=== PATIENT | female | born 1965 | race Caucasian/White ===

== ENCOUNTER → 2022-06-26 11:20 | Outpatient (BNVA) | payer OTHER, SELFPAY | PROVIDERS: PCP Internal Medicine; Visit Provider Surgery Vascular Surgery | DX: Z95.828 Presence of other vascular implants and grafts (principal) | CPT/HCPCS: 99212 ==

== ENCOUNTER 2022-07-09 10:57 | Outpatient (REF) | payer OTHER, SELFPAY ==
[2022-07-09 14:23] LABS: Blood Urea Nitrogen 21 mg/dL (9-16); Estimated Glomerular Filt Rate > 60
== END 2022-07-09 10:58 | disposition home or self-care (01) ==
LOC: HO.HMGCLDS 10:57
PROVIDERS: PCP Internal Medicine; Visit Provider Surgery Vascular Surgery
DX: Z95.828 Presence of other vascular implants and grafts (principal)
CPT/HCPCS: 36415; 82565; 84520

== ENCOUNTER 2022-07-10 08:20 | Outpatient (REF) | payer OTHER, SELFPAY ==
--- NOTE | ~2022-07-10 | CT_ITS ---
EXAMINATION: CT ANGIOGRAM ABDOMEN AND PELVIS CLINICAL INFORMATION: Presence of vascular implant and grafts. COMPARISON: None TECHNIQUE: Multiple axial images were obtained through the abdomen and pelvis following the administration of 85 mL of Omnipaque 350 intravenous contrast. Images were reviewed on a dedicated 3-D workstation. This CT examination was performed using dose optimization techniques as appropriate, variously including the following: *Automated exposure control *Adjustment of mA and/or kV according to patient size (this includes techniques or standardized protocols for targeted exams where dose is matched to indication/reason for exam; i.e. extremities or head) *Use of iterative reconstruction technique Postprocessing including maximum intensity projections performed with contemporaneous radiologist supervision. DLP: 475 mGy-cm FINDINGS: VASCULAR: Aorta: The abdominal aorta has a smooth contour and is normal caliber. Celiac [place]: Widely patent. No plaque or narrowing. Superior Mesenteric Artery: Widely patent. No plaque or narrowing. Inferior Mesenteric Artery: Patent. Right Renal Artery: Single patent right renal artery. No plaque or narrowing. Left Renal Artery: Single patent left renal artery. No plaque or narrowing. Right Lower Extremity: The right common iliac artery, right internal iliac artery, right external iliac artery and right common femoral artery are widely patent. No plaque or narrowing. The right profunda femoral artery is patent. Left Lower Extremity: The left common iliac artery is patent without plaque or narrowing. The left internal iliac artery is patent. The enhancement is somewhat diminished. The left external iliac artery is patent without definite narrowing. There is no aneurysm. The left common femoral artery is patent. The left profunda femoral artery is patent. IVC: There is a vascular filter present which appears to be retrievable type. The tines appear evenly distributed. No surrounding hematoma. NON-VASCULAR: ABDOMEN/PELVIS: Liver, Gallbladder, and Biliary Tree: The liver contour is smooth. No suspicious focal lesion. Early phase examination. There is a lamellated 2.2 cm gallstone near the neck. No biliary dilation. Pancreas: Somewhat heterogeneous. No large mass. Spleen: Heterogeneous due to early phase enhancement. Adrenal Glands: Normal. Kidneys and Ureters: Irregular renal contours. No dilation of the urinary collecting system. No suspicious renal mass. The nephrograms are symmetric. Gastrointestinal Tract: The distal colon is decompressed and not well evaluated. There has been a bariatric procedure, likely a gastric sleeve procedure. There is a hiatal hernia. There are scattered areas of high attenuation within the small bowel lumen. Nonspecific. This could be ingested material but I cannot characterize these areas. No CT evidence of acute appendicitis. Abdominal Wall: Extensive calcifications in the gluteal soft tissues and amorphous stranding in the dorsal paraspinal subcutaneous tissues with scattered calcifications. No inguinal hernia demonstrated. Lymphovascular Structures and Fluid: No enlarged lymph nodes. No free intraperitoneal fluid. Bladder: The bladder is essentially empty. Habitus causes artifact limiting assessment. Pelvic Viscera: No suspicious mass. I suspect previous hysterectomy. Musculoskeletal: Limited assessment of the lumbosacral junction region. No suspicious focal lesion. Visualized Lower Chest: Scattered nonspecific lung base opacities. This could represent the sequelae from previous inflammatory process. Hiatal hernia. CT/CT angio abdomen pelvis IMPRESSION: No abdominal aortic aneurysm. Retrievable-type IVC filter appears intact. Cholelithiasis. Fleischner guidelines were followed.
[2022-07-10] MEDS: iohexoL 350 MG/ML 100 ML INFUS..BTL IV (09:13)
== END 2022-07-10 08:21 | disposition home or self-care (01) ==
LOC: HO.CT 08:20
PROVIDERS: PCP Internal Medicine; Visit Provider Surgery Vascular Surgery
DX: Z95.828 Presence of other vascular implants and grafts (principal)
CPT/HCPCS: 74174; Q9967

== ENCOUNTER 2022-11-07 10:36 | Outpatient (REF) | payer OTHER, SELFPAY ==
[2022-11-07 14:14] LABS: MANUAL DIFF FLAG NO
[2022-11-07 14:53] LABS: Basophils Absolute Auto 0.1 X10*3/uL (0.0-0.2); Basophils Percent Auto 1.1 % (0-2); Eosinophils Absolute Auto 0.2 X10*3/uL (0.0-0.4); Eosinophils Percent Auto 3.3 % (0-4); Hematocrit 38.8 % (37.0-47.0); Hemoglobin 12.4 g/dl (12.0-16.0); Imm Gran Abs Auto 0.02 X10*3/uL (0.00-0.03); Imm Gran Pct Auto 0.4 % (0.0-0.4); Lymphocytes Percent Auto 36.5 % (20-40); Mean Corpuscular Volume 93.7 fL (80.0-98.0); Mean Platelet Volume 9.9 fL (9.4-12.3); Monocytes Absolute Auto 0.4 X10*3/uL (0.1-1.2); Monocytes Percent Auto 7.2 % (2-11); Neutrophils Absolute Auto 2.8 x10*3/uL (2.0-8.3); Neutrophils Percent Auto 51.5 % (45-73); Platelet Count 263 X10*3/uL (160-400); Red Blood Count 4.14 X10*6/uL (4.20-5.50); Red Cell Distribution Width 13.2 % (11.0-16.0); White Blood Count 5.4 X10*3/uL (4.8-10.8)
[2022-11-07 15:37] LABS: Estimated Average Glucose 111 mg/dL; Hemoglobin A1c % 5.5 %
[2022-11-07 16:12] LABS: Folate 18.1 ng/mL (> or = 4.0); Vitamin B12 646 pg/mL (200-900)
[2022-11-11 15:13] LABS: Calcium (PTHI) 9.4 mg/dL (8.6-10.4); PTHI 69 pg/mL (16-77)
[2022-11-13 06:03] LABS: Zinc 81 mcg/dL (60-130)
[2022-11-13 12:49] LABS: Vitamin A 76 mcg/dL (38-98)
[2022-11-16 06:13] LABS: Vitamin B1 32 nmol/L (8-30)
== END 2022-11-07 10:37 | disposition home or self-care (01) ==
LOC: HO.LAB 10:36
PROVIDERS: PCP Internal Medicine; Visit Provider Physician Assistant Surgical
DX: E66.01 Morbid (severe) obesity due to excess calories (principal); Z98.84 Bariatric surgery status
CPT/HCPCS: 36415; 82607; 82746; 83036; 83970; 84425; 84590; 84630; 85025; 99212

== ENCOUNTER → 2022-11-13 14:45 | Outpatient (BNVA) | payer OTHER, SELFPAY | PROVIDERS: PCP Internal Medicine; Visit Provider Surgery Vascular Surgery | DX: Z86.711 Personal history of pulmonary embolism (principal); Z86.718 Personal history of other venous thrombosis and embolism; Z95.828 Presence of other vascular implants and grafts; Z79.01 Long term (current) use of anticoagulants | CPT/HCPCS: 99212 ==

== ENCOUNTER → 2022-11-26 17:00 | Outpatient (BNVA) | payer OTHER, SELFPAY | PROVIDERS: PCP Internal Medicine; Visit Provider Counselor Mental Health | DX: Z13.89 Encounter for screening for other disorder (principal) ==

== ENCOUNTER → 2022-12-05 12:58 | Outpatient (BNVA) | payer OTHER, SELFPAY | PROVIDERS: PCP Internal Medicine; Visit Provider Physician Assistant Surgical | DX: E66.01 Morbid (severe) obesity due to excess calories (principal); Z98.84 Bariatric surgery status; Z68.42 Body mass index [BMI] 45.0-49.9, adult | CPT/HCPCS: 99212 ==

== ENCOUNTER → 2022-12-17 17:00 | Outpatient (BNVA) | payer OTHER, SELFPAY | PROVIDERS: PCP Internal Medicine; Visit Provider Counselor Mental Health | DX: F43.21 Adjustment disorder with depressed mood (principal); Z98.84 Bariatric surgery status | CPT/HCPCS: 90853 ==

== ENCOUNTER → 2022-12-31 17:15 | Outpatient (BNVA) | payer OTHER, SELFPAY | PROVIDERS: PCP Internal Medicine; Visit Provider Counselor Mental Health | DX: F43.21 Adjustment disorder with depressed mood (principal); Z98.84 Bariatric surgery status | CPT/HCPCS: 90853 ==

== ENCOUNTER → 2023-01-07 17:00 | Outpatient (BNVA) | payer OTHER, SELFPAY | PROVIDERS: PCP Internal Medicine; Visit Provider Counselor Mental Health | DX: F43.21 Adjustment disorder with depressed mood (principal); Z98.84 Bariatric surgery status | CPT/HCPCS: 90853 ==

== ENCOUNTER → 2023-01-21 17:00 | Outpatient (BNVA) | payer OTHER, SELFPAY | PROVIDERS: PCP Internal Medicine; Visit Provider Counselor Mental Health | DX: F43.21 Adjustment disorder with depressed mood (principal); Z98.84 Bariatric surgery status | CPT/HCPCS: 90853 ==

== ENCOUNTER → 2023-02-04 17:00 | Outpatient (BNVA) | payer OTHER, SELFPAY | PROVIDERS: PCP Internal Medicine; Visit Provider Counselor Mental Health | DX: F43.21 Adjustment disorder with depressed mood (principal); Z98.84 Bariatric surgery status | CPT/HCPCS: 90853 ==

== ENCOUNTER → 2023-02-11 11:00 | Outpatient (BNVA) | payer OTHER, SELFPAY | PROVIDERS: PCP Internal Medicine; Visit Provider Physician Assistant Surgical | DX: E66.01 Morbid (severe) obesity due to excess calories (principal); Z98.84 Bariatric surgery status; Z68.42 Body mass index [BMI] 45.0-49.9, adult | CPT/HCPCS: 90853; 99212 ==

== ENCOUNTER → 2023-02-18 19:28 | Outpatient (BNVA) | payer OTHER, SELFPAY | PROVIDERS: PCP Internal Medicine; Visit Provider Counselor Mental Health | DX: F33.0 Major depressive disorder, recurrent, mild (principal); Z90.3 Acquired absence of stomach [part of]; Z98.84 Bariatric surgery status | CPT/HCPCS: 90853 ==

== ENCOUNTER → 2023-02-25 16:41 | Outpatient (BNVA) | payer OTHER, SELFPAY | PROVIDERS: PCP Internal Medicine; Visit Provider Counselor Mental Health | DX: F33.0 Major depressive disorder, recurrent, mild (principal); Z90.3 Acquired absence of stomach [part of] | CPT/HCPCS: 90853 ==

== ENCOUNTER 2023-02-26 08:59 | Outpatient (RCR) | payer OTHER, SELFPAY | END 2023-02-26 16:00 | disposition home or self-care (01) | LOC: HO.WCC 08:59 | PROVIDERS: PCP Internal Medicine; Visit Provider Surgery | DX: E11.42 Type 2 diabetes mellitus with diabetic polyneuropathy (principal); I10 Essential (primary) hypertension; Z92.3 Personal history of irradiation; Z86.19 Personal history of other infectious and parasitic diseases; Z87.891 Personal history of nicotine dependence | CPT/HCPCS: 99213 ==

== ENCOUNTER → 2023-03-02 13:02 | Outpatient (BNVA) | payer OTHER, SELFPAY | PROVIDERS: PCP Internal Medicine; Visit Provider Internal Medicine | DX: M86.9 Osteomyelitis, unspecified (principal) | CPT/HCPCS: 99212 ==

== ENCOUNTER → 2023-04-01 17:24 | Outpatient (BNVA) | payer OTHER, SELFPAY | PROVIDERS: PCP Internal Medicine; Visit Provider Counselor Mental Health ==

== ENCOUNTER 2023-05-12 10:35 | Outpatient (REF) | payer OTHER, SELFPAY ==
[2023-05-12 13:49] LABS: Alanine Aminotransferase 17 U/L (0-31); Albumin Level 4.2 g/dL (3.5-5.0); Alkaline Phosphatase 71 U/L (39-117); Anion Gap 16 (12-20); Aspartate Amino Transferase 20 U/L (5-31); Bilirubin Total 0.5 mg/dL (0.0-1.0); Blood Urea Nitrogen 24 mg/dL (9-16); C Reactive Protein 0.25 mg/dL (< or = 0.50); Calcium 9.5 mg/dL (8.4-10.2); Carbon Dioxide 24 mmol/L (22-29); Chloride 107 mmol/L (96-108); Estimated Glomerular Filt Rate > 60; Glucose Random 91 mg/dL (60-115); Iron 117 mcg/dL (30-160); Percent Iron Saturation 38 % (15-50); Potassium 4.5 mmol/L (3.3-5.1); Sodium 142 mmol/L (135-145); Total Iron Binding Capacity 304 mcg/dL (228-428); Total Protein 6.9 g/dL (6.5-8.0); Unsaturated Iron Binding 187 ug/dL
[2023-05-12 14:11] LABS: Ferritin 27 ng/mL (10-250); Insulin 15 uU/mL (2-29); TSH reflex Free T4 0.68 uIU/mL (0.32-4.0); Vitamin D 25-OH Total 51.7 ng/mL (>30)
== END 2023-05-12 10:36 | disposition home or self-care (01) ==
LOC: HO.LAB 10:35
PROVIDERS: PCP Internal Medicine; Visit Provider Physician Assistant Surgical
DX: E66.01 Morbid (severe) obesity due to excess calories (principal); K91.2 Postsurgical malabsorption, not elsewhere classified; Z90.3 Acquired absence of stomach [part of]
CPT/HCPCS: 36415; 80053; 82306; 82728; 83525; 83540; 84443; 86140; 99212

== ENCOUNTER 2023-09-15 11:45 | Outpatient (AMB) | payer OTHER, SELFPAY ==
--- NOTE | 2023-09-15 11:23 | A.OFFVIS_ITS ---
Intake Intake Visit Reasons: VIDEO PO LSG 09/14/19 Allergies dicloxacillin [DICLOXACILLIN] Allergy (Unknown, Verified 05/12/23 10:42) HIVES niacin [NIACIN] Allergy (Unknown, Verified 05/12/23 10:42) BODY FLUSHED UP , body flushed up Vjjdshu-MCE-SyK Reductase Inhibitor [[id number]-NRV REDUCTASE INHIBITOR] Allergy (Unknown, Verified 05/12/23 10:42) MUSCLE PAIN Sulfa (Sulfonamide Antibiotics) [SULFA (SULFONAMIDE ANTIBIOTICS)] Allergy (Unknown, Verified 05/12/23 10:42) HIVES statins Allergy (Unknown, Uncoded 06/26/22 11:26) Muscle pain sulfa drugs Allergy (Unknown, Uncoded 06/26/22 11:26) Hives Medication List - Last Reconciled 09/15/23 by TOYA Osman 5-hydroxytryptophan(5HTP)-B6-C 50-4-60 mg tabs PO acetaminophen (Tylenol Extra Strength) 1,000 mg PO Q6H PRN albuterol sulfate 90 mcg/actuation 0 mcg inhalation budesonide-formoterol 80-4.5 mcg/actuation (Symbicort) 1 puff inhalation calcium carbonate-vitamin D3 600 mg-10 mcg (400 unit) 1 tab PO BID [CELEBRATE-MULTIVITAMIN PO] citalopram 40 mg PO DAILY famotidine 20 mg PO BID gabapentin 0 mg PO [id number]-[id number] 750 mg-644 mg- 30 mg-1 mg 2 tabs PO DAILY loratadine 10 mg PO DAILY metoprolol tartrate 12.5 mg PO BID montelukast 10 mg PO DAILY tramadol 50 mg PO BID PRN warfarin 6 mg PO DAILY HPI HPI Comments History of Present Illness Details This?is a?57?yo female who is s/p LSG 09/14/2019. Presents for 4 year post op visit. Weight at last visit on 05/12/2023 was 290.8 pounds with a BMI of 46.9. Pt is unsure of weight today, says her scale broke.? No complaints of nausea, emesis, abdominal pain or reflux, or constipation. Pt reports a lot of stress recently, I've got a lot on my mind. Injections for knee pain have not been as effective, says she needs to lose 40 more pounds to be considered for knee surgery. Car is out of commission. Sees a counselor weekly. She again shares that she buys snacks for her grandkids and has trouble avoiding those when they are in her house, but trying to have smaller portions. Present meal plan includes: Breakfast- Slimfast shake plus a piece of fruit Lunch- 2 HB eggs, can add up to 6 oz veg or salad plus 1tbsp salad toppings Dinner- 4oz protein, up to 4oz veg or salad Snack- nonfat [place] yogurt- if plain can add seasonings and veg, if fruit flavored can have berries; or will have a protein bar at night taking MVI but has some nausea continues to use mom's meals but has trouble avoiding the carbs Exercise routine includes: has kids punching bag, had recommended Sit and Be Fit; has foot pain mows her lawn twice a week [facility] Medical History Adjustment disorder with depressed mood Diabetes mellitus Osteomyelitis Pulmonary embolus Surgical History History of sleeve gastrectomy Hx of shoulder surgery Social History Alcohol intake: never Patient Tobacco Use Status: Never used Tobacco Assessment & Plan Assessment & Plan (1) History of sleeve gastrectomy: [place] [place](s): Z90.3 - Acquired absence of stomach [part of] (2) Morbid obesity: Code(s): E66.01 - Morbid (severe) obesity due to excess calories Plan Encouraged pt to avoid carbs in her mom's meals , eat only protein and veg portion. Suggested unflavored Isopure powder as she wants to move away from artificial sweeteners. She wants to lose 30 lbs this month; I cautioned her against setting such a goal and advised to aim for 10-12lbs between now and her 58th birthday next month. We again talked about how eating high carb snack foods may feel good in the moment but half-way are contributing to her worsening knee pain and not helping her mental or physical health. RTC 3-4 months. Patient is morbidly obese and is not considered stable at this time. I spent a total of 30 minutes reviewing/updating records, examining the patient and counseling the patient on weight management as detailed above. Telehealth Telehealth Location of provider rendering services: practice address Location of patient: address on file Patient Identification confirmed using: Name, : Yes Telehealth method: video Patient verbally consented to treatment: Yes Patient verbally consented to billing insurance company: Yes Patient informed of any privacy concerns related to visit: Yes Coding Level of Care Code Tele Est Pt Level 4 (84081) Diagnoses History of sleeve gastrectomy Z90.3 Morbid obesity E66.01
--- OUTSIDE RECORDS SUMMARY | 2023-09-15 11:47 | XMS_ITS | Continuity of Care Document ---
Author Name Unknown Organization Wound Care Address [address] [place] [id number]- Care Team Providers Care Improvement Analyst Name Role Phone Beatrice DEAN ([facility]), Antonia Richardson Primary Care ysician Encounter [facility] [place] Date(s): 01/04/20 - 01/14/20 Wound [address] [place] [id number] [facility] Attending Physician: Fransisco Tamez Admitting Physician: Fransisco Tamez Referring Physician: AdmtrFransisco Allergies, Adverse Reactions, Alerts Substance Reaction Severity Status dicloxacillin 1, 2 D - Diarrhea Active niacin skin turns red Active sulfa drugs hives Active statins muscle pain Active 1Patient prevously thought was rash but says today ot. Tolerated PCN, Amoxicillin 2RASH Immunizations Given and Recorded Vaccine Date Status Refusal Reason influenza virus vaccine, inactivated 01/05/20 Give n influenza virus vaccine, inactivated 09/03/18 Brett rded influenza virus vaccine, inactivated 01/12/18 Give n influenza virus vaccine, inactivated 08/03/16 Brett rded Adacel (Tdap) (oldterm) 10/06/14 Recorded Pneumococcal Poly (PPV23) (oldterm) 04/09/12 Recor ded tetanus/diphtheria/pertussis, acel(Tdap) 05/17/08 Recorded Not Given Vaccine Date Status Refusal Reason influenza virus vaccine, inactivated 08/11/17 Not Given Parent Or Guardian Refuses Medications Accu-Chek Ana Maria Plus Test Strips See Instructions, # 2 box, Refills 2, Tot. Refills 2, Maintenance, test strip test 3times a day, 03/25/19 12:57:00 EDT, Compound Start Date: 03/25/19 Status: Ordered Accu-Chek Ana Maria Plus Test Strips See Instructions, # 1 box, Refills 2, Tot. Refills 2, Maintenance, Use to check glucose once daily Dx:E11.9, 03/17/19 12:47:58 EDT, Compound Start Date: 03/17/19 Status: Ordered albuterol CFC free 90 mcg/inh inhalation aerosol See Instructions, # 36 Gm, Refills 1 Tot. Refills 1, INHALE 1 PUFF EVERY 6 HOURS NEEDED FOR WHEEZING, [facility] Start Date: 05/11/19 Status: Ordered Celebrate vitamins 1, By Mouth, Daily in AM, Maintenance, 01/06/20 13:52:00 EST, Celebrate vitamins Start Date: 01/06/20 Status: Ordered citalopram 40 mg oral tablet 40 mg, 1, tablet, By Mouth, Daily, # 90 tablet, Refills 1, Tot. Refills 1, Maintenance, 06/10/19 17:40:00 EDT, Route to Pharmacy Electronically, [id number], [facility] Start Date: 06/10/19 Stop Date: 12/07/19 Status: Ordered Gauze Pad (4 X 4) See Instructions, # 20 each, Maintenance, to wrap R 2nd toe, 01/06/20 14:06:00 EST, Compound, 168, cm, 01/06/20 7:40:00 EST, Height, 137, kg, 01/04/20 17:58:00 EST, Dry Weight Start Date: 01/06/20 Status: Ordered Gauze Roll (4 ) See Instructions, # 20 each, Maintenance, to wrap R 2nd toe, 01/06/20 14:07:00 EST, Compound, 168, cm, 01/06/20 7:40:00 EST, Height, 137, kg, 01/04/20 17:58:00 EST, Dry Weight Start Date: 01/06/20 Status: Ordered Metoprolol Tartrate 25 mg oral tablet See Instructions, TAKE 0.5 TABLET BY MOUTH TWICE A DAY, # 30 tablet, 1 Refills, Soft Stop, 12/03/2019:27:00 EST, [facility], 167, cm, 09/16/19 10:05:00 EDT, Height, 158.3, kg, 08/18/19 10:50:00 EDT, Dry Weight Start Date: 12/03/19 Status: Ordered montelukast 10 mg oral tablet See Instructions, # 90 tablet, Refills 1 Tot. Refills 1, TAKE 1 TABLET EVERY DAY, [facility] Start Date: 06/16/19 Status: Ordered omeprazole 20 mg oral delayed release tablet 1 tablet = 20 mg, By Mouth, Daily, # 90 tablet, 5 Refills, Maintenance, 06/10/19 17:40:00 EDT, EC Tablet Start Date: 06/10/19 Status: Ordered Symbicort 80mcg/4.5mcg Inhaler See Instructions, # 3 Unknown, INHALE 2 PUFFS TWICE DAILY, [facility] Start Date: 07/14/19 Status: Ordered Tape (1 -Paper) See Instructions, # 1 each, Maintenance, to wrap R 2nd toe, 01/06/20 14:07:00 EST, Compound, 168, cm, 01/06/20 7:40:00 EST, Height, 137, kg, 01/04/20 17:58:00 EST, Dry Weight Start Date: 01/06/20 Status: Ordered traMADol 50 mg oral tablet 1 tablet = 50 mg, By Mouth, 3 times a day, 0 Refills, Maintenance, 01/04/20 18:24:00 EST Start Date: 01/04/20 Status: Ordered warfarin 6 mg oral tablet See Instructions, TAKE 1 TABLET EVERY DAY, # 90 tablet, 6 Refills, Soft Stop, 06/10/19 17:40:00 EDT Start Date: 06/10/19 Status: Ordered Problem List Condition Effective Dates Status Health Status Inform ant Arthritis(Confirmed) Active Asthma(Confirmed) Active Depression(Confirmed) Active Thickened endometrium(Confirmed) Active Limitation due to disability(Confirmed) 1 Active GERD (gastroesophageal reflu x disease)(Confirmed) Active GERD (gastroesophageal reflu x disease)(Confirmed) Active Anticoagulated on warfarin(Confirmed) Active H/O sciatica(Confirmed) Active History of surgery(Confirmed) 2 Active Hyperlipidemia(Confirmed) Active Hypertension(Confirmed) Active Chronic knee pain(Confirmed) Active Lower back pain(Confirmed) Active Endometrial cancer, grade I(Confirmed) Active Morbid obesity with BMI of 6 0.0-69.9, adult(Confirmed) Active BMI 60.0-69.9, adult(Confirmed) Active Neck pain(Confirmed) Active LETHA on CPAP(Confirmed) Active Recurrent pulmonary embolism(Confirmed) Active Shoulder pain(Confirmed) Active 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 PROCEDURE: Total laparoscopic hysterectomy, bilateral salpingo-oophorectomy, left pelvic lymph nodedissection via da Masood. Cystoscopy FINDINGS: A 8-week uterus, grossly normal adnexa, grossly normal pelvic lymph nodes. Normal bladderarchitecture, bilateral ureteral jets. SURGEON: Ching Melgoza M.D. Social History Social History Type Response Smoking Status Former smoker; Tobac co user in household: No; Stopped at age: 41; entered on: 03/25/18 Sex
--- OUTSIDE RECORDS SUMMARY | 2023-09-15 11:47 | XMS_ITS | Continuity of Care Document ---
Author Name Unknown Organization [facility] As [address] [place] [address]- Care Team Providers Care Fitter'S Assistant Name Role Phone Beatrice DEAN ([facility] [place]), Antonia Richardson Primary Care Ph ysician [place] [facility] [place]): [place] - 11/02/[address] [place] [address]- Attending Physician: AdmFransisco miles Admitting Physician: AdmtrFransisco Referring Physician: Admtr, Ar8 Allergies, Adverse Reactions, Alerts Substance Reaction Severity Status dicloxacillin 1, 2 D - Diarrhea Active niacin skin turns red Active sulfa drugs hives Active statins muscle pain Active 1Patient prevously thought was rash but says today ot. Tolerated PCN, Amoxicillin 2RASH Immunizations Given and Recorded Vaccine Date Status Refusal Reason SARS-CoV-2 (COVID-19) mRNA-1273 vaccine 03/28/22 G iven SARS-CoV-2 (COVID-19) mRNA-1273 vaccine 05/11/21 R ecorded SARS-CoV-2 (COVID-19) mRNA-1273 vaccine 04/13/21 R ecorded influenza virus vaccine, inactivated 01/05/20 Give n influenza virus vaccine, inactivated 09/03/18 Brett rded influenza virus vaccine, inactivated 01/12/18 Give n influenza virus vaccine, inactivated 08/03/16 Brett rded influenza virus vaccine, inactivated 07/14/16 Brett rded influenza virus vaccine, inactivated 11/10/13 Brett rded influenza virus vaccine, inactivated 12/09/12 Brett rded Adacel (Tdap) (oldterm) 10/06/14 Recorded Pneumococcal Poly (PPV23) (oldterm) 04/09/12 Recor ded tetanus/diphtheria/pertussis, acel(Tdap) 05/17/08 Recorded Not Given Vaccine Date Status Refusal Reason influenza virus vaccine, inactivated 08/11/17 Not Given Parent Or Guardian Refuses Medications 5-Hydroxytryptophan = 200 mg, By Mouth, 2 times a day, 0 Refills, Maintenance, 08/26/22 11:41:00 EDT, Partial fill uponpatient request if the prescription is for a schedule II opioid drug. Start Date: 08/26/22 Status: Ordered albuterol CFC free 90 mcg/inh inhalation aerosol 1, puffs, Inhalation, Every 6 hours, PRN, OV 06-25-22, # 8 Gm, Refills 3, Tot. Refills 3, Soft Stop,05/06/22 9:49:00 EDT, Route to Pharmacy Electronically, [id number], [facility]/pharmacy #1230, 169, cm, 04/10/22 14:11:00 EDT, Giles... Start Date: 05/06/22 Stop Date: 09/03/22 Status: Ordered calcium-vitamin D 600 mg-400 intl units oral tablet 1 tablet, By Mouth, 2 times a day, # 180 tablet, 1 Refills, [facility] STORE 41250, 90, TAKE 1 TABLET BY MOUTH TWICE DAILY, 168, cm, 01/17/22 8:53:00 EST, Height, 135, kg, 09/16/21 15:58:00 EDT, Dry Weight Start Date: 01/23/22 Status: Ordered Celebrate vitamins 1, By Mouth, Daily, Maintenance, afternoon, 01/06/20 13:52:00 EST, Celebrate vitamins Start Date: 01/06/20 Status: Ordered Chondroitin-Glucosamine 1 capsule, By Mouth, Daily, 0 Refills, Maintenance, 08/26/22 11:14:00 EDT, Partial fill upon patient request if the prescription is for a schedule II opioid drug. Start Date: 08/26/22 Status: Ordered citalopram 40 mg oral tablet 40 mg, 1, tablet, By Mouth, Daily, # 90 tablet, Refills 2, Tot. Refills 2, Maintenance, 07/23/22 13:29:00 EDT, Route to Pharmacy Electronically, [facility]/pharmacy #0315, 169, cm, 04/10/22 14:11:00 EDT, Height, 129, kg, 02/21/22 9:37:00 EDT, Dry Weight Start Date: 07/23/22 Stop Date: 04/19/23 Status: Ordered Diabetic Shoes Diabetic Shoes, See Instructions, # 1 pair, Refills 0, Tot. Refills 0, Maintenance, Use for footwear Diabetic shoes and inserts DxE11.9, 07/19/19 13:28:40 EDT, Compound Start Date: 07/19/19 Status: Ordered famotidine 20 mg oral tablet 1, tablet, By Mouth, 2 times a day, # 180 tablet, Refills 0, Tot. Refills 0, 10/27/22 12:15:00 EST,Route to Pharmacy Electronically, [facility]/pharmacy #1230, 167.64, cm, 10/06/22 9:14:00 EST, Height, 134.2, kg, 10/06/22 9:14:00 EST, Dry Weight Start Date: 10/27/22 Status: Ordered Freestyle Lite Lancets See Instructions, # 50 each, Refills 0, Tot. Refills 0, Maintenance, DX: E11.49 to test blood sugaronce a day, 05/27/21 8:04:00 EDT, Supply, 167.64, cm, 04/23/21 9:50:00 EDT, Height, 134, kg, 02/25/21 7:02:00 EDT, Dry Weight Start Date: 05/27/21 Status: Ordered Freestyle Lite Monitor See Instructions, # 1 each, Refills 0, Tot. Refills 0, Maintenance, DX: E11.49 to test one a day, 05/27/21 8:04:00 EDT, Supply, 167.64, cm, 04/23/21 9:50:00 EDT, Height, 134, kg, 02/25/21 7:02:00 EDT, Dry Weight Start Date: 05/27/21 Status: Ordered FREESTYLE LITE TEST STRIP FREESTYLE LITE TEST STRIP, See Instructions, # 50 Unknown, 3 Refills, USE DAILY, 168, cm, 09/16/21 15:58:00 EDT, Height, 135, kg, 09/16/21 15:58:00 EDT, Dry Weight Start Date: 11/14/21 Status: Ordered Freestyle Test Strips See Instructions, # 50 each, Refills 3, Tot. Refills 3, Maintenance, DX: E11.49 to test blood sugaronce a day, 05/24/21 16:44:00 EDT, Supply, 167.64, cm, 04/23/21 9:50:00 EDT, Height, 134, kg, 02/25/21 7:02:00 EDT, Dry Weight Start Date: 05/24/21 Status: Ordered gabapentin 300 mg oral capsule See Instructions, TAKE 1 CAP IN THE AM, 1 CAP AT NOON AND 3 CAPS AT BEDTIME, # 450 capsule, Refills0, Tot. Refills 0, 10/28/22 16:35:00 EST, Instructions Replace Required Details, Route to Pharmacy Electronically, [facility]/pharmacy #1230, 167.64, cm, 0... Start Date: 10/28/22 Status: Ordered loratadine 10 mg oral capsule 1 capsule = 10 mg, By Mouth, Daily, # 30 capsule, 0 Refills, Maintenance, 06/04/17 8:06:21, Capsule Start Date: 06/04/17 Stop Date: 07/04/17 Status: Ordered Metoprolol Tartrate 25 mg oral tablet 0.5 tablet, By Mouth, 2 times a day, # 90 tablet, 1 Refills, Maintenance, 10/07/22 14:35:00 EST, [facility] STORE 20582, 167.64, cm, 10/06/22 9:14:00 EST, Height, 134.2, kg, 10/06/22 9:14:00 EST, Dry Weight Start Date: 10/07/22 Status: Ordered montelukast 10 mg oral tablet 1, tablet, By Mouth, Daily, # 90 tablet, Refills 1, Maintenance, 07/25/22 21:44:00 EDT, Route to Pharmacy Electronically, [facility] STORE 69978, 169, cm, 04/10/22 14:11:00 EDT, Height, 129, kg, 02/21/22 9:37:00 EDT, Dry Weight Start Date: 07/25/22 Status: Ordered One 4 pronged Cane One 4 pronged Cane, See Instructions, # 1 each, Refills 0, Tot. Refills 0, Maintenance, [facility] 168CM Wt 211.5 KG. DX Z91.81, 08/01/20 10:28:00 EDT, Supply Start Date: 08/01/20 Status: Ordered Symbicort 80mcg/4.5mcg Inhaler See Instructions, INHALE 1 PUFF 1- 2 TIMES A DAY, # 10.2 each, Refills 5, Maintenance, 08/08/22 12:57:00 EDT, Instructions Replace Required Details, Route to Pharmacy Electronically, [id number], [facility], 168, cm, ... Start Date: 08/08/22 Status: Ordered traMADol 50 mg oral tablet 1 tablet = 50 mg, By Mouth, 3 times a day, PRN Pain , Moderate, 0 Refills, Maintenance, 01/04/20 18:24:00 EST Start Date: 01/04/20 Status: Ordered Tylenol Extra Strength 500 mg oral tablet 2, By Mouth, 3 times a day, PRN Pain , Mild, # 24 tablet, 0 Refills, Maintenance, 09/19/20 9:52:00 EDT, Tablet Start Date: 09/19/20 Status: Ordered warfarin 6 mg oral tablet See Instructions, TAKE 1 TABLET EVERY DAY OR DIRECTED BY ANTICOAGULATION NURSE, # 90 tablet, 6 Refills, Soft Stop, 06/11/22 9:38:00 EDT, [facility]/pharmacy #1230, 169, cm, 04/10/22 14:11:00 EDT, Height,129, kg, 02/21/22 9:37:00 EDT, Dry Weight Start Date: 06/11/22 Status: Ordered Problem List Condition Confirmation Course Effective Dates Status H ealth Status Informant Arthritis Confirmed Active Asthma Confirmed Active Symptomatic cholelithiasis Confirmed Active Morbid obesity with BMI of 45.0-49.9, adult Confirmed Active Depression Confirmed Active Thickened endometrium Confirmed Active Limitation due to disability 1 Confirmed Active GERD (gastroesophageal reflux disease) Confirmed Active GERD (gastroesophageal reflux disease) Confirmed Active Anticoagulated on warfarin Confirmed Active H/O sciatica Confirmed Active History of surgery 2 Confirmed Active Hammertoe Confirmed Active Hyperlipidemia Confirmed Active Hypertension Confirmed Active Chronic knee pain Confirmed Active Lower back pain Confirmed Active Endometrial cancer, grade I Confirmed Active Morbid obesity with BMI of 60.0-69.9, adult Confirmed Active BMI 60.0-69.9, adult Confirmed Active Morbid obesity Confirmed Active Neck pain Confirmed Active LETHA on CPAP Confirmed Active Osteopenia Confirmed Active Recurrent pulmonary embolism Confirmed Active Severe obesity Confirmed Active Shoulder pain Confirmed Active Persistent moderate somatic symptom disorder with predominant pain Confirmed Active Type 2 diabetes mellitus Confirmed Active 1initial Oswestry Disability Index: 64% ( crippled ) on 12/01/17; initial [place] Back Pain Scale: 68 on 12/01/17; initial [place]: 7 on 12/01/17 2PROCEDURE DATE: 08/10/2017 PREOPERATIVE [...] at age: 41; entered on: 03/25/18 Sex Patient Care team information Care Team Personnel Name: Beatrice DEAN ([facility] [place]), Antonia Richardson Position: [facility] Primary Care Physician Member Role: PCP Address: Address: [address] [place] [address] [place] [address]- Name: Natalya Phillip PharmD Position: [facility] Associate Professional Member Role: Lifetime Consulting Provider Address: Address: [address] [place] [address] [place] [address]- [place] Name: Smiley Blair Position: [facility] Outreach Member Role: Lifetime Consulting Physician Name: Marcin Peacock Position: [facility] Outreach Member Role: Lifetime Consulting Physician Name: Nancy Valenzuela RN Position: [facility] Onco RN Member Role: Primary Care Nurse Care Team Related Persons Name: EBONY DUENAS Address: home [address] [place] [address] Name: AMPARO DUENAS Address: home [address] [place] [id number] Name: EBONY WASHBURN Address: [address] [place] [id number]
--- OUTSIDE RECORDS SUMMARY | 2023-09-15 11:47 | XMS_ITS | Continuity of Care Document ---
Author Name Unknown Organization [facility] Address [address] [place] [address]- Care Team Providers Care Trouble Dispatcher Name Role Phone Beatrice DEAN ([facility] [place]), Antonia Richardson Primary Care Ph ysician Encounter [facility] Date(s): 01/15/22 - 02/14/22 [facility] [address] [address] [place] [address]- Allergies, Adverse Reactions, Alerts Substance Reaction Severity Status statins muscle pain Active dicloxacillin 1, 2 D - Diarrhea Active niacin skin turns red Active sulfa drugs hives Active 1Patient prevously thought was rash but says today ot. Tolerated PCN, Amoxicillin 2RASH Immunizations Given and Recorded Vaccine Date Status Refusal Reason SARS-CoV-2 (COVID-19) mRNA-1273 vaccine 05/11/21 R ecorded [...] Not Given Parent Or Guardian Refuses Medications 5-HTP 100 mg oral capsule 1 capsule = 100 mg, By Mouth, 3 times a day, 0 Refills, Maintenance, 09/19/20 9:56:00 EDT Start Date: 09/19/20 Status: Ordered Celebrate vitamins 1, By Mouth, Daily in AM, Maintenance, 01/06/20 13:52:00 EST, Celebrate vitamins Start Date: 01/06/20 Status: Ordered citalopram 40 mg oral tablet 40 mg, 1, tablet, By Mouth, Daily, # 90 tablet, Refills 2, Tot. Refills 2, Maintenance, 03/19/20 13:36:00 EDT, Route to Pharmacy Electronically, [facility]/pharmacy #0315, 167.64, cm, 02/01/20 15:51:00 EST,Height, 135.6, kg, 02/01/20 15:51:00 EST, Dry Weight Start Date: 03/19/20 Stop Date: 12/14/20 Status: Ordered Symbicort 80mcg/4.5mcg Inhaler See Instructions, 1 puff Inhalation 1- 2 times a day, Refills 0, Maintenance, 09/19/20 9:51:00 EDT,Instructions Replace Required Details Aerosol Start Date: 09/19/20 Status: Ordered traMADol 50 mg oral tablet 1 tablet = 50 mg, By Mouth, 3 times a day, PRN Pain , Moderate, 0 Refills, Maintenance, 01/04/20 18:24:00 EST Start Date: 01/04/20 Status: Ordered Tylenol Extra Strength 500 mg oral tablet 2, By Mouth, 3 times a day, PRN as needed for fever, # 24 tablet, 0 Refills, Maintenance, 09/19/20 9:52:00 EDT, Tablet Start Date: 09/19/20 Status: Ordered Problem List Condition Effective Dates Status Health Status Inform ant Arthritis(Confirmed) Active Asthma(Confirmed) Active Depression(Confirmed) Active Thickened endometrium(Confirmed) Active Limitation due to disability(Confirmed) 1 Active GERD (gastroesophageal reflu x disease)(Confirmed) Active GERD (gastroesophageal reflu x disease)(Confirmed) Active Anticoagulated on warfarin(Confirmed) Active H/O sciatica(Confirmed) Active History of surgery(Confirmed) 2 Active Hammertoe(Confirmed) Active Hyperlipidemia(Confirmed) Active Hypertension(Confirmed) Active Chronic knee pain(Confirmed) Active Lower back pain(Confirmed) Active Endometrial cancer, grade I(Confirmed) Active Morbid obesity with BMI of 6 0.0-69.9, adult(Confirmed) Active BMI 60.0-69.9, adult(Confirmed) Active Morbid obesity(Confirmed) Active Neck pain(Confirmed) Active LETHA on CPAP(Confirmed) Active Osteopenia(Confirmed) Active Recurrent pulmonary embolism(Confirmed) Active Severe obesity(Confirmed) Active Shoulder pain(Confirmed) Active 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
--- OUTSIDE RECORDS SUMMARY | 2023-09-15 11:47 | XMS_ITS | Continuity of Care Document ---
Author Name Unknown Organization [facility] Primary [facility] Address [address] [place] [address]- Care Team Providers Care Regulator Inspector Name Role Phone Beatrice DEAN ([facility]), Antonia Richardson Primary Care Ph ysician Encounter [facility] Date(s): 03/13/21 - 04/12/21 [facility] Care [address] [address] [place] [address]- Allergies, Adverse Reactions, Alerts Substance Reaction Severity [...] 9:56:00 EDT Start Date: 09/19/20 Status: Ordered Abilify 5 mg oral tablet 5 mg, 1, tablet, By Mouth, Daily, Refills 0, Maintenance, 07/16/20 20:48:00 EDT Start Date: 07/16/20 Status: Ordered albuterol CFC free 90 mcg/inh inhalation aerosol See Instructions, # 36 Gm, Refills 1 Tot. Refills 1, INHALE 1 PUFF EVERY 6 HOURS NEEDED FOR WHEEZING, [facility] Start Date: 05/11/19 Status: Ordered Celebrate vitamins 1, By Mouth, Daily in AM, Maintenance, 01/06/20 13:52:00 EST, Celebrate vitamins Start Date: 01/06/20 Status: Ordered citalopram 40 mg oral tablet 40 mg, 1, tablet, By Mouth, Daily, # 90 tablet, Refills 2, Tot. Refills 2, Maintenance, 03/19/20 13:36:00 EDT, Route to Pharmacy Electronically, [facility]/pharmacy #0315, 167.64, cm, 02/01/20 15:51:00 EST,Height, 135.6, [...] # 90 tablet, 6 Refills, Soft Stop, 03/19/20 13:23:00 EDT, 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
--- OUTSIDE RECORDS SUMMARY | 2023-09-15 11:47 | XMS_ITS | Continuity of Care Document ---
Author Name Unknown Organization [facility] Address [address] [place] [address]- Care Team Providers Care Information Technology Coordinator Name Role Phone Beatrice DEAN ([facility])Antonia Primary Care Ph ysician Encounter [facility] Date(s): 07/31/22 - 11/28/22 [facility] [address] [place] [address]- Attending Physician: Beatrice DEAN ([facility])Antonia Allergies, Adverse Reactions, Alerts Substance Reaction Severity [...] Stop,05/06/22 9:49:00 EDT, Route to Pharmacy Electronically, [id number], [facility]/pharmacy #1230, 169, cm, 04/10/22 14:11:00 EDT, Giles... Start Date: 05/06/22 Stop Date: 09/03/22 Status: Ordered calcium-vitamin D 600 mg-400 intl units oral tablet 1 tablet, By Mouth, 2 times a day, # 180 tablet, 1 Refills, [facility] STORE 85593, 90, TAKE 1 TABLET BY MOUTH TWICE [...] 07/23/22 13:29:00 EDT, Route to Pharmacy Electronically, [facility]/pharmacy #0315, 169, cm, 04/10/22 14:11:00 EDT, Height, [...] 0, 10/27/22 12:15:00 EST,Route to Pharmacy Electronically, [facility]/pharmacy #1230, 167.64, cm, 10/06/22 9:14:00 EST, Height, [...] Replace Required Details, Route to Pharmacy Electronically, [facility]/pharmacy #1230, 167.64, cm, 11/0... Start Date: 10/28/22 Status: Ordered loratadine 10 mg oral capsule 1 capsule = 10 mg, By Mouth, Daily, # 30 capsule, 0 Refills, Maintenance, 06/04/17 8:06:21, Capsule Start Date: 06/04/17 Stop Date: 07/04/17 Status: Ordered Metoprolol Tartrate 25 mg oral tablet 0.5 tablet, By Mouth, 2 times a day, # 90 tablet, 1 Refills, Maintenance, 10/07/22 14:35:00 EST, [facility] ST[facility] 34700, 167.64, cm, 10/06/22 9:14:00 EST, Height, 134.2, kg, 10/06/22 9:14:00 EST, Dry Weight Start Date: 10/07/22 Status: Ordered montelukast 10 mg oral tablet 1, tablet, By Mouth, Daily, # 90 tablet, Refills 1, Maintenance, 07/25/22 21:44:00 EDT, Route to Pharmacy Electronically, [facility] 67889, 169, cm, 04/10/22 14:11:00 EDT, Height, 129, [...] Replace Required Details, Route to Pharmacy Electronically, [id number], [facility], 168, cm, ... Start Date: 08/08/22 Status: [...] 6 Refills, Soft Stop, 06/11/22 9:38:00 EDT, [facility]/pharmacy #1230, 169, cm, 04/10/22 14:11:00 EDT, Height,129, [...] obesity Confirmed Active Neck pain Confirmed Active LETAH on CPAP Confirmed Active Osteopenia Confirmed Active Recurrent pulmonary embolism Confirmed Active Severe obesity Confirmed Active Shoulder pain Confirmed Active Persistent moderate somatic symptom disorder with predominant pain Confirmed Active Type 2 diabetes mellitus Confirmed Active 1initial Oswestry Disability Index: 64% ( crippled ) on 12/01/17; initial [place] Back Pain Scale: 68 on 12/01/17; initial [place]: 7 on 12/01/17 2PROCEDURE DATE: 08/10/2017 PREOPERATIVE [...] information Care Team Personnel Name: Beatrice DEAN ([facility]), Antonia Richardson Position: [facility] Primary Care Physician Member Role: PCP Address: Address: [address] [place] [address] [place] [address] Name: Natalya Phillip PharmD Position: [facility] Associate Professional Member Role: Lifetime Consulting Provider Address: Address: [address] [place] [address] [place] [address]- Name: Smiley Blair Position: [facility] Outreach Member Role: Lifetime Consulting Physician Name: Marcin Peacock Position: [facility] Outreach Member Role: Lifetime Consulting Physician Name: Bianca GRIFFITHS, Nancy Mireles Position: [facility] Onco RN Member Role: Primary Care Nurse Care Team Related Persons Name: EBONY DUENAS Address: home [address] [place] [address] Name: AMPARO DUENAS Address: home [address] [place] [address] Name: EBONY WASHBURN Address: home [address] [place] [address]
--- OUTSIDE RECORDS SUMMARY | 2023-09-15 11:47 | XMS_ITS | Continuity of Care Document ---
Author Name Unknown Organization [facility] Address [address] [place] [address] [address] [place] [address]- Care Team Providers Care Auto Salvage Worker Name Role Phone Beatrice DEAN ([facility] [place]), Antonia Richardson Primary Care Ph ysician Encounter [facility] Date(s): 09/08/22 - 10/08/[address] [place] [address]- Allergies, Adverse Reactions, Alerts Substance Reaction Severity [...] Stop,05/06/22 9:49:00 EDT, Route to Pharmacy Electronically, [id number], [facility]/pharmacy #1230, 169, cm, 04/10/22 14:11:00 EDT, Giles... Start Date: 05/06/22 Stop Date: 09/03/22 Status: Ordered calcium-vitamin D 600 mg-400 intl units oral tablet 1 tablet, By Mouth, 2 times a day, # 180 tablet, 1 Refills, [facility] STORE 32080, 90, TAKE 1 TABLET BY MOUTH TWICE [...] 13:29:00 EDT, Route to Pharmacy Electronically, [facility]/pharmacy #0315, 169, cm, 04/10/22 14:11:00 [...] a day, # 180 tablet, Refills 0, Route to Pharmacy Electronically, [facility] STORE 16807, 169, cm, 04/10/22 14:11:00 EDT, Height, 129, kg, 02/21/22 9:37:00 EDT, Dry Weight Start Date: 07/09/22 Status: Ordered Freestyle Lite Lancets See Instructions, [...] # 450 capsule, Refills0, Tot. Refills 0, 07/21/22 9:25:00 EDT, Instructions Replace Required Details, Route to Pharmacy Electronically, [facility]/pharmacy #0315, 169, cm, 04/10/22... Start Date: 07/21/22 Status: Ordered loratadine 10 mg oral capsule 1 capsule = 10 mg, By Mouth, Daily, # 30 capsule, 0 Refills, Maintenance, 06/04/17 8:06:21, Capsule Start Date: 06/04/17 Stop Date: 07/04/17 Status: Ordered Metoprolol Tartrate 25 mg oral tablet 0.5 tablet, By Mouth, 2 times a day, # 90 tablet, 1 Refills, Maintenance, 10/07/22 14:35:00 EST, [facility] STORE 45419, 167.64, cm, 10/06/22 9:14:00 EST, Height, 134.2, kg, 10/06/22 9:14:00 EST, Dry Weight Start Date: 10/07/22 Status: Ordered montelukast 10 mg oral tablet 1, tablet, By Mouth, Daily, # 90 tablet, Refills 1, Maintenance, 07/25/22 21:44:00 EDT, Route to Pharmacy Electronically, [facility] STORE 13615, 169, cm, 04/10/22 14:11:00 EDT, Height, 129, [...] Replace Required Details, Route to Pharmacy Electronically, [id number], [facility], 168, cm, 0... Start Date: 08/08/22 Status: Ordered traMADol 50 [...] Refills, Soft Stop, 06/11/22 9:38:00 EDT, [facility]/pharmacy #1230, 169, cm, 04/10/22 14:11:00 [...] Back Pain Scale: 68 on 12/01/17; initial [place]: 7 on 12/01/17 2PROCEDURE DATE: 08/10/2017 PREOPERATIVE [...] information Care Team Personnel Name: Beatrice DEAN ([facility]), Antonia Richardson Position: [facility] Primary Care Physician Member Role: PCP Address: Address: [address] [place] [address] [place] [address] Name: Natalya Phillip PharmD Position: [facility] Associate Professional Member Role: Lifetime Consulting Provider Address: Address: [address] [place] [address] [place] [address]- Name: Smiley Blair Position: [facility] Outreach Member Role: Lifetime Consulting Physician Name: Marcin Peacock Position: [facility] Outreach Member Role: Lifetime Consulting Physician Name: Bianca GRIFFITHS, Nancy Mireles Position: [facility] Onco RN Member Role: Primary Care Nurse Care Team Related Persons Name: EBONY DUENAS Address: home [address] [place], [place] Name: AMPARO DUENAS Address: home [address] [place], [place] Name: EBONY WASHBURN Address: home [address] [place], [place]
--- OUTSIDE RECORDS SUMMARY | 2023-09-15 11:47 | XMS_ITS | Continuity of Care Document ---
Author Name Unknown Organization [facility] Primary Car e [place] Address [address] [place] [address]- Care Team Providers Care Shank Sorter Name Role Phone Beatrice DEAN ([facility]), Antonia Richardson Primary Care Ph ysician Encounter [facility] Date(s): 02/14/21 - 03/16/21 [facility] Care [facility]into [address] [place] [address]- Allergies, Adverse Reactions, Alerts Substance Reaction Severity [...] PUFF EVERY 6 HOURS NEEDED FOR WHEEZING, [facility] Mail Delivery Start Date: 05/11/19 Status: Ordered Celebrate vitamins 1, By Mouth, Daily in AM, Maintenance, 01/06/20 13:52:00 EST, Celebrate vitamins Start Date: 01/06/20 Status: Ordered citalopram 40 mg oral tablet 40 mg, 1, tablet, By Mouth, Daily, # 90 tablet, Refills 2, Tot. Refills 2, Maintenance, 03/19/20 13:36:00 EDT, Route to Pharmacy Electronically, [facility]/pharmacy #[id number], 167.64, cm, 02/01/20 15:51:00 EST,Height, 135.6, [...] 6 Refills, Soft Stop, 03/19/20 13:23:00 EDT, [facility]/pharmacy #[id number], 167.64, cm, 02/01/20 15:51:00 EST, Height, [...] 64% ( crippled ) on 12/01/17; initial [place] Back Pain Scale: 68 on 12/01/17; initial [place]: 7 on 12/01/17 2PROCEDURE DATE: 08/10/2017 PREOPERATIVE [...]
--- OUTSIDE RECORDS SUMMARY | 2023-09-15 11:47 | XMS_ITS | Continuity of Care Document ---
Author Name Unknown Organization [facility] Primary [facility] e [facility] Address [address] [place] [address]- Care Team Providers Care Boat Hand Name Role Phone Beatrice DEAN ([facility]), Antonia Richardson Primary Care Ph ysician Encounter [facility] Date(s): 08/09/20 - 09/08/20 [facility] [address] [place] [address]- [facility] Attending Physician: Fransisco Tamez Admitting Physician: Fransisco Tamez Referring Physician: Fransisco Tamez Allergies, Adverse Reactions, Alerts Substance Reaction Severity [...] Not Given Parent Or Guardian Refuses Medications Abilify 5 mg oral tablet 5 mg, 1, tablet, By Mouth, Daily, Refills 0, Maintenance, 07/16/20 20:48:00 EDT Start Date: 07/16/20 Status: Ordered Accu-Chek Ana [place] Plus Test [...] PUFF EVERY 6 HOURS NEEDED FOR WHEEZING, [facility] Mail Delivery Start Date: 05/11/19 Status: Ordered Celebrate vitamins 1, By Mouth, Daily in AM, Maintenance, 01/06/20 13:52:00 EST, Celebrate vitamins Start Date: 01/06/20 Status: Ordered citalopram 40 mg oral tablet 40 mg, 1, tablet, By Mouth, Daily, # 90 tablet, Refills 2, Tot. Refills 2, Maintenance, 03/19/20 13:36:00 EDT, Route to Pharmacy Electronically, [facility]/pharmacy #[id number], 167.64, cm, 02/01/20 15:51:00 EST,Height, 135.6, kg, 02/01/20 15:51:00 EST, Dry Weight Start Date: 03/19/20 Stop Date: 12/14/20 Status: Ordered gabapentin 300 mg oral capsule 1,500 mg, 5, capsule, By Mouth, Daily, 1 CAP IN THE AM, 1 AT NOON, AND 3 CAPS AT BEDTIME.., # 450 capsule, Refills 1, Tot. Refills 1, Maintenance, 03/19/20 13:36:00 EDT, Route to Pharmacy Electronically, [facility]/pharmacy #[id number], 167.64, cm, 02/01/20 15:51:... Start Date: 03/19/20 Status: Ordered Gauze Pad (4 X 4) [...] Dry Weight Start Date: 01/06/20 Status: Ordered omeprazole 20 mg oral delayed release tablet 1 tablet = 20 mg, By Mouth, Daily, # 90 tablet, 3 Refills, Maintenance, 03/19/20 13:23:00 EDT, EC Tablet, [id number], 167.64, cm, 02/01/20 15:51:00 EST, Height, 135.6, kg, 02/01/20 15:51:00 EST, Dry Weight Start Date: 03/19/20 Status: Ordered Tape (1 -Paper) See Instructions, [...] 18:24:00 EST Start Date: 01/04/20 Status: Ordered tylenol esxtra strength tylenol esxtra strength, By Mouth, Refills 0, Maintenance, 03/22/20 16:11:00 EDT, Supply Start Date: 03/22/20 Status: Ordered warfarin 6 mg oral tablet See Instructions, TAKE 1 TABLET EVERY DAY OR DIRECTED BY ANTICOAGULATION NURSE, # 90 tablet, 6 Refills, Soft Stop, 03/19/20 13:23:00 EDT, [id number], 167.64, cm, 02/01/20 15:51:00 EST, Height, [...] 64% ( crippled ) on 12/01/17; initial [place] Back Pain Scale: 68 on 12/01/17; initial [place]: 7 on 12/01/17 2PROCEDURE DATE: 08/10/2017 PREOPERATIVE [...]
--- OUTSIDE RECORDS SUMMARY | 2023-09-15 11:47 | XMS_ITS | Continuity of Care Document ---
Author Name Unknown Organization [facility] Primary Car e [facility] Address [address] [place] [address]- Care Team Providers Care Service Unit Operator Oil Well Name Role Phone Beatrice DEAN ([facility]), Antonia Richardson Primary Care Ph ysician Encounter [facility] Date(s): 06/04/21 - 07/04/21 [facility] Care [facility] [address] [place] [address]- Allergies, Adverse Reactions, Alerts Substance Reaction Severity Status dicloxacillin 1, 2 D - Diarrhea Active niacin skin turns red Active sulfa drugs hives Active statins muscle pain Active 1Patient prevously thought was rash but says today ot. Tolerated PCN, Amoxicillin 2RASH Immunizations Given and Recorded Vaccine Date Status Refusal Reason SARS-CoV-2 (COVID-19) mRNA-2704 vaccine 04/13/21 R ecorded influenza virus vaccine, [...] 9:56:00 EDT Start Date: 09/19/20 Status: Ordered albuterol CFC free 90 mcg/inh inhalation aerosol See Instructions, # 36 Gm, Refills 1 Tot. Refills 1, INHALE 1 PUFF EVERY 6 HOURS NEEDED FOR WHEEZING, [facility] Mail Delivery Start Date: 05/11/19 Status: Ordered Celebrate vitamins 1, By Mouth, Daily in AM, Maintenance, 01/06/20 13:52:00 EST, Celebrate vitamins Start Date: 01/06/20 Status: Ordered citalopram 40 mg oral tablet 40 mg, 1, tablet, By Mouth, Daily, # 90 tablet, Refills 2, Tot. Refills 2, Maintenance, 03/19/20 13:36:00 EDT, Route to Pharmacy Electronically, [facility]/pharmacy #[id number], 167.64, cm, 02/01/20 15:51:00 EST,Height, 135.6, kg, 02/01/20 15:51:00 EST, Dry Weight Start Date: 03/19/20 Stop Date: 12/14/20 Status: Ordered gabapentin 300 mg oral capsule 1,500 mg, 5, capsule, By Mouth, Daily, 1 CAP IN THE AM, 1 AT NOON, AND 3 CAPS AT BEDTIME.., # 450 capsule, Refills 1, Tot. Refills 1, Maintenance, 05/15/21 8:27:00 EDT, Route to Pharmacy Electronically, [facility]/pharmacy #[id number], 167.64, cm, 04/23/21 9:50:00... Start Date: 05/15/21 Stop Date: 11/11/21 Status: Ordered Lovenox 40 mg/0.4 mL injectable solution = 40 mg, Subcutaneous Injection, Daily, # 5 each, 0 Refills, Maintenance, 06/28/21 16:55:00 EDT, [facility]/pharmacy #[id number], Partial fill upon patient request if the prescription is for a schedule II opioid drug., 167.64, cm, 04/23/21 9:50:00 EDT, Height, 134... Start Date: 06/28/21 Status: Ordered Symbicort 80mcg/4.5mcg Inhaler See Instructions, [...] 64% ( crippled ) on 12/01/17; initial [place] Back Pain Scale: 68 on 12/01/17; initial [place]: 7 on 12/01/17 2PROCEDURE DATE: 08/10/2017 PREOPERATIVE [...]
--- OUTSIDE RECORDS SUMMARY | 2023-09-15 11:47 | XMS_ITS | Continuity of Care Document ---
Author Name Unknown Organization [facility] [place] Address [address] [place] [address]- Care Team Providers Care Chemical Laboratory Chief Name Role Phone Beatrice DEAN ([facility])Antonia Primary Care Ph ysician Encounter [facility] Date(s): 07/16/20 - 10/05/[address] [address]- Attending Physician: Beatrice DEAN ([facility])Antonia Allergies, Adverse Reactions, Alerts Substance Reaction Severity Status sulfa drugs hives Active statins muscle pain Active dicloxacillin 1, 2 D - Diarrhea Active niacin skin turns red Active 1Patient prevously thought was rash but [...] PUFF EVERY 6 HOURS NEEDED FOR WHEEZING, [facility] Mail Delivery Start Date: 05/11/19 Status: Ordered Celebrate vitamins 1, By Mouth, Daily in AM, Maintenance, 01/06/20 13:52:00 EST, Celebrate vitamins Start Date: 01/06/20 Status: Ordered citalopram 40 mg oral tablet 40 mg, 1, tablet, By Mouth, Daily, # 90 tablet, Refills 2, Tot. Refills 2, Maintenance, 03/19/20 13:36:00 EDT, Route to Pharmacy Electronically, [facility]/pharmacy #[id number], 167.64, cm, 02/01/20 15:51:00 EST,Height, 135.6, kg, 02/01/20 15:51:00 EST, Dry Weight Start Date: 03/19/20 Stop Date: 12/14/20 Status: Ordered Fish Oil 1000 mg oral capsule 1 capsule = 1,000 mg, By Mouth, 2 times a day, 0 Refills, Maintenance, 09/19/20 9:56:00 EDT, Capsule Start Date: 09/19/20 Status: Ordered omeprazole 20 mg oral delayed release tablet 1 tablet = 20 mg, By Mouth, Daily, # 90 tablet, 3 Refills, Maintenance, 03/19/20 13:23:00 EDT, EC Tablet, [facility]/pharmacy #[id number], 167.64, cm, 02/01/20 15:51:00 EST, Height, 135.6, kg, 02/01/20 15:51:00 EST, Dry Weight Start Date: 03/19/20 Status: Ordered Symbicort 80mcg/4.5mcg Inhaler 2, puffs, Inhalation, 2 times a day, # 6.9 Gm, Refills 0, Maintenance, 09/19/20 9:51:00 EDT, Aerosol Start Date: 09/19/20 Status: Ordered traMADol [...] 64% ( crippled ) on 12/01/17; initial [place] Back Pain Scale: 68 on 12/01/17; initial [place]: 7 on 12/01/17 2PROCEDURE DATE: 08/10/2017 PREOPERATIVE [...]
--- OUTSIDE RECORDS SUMMARY | 2023-09-15 11:47 | XMS_ITS | Continuity of Care Document ---
Author Name Unknown Organization [facility] Primary Car e [facility] Address [address] [place] [address]- Care Team Providers Care Electrical Discharge Machine Operator Name Role Phone Beatrice DEAN ([facility]), Antonia Richardson Primary Care Ph ysician Encounter [facility] Date(s): 05/24/21 - 06/23/21 [facility] Care [facility] [address] [place] [address]- Allergies, Adverse Reactions, Alerts Substance Reaction Severity Status dicloxacillin 1, 2 D - Diarrhea Active niacin skin turns red Active sulfa drugs hives Active statins muscle pain Active 1Patient prevously thought was rash but says today ot. Tolerated PCN, Amoxicillin 2RASH Immunizations Given and Recorded Vaccine Date Status Refusal Reason SARS-CoV-2 (COVID-19) mRNA-2912 vaccine 04/13/21 R ecorded influenza virus vaccine, [...] PUFF EVERY 6 HOURS NEEDED FOR WHEEZING, [facility] Mail Delivery Start Date: 05/11/19 Status: Ordered Celebrate vitamins 1, By Mouth, Daily in AM, Maintenance, 01/06/20 13:52:00 EST, Celebrate vitamins Start Date: 01/06/20 Status: Ordered citalopram 40 mg oral tablet 40 mg, 1, tablet, By Mouth, Daily, # 90 tablet, Refills 2, Tot. Refills 2, Maintenance, 03/19/20 13:36:00 EDT, Route to Pharmacy Electronically, [facility]/pharmacy #[id number], 167.64, cm, 02/01/20 15:51:00 EST,Height, 135.6, kg, 02/01/20 15:51:00 EST, Dry Weight Start Date: 03/19/20 Stop Date: 12/14/20 Status: Ordered gabapentin 300 mg oral capsule 1,500 mg, 5, capsule, By Mouth, Daily, 1 CAP IN THE AM, 1 AT NOON, AND 3 CAPS AT BEDTIME.., # 450 capsule, Refills 1, Tot. Refills 1, Maintenance, 05/15/21 8:27:00 EDT, [id number] 167.64, cm, 04/23/21 9:50:00... Start Date: 05/15/21 Stop Date: 11/11/21 Status: Ordered Symbicort 80mcg/4.5mcg Inhaler See Instructions, [...] 64% ( crippled ) on 12/01/17; initial [place] Back Pain Scale: 68 on 12/01/17; initial [place]: 7 on 12/01/17 2PROCEDURE DATE: 08/10/2017 PREOPERATIVE [...]
--- OUTSIDE RECORDS SUMMARY | 2023-09-15 11:47 | XMS_ITS | Continuity of Care Document ---
Author Name Unknown Organization [facility] Address [address] [place] [address]- Care Team Providers Care Blender Snuff Name Role Phone Beatrice DEAN ([facility]), Antonia Richardson Primary Care Ph ysician Encounter [facility] Date(s): 09/08/22 - 10/08/22 [facility] [address] [place], [place] [address] Attending Physician: Admtr, Ar8 Admitting Physician: Admtr, Ar8 Referring Physician: Admtr, Ar8 Allergies, Adverse Reactions, [...] Stop,05/06/22 9:49:00 EDT, Route to Pharmacy Electronically, [id number], [facility]/pharmacy #[id number], 169, cm, 04/10/22 14:11:00 EDT, Heigh... Start Date: 05/06/22 Stop Date: 09/03/22 Status: Ordered calcium-vitamin D 600 mg-400 intl units oral tablet 1 tablet, By Mouth, 2 times a day, # 180 tablet, 1 Refills, [facility] STORE 73788, 90, TAKE 1 TABLET BY MOUTH TWICE [...] 13:29:00 EDT, Route to Pharmacy Electronically, [facility]/pharmacy #[id number], 169, cm, 04/10/22 14:11:00 EDT, Height, [...] tablet, Refills 0, Route to Pharmacy Electronically, [facility] STORE [id number], 169, cm, 04/10/22 14:11:00 EDT, Height, 129, [...] Required Details, Route to Pharmacy Electronically, [facility]/pharmacy #[id number], 169, cm, 04/10/22... Start Date: 07/21/22 Status: Ordered loratadine 10 mg oral capsule 1 capsule = 10 mg, By Mouth, Daily, # 30 capsule, 0 Refills, Maintenance, 06/04/17 8:06:21, Capsule Start Date: 06/04/17 Stop Date: 07/04/17 Status: Ordered Metoprolol Tartrate 25 mg oral tablet 0.5 tablet, By Mouth, 2 times a day, # 90 tablet, 1 Refills, Maintenance, 10/07/22 14:35:00 EST, [facility] STORE [address]109, 167.64, cm, 10/06/22 9:14:00 EST, Height, 134.2, kg, 10/06/22 9:14:00 EST, Dry Weight Start Date: 10/07/22 Status: Ordered montelukast 10 mg oral tablet 1, tablet, By Mouth, Daily, # 90 tablet, Refills 1, Maintenance, 07/25/22 21:44:00 EDT, Route to Pharmacy Electronically, [facility] STORE 13982, 169, cm, 04/10/22 14:11:00 EDT, Height, 129, [...] Replace Required Details, Route to Pharmacy Electronically, [id number], [facility], 168, cm, ... Start Date: 08/08/22 Status: [...] Refills, Soft Stop, 06/11/22 9:38:00 EDT, [facility]/pharmacy #1230, 169, cm, 04/10/22 14:11:00 EDT, Height,129, [...] 64% ( crippled ) on 12/01/17; initial [place] Back Pain Scale: 68 on 12/01/17; initial [place]: 7 on 12/01/17 2PROCEDURE DATE: 08/10/2017 PREOPERATIVE [...] information Care Team Personnel Name: Beatrice DEAN ([facility]), Antonia Richardson Position: [facility] Primary Care Physician Member Role: PCP Address: Address: [address] [place] [id number] Name: Natalya Phillip PharmD Position: [facility] Associate Professional Member Role: Lifetime Consulting Provider Address: Address: [address] [place] [address] [place] [address]- Name: Smiley Blair Position: [facility] Outreach Member Role: Lifetime Consulting Physician Name: Marcin Peacock Position: [facility] Outreach Member Role: Lifetime Consulting Physician Name: Nancy Valenzuela RN Position: [facility] Onco RN Member Role: Primary Care Nurse Care Team Related Persons Name: EBONY DUENAS Address: [address] [place] [address] Name: AMPARO DUENAS Address: [address] [place] [address] Name: EBONY WASHBURN Address: [address] [place] [address]
--- OUTSIDE RECORDS SUMMARY | 2023-09-15 11:47 | XMS_ITS | Continuity of Care Document ---
Author Name Unknown Organization [facility] [place] Address [address] [place] [address]- Care Team Providers Care Encyclopedia Research Worker Name Role Phone Beatrice DEAN ([facility])Antonia Primary Care Ph ysician Encounter [facility] Date(s): 03/11/22 - 05/08/[address] [address]- Attending Physician: Beatrice DEAN ([facility])Antonia Allergies, Adverse Reactions, Alerts Substance Reaction [...] 03/19/20 13:36:00 EDT, Route to Pharmacy Electronically, [facility]/pharmacy #[id number], 167.64, cm, 02/01/20 15:51:00 EST,Height, 135.6, kg, 02/01/20 15:51:00 EST, Dry Weight Start Date: 03/19/20 Stop Date: 12/14/20 Status: Ordered Glucosamine Chondroitin 3 capsule, By Mouth, 2 times a day, 0 Refills, Maintenance, 02/21/22 9:32:00 EDT, Partial fill uponpatient request if the prescription is for a schedule II opioid drug. Start Date: 02/21/22 Status: Ordered traMADol 50 mg oral tablet [...] Back Pain Scale: 68 on 12/01/17; initial [place]: 7 on 12/01/17 2PROCEDURE DATE: 08/10/2017 PREOPERATIVE [...]
--- OUTSIDE RECORDS SUMMARY | 2023-09-15 11:47 | XMS_ITS | Continuity of Care Document ---
Author Name Unknown Organization [facility] Primary [facility] e [facility]into Address [address] [place] [address]- Care Team Providers Care Fuse Cutter Name Role Phone Beatrice DEAN ([facility]), Antonia Richardson Primary Care Ph ysician Encounter [facility] Date(s): 06/27/21 - 07/27/21 [facility] Care [facility] [address] [place], [place] [address] Allergies, Adverse Reactions, Alerts Substance Reaction Severity [...] PUFF EVERY 6 HOURS NEEDED FOR WHEEZING, [facility] Mail Delivery Start Date: 05/11/19 Status: Ordered Celebrate vitamins 1, By Mouth, Daily in AM, Maintenance, 01/06/20 13:52:00 EST, Celebrate vitamins Start Date: 01/06/20 Status: Ordered citalopram 40 mg oral tablet 40 mg, 1, tablet, By Mouth, Daily, # 90 tablet, Refills 2, Tot. Refills 2, Maintenance, 03/19/20 13:36:00 EDT, Route to Pharmacy Electronically, [facility]/pharmacy #[id number], 167.64, cm, 02/01/20 15:51:00 EST,Height, 135.6, kg, 02/01/20 15:51:00 EST, Dry Weight Start Date: 03/19/20 Stop Date: 12/14/20 Status: Ordered gabapentin 300 mg oral capsule 1,500 mg, 5, capsule, By Mouth, Daily, 1 CAP IN THE AM, 1 AT NOON, AND 3 CAPS AT BEDTIME.., # 450 capsule, Refills 1, Tot. Refills 1, Maintenance, 05/15/21 8:27:00 EDT, [id number] 167.64, cm, 04/23/21 9:50:00... Start Date: [...] Back Pain Scale: 68 on 12/01/17; initial [place]: 7 on 12/01/17 2PROCEDURE DATE: 08/10/2017 PREOPERATIVE [...]
--- OUTSIDE RECORDS SUMMARY | 2023-09-15 11:47 | XMS_ITS | Continuity of Care Document ---
Author Name Unknown Organization [facility] Address [address] [place] [address]- Care Team Providers Care Aligner Name Role Phone Beatrice DEAN ([facility]), Antonia Richardson Primary Care Ph ysician Encounter [facility] Date(s): 01/01/20 - 01/01/[address] [address] States Encounter Diagnosis Diabetic ulcer of toe(Final) - 01/01/20 osteomyelitis of right 2nd toe(Final) - 01/01/20 Discharge Disposition: A-D/C AMA Attending Physician: Jono Jenkins MD Admitting Physician: Jono Jenkins MD Referring Physician: Not on Staff, Referring MD Allergies, Adverse Reactions, Alerts Substance Reaction Severity Status dicloxacillin 1, 2 D - Diarrhea Active niacin skin turns red Active sulfa drugs hives Active statins muscle pain Active 1Patient prevously thought was rash but says today ot. Tolerated PCN, Amoxicillin 2RASH Immunizations Given and Recorded Vaccine Date Status Refusal Reason influenza virus vaccine, inactivated 09/03/18 Brett rded [...] PUFF EVERY 6 HOURS NEEDED FOR WHEEZING, [facility] Start Date: 05/11/19 Status: Ordered citalopram 40 mg oral tablet 40 mg, 1, tablet, By Mouth, Daily, # 90 tablet, Refills 1, Tot. Refills 1, Maintenance, 06/10/19 17:40:00 EDT, Route to Pharmacy Electronically, [id number], [facility] Start Date: 06/10/19 Stop Date: 12/07/19 Status: Ordered clindamycin 300 mg oral capsule 1 capsule = 300 mg, By Mouth, Every 6 hours, for 14 days, # 56 capsule, 0 Refills, Acute 01/15/20 21:28:00 EST, 01/01/20 21:28:00 EST, Capsule, [facility]/pharmacy #[id number], 168, cm, 01/01/20 15:15:00 EST, Height, 135.4, kg, 01/01/20 15:15:00 EST, Dry Weight Start Date: 01/01/20 Stop Date: 01/15/20 Status: Ordered lisinopril 10 mg oral tablet See Instructions, TAKE 1 TABLET BY MOUTH EVERY DAY, # 90 tablet, Refills 1, Tot. Refills 1, Soft Stop, 06/10/19 17:40:00 EDT, Instructions Replace Required Details, Route to Pharmacy Electronically, [id number], [facility]... Start Date: 06/10/19 Status: Ordered metFORMIN 500 mg oral tablet = 500 mg, By Mouth, Daily, # 90 tablet, 1 Refills, Maintenance, 06/10/19 17:40:00 EDT, Tablet Start Date: 06/10/19 Stop Date: 12/07/19 Status: Ordered Metoprolol Tartrate 25 mg oral tablet See Instructions, TAKE 0.5 TABLET BY MOUTH TWICE A DAY, # 30 tablet, 1 Refills, Soft Stop, 12/03/2019:27:00 EST, [facility], 167, cm, 09/16/19 10:05:00 EDT, Height, 158.3, kg, 08/18/19 10:50:00 EDT, Dry Weight Start Date: 12/03/19 Status: Ordered montelukast 10 mg oral tablet See Instructions, # 90 tablet, Refills 1 Tot. Refills 1, TAKE 1 TABLET EVERY DAY, [facility] Start Date: 06/16/19 Status: Ordered omeprazole 20 mg oral delayed release tablet 1 tablet = 20 mg, By Mouth, Daily, # 90 tablet, 5 Refills, Maintenance, 06/10/19 17:40:00 EDT, EC Tablet Start Date: 06/10/19 Status: Ordered orphenadrine 100 mg oral tablet, extended release 100 mg, 1, tablet, By Mouth, Daily, # 90 tablet, Refills 1, Tot. Refills 1, Maintenance, 06/10/19 17:32:00 EDT, Route to Pharmacy Electronically, [id number], [facility] Start Date: 06/10/19 Status: Ordered Symbicort 80mcg/4.5mcg Inhaler See Instructions, # 3 Unknown, INHALE 2 PUFFS TWICE DAILY, [facility] Start Date: 07/14/19 Status: Ordered warfarin 6 mg oral tablet [...] 64% ( crippled ) on 12/01/17; initial [place] Back Pain Scale: 68 on 12/01/17; initial [place]: 7 on 12/01/17 2PROCEDURE DATE: 08/10/2017 PREOPERATIVE [...] bilateral ureteral jets. SURGEON: Ching Melgoza M.D. Results Radiology Reports * Exam Date Time Procedure Performing Provider Status 01/01/20 7:49 PM Toe 2nd Right Foot Selma Garcia; Auth (Verified) Notes: (Toe 2nd Right Foot) Reason For Exam: Erythema RESULT: Toe 2nd Right Foot PROCEDURE: Toe 2nd Right Foot CLINICAL INDICATION: 54 years old Female with Erythema; Clinical Question(s): Osteomyelitis; Hx of Present Illness: seen by ec teacher 3 wk ago and dx w infected R toe. Put on clindamycin. [place] swelling and painful, placed on levofloxacin for 3 days now. COMPARISONS: None. FINDINGS: Bones and joints: No acute fracture or dislocation. There is a deformity at the base of the fifth metatarsal, likely sequela of prior trauma. Evaluation of the distal second through fifth digits is limited due to flexion deformities. There is mild cortical erosion in the medial aspect of the seconddigit distal phalanx, which may represent osteomyelitis. There is moderate hallux valgus deformity w ith associated degenerative changes in the first metatarsophalangeal joint. Soft Tissues: Soft tissue swelling about the second digit. No evidence of radiopaque foreign body. IMPRESSION: 1. Soft tissue swelling about the second digit and mild cortical erosion in the medial aspect of the distal phalanx, highly concerning for cellulitis and osteomyelitis. 2. Moderate hallux valgus deformity with associated degenerative changes. Thank you for allowing me to participate in the care of this patient. WSN: [id number] Dictated By: Peter Churchill MD Dictated Date/Time: 01/01/20 7:54 pm Reviewed By: Peter Churchill MD Signed By: Peter Churchill MD Signed Date/Time: 01/01/20 7:54 pm Transcribed By: MARYJO Transcribed Date/Time: 01/01/20 7:51 pm Vital Signs Most recent to oldest [Reference Range]: 1 2 3 Height 168 cm (01/01/20 11:24 PM) 168 cm (01/01/20 10:16 PM) 168 cm (01/01/20 3:15 PM) Weight 135.4 kg (01/01/20 10:16 PM) 135.4 kg (01/01/20 3:15 PM) Oxygen Saturation [94-100 %] 99 % (01/01/20 11:24 PM) 98 % (01/01/20 10:16 PM) 100 % (01/01/20 3:15 PM) Pulse Rate [55-90 bpm] 58 bpm (01/01/20 11:24 PM) 77 bpm (01/01/20 10:16 PM) 96 bpm *H* (01/01/20 3:15 PM) Body Mass Index [18.5-24.99] 47.97 *>HHI* (01/01/20 10:16 PM) Blood Pressure [90-138/55-84 mm Hg] 101/58mm Hg (01/01/20 11:24 PM) 109/69mm Hg (01/01/20 10:16 PM) 96/70mm Hg (01/01/20 3:15 PM) Respiratory Rate [16-30 br/min] 17 br/min (01/01/20 11:24 PM) 18 br/min (01/01/20 10:16 PM) 17 br/min (01/01/20 3:15 PM) Temperature [96.8-100.4 DegF] 98.3 DegF (01/01/20 11:24 PM) 98.4 DegF (01/01/20 10:16 PM) 97.7 DegF (01/01/20 3:15 PM) Mode of Delivery (Oxygen) Room air (01/01/20 11:24 PM) Blood pressure sites Arm, right (01/01/20 11:24 PM) Arm, left (01/01/20 10:16 PM) Temperature Route Oral (01/01/20 11:24 PM) Oral (01/01/20 3:15 PM) Dry Weight 135.4 kg (01/01/20 10:16 PM) 135.4 kg (01/01/20 3:15 PM) Dry Weight Obtained Via Standing scale (01/01/20 3:15 PM) Social History Social History Type Response Smoking Status Former smoker; Tobac co user in household: No; Stopped at age: 41; entered on: 03/25/18 Sex
--- OUTSIDE RECORDS SUMMARY | 2023-09-15 11:48 | XMS_ITS | Continuity of Care Document ---
Author Name Unknown Organization [facility] Address [address] [place] [address]- Care Team Providers Care Piano Stringer Name Role Phone Beatrice DEAN ([facility] [place]), Antonia Richardson Primary Care Ph ysician Encounter [facility] Date(s): 01/26/23 - 02/25/23 [facility] [address] [place] [address]- Allergies, Adverse Reactions, Alerts Substance Reaction Severity [...] Stop,05/06/22 9:49:00 EDT, Route to Pharmacy Electronically, [id number], [facility]/pharmacy #1230, 169, cm, 04/10/22 14:11:00 EDT, Hemikal... Start Date: 05/06/22 Stop Date: 09/03/22 Status: Ordered calcium-vitamin D 600 mg-400 intl units oral tablet 1 tablet, By Mouth, 2 times a day, # 180 tablet, 1 Refills, 02/04/23 8:58:00 EST, [facility]/pharmacy #1230, 1 tablet By Mouth 2 times a day, 167, cm, 01/31/23 8:30:00 EST, Height, 134, kg, 01/29/23 9:11:00EST, Dry Weight Start Date: 02/04/23 Status: Ordered Celebrate vitamins 1, By Mouth, [...] 07/23/22 13:29:00 EDT, Route to Pharmacy Electronically, [facility]/pharmacy #0315, 169, cm, 04/10/22 14:11:00 EDT, Height, 129, kg, 02/21/22 9:37:00 EDT, Dry Weight Start Date: 07/23/22 Stop Date: 04/19/23 Status: Ordered Diabetic shoes Diabetic shoes, See Instructions, # 1 each, Refills 0, Tot. Refills 0, Maintenance, Dx: E11.9 Diabetes Mellitus, 12/17/22 17:18:00 EST, Supply Start Date: 12/17/22 Status: Ordered Diabetic Shoes Diabetic Shoes, See Instructions, # 1 pair, Refills 0, Tot. Refills 0, Maintenance, Use for footwear Diabetic shoes and inserts DxE11.9, 07/19/19 13:28:40 EDT, Compound Start Date: 07/19/19 Status: Ordered famotidine 20 mg oral tablet See Instructions, TAKE 1 TABLET BY MOUTH TWICE A DAY, # 180 tablet, Refills 0, Tot. Refills 0, Maintenance, 12/23/22 1:41:00 EST, Instructions Replace Required Details, Route to Pharmacy Electronically, [facility]/pharmacy #1230, 168, cm, 12/15/22 0:20:00 ES... Start Date: 12/23/22 Status: Ordered Freestyle Lite Lancets See Instructions, [...] # 450 capsule, Refills0, Tot. Refills 0, 01/22/23 16:48:00 EST, Instructions Replace Required Details, Route to Pharmacy Electronically, [facility]/pharmacy #1230, 168, cm, ... Start Date: 01/22/23 Status: Ordered loratadine 10 mg oral capsule 1 capsule = 10 mg, By Mouth, Daily, # 30 capsule, 0 Refills, Maintenance, 06/04/17 8:06:21, Capsule Start Date: 06/04/17 Stop Date: 07/04/17 Status: Ordered Metoprolol Tartrate 25 mg oral tablet 0.5 tablet, By Mouth, 2 times a day, # 90 tablet, 1 Refills, Maintenance, 10/07/22 14:35:00 EST, [facility], 167.64, cm, 10/06/22 9:14:00 EST, Height, 134.2, kg, 10/06/22 9:14:00 EST, Dry Weight Start Date: 10/07/22 Status: Ordered montelukast 10 mg oral tablet 1, tablet, By Mouth, Daily, # 90 tablet, Refills 1, Maintenance, 07/25/22 21:44:00 EDT, Route to Pharmacy Electronically, [facility], 169, cm, 04/10/22 14:11:00 EDT, Height, 129, [...] INHALE 1 PUFF 1- 2 TIMES A DAY BRAND NAME SYMBICORT, # 10.2 each, Refills 5, Tot.Refills 5, Maintenance, 01/12/23 17:58:00 EST, Instructions Replace Required Details, Route to Pharmacy Electronically, [id number]... Start Date: 01/12/23 Status: Ordered traMADol 50 mg oral tablet [...] EDT, Tablet Start Date: 09/19/20 Status: Ordered vancomycin 1.25 g/150 mL-NaCl 0.9% intravenous solution = 1.25 Gm, IV Infusion, Every 12 hours, for 6 week(s), # 84 each, 0 Refills, Acute 03/14/23 9:45:00EDT, 01/31/23 9:45:00 EST, Partial fill upon patient request if the prescription is for a schedule II opioid drug. Start Date: 01/31/23 Stop Date: 03/14/23 Status: Ordered warfarin 6 mg oral tablet See Instructions, TAKE 1 TABLET EVERY DAY OR DIRECTED BY ANTICOAGULATION NURSE, # 90 tablet, 6 Refills, Soft Stop, 06/11/22 9:38:00 EDT, [facility], 169, cm, 04/10/22 14:11:00 EDT, Height,129, [...] Back Pain Scale: 68 on 12/01/17; initial [place]: 7 on 12/01/17 2PROCEDURE DATE: 08/10/2017 PREOPERATIVE [...] information Care Team Personnel Name: Beatrice DEAN ([facility] [place])Antonia Position: [facility] Primary Care Physician Member Role: PCP Address: Address: [address] [place] [id number] Name: Natalya Phillip PharmD Position: [facility] Associate Professional Member Role: Lifetime Consulting Provider Address: Address: [address] [place] [address] [place] [address]- [place] Name: Smiley Blair Position: [facility] Outreach Member Role: Lifetime Consulting Physician Name: Marcin Peacock Position: [facility] Outreach Member Role: Lifetime Consulting Physician Name: Bianca GRIFFITHS, Nancy Mireles Position: [facility] Onco RN Member Role: Primary Care Nurse Care Team Related Persons Name: EBONY DUENAS Address: [place] [address] Name: AMPARO DUENAS Address: home [address] [place] [address] Name: EBONY WASHBURN Address: [address] [place] [address] Name: JULI CLAYTON
--- OUTSIDE RECORDS SUMMARY | 2023-09-15 11:48 | XMS_ITS | Continuity of Care Document ---
Author Name Unknown Organization [facility] Address [address] [place] [address] ve [address] [place] [address]- Care Team Providers Care In Home Nanny Name Role Phone Beatrice DEAN ([facility] [place]), Antonia Richardson Primary Care Ph ysician Encounter [facility] Date(s): 09/10/22 - 11/02/[address] [place] [address]- Attending Physician: Devin Samaniego Referring Physician: Martin Landrum MD Allergies, Adverse Reactions, Alerts Substance Reaction [...] Stop,05/06/22 9:49:00 EDT, Route to Pharmacy Electronically, [id number], [facility]/pharmacy #1230, 169, cm, 04/10/22 14:11:00 EDT, [place]... Start Date: 05/06/22 Stop Date: 09/03/22 Status: Ordered calcium-vitamin D 600 mg-400 intl units oral tablet 1 tablet, By Mouth, 2 times a day, # 180 tablet, 1 Refills, [facility] 65080, 90, TAKE 1 TABLET BY MOUTH TWICE [...] 07/23/22 13:29:00 EDT, Route to Pharmacy Electronically, [facility]/pharmacy #0315, 169, cm, 04/10/22 14:11:00 EDT, Height, [...] 0, 10/27/22 12:15:00 EST,Route to Pharmacy Electronically, [facility]/pharmacy #1230, 167.64, cm, 10/06/22 9:14:00 EST, Height, [...] Replace Required Details, Route to Pharmacy Electronically, [facility]/pharmacy #1230, 167.64, cm, 11/0... Start Date: 10/28/22 Status: Ordered loratadine 10 mg oral capsule 1 capsule = 10 mg, By Mouth, Daily, # 30 capsule, 0 Refills, Maintenance, 06/04/17 8:06:21, Capsule Start Date: 06/04/17 Stop Date: 07/04/17 Status: Ordered Metoprolol Tartrate 25 mg oral tablet 0.5 tablet, By Mouth, 2 times a day, # 90 tablet, 1 Refills, Maintenance, 10/07/22 14:35:00 EST, [facility], 167.64, cm, 10/06/22 9:14:00 EST, Height, 134.2, kg, 10/06/22 9:14:00 EST, Dry Weight Start Date: 10/07/22 Status: Ordered montelukast 10 mg oral tablet 1, tablet, By Mouth, Daily, # 90 tablet, Refills 1, Maintenance, 07/25/22 21:44:00 EDT, Route to Pharmacy Electronically, [facility], 169, cm, 04/10/22 14:11:00 EDT, Height, 129, [...] Replace Required Details, Route to Pharmacy Electronically, [id number], [facility], 168, cm, ... Start Date: 08/08/22 Status: [...] 6 Refills, Soft Stop, 06/11/22 9:38:00 EDT, [facility]/pharmacy #1230, 169, cm, 04/10/22 14:11:00 EDT, Height,129, [...] Back Pain Scale: 68 on 12/01/17; initial [place]: 7 on 12/01/17 2PROCEDURE DATE: 08/10/2017 PREOPERATIVE [...] information Care Team Personnel Name: Beatrice DEAN ([facility] [place]), Antonia Richardson Position: [facility] Primary Care Physician Member Role: PCP Address: Address: [address] [place] [address] Primary Care, [place], [place] [address] Name: Natalya Phillip PharmD Position: [facility] Associate Professional Member Role: Lifetime Consulting Provider Address: Address: [address] [place] [address] [place] [address]- Name: Smiley Blair Position: [facility] Outreach Member Role: Lifetime Consulting Physician Name: Marcin Peacock Position: [facility] Outreach Member Role: Lifetime Consulting Physician Name: Bianca GRIFFITHS, Nancy Mireles Position: [facility] Onco RN Member Role: Primary Care Nurse Care Team Related Persons Name: EBONY DUENAS Address: [address] [place] [address] Name: AMPARO DUENAS Address: [address] [place] [address] Name: EBONY WASHBURN Address: home [address] [place] [address]
--- OUTSIDE RECORDS SUMMARY | 2023-09-15 11:48 | XMS_ITS | Continuity of Care Document ---
Author Name Unknown Organization [facility] ter Address [address] [place] [address]- Care Team Providers Care Provider Relations Coordinator Name Role Phone Beatrice DEAN ([facility] [place]), Antonia Richardson Primary Care Ph ysician Encounter [facility] Date(s): 01/30/23 - 03/01/[address] [address]- Attending Physician: Not on Staff, Attending MD Admitting Physician: Not on Staff, Admitting MD Referring Physician: Not on Staff, Referring [...] Stop,05/06/22 9:49:00 EDT, Route to Pharmacy Electronically, [id number], [facility]/pharmacy #1230, 169, cm, 04/10/22 14:11:00 EDT, [facility]... Start Date: 05/06/22 Stop Date: 09/03/22 Status: Ordered calcium-vitamin D 600 mg-400 intl units oral tablet 1 tablet, By Mouth, 2 times a day, # 180 tablet, 1 Refills, 02/04/23 8:58:00 EST, [facility]/pharmacy #1230, 1 tablet By Mouth 2 times [...] 07/23/22 13:29:00 EDT, Route to Pharmacy Electronically, [facility]/pharmacy #0315, 169, cm, 04/10/22 14:11:00 EDT, Height, [...] Replace Required Details, Route to Pharmacy Electronically, [facility]/pharmacy #1230, 168, cm, 12/15/22 0:20:00 ES... Start [...] Replace Required Details, Route to Pharmacy Electronically, [facility]/pharmacy #1230, 168, cm, ... Start Date: 01/22/23 Status: Ordered loratadine 10 mg oral capsule 1 capsule = 10 mg, By Mouth, Daily, # 30 capsule, 0 Refills, Maintenance, 06/04/17 8:06:21, Capsule Start Date: 06/04/17 Stop Date: 07/04/17 Status: Ordered Metoprolol Tartrate 25 mg oral tablet 0.5 tablet, By Mouth, 2 times a day, # 90 tablet, 1 Refills, Maintenance, 10/07/22 14:35:00 EST, [facility], 167.64, cm, 10/06/22 9:14:00 EST, Height, 134.2, kg, 10/06/22 9:14:00 EST, Dry Weight Start Date: 10/07/22 Status: Ordered montelukast 10 mg oral tablet 1, tablet, By Mouth, Daily, # 90 tablet, Refills 1, Maintenance, 07/25/22 21:44:00 EDT, Route to Pharmacy Electronically, [facility], 169, cm, 04/10/22 14:11:00 EDT, Height, 129, [...] Replace Required Details, Route to Pharmacy Electronically, [id number]... Start Date: 01/12/23 Status: Ordered traMADol 50 [...] Back Pain Scale: 68 on 12/01/17; initial [place]: 7 on 12/01/17 2PROCEDURE DATE: 08/10/2017 PREOPERATIVE [...] information Care Team Personnel Name: Beatrice DEAN ([facility] [place]), Antonia Richardson Position: [facility] Primary Care Physician Member Role: PCP Address: Address: [address] [place] [id number] Name: Natalya Phillip PharmD Position: [facility] Associate Professional Member Role: Lifetime Consulting Provider Address: Address: [address] [place] [id number] Name: Smiley Blair Position: [facility] Outreach Member Role: Lifetime Consulting Physician Name: Marcin Peacock Position: [facility] Outreach Member Role: Lifetime Consulting Physician Name: Bianca GRIFFITHS, Nancy Mireles Position: [facility] Onco RN Member Role: Primary Care Nurse Care Team Related Persons Name: EBONY DUENAS Address: [address] [place] [address] Name: AMPARO DUENAS Address: [address] [place] [address] Name: EBONY WASHBURN Address: [address] [place] [address] Name: JULI CLAYTON
--- OUTSIDE RECORDS SUMMARY | 2023-09-15 11:48 | XMS_ITS | Continuity of Care Document ---
Author Name Unknown Organization [facility] PHYSICIAN RELATIONS MANAGER Oncolog y Address [address] [place] [address]- Care Team Providers Care Echo Vascular Tech Name Role Phone Beatrice DEAN ([facility] [place]), Antonia Richardson Primary Care Ph ysician En[facility] Date(s[facility] 06/06/21 - 07/06/21 [facility] PHYSICIAN RELATIONS MANAGER Oncology [address] [place] [id number] Attending Physician: Fransisco Tamez Admitting Physician: Fransisco [...] Status Refusal Reason SARS-CoV-2 (COVID-19) mRNA-1273 vaccine 04/13/21 R ecorded [...] PUFF EVERY 6 HOURS NEEDED FOR WHEEZING, [facility] Start Date: 05/11/19 Status: Ordered Celebrate vitamins 1, By Mouth, Daily in AM, Maintenance, 01/06/20 13:52:00 EST, [facility] Start Date: 01/06/20 Status: Ordered citalopram 40 mg oral tablet 40 mg, 1, tablet, By Mouth, Daily, # 90 tablet, Refills 2, Tot. Refills 2, Maintenance, 03/19/20 13:36:00 EDT, Route to Pharmacy Electronically, [facility]/pharmacy #0315, 167.64, cm, 02/01/20 15:51:00 EST,Height, 135.6, kg, 02/01/20 15:51:00 EST, Dry Weight Start Date: 03/19/20 Stop Date: 12/14/20 Status: Ordered gabapentin 300 mg oral capsule 1,500 mg, 5, capsule, By Mouth, Daily, 1 CAP IN THE AM, 1 AT NOON, AND 3 CAPS AT BEDTIME.., # 450 capsule, Refills 1, Tot. Refills 1, Maintenance, 05/15/21 8:27:00 EDT, Route to Pharmacy Electronically, [facility]/pharmacy #0315, 167.64, cm, 04/23/21 9:50:00... Start Date: 05/15/21 Stop Date: 11/11/21 Status: Ordered Lovenox 40 mg/0.4 mL injectable solution = 40 mg, Subcutaneous Injection, Daily, # 5 each, 0 Refills, Maintenance, 06/28/21 16:55:00 EDT, [facility]/pharmacy #0315, Partial fill upon patient request if [...] Back Pain Scale: 68 on 12/01/17; initial [place]: 7 on 12/01/17 2PROCEDURE DATE: 08/10/2017 PREOPERATIVE [...]
--- OUTSIDE RECORDS SUMMARY | 2023-09-15 11:48 | XMS_ITS | Continuity of Care Document ---
Author Name Unknown Organization [facility] Primary [facility] Address [address] [place] [address]- Care Team Providers Care Spa Associate Name Role Phone Beatrice DEAN ([facility]), Antonia Richardson Primary Care Ph ysician [facility] Date(s): 12/03/21 - 01/02/22 [facility] [address] [place] [address]- Allergies, Adverse Reactions, Alerts Substance Reaction Severity [...] EDT, Route to Pharmacy Electronically, [facility]/pharmacy #0315, 167.64, cm, 02/01/20 15:51:00 EST,Height, [...] Back Pain Scale: 68 on 12/01/17; initial [place]: 7 on 12/01/17 2PROCEDURE DATE: 08/10/2017 PREOPERATIVE [...]
--- OUTSIDE RECORDS SUMMARY | 2023-09-15 11:48 | XMS_ITS | Continuity of Care Document ---
Author Name Unknown Organization [facility] Primary Car e Jacinto Address [address] [place] [address]- Care Team Providers Care Filter Washer Name Role Phone Beatrice DEAN ([facility]), Antonia Richardson Primary Care Ph ysician Encounter [facility] Date(s): 07/31/21 - 08/30/21 [facility] Care Jacinto [address] [place] [address]- Allergies, Adverse Reactions, Alerts Substance Reaction Severity [...] PUFF EVERY 6 HOURS NEEDED FOR WHEEZING, [facility] Mail Delivery Start Date: 05/11/19 Status: Ordered Celebrate vitamins 1, By Mouth, Daily in AM, Maintenance, 01/06/20 13:52:00 EST, Celebrate vitamins Start Date: 01/06/20 Status: Ordered citalopram 40 mg oral tablet 40 mg, 1, tablet, By Mouth, Daily, # 90 tablet, Refills 2, Tot. Refills 2, Maintenance, 03/19/20 13:36:00 EDT, Route to Pharmacy Electronically, [facility]/pharmacy #0315, 167.64, cm, 02/01/20 15:51:00 EST,Height, 135.6, kg, 02/01/20 15:51:00 EST, Dry Weight Start Date: 03/19/20 Stop Date: 12/14/20 Status: Ordered gabapentin 300 mg oral capsule 1,500 mg, 5, capsule, By Mouth, Daily, 1 CAP IN THE AM, 1 AT NOON, AND 3 CAPS AT BEDTIME.., # 450 capsule, Refills 1, Tot. Refills 1, Maintenance, 05/15/21 8:27:00 EDT, [facility] 167.64, cm, 04/23/21 [...] Back Pain Scale: 68 on 12/01/17; initial [place]: 7 on 12/01/17 2PROCEDURE DATE: 08/10/2017 PREOPERATIVE [...]
--- OUTSIDE RECORDS SUMMARY | 2023-09-15 11:48 | XMS_ITS | Continuity of Care Document ---
Author Name Unknown Organization [facility] C ancer Care Address [address] [place] [id number]- Care Team Providers Care Pm Technician Name Role Phone Beatrice DEAN ([facility]), Antonia Richardson Primary Care Ph ysician Encounter [facility] Date(s): 02/16/20 - 02/26/20 [facility] [address] [place] [address] Attending Physician: Admjd, Jesus8 Admitting Physician: Admtr, Fransisco Referring Physician: Admtr, Ar8 Allergies, Adverse Reactions, [...] PUFF EVERY 6 HOURS NEEDED FOR WHEEZING, [facility] Mail Delivery Start Date: 05/11/19 Status: Ordered Celebrate vitamins 1, By Mouth, Daily in AM, Maintenance, 01/06/20 13:52:00 EST, Celebrate vitamins Start Date: 01/06/20 Status: Ordered citalopram 40 mg oral tablet 40 mg, 1, tablet, By Mouth, Daily, # 90 tablet, Refills 1, Tot. Refills 1, Maintenance, 06/10/19 17:40:00 EDT, Route to Pharmacy Electronically, [id number], [facility] Start Date: 06/10/19 Stop [...] tablet, 1 Refills, Soft Stop, 12/03/2019:27:00 EST, [facility], 167, cm, 09/16/19 10:05:00 EDT, Height, 158.3, kg, 08/18/19 10:50:00 EDT, Dry Weight Start Date: 12/03/19 Status: Ordered montelukast 10 mg oral tablet See Instructions, # 90 tablet, Refills 1 Tot. Refills 1, TAKE 1 TABLET EVERY DAY, [facility] Start Date: 06/16/19 Status: Ordered omeprazole 20 mg oral delayed release tablet 1 tablet = 20 mg, By Mouth, Daily, # 90 tablet, 5 Refills, Maintenance, 06/10/19 17:40:00 EDT, EC Tablet Start Date: 06/10/19 Status: Ordered Symbicort 80mcg/4.5mcg Inhaler 1 puff, Inhalation, 2 times a day, # 10.2 Gm, Refills 0, Maintenance, 02/01/20 15:25:00 EST, Aerosol Start Date: 02/01/20 Status: Ordered Tape (1 -Paper) See Instructions, [...] Back Pain Scale: 68 on 12/01/17; initial [place]: 7 on 12/01/17 2PROCEDURE DATE: 08/10/2017 PREOPERATIVE [...]
--- OUTSIDE RECORDS SUMMARY | 2023-09-15 11:48 | XMS_ITS | Continuity of Care Document ---
Author Name Unknown Organization [facility] Primary Car e Jacinto Address [address] [place] [address]- Care Team Providers Care Dehydrogenation Converter Operator Name Role Phone Beatrice DEAN ([facility]), Antonia Richardson Primary Care Ph ysician Encounter [facility] Date(s): 05/20/23 - 06/19/23 [facility] Care Jacinto [address] [place] [address]- Allergies, Adverse Reactions, Alerts Substance Reaction Severity [...] Stop,05/06/22 9:49:00 EDT, Route to Pharmacy Electronically, [id number], [facility]/pharmacy #1230, 169, cm, 04/10/22 14:11:00 EDT, [place]iles... Start Date: 05/06/22 Stop Date: 09/03/22 Status: Ordered calcium-vitamin D 600 mg-400 intl units oral tablet 1 tablet, By Mouth, 2 times a day, # 180 tablet, 1 Refills, 02/04/23 8:58:00 EST, [facility]/pharmacy #1230, 1 tablet By Mouth 2 times [...] Status: Ordered citalopram 40 mg oral tablet 1 tablet, By Mouth, Daily, # 90 tablet, 1 Refills, Maintenance, 06/19/23 13:32:00 EDT Start Date: 06/19/23 Status: Ordered Diabetic shoes Diabetic shoes, See [...] a day, # 180 tablet, Refills 0, Maintenance, 06/19/23 6:31:00 EDT, Route to Pharmacy Electronically, [facility], 167, cm, 06/01/23 11:29:00 EDT, Height, 134, kg, 01/29/23 9:11:00 EST, Dry Weight Start Date: 06/19/23 Status: Ordered Freestyle Lite Lancets See Instructions, [...] CAPS AT BEDTIME, # 450 capsule, Refills0, Maintenance, 05/20/23 7:54:00 EDT, Instructions Replace Required Details, Route to Pharmacy Electronically, [facility], 167, cm, 02/16/23 13:41... Start Date: 05/20/23 Status: Ordered loratadine 10 mg oral capsule 1 capsule = 10 mg, By Mouth, Daily, # 30 capsule, 0 Refills, Maintenance, 06/04/17 8:06:21, Capsule Start Date: 06/04/17 Stop Date: 07/04/17 Status: Ordered Metoprolol Tartrate 25 mg oral tablet See Instructions, TAKE 1/2 TABLET BY MOUTH TWICE A DAY, # 90 tablet, 1 Refills, Maintenance, 04/19/23 11:19:00 EDT, [facility], 167, cm, 02/16/23 13:41:00 EDT, Height, 134, kg, 01/29/23 9:11:00 EST, Dry Weight Start Date: 04/19/23 Status: Ordered montelukast 10 mg oral tablet 1, tablet, By Mouth, Daily, # 90 tablet, Refills 1, Maintenance, 04/13/23 9:49:00 EDT, Route to Pharmacy Electronically, [facility], 167, cm, 02/16/23 13:41:00 EDT, Height, 134, kg, 01/29/23 9:11:00 EST, Dry Weight Start Date: 04/13/23 Status: Ordered One 4 pronged Cane One [...] Replace Required Details, Route to Pharmacy Electronically, [id number]... Start Date: 01/12/23 Status: Ordered traMADol 50 [...] Pain Scale: 68 on 12/01/17; initial [place]: 7 on 12/01/17 2PROCEDURE DATE: 08/10/2017 PREOPERATIVE [...] information Care Team Personnel Name: Beatrice DEAN ([facility]), Antonia Richardson Position: [facility] Physician - Primary Care Member Role: PCP Address: Address: [address] [place] [address] [place] [address]- Name: Natalya Phillip PharmD Position: [facility] Associate Professional Member Role: Lifetime Consulting Provider Address: Address: [address] [place] [address] [place] [address]- Name: Smiley Blair Position: [facility] Outreach Member Role: Lifetime Consulting Physician Name: Marcin Peacock Position: [facility] Outreach Member Role: Lifetime Consulting Physician Name: Bianca RN, Nancy Mireles Position: [facility] Onco RN Member Role: Primary Care Nurse Care Team Related Persons Name: EBONY DUENAS Address: home [address] [place], [place] Name: AMPARO DUENAS Address: home [address] [place], [place] Name: EBONY WASHBURN Address: home [address] [place], [place] Name: JULI CLAYTON
--- OUTSIDE RECORDS SUMMARY | 2023-09-15 11:48 | XMS_ITS | Continuity of Care Document ---
Author Name Unknown Organization [facility] Primary Car e Jacinto Address [address] [place] [address]- Care Team Providers Care Investor Relations Director Name Role Phone Beatrice DEAN ([facility]), Antonia Richardson Primary Care Ph ysician Encounter [facility] Date(s): 02/15/21 - 03/17/21 [facility] Care Jacinto [address] [place] [address]- Allergies, Adverse Reactions, Alerts Substance Reaction Severity [...] PUFF EVERY 6 HOURS NEEDED FOR WHEEZING, [facility] Mail Delivery Start Date: 05/11/19 Status: Ordered Celebrate vitamins 1, By Mouth, Daily in AM, Maintenance, 01/06/20 13:52:00 EST, Celebrate vitamins Start Date: 01/06/20 Status: Ordered citalopram 40 mg oral tablet 40 mg, 1, tablet, By Mouth, Daily, # 90 tablet, Refills 2, Tot. Refills 2, Maintenance, 03/19/20 13:36:00 EDT, Route to Pharmacy Electronically, [facility]/pharmacy #0315, 167.64, cm, 02/01/20 15:51:00 EST,Height, [...] 6 Refills, Soft Stop, 03/19/20 13:23:00 EDT, [facility]/pharmacy #0315, 167.64, cm, 02/01/20 15:51:00 EST, [...] Back Pain Scale: 68 on 12/01/17; initial [place]: 7 on 12/01/17 2PROCEDURE DATE: 08/10/2017 PREOPERATIVE [...]
--- OUTSIDE RECORDS SUMMARY | 2023-09-15 11:48 | XMS_ITS | Continuity of Care Document ---
Author Name Unknown Organization [facility] e Jacinto Address [address] [place] [address]- Care Team Providers Care Environmental Services Associate Name Role Phone Beatrice DEAN ([facility]), Antonia Richardson Primary Care Ph ysician Encounter [facility] Date(s): 11/27/21 - 12/27/21 [facility] Care Jacinto [address] [place] [address]- Allergies, Adverse Reactions, Alerts Substance Reaction Severity [...] 13:36:00 EDT, Route to Pharmacy Electronically, [facility]/pharmacy #0315, 167.64, cm, 02/01/20 15:51:00 EST,Height, 135.6, [...] Back Pain Scale: 68 on 12/01/17; initial [place]: 7 on 12/01/17 2PROCEDURE DATE: 08/10/2017 PREOPERATIVE [...]
--- OUTSIDE RECORDS SUMMARY | 2023-09-15 11:48 | XMS_ITS | Continuity of Care Document ---
Author Name Unknown Organization [facility] Address [address] [place] [address]- Care Team Providers Care Wire Coating Machine Operator Name Role Phone Beatrice DEAN ([facility]), Antonia Richardson Primary Care Ph ysician Encounter [facility] Date(s): 01/25/23 - 01/25/[address] [address]- Discharge Disposition: A-D/C Home Attending Physician: Arnav Douglas MD Admitting Physician: Arnav Douglas MD Referring Physician: Not on Staff, Referring [...] Stop,05/06/22 9:49:00 EDT, Route to Pharmacy Electronically, [id number], [facility]/pharmacy #1230, 169, cm, 04/10/22 14:11:00 EDT, [place] Start Date: 05/06/22 Stop Date: 09/03/22 Status: Ordered calcium-vitamin D 600 mg-400 intl units oral tablet 1 tablet, By Mouth, 2 times a day, # 180 tablet, 1 Refills, [facility], 90, TAKE 1 TABLET BY MOUTH TWICE DAILY, 168, cm, 01/17/22 8:53:00 EST, Height, 135, kg, 09/16/21 15:58:00 EDT, Dry Weight Start Date: 01/23/22 Status: Ordered cefadroxil 500 mg oral capsule 2 capsule = 1,000 mg, By Mouth, Every 12 hours, for 10 days, # 40 capsule, 0 Refills, Acute 02/04/23 18:14:00 EST, 01/25/23 18:14:00 EST, Capsule, [facility]/pharmacy #1230, Partial fill upon patient request if the prescription is for a schedule II opioid Start Date: 01/25/23 Stop Date: 02/04/23 Status: Ordered Celebrate vitamins 1, [...] EDT, Compound Start Date: 07/19/19 Status: Ordered doxycycline monohydrate 100 mg oral tablet 1 tablet = 100 mg, By Mouth, 2 times a day, for 10 days, # 20 tablet, 0 Refills, Acute 02/04/23 18:15:00 EST, 01/25/23 18:15:00 EST, Tablet, [facility]/pharmacy #1230, Partial fill upon patient request if the prescription is for a schedule II opioid drug., 1... Start Date: 01/25/23 Stop Date: 02/04/23 Status: Ordered famotidine 20 mg oral tablet See Instructions, TAKE 1 TABLET BY MOUTH TWICE A DAY, # 180 tablet, Refills 0, Tot. Refills 0, Maintenance, 12/23/22 1:41:00 EST, Instructions Replace Required Details, Route to Pharmacy Electronically, [facility]/pharmacy #1230, 168, cm, 12/15/22 0:20:00 ES... Start [...] Pharmacy Electronically, [facility]/pharmacy #1230, 168, cm, ... Start Date: 01/22/23 Status: Ordered lidocaine 1.8% topical film 1 patch, Topically, Daily, leave on up to 12 hours, # 30 each, 0 Refills, Maintenance, 01/06/23 9:50:00 EST, Film, [facility]/pharmacy #1230, Partial fill upon patient request if the prescription is for a schedule II opioid drug., 1 patch Topically Daily,Ins... Start Date: 01/06/23 Status: Ordered loratadine 10 mg oral capsule 1 capsule = 10 mg, By Mouth, Daily, # 30 capsule, 0 Refills, Maintenance, 06/04/17 8:06:21, Capsule Start Date: 06/04/17 Stop Date: 07/04/17 Status: Ordered Metoprolol Tartrate 25 mg oral tablet 0.5 tablet, By Mouth, 2 times a day, # 90 tablet, 1 Refills, Maintenance, 10/07/22 14:35:00 EST, [facility], 167.64, cm, 10/06/22 9:14:00 EST, Height, 134.2, kg, 10/06/22 9:14:00 EST, Dry Weight Start Date: 10/07/22 Status: Ordered montelukast 10 mg oral tablet 1, tablet, By Mouth, Daily, # 90 tablet, Refills 1, Maintenance, 07/25/22 21:44:00 EDT, Route to Pharmacy Electronically, [facility], 169, cm, 04/10/22 14:11:00 EDT, Height, 129, [...] Replace Required Details, Route to Pharmacy Electronically, [id number]... Start Date: 01/12/23 Status: Ordered traMADol 50 [...] Back Pain Scale: 68 on 12/01/17; initial [place]: 7 on 12/01/17 2PROCEDURE DATE: 08/10/2017 PREOPERATIVE [...] Exam Date Time Procedure Performing Provider Status 01/25/23 4:51 PM Foot Min 3 Views Left Mo , Radhauthao T ; Auth (Verified) Notes: (Foot Min 3 Views Left) Reason For Exam: Pain RESULT: Foot Min 3 Views Left Foot Min 3 Views Left INDICATION: Hx of Present Illness: Reports L great toe wound x a few weeks. States she had picked a callous off of that area . Reporting LLE pain and swelling since. L great toe noted to be swollen.Wound noted to underneath portion of toe. Warm to touch.; Reason: Pain; Clinical Question(s): Osteom yelitis COMPARISON: 09/11/2021 FINDINGS: Unremarkable soft tissue. There is no fracture or subluxation. There is no bony destruction or erosion to suggest osteomyelitis. Joint space is maintained. IMPRESSION: No acute bony findings. WSN: [id number] Ordering Physician: Arnav Douglas Dictated By: Christel Hobbs MD Dictated Date/Time: 01/25/23 5:04 pm Reviewed By: Christel Hobbs MD Signed By: Christel Hobbs MD Signed Date/Time: 01/25/23 5:04 pm Transcribed By: MARYJO Transcribed Date/Time: 01/25/23 5:02 pm Vital Signs Most recent to oldest [Reference Range]: 1 2 3 Height 168 cm (01/25/23 6:12 PM) 168 cm (01/25/23 4:21 PM) Weight 135.4 kg (01/25/23 6:12 PM) 135.4 kg (01/25/23 4:21 PM) Oxygen Saturation [94-100 %] 100 % (01/25/23 6:12 PM) 100 % (01/25/23 4:21 PM) 100 % (01/25/23 2:06 PM) Pulse Rate [55-90 bpm] 77 bpm (01/25/23 6:12 PM) 80 bpm (01/25/23 4:21 PM) 96 bpm *H* (01/25/23 2:06 PM) Body Mass Index [18.5-24.99 kg/m2] 47.97 kg/m2 *>HHI* (01/25/23 6:12 PM) Blood Pressure [90-138/55-84 mm Hg] 129/75mm Hg (01/25/23 6:12 PM) 142/90mm Hg *H* (01/25/23 4:21 PM) Respiratory Rate [16-30 br/min] 18 br/min (01/25/23 6:12 PM) 18 br/min (01/25/23 4:21 PM) 18 br/min (01/25/23 2:06 PM) Temperature [96.8-100.4 DegF] 99.3 DegF (01/25/23 6:12 PM) 98.3 DegF (01/25/23 4:21 PM) Mode of Delivery (Oxygen) Room air (01/25/23 6:12 PM) Room air (01/25/23 4:21 PM) Room air (01/25/23 2:06 PM) Blood pressure sites Arm, left (01/25/23 6:12 PM) Temperature Route Oral (01/25/23 6:12 PM) Temporal (01/25/23 4:21 PM) Dry Weight 135.4 kg (01/25/23 6:12 PM) 135.4 kg (01/25/23 4:21 PM) Social History Social History Type Response Smoking Status Former smoker; Tobac co user in household: No; Stopped at age: 41; entered on: 03/25/18 Sex Note * Arnav Douglas MD: PERFORM Event Display: Patient Education Leaflets Authored Date: [id number] Cellulitis ?? [id number] Cellulitis Cellulitis is an infection of the deep layers of skin. A break in the skin, such as a cut or scratch, can let bacteria under the skin. Cellulitis causes the affected skin to become red, swollen, warm, and sore. The reddened areas havea border you can see. An open sore may leak fluid (pus). You may have a fever, chills, and pain. Cellulitis is treated with antibiotics taken for 7 to 10 days. An open sore may be cleaned and covered with cool wet gauze. Symptoms should get better 1 to 2 days after treatment is started. Make sure to take all the antibiotics for the full number of days until they are gone. Keep taking the medicine even if your symptoms go away. If not treated, cellulitis can get into the bloodstream and lymph nodes. The infection can then spread throughout the body. This causes serious illness. Home care Follow these tips: ??? Limit the use of the part of your body with cellulitis.? If the infection is on your leg, keep your leg raised while sitting. This helps reduce swelling. ??? Take all of the antibiotic medicine exactly as directed until it is gone. Don't miss any doses, especially duringthe first 7 days. Finish taking all of the medicine even when your symptoms get better. ??? Keep the affected area clean and dry. ??? Wash your hands with soap and clean, running water before and after touching your skin. Anyone else who touches your skin should also wash his or her hands. Don't share towels. ?? Follow-up care Follow up with your healthcare provider, or as advised. If your infection doesn't go away after finishing the first antibiotic, your healthcare provider will prescribe a different one. ?? When to seek medical advice Call your healthcare provider right away if any of these occur: ??? Red areas that spread ??? Swelling or pain that gets worse ??? Fluid leaking from the skin (pus) ??? Fever higher of 100.4?? F (38.0?? C) or higher after 2 days on antibiotics ?? Last Reviewed Date: 2021 ?? The [employer]. All rights reserved. This information is not intended as a substitute for professional medical care. Always follow your healthcare professional's instructions. ?? XR Foot - left GE 3 Views * [facility] , CIS S: TRANSCRIBE Faby DEAN, Christel Echevarria: VERIFY Event Display: Result: Authored Date: [id number] Foot Min 3 Views Left INDICATION: Hx of Present Illness: Reports L great toe wound x a few weeks. States she had picked a callous off of that area . Reporting LLE pain and swelling since. L great toe noted to be swollen.Wound noted to underneath portion of toe. Warm to touch.; Reason: Pain; Clinical Question(s): Indra marrero COMPARISON: 09/11/2021 FINDINGS: Unremarkable soft tissue. There is no fracture or subluxation. There is no bony destruction or erosion to suggest osteomyelitis. Joint space is maintained. IMPRESSION: No acute bony findings. WSN: [id number] Ordering Physician: Arnav Douglas Dictated By: Christel Hobbs MD Dictated Date/Time: 01/25/23 5:04 pm Reviewed By: Christel Hobbs MD Signed By: Christel Hobbs MD Signed Date/Time: 01/25/23 5:04 pm Transcribed By: MARYJO Transcribed Date/Time: 01/25/23 5:02 pm Patient Care team information Care Team Personnel Name: Beatrice DEAN ([facility]), Antonia Richardson Position: [facility] Primary Care Physician Member Role: PCP Address: Address: [address] [place] [address] [place] [address] Name: Natalya Phillip PharmD Position: [facility] Associate Professional Member Role: Lifetime Consulting Provider Address: Address: [address] [place] [id number]- Name: Smiley Blair Position: [facility] Outreach Member Role: Lifetime Consulting Physician Name: Marcin Peacock Position: [facility] Outreach Member Role: Lifetime Consulting Physician Name: Bianca GRIFFITHS, Nancy Mireles Position: [facility] Onco RN Member Role: Primary Care Nurse Name: Arnav Douglas MD Position: [facility] ED Medicine MD Member Role: Admitting Physician Address: Address: [address] [place] [address]- [place] [address]- Name: Anayeli Srivastava RN Position: [facility] ED RN W/OE and Tasks Member Role: Patient Care Provider Name: Jenny Jiménez Position: [facility] ED TA [facility] Member Role: [place] A Driver Care Team Related Persons Name: EBONY DUENAS Address: [address] [place] [address] Name: AMPARO DUENAS Address: [address] [place] [address] Name: EBONY WASHBURN Address: [address] [place] [address] Name: JULI CLAYTON
--- OUTSIDE RECORDS SUMMARY | 2023-09-15 11:48 | XMS_ITS | Continuity of Care Document ---
Author Name Unknown Organization [facility] Primary Car e Jacinto Address [address] [place] [address]- Care Team Providers Care Eyelet Riveter Name Role Phone Beatrice DEAN ([facility]), Antonia Richardson Primary Care Ph ysician Encounter [facility] Date(s): 01/07/23 - 02/06/23 [facility] [address] [place] [address]- Allergies, Adverse Reactions, Alerts Substance Reaction Severity [...] Stop,05/06/22 9:49:00 EDT, Route to Pharmacy Electronically, [id number], [facility]/pharmacy #1230, 169, cm, 04/10/22 14:11:00 EDT, [place]iles... Start Date: 05/06/22 Stop Date: 09/03/22 Status: Ordered calcium-vitamin D 600 mg-400 intl units oral tablet 1 tablet, By Mouth, 2 times a day, # 180 tablet, 1 Refills, 02/04/23 8:58:00 EST, [facility]/pharmacy #1230, 1 tablet By Mouth 2 [...] 07/23/22 13:29:00 EDT, Route to Pharmacy Electronically, [facility]/pharmacy #0315, 169, cm, 04/10/22 14:11:00 EDT, [...] Replace Required Details, Route to Pharmacy Electronically, [facility]/pharmacy #1230, 168, cm, 12/15/22 0:20:00 ES... [...] Replace Required Details, Route to Pharmacy Electronically, [facility]/pharmacy #1230, 168, cm, ... Start Date: 01/22/23 Status: Ordered loratadine 10 mg oral capsule 1 capsule = 10 mg, By Mouth, Daily, # 30 capsule, 0 Refills, Maintenance, 06/04/17 8:06:21, Capsule Start Date: 06/04/17 Stop Date: 07/04/17 Status: Ordered Metoprolol Tartrate 25 mg oral tablet 0.5 tablet, By Mouth, 2 times a day, # 90 tablet, 1 Refills, Maintenance, 10/07/22 14:35:00 EST, [facility], 167.64, cm, 10/06/22 9:14:00 EST, Height, 134.2, kg, 10/06/22 9:14:00 EST, Dry Weight Start Date: 10/07/22 Status: Ordered montelukast 10 mg oral tablet 1, tablet, By Mouth, Daily, # 90 tablet, Refills 1, Maintenance, 07/25/22 21:44:00 EDT, Route to Pharmacy Electronically, [facility], 169, cm, 04/10/22 14:11:00 EDT, Height, 129, [...] Replace Required Details, Route to Pharmacy Electronically, [id number]... Start Date: 01/12/23 Status: Ordered traMADol 50 [...] Back Pain Scale: 68 on 12/01/17; initial [place]: 7 on 12/01/17 2PROCEDURE DATE: 08/10/2017 PREOPERATIVE [...] information Care Team Personnel Name: Beatrice DEAN ([facility]Antonia Position: [facility] Primary Care Physician Member Role: PCP Address: Address: [address] [place] [id number] Name: Natalya Phillip PharmD Position: [facility] Associate Professional Member Role: Lifetime Consulting Provider Address: Address: [address] [place], [place] [address], [place] [address] Name: Smiley Blair Position: [facility] Outreach Member Role: Lifetime Consulting Physician Name: Marcin Peacock Position: [facility] Outreach Member Role: Lifetime Consulting Physician Name: Nancy Valenzuela RN Position: [facility] Onco RN Member Role: Primary Care Nurse Care Team Related Persons Name: EBONY DUENAS Address: [place] [address] Name: AMPARO DUENAS Address: [address] [place] [address] Name: EBONY WASHBURN Address: [address] [place] [address] Name: JULI CLAYTON
--- OUTSIDE RECORDS SUMMARY | 2023-09-15 11:48 | XMS_ITS | Continuity of Care Document ---
Author Name Unknown Organization [facility] Primary Car e Jacinto Address [address] [place] [address]- Care Team Providers Care Dairy And Food Laboratory Assistant Name Role Phone Beatrice DEAN ([facility])Antonia Primary Care Ph ysician Encounter [facility] Date(s): 05/11/20 - 09/08/20 [facility] Care [address]into [address] [place] [address]- [facility] Attending Physician: Beatrice DEAN ([facility])Antonia Allergies, Adverse Reactions, Alerts Substance Reaction Severity Status niacin skin turns red Active statins muscle pain Active dicloxacillin 1, 2 D - Diarrhea Active sulfa drugs hives Active 1Patient prevously [...] PUFF EVERY 6 HOURS NEEDED FOR WHEEZING, [facility] Mail Delivery Start Date: 05/11/19 Status: Ordered Celebrate vitamins 1, By Mouth, Daily in AM, Maintenance, 01/06/20 13:52:00 EST, Celebrate vitamins Start Date: 01/06/20 Status: Ordered citalopram 40 mg oral tablet 40 mg, 1, tablet, By Mouth, Daily, # 90 tablet, Refills 2, Tot. Refills 2, Maintenance, 03/19/20 13:36:00 EDT, Route to Pharmacy Electronically, [facility]/pharmacy #0315, 167.64, cm, 02/01/20 15:51:00 EST,Height, 135.6, kg, 02/01/20 15:51:00 EST, Dry Weight Start Date: 03/19/20 Stop Date: 12/14/20 Status: Ordered gabapentin 300 mg oral capsule 1,500 mg, 5, capsule, By Mouth, Daily, 1 CAP IN THE AM, 1 AT NOON, AND 3 CAPS AT BEDTIME.., # 450 capsule, Refills 1, Tot. Refills 1, Maintenance, 03/19/20 13:36:00 EDT, Route to Pharmacy Electronically, [facility]/pharmacy #0315, 167.64, cm, 02/01/20 15:51:... Start Date: [...] Refills, Maintenance, 03/19/20 13:23:00 EDT, EC Tablet, [facility]/pharmacy #0315, 167.64, cm, 02/01/20 15:51:00 EST, Height, [...] 64% ( crippled ) on 12/01/17; initial [place] Back Pain Scale: 68 on 12/01/17; initial [place]: 7 on 12/01/17 2PROCEDURE DATE: 08/10/2017 PREOPERATIVE [...]
--- OUTSIDE RECORDS SUMMARY | 2023-09-15 11:49 | XMS_ITS | Continuity of Care Document ---
Author Name Unknown Organization [facility] Primary Car e Jacinto Address [address] [place] [address]- Care Team Providers Care Data Center Consultant Name Role Phone Beatrice DEAN ([facility]), Antonia Richardson Primary Care Ph ysician Encounter [facility] Date(s): 02/18/22 - 03/20/22 [facility] Care [address]into [address] [place] [address]- Allergies, Adverse Reactions, Alerts Substance Reaction Severity [...] 03/19/20 13:36:00 EDT, Route to Pharmacy Electronically, [facility]/pharmacy #0315, 167.64, cm, 02/01/20 15:51:00 EST,Height, 135.6, kg, 02/01/20 15:51:00 EST, Dry Weight Start Date: 03/19/20 Stop Date: 12/14/20 Status: Ordered Glucosamine Chondroitin 3 capsule, By Mouth, 2 times a day, 0 Refills, Maintenance, 02/21/22 9:32:00 EDT, Partial fill uponpatient request if the prescription is for a schedule II opioid drug. Start Date: 02/21/22 Status: Ordered Symbicort 80mcg/4.5mcg Inhaler See Instructions, [...] Back Pain Scale: 68 on 12/01/17; initial [place]: 7 on 12/01/17 2PROCEDURE DATE: 08/10/2017 PREOPERATIVE [...]
--- OUTSIDE RECORDS SUMMARY | 2023-09-15 11:49 | XMS_ITS | Continuity of Care Document ---
Author Name Unknown Organization [facility] Primary Car e Jacinto Address [address] [place] [address]- Care Team Providers Care Leaflet Distributor Name Role Phone Beatrice DEAN ([facility]), Antonia Richardson Primary Care Ph ysician Encounter [facility] Date(s): 09/06/20 - 10/06/20 [facility] Care [address] [place] [address]- Allergies, Adverse Reactions, Alerts Substance Reaction Severity [...] PUFF EVERY 6 HOURS NEEDED FOR WHEEZING, [facility] Mail Delivery Start Date: 05/11/19 Status: Ordered Celebrate vitamins 1, By Mouth, Daily in AM, Maintenance, 01/06/20 13:52:00 EST, Celebrate vitamins Start Date: 01/06/20 Status: Ordered citalopram 40 mg oral tablet 40 mg, 1, tablet, By Mouth, Daily, # 90 tablet, Refills 2, Tot. Refills 2, Maintenance, 03/19/20 13:36:00 EDT, Route to Pharmacy Electronically, [facility]/pharmacy #0315, 167.64, cm, 02/01/20 15:51:00 EST,Height, 135.6, [...] Refills, Maintenance, 03/19/20 13:23:00 EDT, EC Tablet, [facility]/pharmacy #0315, 167.64, cm, 02/01/20 15:51:00 EST, Height, [...] Refills, Soft Stop, 03/19/20 13:23:00 EDT, [facility]/pharmacy #0315, 167.64, cm, 02/01/20 15:51:00 EST, Height, [...] crippled ) on 12/01/17; initial [place] Back Pain Scale: 68 on 12/01/17; initial [place]: 7 on 12/01/17 2PROCEDURE DATE: 08/10/2017 PREOPERATIVE [...]
--- OUTSIDE RECORDS SUMMARY | 2023-09-15 11:49 | XMS_ITS | Continuity of Care Document ---
Author Name Unknown Organization [facility] Primary Car e Jacinto Address [address] [place] [address]- Care Team Providers Care Pulmonary Disease Specialist Name Role Phone Beatrice DEAN ([facility]), Antonia Richardson Primary Care Ph ysician Encounter [facility] Date(s): 08/18/22 - 09/17/22 [facility] Care [facility]into [address] [place], [place] [address] Attending Physician: Admtr, [id number] Admitting Physician: Admtr, [id number] Referring Physician: Admtr, [...] Stop,05/06/22 9:49:00 EDT, Route to Pharmacy Electronically, [id number], [facility]/pharmacy #1230, 169, cm, 04/10/22 14:11:00 EDT, [place]... Start Date: 05/06/22 Stop Date: 09/03/22 Status: Ordered calcium-vitamin D 600 mg-400 intl units oral tablet 1 tablet, By Mouth, 2 times a day, # 180 tablet, 1 Refills, [facility] 50603, 90, TAKE 1 TABLET BY MOUTH TWICE [...] 07/23/22 13:29:00 EDT, Route to Pharmacy Electronically, [facility]/pharmacy #0315, 169, cm, 04/10/22 14:11:00 EDT, [...] tablet, Refills 0, Route to Pharmacy Electronically, [facility] 46[facility], 169, cm, 04/10/22 14:11:00 EDT, Height, 129, [...] Replace Required Details, Route to Pharmacy Electronically, [facility]/pharmacy #0315, 169, cm, 04/10/22... Start Date: 07/21/22 Status: Ordered loratadine 10 mg oral capsule 1 capsule = 10 mg, By Mouth, Daily, # 30 capsule, 0 Refills, Maintenance, 06/04/17 8:06:21, Capsule Start Date: 06/04/17 Stop Date: 07/04/17 Status: Ordered Metoprolol Tartrate 25 mg oral tablet 0.5 tablet, By Mouth, 2 times a day, # 90 tablet, 1 Refills, [facility] 45277, 169, cm, 03/28/22 10:25:00 EDT, Height, 129, kg, 02/21/22 9:37:00 EDT, Dry Weight Start Date: 04/09/22 Status: Ordered montelukast 10 mg oral tablet 1, tablet, By Mouth, Daily, # 90 tablet, Refills 1, Maintenance, 07/25/22 21:44:00 EDT, Route to Pharmacy Electronically, [facility] 90557, 169, cm, 04/10/22 14:11:00 EDT, Height, 129, kg, 02/21/22 9:37:00 EDT, Dry Weight Start Date: 07/25/22 Status: Ordered ondansetron 4 mg oral tablet See Instructions, 1 tablet By Mouth Every 6-8 hours, 0 Refills, Maintenance, 08/27/22 7:20:00 EDT, Tablet, Partial fill upon patient request if the prescription is for a schedule II opioid drug. Start Date: 08/27/22 Status: Ordered One 4 pronged Cane One 4 pronged Cane, See Instructions, # 1 each, Refills 0, Tot. Refills 0, Maintenance, [facility] 168CM Wt 211.5 KG. DX Z91.81, 08/01/20 10:28:00 EDT, Supply Start Date: 08/01/20 Status: Ordered oxyCODONE 5 mg oral tablet See Instructions, PRN, 1 tablet By Mouth Every 4-6 hours *take with food* *no driving* *no alcohol*, Refills 0, Tot. Refills 0, Maintenance, as needed for pain, 08/27/22 7:20:00 EDT, Instructions Replace Required Details, Partial fill upon patient... Start Date: 08/27/22 Status: Ordered Symbicort 80mcg/4.5mcg Inhaler See Instructions, INHALE 1 PUFF 1- 2 TIMES A DAY, # 10.2 each, Refills 5, Maintenance, 08/08/22 12:57:00 EDT, Instructions Replace Required Details, Route to Pharmacy Electronically, [id number], [facility] 25003, 168, cm, ... Start Date: 08/08/22 Status: [...] Informant Arthritis Confirmed Active Asthma Confirmed Active Depression Confirmed Active Thickened endometrium [...] Back Pain Scale: 68 on 12/01/17; initial [place]: 7 on 12/01/17 2PROCEDURE DATE: 08/10/2017 PREOPERATIVE [...] on: 03/25/18 Sex Patient Care team information Personnel Name: Beatrice DEAN ([facility]), Antonia Richardson Address: Address: [address] [place] [id number]
--- OUTSIDE RECORDS SUMMARY | 2023-09-15 11:49 | XMS_ITS | Continuity of Care Document ---
Author Name Unknown Organization [facility] Primary Car e Jacinto Address [address] [place] [address]- Care Team Providers Care Splitting Machine Operator Name Role Phone Beatrice DEAN ([facility]), Antonia Richardson Primary Care Ph ysician Encounter [facility] Date(s): 11/27/20 - 12/27/20 [facility] Care [address]into [address] [place] [address]- Allergies, Adverse Reactions, Alerts Substance Reaction Severity [...] PUFF EVERY 6 HOURS NEEDED FOR WHEEZING, [facility] Mail Delivery Start Date: 05/11/19 Status: Ordered Celebrate vitamins 1, By Mouth, Daily in AM, Maintenance, 01/06/20 13:52:00 EST, Celebrate vitamins Start Date: 01/06/20 Status: Ordered citalopram 40 mg oral tablet 40 mg, 1, tablet, By Mouth, Daily, # 90 tablet, Refills 2, Tot. Refills 2, Maintenance, 03/19/20 13:36:00 EDT, Route to Pharmacy Electronically, [facility]/pharmacy #0315, 167.64, cm, 02/01/20 15:51:00 EST,Height, 135.6, kg, 02/01/20 15:51:00 EST, Dry Weight Start Date: 03/19/20 Stop Date: 12/14/20 Status: Ordered Fish Oil 1000 mg oral capsule 1 capsule = 1,000 mg, By Mouth, 2 times a day, 0 Refills, Maintenance, 09/19/20 9:56:00 EDT, Capsule Start Date: 09/19/20 Status: Ordered Symbicort 80mcg/4.5mcg Inhaler 2, puffs, [...] Back Pain Scale: 68 on 12/01/17; initial [place]: 7 on 12/01/17 2PROCEDURE DATE: 08/10/2017 PREOPERATIVE [...]
--- OUTSIDE RECORDS SUMMARY | 2023-09-15 11:49 | XMS_ITS | Continuity of Care Document ---
Author Name Unknown Organization [address] [place] [address]- Care Team Providers Care Systems Project Manager Name Role Phone Beatrice DEAN ([facility]), Antonia Richardson Primary Care Ph ysician Encounter [facility] Date(s): 10/06/22 - 11/05/[address] [place] [address]- Attending Physician: AdmFransisco miles Admitting Physician: AdmtrFransisco Referring Physician: AdmtrFransisco Allergies, Adverse Reactions, Alerts [...] Stop,05/06/22 9:49:00 EDT, Route to Pharmacy Electronically, [id number], [facility]/pharmacy #1230, 169, cm, 04/10/22 14:11:00 EDT, Giles... Start Date: 05/06/22 Stop Date: 09/03/22 Status: Ordered calcium-vitamin D 600 mg-400 intl units oral tablet 1 tablet, By Mouth, 2 times a day, # 180 tablet, 1 Refills, [facility] 80921, 90, TAKE 1 TABLET BY MOUTH TWICE [...] 0, 10/27/22 12:15:00 EST,Route to Pharmacy Electronically, [facility]/pharmacy #1230, 167.64, cm, 10/06/22 9:14:00 EST, Height, [...] Unknown, 3 Refills, USE DAILY, 168, cm, 10/18/21 15:58:00 EDT, Height, 135, kg, 09/16/21 15:58:00 [...] Route to Pharmacy Electronically, [facility]/pharmacy #1230, 167.64, cm, 0... Start Date: 10/28/22 Status: Ordered loratadine 10 mg oral capsule 1 capsule = 10 mg, By Mouth, Daily, # 30 capsule, 0 Refills, Maintenance, 06/04/17 8:06:21, Capsule Start Date: 06/04/17 Stop Date: 07/04/17 Status: Ordered Metoprolol Tartrate 25 mg oral tablet 0.5 tablet, By Mouth, 2 times a day, # 90 tablet, 1 Refills, Maintenance, 10/07/22 14:35:00 EST, [facility] 12[facility], 167.64, cm, 10/06/22 9:14:00 EST, Height, 134.2, kg, 10/06/22 9:14:00 EST, Dry Weight Start Date: 10/07/22 Status: Ordered montelukast 10 mg oral tablet 1, tablet, By Mouth, Daily, # 90 tablet, Refills 1, Maintenance, 07/25/22 21:44:00 EDT, Route to Pharmacy Electronically, [facility] 27[facility], 169, cm, 04/10/22 14:11:00 EDT, Height, 129, [...] Replace Required Details, Route to Pharmacy Electronically, [id number], [facility], 168, cm, ... Start Date: 08/08/22 Status: [...] 6 Refills, Soft Stop, 06/11/22 9:38:00 EDT, [facility]/pharmacy #1230, 169, cm, 04/10/22 14:11:00 EDT, Height,129, [...] Back Pain Scale: 68 on 12/01/17; initial [place]: 7 on 12/01/17 2PROCEDURE DATE: 08/10/2017 PREOPERATIVE [...] information Care Team Personnel Name: Beatrice DEAN ([facility]), Antonia Richardson Position: [facility] Primary Care Physician Member Role: PCP Address: Address: [address] [place] [address] [place] [address]- Name: Natalya Phillip PharmD Position: [facility] Associate Professional Member Role: Lifetime Consulting Provider Address: Address: [address] [place] [address] [place] [address]- [place] Name: Smiley Blair Position: [facility] Outreach Member Role: Lifetime Consulting Physician Name: Marcin Peacock Position: [facility] Outreach Member Role: Lifetime Consulting Physician Name: Nancy Valenzuela RN Position: [facility] Onco RN Member Role: Primary Care Nurse Care Team Related Persons Name: EBONY DUENAS Address: home [address] [place] [address] Name: AMPARO DUENAS Address: [address] [address] Name: EBONY WASHBURN Address: [place] [id number]
--- OUTSIDE RECORDS SUMMARY | 2023-09-15 11:49 | XMS_ITS | Continuity of Care Document ---
Author Name Unknown Organization [facility] ter Address [address] [place] [address]- Care Team Providers Care Joint Cutter Name Role Phone Beatrice DEAN ([facility]), Antonia Richardson Primary Care Ph ysician Encounter [facility] Date(s): 06/26/21 - 08/03/[address] [address] Attending Physician: Beatrice DEAN ([facility])Antonia Admitting Physician: Beatrice DEAN ([facility])Antonia Referring Physician: Beatrice DEAN ([facility])Antonia Allergies, Adverse Reactions, Alerts Substance Reaction Severity Status dicloxacillin 1, 2 D - Diarrhea Active statins muscle pain Active niacin skin turns red Active sulfa [...] 6 HOURS NEEDED FOR WHEEZING, [facility] Mail Delivery Start Date: 05/11/19 Status: [...] 05/15/21 8:27:00 EDT, Route to Pharmacy Electronically, [facility]/pharmacy #0315, 167.64, cm, 04/23/21 9:50:00... Start [...] 64% ( crippled ) on 12/01/17; initial [place] Back Pain Scale: 68 on 12/01/17; initial [place]: 7 on 12/01/17 2PROCEDURE DATE: 08/10/2017 PREOPERATIVE [...] No; Stopped at age: 41; entered on: 4/26/18 Sex
--- OUTSIDE RECORDS SUMMARY | 2023-09-15 11:49 | XMS_ITS | Continuity of Care Document ---
Author Name Unknown Organization [facility] Primary Car e Jacinto Address [address] [place] [address]- Care Team Providers Care Integration Project Manager Name Role Phone Beatrice EDAN ([facility]), Antonia Richardson Primary Care Ph ysician Encounter [facility] Date(s): 02/12/23 - 03/14/23 [facility] Care Jacinto [address] [place] [address]- Allergies, Adverse Reactions, Alerts Substance Reaction Severity [...] Stop,05/06/22 9:49:00 EDT, Route to Pharmacy Electronically, [id number], [facility]/pharmacy #1230, 169, cm, 04/10/22 14:11:00 EDT, Hemikal... Start Date: 05/06/22 Stop Date: 09/03/22 Status: Ordered calcium-vitamin D 600 mg-400 intl units oral tablet 1 tablet, By Mouth, 2 times a day, # 180 tablet, 1 Refills, 02/04/23 8:58:00 EST, [facility]/pharmacy #1230, 1 tablet By Mouth 2 times [...] 07/23/22 13:29:00 EDT, Route to Pharmacy Electronically, [facility]/pharmacy #0315, 169, cm, 04/10/22 14:11:00 EDT, Height, [...] Replace Required Details, Route to Pharmacy Electronically, [facility]/pharmacy #1230, 168, cm, 12/15/22 0:20:00 ES... Start [...] Replace Required Details, Route to Pharmacy Electronically, [facility]/pharmacy #1230, 168, cm, ... Start Date: 01/22/23 Status: Ordered loratadine 10 mg oral capsule 1 capsule = 10 mg, By Mouth, Daily, # 30 capsule, 0 Refills, Maintenance, 06/04/17 8:06:21, Capsule Start Date: 06/04/17 Stop Date: 07/04/17 Status: Ordered Metoprolol Tartrate 25 mg oral tablet 0.5 tablet, By Mouth, 2 times a day, # 90 tablet, 1 Refills, Maintenance, 10/07/22 14:35:00 EST, [facility], 167.64, cm, 10/06/22 9:14:00 EST, Height, 134.2, kg, 10/06/22 9:14:00 EST, Dry Weight Start Date: 10/07/22 Status: Ordered montelukast 10 mg oral tablet 1, tablet, By Mouth, Daily, # 90 tablet, Refills 1, Maintenance, 07/25/22 21:44:00 EDT, Route to Pharmacy Electronically, [facility] 8[facility]30, 169, cm, 04/10/22 14:11:00 EDT, Height, 129, [...] Replace Required Details, Route to Pharmacy Electronically, [id number]... Start Date: 01/12/23 Status: Ordered traMADol 50 [...] 6 Refills, Soft Stop, 06/11/22 9:38:00 EDT, [facility]/pharmacy #1230, 169, cm, 04/10/22 14:11:00 EDT, Height,129, [...] Pain Scale: 68 on 12/01/17; initial [place]: 7 on 12/01/17 2PROCEDURE DATE: 08/10/2017 PREOPERATIVE [...] information Care Team Personnel Name: Beatrice DEAN ([facility]), Antonia Richardson Position: [facility] Primary Care Physician Member Role: PCP Address: Address: [address] [place] [address] [place] [address]- Name: Natalya Phillip PharmD Position: [facility] Associate Professional Member Role: Lifetime Consulting Provider Address: Address: [address] [place] [address] [place] [address]- [place] Name: Smiley Blair Position: [facility] Outreach Member Role: Lifetime Consulting Physician Name: Marcin Peacock Position: [facility] Outreach Member Role: Lifetime Consulting Physician Name: Nancy Valenzuela RN Position: [facility] Onco RN Member Role: Primary Care Nurse Care Team Related Persons Name: EBONY DUENAS Address: [address] [place] [address] Name: AMPARO DUENAS Address: [address] [place] [address] Name: EBONY WASHBURN Address: [address] [place] [address] Name: JULI CLAYTON
--- OUTSIDE RECORDS SUMMARY | 2023-09-15 11:49 | XMS_ITS | Continuity of Care Document ---
Author Name Unknown Organization [facility] Primary Car e Jacinto Address [address] [place] [address]- Care Team Providers Care Sheetmetal Patternmaker Name Role Phone Beatrice DEAN ([facility]), Antonia Richardson Primary Care Ph ysician Encounter [facility] Date(s): 01/21/23 - 02/20/23 [facility] Care Jacinto [address] [place] [address]- Allergies, Adverse Reactions, Alerts Substance Reaction Severity [...] Stop,05/06/22 9:49:00 EDT, Route to Pharmacy Electronically, [id number], [facility]/pharmacy #1230, 169, cm, 04/10/22 14:11:00 EDT, Hemikal... Start Date: 05/06/22 Stop Date: 09/03/22 Status: Ordered calcium-vitamin D 600 mg-400 intl units oral tablet 1 tablet, By Mouth, 2 times a day, # 180 tablet, 1 Refills, 02/04/23 8:58:00 EST, [facility]/pharmacy #1230, 1 tablet By Mouth 2 times [...] 07/23/22 13:29:00 EDT, Route to Pharmacy Electronically, [facility]/pharmacy #0315, 169, cm, 04/10/22 14:11:00 EDT, Height, [...] Replace Required Details, Route to Pharmacy Electronically, [facility]/pharmacy #1230, 168, cm, 12/15/22 0:20:00 ES... Start [...] Replace Required Details, Route to Pharmacy Electronically, [facility]/pharmacy #1230, 168, cm, ... Start Date: 01/22/23 Status: Ordered loratadine 10 mg oral capsule 1 capsule = 10 mg, By Mouth, Daily, # 30 capsule, 0 Refills, Maintenance, 06/04/17 8:06:21, Capsule Start Date: 06/04/17 Stop Date: 07/04/17 Status: Ordered Metoprolol Tartrate 25 mg oral tablet 0.5 tablet, By Mouth, 2 times a day, # 90 tablet, 1 Refills, Maintenance, 10/07/22 14:35:00 EST, [facility] 85[facility], 167.64, cm, 10/06/22 9:14:00 EST, Height, 134.2, kg, 10/06/22 9:14:00 EST, Dry Weight Start Date: 10/07/22 Status: Ordered montelukast 10 mg oral tablet 1, tablet, By Mouth, Daily, # 90 tablet, Refills 1, Maintenance, 07/25/22 21:44:00 EDT, Route to Pharmacy Electronically, [facility], 169, cm, 04/10/22 14:11:00 EDT, Height, 129, [...] Replace Required Details, Route to Pharmacy Electronically, [id number]... Start Date: 01/12/23 Status: Ordered traMADol 50 [...] Back Pain Scale: 68 on 12/01/17; initial [place]: 7 on 12/01/17 2PROCEDURE DATE: 08/10/2017 PREOPERATIVE [...] information Care Team Personnel Name: Beatrice DEAN ([facility])Antonia Position: [facility] Primary Care Physician Member Role: PCP Address: Address: [address] [place] [id number] Name: Natalya Phillip PharmD Position: [facility] Associate Professional Member Role: Lifetime Consulting Provider Address: Address: [address] [place] [address] [place] [address]- [place] Name: Smiley Blair Position: [facility] Outreach Member Role: Lifetime Consulting Physician Name: Marcin Peacock Position: [facility] Outreach Member Role: Lifetime Consulting Physician Name: Bianca GRIFFITHS, Nancy Mireles Position: [facility] Onco RN Member Role: Primary Care Nurse Care Team Related Persons Name: EBONY DUENAS Address: [place] [address] Name: AMPARO DUENAS Address: home [address] [place] [address] Name: EBONY WASHBURN Address: [address] [place] [address] Name: JULI CLAYTON
--- OUTSIDE RECORDS SUMMARY | 2023-09-15 11:49 | XMS_ITS | Continuity of Care Document ---
Author Name Unknown Organization [facility] Address [address] [place] [address]- Care Team Providers Care Geriatric Physician Name Role Phone Beatrice DEAN ([facility] [place]), Antonia Richardson Primary Care Ph ysician Encounter [facility] Date(s): 01/21/23 - 02/20/23 [facility] [address] [place] [address]- Allergies, Adverse Reactions, Alerts Substance Reaction Severity [...] Stop,05/06/22 9:49:00 EDT, Route to Pharmacy Electronically, [id number], [facility]/pharmacy #1230, 169, cm, 04/10/22 14:11:00 EDT, Hemikal... Start Date: 05/06/22 Stop Date: 09/03/22 Status: Ordered calcium-vitamin D 600 mg-400 intl units oral tablet 1 tablet, By Mouth, 2 times a day, # 180 tablet, 1 Refills, 02/04/23 8:58:00 EST, [facility]/pharmacy #1230, 1 tablet By Mouth 2 [...] 07/23/22 13:29:00 EDT, Route to Pharmacy Electronically, [facility]/pharmacy #0315, 169, cm, 04/10/22 14:11:00 EDT, [...] Replace Required Details, Route to Pharmacy Electronically, [facility]/pharmacy #1230, 168, cm, 12/15/22 0:20:00 ES... [...] Replace Required Details, Route to Pharmacy Electronically, [facility]/pharmacy #1230, 168, cm, ... Start Date: 01/22/23 Status: Ordered loratadine 10 mg oral capsule 1 capsule = 10 mg, By Mouth, Daily, # 30 capsule, 0 Refills, Maintenance, 06/04/17 8:06:21, Capsule Start Date: 06/04/17 Stop Date: 07/04/17 Status: Ordered Metoprolol Tartrate 25 mg oral tablet 0.5 tablet, By Mouth, 2 times a day, # 90 tablet, 1 Refills, Maintenance, 10/07/22 14:35:00 EST, [facility] STORE 60098, 167.64, cm, 10/06/22 9:14:00 EST, Height, 134.2, kg, 10/06/22 9:14:00 EST, Dry Weight Start Date: 10/07/22 Status: Ordered montelukast 10 mg oral tablet 1, tablet, By Mouth, Daily, # 90 tablet, Refills 1, Maintenance, 07/25/22 21:44:00 EDT, Route to Pharmacy Electronically, [facility] STORE 99462, 169, cm, 04/10/22 14:11:00 EDT, Height, 129, [...] Replace Required Details, Route to Pharmacy Electronically, [id number]... Start Date: 01/12/23 Status: Ordered traMADol 50 [...] 64% ( crippled ) on 12/01/17; initial [place] Back Pain Scale: 68 on 12/01/17; initial [place]: 7 on 12/01/17 2PROCEDURE DATE: 08/10/2017 PREOPERATIVE [...] information Care Team Personnel Name: Beatrice DEAN ([facility] [place])Antonia Position: [facility] Primary Care Physician Member Role: PCP Address: Address: [address] [place] [id number] Name: Natalya Phillip PharmD Position: [facility] Associate Professional Member Role: Lifetime Consulting Provider Address: Address: [address] [place] [address] [place] [address]- [place] Name: Smiley Blair Position: [facility] Outreach Member Role: Lifetime Consulting Physician Name: Marcin Peacock Position: [facility] Outreach Member Role: Lifetime Consulting Physician Name: Bianca GRIFFITHS, Nancy Mireles Position: [facility] Onco RN Member Role: Primary Care Nurse Care Team Related Persons Name: EBONY DUENAS Address: [place] [address] Name: AMPARO DUENAS Address: home [address] [place] [address] Name: EBONY WASHBURN Address: [address] [place] [address] Name: JULI CLAYTON
--- OUTSIDE RECORDS SUMMARY | 2023-09-15 11:49 | XMS_ITS | Continuity of Care Document ---
Author Name Unknown Organization [facility] [place] Address [address] [place] [address]- Care Team Providers Care Learning Coach Name Role Phone Beatrice DEAN ([facility]), Antonia Richardson Primary Care Ph ysician Encounter [facility] Date(s): 07/25/22 - 08/24/[address] [address] Attending Physician: Fransisco Tamez Admitting Physician: AdmFransisco miles Referring Physician: AdmtrFransisco Allergies, Adverse Reactions, Alerts [...] Stop,05/06/22 9:49:00 EDT, Route to Pharmacy Electronically, [id number], [facility]/pharmacy #1230, 169, cm, 04/10/22 14:11:00 EDT, [place]... Start Date: 05/06/22 Stop Date: 09/03/22 Status: Ordered CALCIUM 600 MG-VIT D3 10MCG TB CALCIUM 600 MG-VIT D3 10MCG TB, 1, tablet, By Mouth, 2 times a day, # 180 tablet, 1 Refills, Maintenance, 07/25/22 21:44:00 EDT, 169, cm, 04/10/22 14:11:00 EDT, Height, 129, kg, 02/21/22 9:37:00 EDT,Dry Weight Start Date: 07/25/22 Status: Ordered calcium-vitamin D 600 mg-400 intl units oral tablet 1 tablet, By Mouth, 2 times a day, # 180 tablet, 1 Refills, [facility] STORE 23557, 90, TAKE 1 TABLET BY MOUTH TWICE [...] 07/23/22 13:29:00 EDT, Route to Pharmacy Electronically, [facility]/pharmacy #0315, 169, cm, 04/10/22 14:11:00 EDT, Height, [...] tablet, Refills 0, Route to Pharmacy Electronically, [facility] STORE 17897, 169, cm, 04/10/22 14:11:00 EDT, Height, 129, [...] Replace Required Details, Route to Pharmacy Electronically, [facility]/pharmacy #0315, 169, cm, 04/10/22... Start Date: 07/21/22 Status: Ordered Glucosamine Chondroitin 3 capsule, By Mouth, 2 times a day, 0 Refills, Maintenance, 02/21/22 9:32:00 EDT, Partial fill uponpatient request if the prescription is for a schedule II opioid drug. Start Date: 02/21/22 Status: Ordered loratadine 10 mg oral capsule 1 capsule = 10 mg, By Mouth, Daily, # 30 capsule, 0 Refills, Maintenance, 06/04/17 8:06:21, Capsule Start Date: 06/04/17 Stop Date: 07/04/17 Status: Ordered Lovenox 120 mg/0.8 mL injectable solution = 120 mg, Subcutaneous Injection, Every 12 hours, for 7 days, Start Lovenox 36 hours after last dose of Coumadin. Hold 24 hours prior to surgery. Restart Coumadin and Lovenox 24 hr after surgery. DC Lovenox when INR is between 2-3, # 14 each, 1 Refi... Start Date: 08/18/22 Stop Date: 09/01/22 Status: Ordered Metoprolol Tartrate 25 mg oral tablet 0.5 tablet, By Mouth, 2 times a day, # 90 tablet, 1 Refills, [facility] STORE 24747, 169, cm, 03/28/22 10:25:00 EDT, Height, 129, kg, 02/21/22 9:37:00 EDT, Dry Weight Start Date: 04/09/22 Status: Ordered montelukast 10 mg oral tablet 1, tablet, By Mouth, Daily, # 90 tablet, Refills 1, Maintenance, 07/25/22 21:44:00 EDT, Route to Pharmacy Electronically, [facility] STORE 30519, 169, cm, 04/10/22 14:11:00 EDT, Height, 129, [...] Replace Required Details, Route to Pharmacy Electronically, [id number], [facility] STORE 09797, 168, cm, 0... Start Date: 08/08/22 Status: [...] Date: 06/11/22 Status: Ordered Problem List Condition Effective Dates [...] Back Pain Scale: 68 on 12/01/17; initial [place]: 7 on 12/01/17 2PROCEDURE DATE: 08/10/2017 PREOPERATIVE [...] at age: 41; entered on: 03/25/18 Sex Care Team Personnel Name: Beatrice DEAN (Antonia Major Address: [address] [place] [address], [place] [address]-
--- OUTSIDE RECORDS SUMMARY | 2023-09-15 11:49 | XMS_ITS | Continuity of Care Document ---
Author Name Unknown Organization [facility] Address [address] [place] [address]- Care Team Providers Care Merchandise Manager Name Role Phone Beatrice DEAN ([facility]), Antonia Richardson Primary Care Ph ysician Encounter [facility] Date(s): 12/03/21 - 01/02/22 [facility] [address] [place] [address]- Allergies, Adverse Reactions, Alerts Substance Reaction Severity [...] 03/19/20 13:36:00 EDT, Route to Pharmacy Electronically, [facility]/pharmacy #0315, 167.64, cm, 02/01/20 15:51:00 [...] Back Pain Scale: 68 on 12/01/17; initial [place]: 7 on 12/01/17 2PROCEDURE DATE: 08/10/2017 PREOPERATIVE [...]
--- OUTSIDE RECORDS SUMMARY | 2023-09-15 11:49 | XMS_ITS | Continuity of Care Document ---
Author Name Unknown Organization [facility] Address [address] [place] [address]- Care Team Providers Care Obstetrical Tech Name Role Phone Beatrice DEAN ([facility]), Antonia Richardson Primary Care ysician [id number] Date(s): [facility]/25[facility] - 02/01/20 [facility] [address] [address]- [facility] Attending Physician: Ho Medina MD Admitting Physician: Ho Medina MD Referring Physician: Beatrice DEAN ([facility] ), Antonia Richardson Allergies, Adverse Reactions, Alerts Substance Reaction Severity [...] PUFF EVERY 6 HOURS NEEDED FOR WHEEZING, [facility] Start Date: 05/11/19 Status: Ordered Celebrate vitamins 1, By Mouth, Daily in AM, Maintenance, 01/06/20 13:52:00 EST, Celebrate vitamins Start Date: 01/06/20 Status: Ordered citalopram 40 mg oral tablet 40 mg, 1, tablet, By Mouth, Daily, # 90 tablet, Refills 1, Tot. Refills 1, Maintenance, 06/10/19 17:40:00 EDT, Route to Pharmacy Electronically, [id number], [facility] Start Date: 06/10/19 Stop [...] tablet, 1 Refills, Soft Stop, 12/03/2019:27:00 EST, [facility], 167, cm, 09/16/19 10:05:00 EDT, Height, 158.3, kg, 08/18/19 10:50:00 EDT, Dry Weight Start Date: 12/03/19 Status: Ordered montelukast 10 mg oral tablet See Instructions, # 90 tablet, Refills 1 Tot. Refills 1, TAKE 1 TABLET EVERY DAY, [facility] Start Date: 06/16/19 Status: [...] Back Pain Scale: 68 on 12/01/17; initial [place]: 7 on 12/01/17 2PROCEDURE DATE: 08/10/2017 PREOPERATIVE [...] bilateral ureteral jets. SURGEON: Ching Melgoza M.D. Vital Signs Most recent to oldest [Reference Range]: 1 Height 168 cm (01/25/20 4:07 PM) Weight 137.4 kg (01/25/20 4:07 PM) Oxygen Saturation [94-100 %] 100 % (01/25/20 4:07 PM) Pulse Rate [55-90 bpm] 65 bpm (01/25/20 4:07 PM) Body Mass Index [18.5-24.99] 48.68 *>HHI* (01/25/20 4:07 PM) Blood Pressure [90-138/55-84 mm Hg] 97/6 8mm Hg (01/25/20 4:07 PM) Temperature [96.8-100.4 DegF] 98.6 DegF (01/25/20 4:07 PM) Blood pressure sites Arm, left (01/25/20 4:07 PM) Temperature Route Temporal (01/25/20 4:07 PM) Social History Social History Type Response Smoking Status Former smoker; Tobac co user in household: No; Stopped at age: 41; entered on: 03/25/18 Sex
--- OUTSIDE RECORDS SUMMARY | 2023-09-15 11:49 | XMS_ITS | Continuity of Care Document ---
Author Name Unknown Organization [facility] Address [address] [place] [address]- Care Team Providers Care Volunteer Services Specialist Name Role Phone Beatrice DEAN ([facility] [place]), Antonia Richardson Primary Care Ph ysician Encounter [facility] Date(s): 02/28/20 - 03/09/20 [facility] [address] [place] [address]- [facility] Attending Physician: AdmFransisco miles Admitting Physician: AdmtrFransisco Referring Physician: Admtr, ArAndrea Allergies, Adverse Reactions, Alerts Substance Reaction Severity [...] PUFF EVERY 6 HOURS NEEDED FOR WHEEZING, [facility] Mail Delivery Start Date: 05/11/19 Status: Ordered Celebrate vitamins 1, By Mouth, Daily in AM, Maintenance, 01/06/20 13:52:00 EST, [facility] Start Date: 01/06/20 Status: Ordered citalopram 40 mg oral tablet 40 mg, 1, tablet, By Mouth, Daily, # 90 tablet, Refills 1, Tot. Refills 1, Maintenance, 06/10/19 17:40:00 EDT, Route to Pharmacy Electronically, [id number], [facility] Start Date: 06/10/19 Stop [...] tablet, 1 Refills, Soft Stop, 12/03/2019:27:00 EST, [facility], 167, cm, 09/16/19 10:05:00 EDT, Height, 158.3, kg, 08/18/19 10:50:00 EDT, Dry Weight Start Date: 12/03/19 Status: Ordered montelukast 10 mg oral tablet See Instructions, # 90 tablet, Refills 1 Tot. Refills 1, TAKE 1 TABLET EVERY DAY, [facility] Start Date: 06/16/19 Status: [...] Back Pain Scale: 68 on 12/01/17; initial [place]: 7 on 12/01/17 2PROCEDURE DATE: 08/10/2017 PREOPERATIVE [...]
--- OUTSIDE RECORDS SUMMARY | 2023-09-15 11:49 | XMS_ITS | Continuity of Care Document ---
Author Name Unknown Organization [facility] Address [address] [place] [address]- Care Team Providers Care Neurology Epilepsy Physician Name Role Phone Beatrice DEAN ([facility] [place]), Antonia Richardson Primary Care Ph ysician Encounter [facility] Date(s): 12/12/22 - 01/11/23 [facility] [address] [place] [address]- Allergies, Adverse Reactions, Alerts Substance Reaction Severity [...] Stop,05/06/22 9:49:00 EDT, Route to Pharmacy Electronically, [id number], [facility]/pharmacy #1230, 169, cm, 04/10/22 14:11:00 EDT, Giles... Start Date: 05/06/22 Stop Date: 09/03/22 Status: Ordered calcium-vitamin D 600 mg-400 intl units oral tablet 1 tablet, By Mouth, 2 times a day, # 180 tablet, 1 Refills, [facility] STORE 09181, 90, TAKE 1 TABLET BY MOUTH TWICE [...] EDT, Route to Pharmacy Electronically, [facility]/pharmacy #0315, 169, cm, 04/10/22 14:11:00 [...] Details, Route to Pharmacy Electronically, [facility]/pharmacy #1230, 168, cm, 12/15/22 0:20:00 [...] Details, Route to Pharmacy Electronically, [facility]/pharmacy #1230, 167.64, cm, ... Start Date: 10/28/22 Status: Ordered lidocaine 1.8% topical film 1 patch, Topically, Daily, leave on up to 12 hours, # 30 each, 0 Refills, Maintenance, 01/06/23 9:50:00 EST, Film, [facility]/pharmacy #1230, Partial fill upon patient request if [...] tablet, 1 Refills, Maintenance, 10/07/22 14:35:00 EST, [facility] STORE 40804, 167.64, cm, 10/06/22 9:14:00 EST, Height, 134.2, kg, 10/06/22 9:14:00 EST, Dry Weight Start Date: 10/07/22 Status: Ordered montelukast 10 mg oral tablet 1, tablet, By Mouth, Daily, # 90 tablet, Refills 1, Maintenance, 07/25/22 21:44:00 EDT, Route to Pharmacy Electronically, [facility], 169, cm, 04/10/22 14:11:00 EDT, Height, 129, [...] Replace Required Details, Route to Pharmacy Electronically, [id number], [facility], 168, cm, ... Start Date: 08/08/22 Status: [...] Soft Stop, 06/11/22 9:38:00 EDT, [facility]/pharmacy #1230, 169, cm, 04/10/22 14:11:00 EDT, Height,129, [...] Back Pain Scale: 68 on 12/01/17; initial [place]: 7 on 12/01/17 2PROCEDURE DATE: 08/10/2017 PREOPERATIVE [...] information Care Team Personnel Name: Beatrice DEAN ([facility] [place]), Antonia Richardson Position: [facility] Primary Care Physician Member Role: PCP Address: Address: [address] [place] [id number]- [place] Name: Natalya Phillip PharmD Position: [facility] Associate Professional Member Role: Lifetime Consulting Provider Address: Address: [address] [place] [address] Coumadin [place], [place] [address] Name: Smiley Blair Position: [facility] Outreach Member Role: Lifetime Consulting Physician Name: Marcin Peacock Position: [facility] Outreach Member Role: Lifetime Consulting Physician Name: Bianca GRIFFITHS, Nancy Mireles Position: [facility] Onco RN Member Role: Primary Care Nurse Care Team Related Persons Name: EBONY DUENAS Address: [place] [address] Name: AMPARO DUENAS Address: home [address] [place] [address] Name: EBONY WASHBURN Address: [place] [address] Name: JULI CLAYTON
--- OUTSIDE RECORDS SUMMARY | 2023-09-15 11:50 | XMS_ITS | Continuity of Care Document ---
Author Name Unknown Organization [facility] [place] Address [address] [place] [address]- Care Team Providers Care Vp Patient Name Role Phone Beatrice DEAN ([facility])Antonia Primary Care Ph ysician En[facility] Date(s): 02/28/20 - 04/27/20 [facility] [address] [place] [address]- [facility] Attending Physician: Beatrice DEAN ([facility])Antonia Allergies, Adverse Reactions, Alerts Substance Reaction [...] PUFF EVERY 6 HOURS NEEDED FOR WHEEZING, [facility] Start Date: [facility]0315, 167.64, cm, 02/01/20 15:51:... Start Date: [...] Refills, Maintenance, 03/19/20 13:23:00 EDT, EC Tablet, [facility]/pharmacy #0315, 167.64, cm, 02/01/20 15:51:00 EST, Height, 135.6, kg, 02/01/20 15:51:00 EST, Dry Weight Start Date: 03/19/20 Status: Ordered Symbicort 80mcg/4.5mcg Inhaler 1 puff, [...] Back Pain Scale: 68 on 12/01/17; initial [place]: 7 on 12/01/17 2PROCEDURE DATE: 08/10/2017 PREOPERATIVE [...]
--- OUTSIDE RECORDS SUMMARY | 2023-09-15 11:50 | XMS_ITS | Continuity of Care Document ---
Author Name Unknown Organization [facility] [place] Address [address] [place] [address]- Care Team Providers Care Residential Program Manager Name Role Phone Beatrice DEAN ([facility])Antonia Primary Care Ph ysician Encounter [facility] Date(s): 12/05/21 - 02/01/[address] [address] Attending Physician: Beatrice DEAN ([facility])Antonia Allergies, Adverse Reactions, Alerts Substance Reaction Severity Status dicloxacillin 1, 2 D - Diarrhea Active sulfa drugs hives Active statins muscle pain Active niacin skin turns red Active 1Patient [...] 13:36:00 EDT, Route to Pharmacy Electronically, [facility]/pharmacy #0315, 167.64, cm, 02/01/20 15:51:00 [...] 64% ( crippled ) on 12/01/17; initial [place] Back Pain Scale: 68 on 12/01/17; initial [place]: 7 on 12/01/17 2PROCEDURE DATE: 08/10/2017 PREOPERATIVE [...]
--- OUTSIDE RECORDS SUMMARY | 2023-09-15 11:50 | XMS_ITS | Continuity of Care Document ---
Author Name Unknown Organization [facility] Address [address] [place] [address]- Care Team Providers Care Mechanic/Welder Name Role Phone Beatrice DEAN ([facility]), Antonia Richardson Primary Care Ph ysician Encounter [facility] Date(s): 02/19/21 - 03/21/21 [facility] [address] [place] [address]- Allergies, Adverse Reactions, Alerts Substance Reaction Severity [...] PUFF EVERY 6 HOURS NEEDED FOR WHEEZING, [facility] Mail [facility] Start Date: 05/11/19 Status: Ordered Celebrate vitamins 1, By Mouth, Daily in AM, Maintenance, 01/06/20 13:52:00 EST, [facility] Start Date: 01/06/20 Status: Ordered citalopram 40 mg oral tablet 40 mg, 1, tablet, By Mouth, Daily, # 90 tablet, Refills 2, Tot. Refills 2, Maintenance, 03/19/20 13:36:00 EDT, Route to Pharmacy Electronically, [facility]/pharmacy #0315, 167.64, cm, 02/01/20 15:51:00 EST,Height, [...] 6 Refills, Soft Stop, 03/19/20 13:23:00 EDT, [facility]/pharmacy #0315, 167.64, cm, 02/01/20 15:51:00 EST, [...] Back Pain Scale: 68 on 12/01/17; initial [place]: 7 on 12/01/17 2PROCEDURE DATE: 08/10/2017 PREOPERATIVE [...]
--- OUTSIDE RECORDS SUMMARY | 2023-09-15 11:50 | XMS_ITS | Continuity of Care Document ---
Author Name Unknown Organization [facility] Address [address] [place] [address]- Care Team Providers Care Drying Supervisor Name Role Phone Beatrice DEAN ([facility]), Antonia Richardson Primary Care Ph ysician Encounter [facility] Date(s): 01/02/23 - 02/01/23 [facility] [address] [place] [address]- Allergies, Adverse Reactions, Alerts Substance Reaction Severity [...] Stop,05/06/22 9:49:00 EDT, Route to Pharmacy Electronically, [id number], [facility]/pharmacy #1230, 169, cm, 04/10/22 14:11:00 EDT, [place] Start Date: 05/06/22 Stop Date: 09/03/22 Status: Ordered calcium-vitamin D 600 mg-400 intl units oral tablet 1 tablet, By Mouth, 2 times a day, # 180 tablet, 1 Refills, [facility] STORE 69697, 90, TAKE 1 TABLET BY MOUTH TWICE DAILY, 168, cm, 01/17/22 8:53:00 EST, Height, 135, kg, 09/16/21 15:58:00 EDT, Dry Weight Start Date: 01/23/22 Status: Ordered cefadroxil 500 mg oral capsule 2 capsule = 1,000 mg, By Mouth, Every 12 hours, for 10 days, # 40 capsule, 0 Refills, Acute 02/04/23 18:14:00 EST, 01/25/23 18:14:00 EST, Capsule, [facility]/pharmacy #1230, Partial fill upon patient request if [...] to Pharmacy Electronically, [facility]/pharmacy #0315, 169, cm, 04/10/22 14:11:00 EDT, [...] Details, Route to Pharmacy Electronically, [facility]/pharmacy #1230, 168, cm, 12/15/22 0:20:00 ES... [...] Details, Route to Pharmacy Electronically, [facility]/pharmacy #1230, 168, cm, ... Start Date: [...] 1 Refills, Maintenance, 10/07/22 14:35:00 EST, [facility] STORE 42562, 167.64, cm, 10/06/22 9:14:00 EST, Height, 134.2, kg, 10/06/22 9:14:00 EST, Dry Weight Start Date: 10/07/22 Status: Ordered montelukast 10 mg oral tablet 1, tablet, By Mouth, Daily, # 90 tablet, Refills 1, Maintenance, 07/25/22 21:44:00 EDT, Route to Pharmacy Electronically, [facility] 46633, 169, cm, 04/10/22 14:11:00 EDT, Height, 129, [...] Replace Required Details, Route to Pharmacy Electronically, [id number]... Start Date: 01/12/23 Status: Ordered traMADol 50 [...] Soft Stop, 06/11/22 9:38:00 EDT, [facility]/pharmacy #1230, 169, cm, 04/10/22 14:11:00 EDT, [...] Back Pain Scale: 68 on 12/01/17; initial [place]: 7 on 12/01/17 2PROCEDURE DATE: 08/10/2017 PREOPERATIVE [...] DEAN ([facility]), Antonia Richardson Position: [facility] Primary Care Physician Member Role: PCP Address: Address: [address] [place] [address] Care, [place] [address]- Name: Natalya Phillip PharmD Position: [facility] Associate Professional Member Role: Lifetime Consulting Provider Address: Address: [address] [place] [address] [place] [address]- Name: Smiley Blair Position: [facility] Outreach Member Role: Lifetime Consulting Physician Name: Marcin Peacock Position: [facility] Outreach Member Role: Lifetime Consulting Physician Name: Bianca GRIFFITHS, Nancy Mireles Position: [facility] Onco RN Member Role: Primary Care Nurse Care Team Related Persons Name: EBONY DUENAS Address: [address] [place] [address] Name: AMPARO DUENAS Address: home [address] [place] [address] Name: EBONY WASHBURN Address: home [address] [place] [address] Name: JULI CLAYTON
--- OUTSIDE RECORDS SUMMARY | 2023-09-15 11:50 | XMS_ITS | Continuity of Care Document ---
Author Name Unknown Organization [facility] Primary Car e [facility] Address [address] [place] [address]- Care Team Providers Care Vb Net Developer Name Role Phone Beatrice DEAN ([facility]), Antonia Richardson Primary Care Ph ysician Encounter [facility] Date(s): 02/03/23 - 03/05/23 [facility] Care [facility] [address] [place] [address]- Allergies, Adverse Reactions, Alerts Substance Reaction Severity [...] Brett rded influenza virus vaccine, inactivated 07/14/16 Bertt rded influenza virus vaccine, inactivated 11/10/13 Brett [...] Stop,05/06/22 9:49:00 EDT, Route to Pharmacy Electronically, [id number], [facility]/pharmacy #1230, 169, cm, 04/10/22 14:11:00 EDT, Hemikal... Start Date: 05/06/22 Stop Date: 09/03/22 Status: Ordered calcium-vitamin D 600 mg-400 intl units oral tablet 1 tablet, By Mouth, 2 times a day, # 180 tablet, 1 Refills, 02/04/23 8:58:00 EST, [facility]/pharmacy #1230, 1 tablet By Mouth [...] 07/23/22 13:29:00 EDT, Route to Pharmacy Electronically, [facility]/pharmacy #0315, 169, cm, 04/10/22 14:11:00 [...] Replace Required Details, Route to Pharmacy Electronically, [facility]/pharmacy #1230, 168, cm, 12/15/22 0:20:00 [...] Replace Required Details, Route to Pharmacy Electronically, [facility]/pharmacy #1230, 168, cm, ... Start [...] tablet, 1 Refills, Maintenance, 10/07/22 14:35:00 EST, [facility] 92854, 167.64, cm, 10/06/22 9:14:00 EST, Height, 134.2, kg, 10/06/22 9:14:00 EST, Dry Weight Start Date: 10/07/22 Status: Ordered montelukast 10 mg oral tablet 1, tablet, By Mouth, Daily, # 90 tablet, Refills 1, Maintenance, 07/25/22 21:44:00 EDT, Route to Pharmacy Electronically, [facility] 65443, 169, cm, 04/10/22 14:11:00 EDT, Height, 129, [...] Replace Required Details, Route to Pharmacy Electronically, [id number]... Start Date: 01/12/23 Status: Ordered traMADol 50 [...] 64% ( crippled ) on 12/01/17; initial [place] Back Pain Scale: 68 on 12/01/17; initial [place]: 7 on 12/01/17 2PROCEDURE DATE: 08/10/2017 PREOPERATIVE [...] information Care Team Personnel Name: Beatrice DEAN ([facility])Antonia Position: [facility] Primary Care Physician Member Role: PCP Address: Address: [address] [place] [id number] Name: Natalya Phillip PharmD Position: [facility] Associate Professional Member Role: Lifetime Consulting Provider Address: Address: [address] [place] [address] [place] [address]- [place] Name: Smiley Blair Position: [facility] Outreach Member Role: Lifetime Consulting Physician Name: Marcin Peacock Position: [facility] Outreach Member Role: Lifetime Consulting Physician Name: Bianca GRIFFITHS, Nancy Mireles Position: [facility] Onco RN Member Role: Primary Care Nurse Care Team Related Persons Name: EBONY DUENAS Address: [place] [address] Name: AMPARO DUENAS Address: home [address] [place] [address] Name: EBONY WASHBURN Address: [address] [place] [address] Name: JULI CLAYTON
--- OUTSIDE RECORDS SUMMARY | 2023-09-15 11:50 | XMS_ITS | Continuity of Care Document ---
Author Name Unknown Organization [facility] Primary Car e [facility] Address [address] [place] [address]- Care Team Providers Care Music Therapy Specialist Name Role Phone Beatrice DEAN ([facility]), Antonia Richardson Primary Care Ph ysician Encounter [facility] Date(s): 09/16/21 - 10/16/21 [facility] Care [facility] [address] [place] [address]- Allergies, Adverse Reactions, Alerts Substance Reaction Severity [...] PUFF EVERY 6 HOURS NEEDED FOR WHEEZING, [facility] Pharm[facility] Mail Delivery Start Date: 05/11/19 Status: Ordered Celebrate vitamins 1, By Mouth, Daily in AM, Maintenance, 01/06/20 13:52:00 EST, Celebrate vitamins Start Date: 01/06/20 Status: Ordered citalopram 40 mg oral tablet 40 mg, 1, tablet, By Mouth, Daily, # 90 tablet, Refills 2, Tot. Refills 2, Maintenance, 03/19/20 13:36:00 EDT, Route to Pharmacy Electronically, [facility]/pharmacy #0315, 167.64, cm, 02/01/20 15:51:00 EST,Height, 135.6, kg, 02/01/20 15:51:00 EST, Dry Weight Start Date: 03/19/20 Stop Date: 12/14/20 Status: Ordered gabapentin 300 mg oral capsule 1,500 mg, 5, capsule, By Mouth, Daily, 1 CAP IN THE AM, 1 AT NOON, AND 3 CAPS AT BEDTIME.., # 450 capsule, Refills 1, Tot. Refills 1, Maintenance, 05/15/21 8:27:00 EDT, [facility] 167.64, cm, 04/23/21 9:50:00... Start [...] Back Pain Scale: 68 on 12/01/17; initial [place]: 7 on 12/01/17 2PROCEDURE DATE: 08/10/2017 PREOPERATIVE [...]
--- OUTSIDE RECORDS SUMMARY | 2023-09-15 11:50 | XMS_ITS | Continuity of Care Document ---
Author Name Unknown Organization [facility] Primary Car e [facility] Address [address] [place] [address]- Care Team Providers Care Laundry Sorter Name Role Phone Beatrice DEAN ([facility]), Antonia Richardson Primary Care Ph ysician Encounter [facility] Date(s): 01/28/21 - 02/27/21 [facility] Care [facility] [address] [place] [address]- Allergies, Adverse Reactions, Alerts Substance Reaction Severity [...] 03/19/20 13:36:00 EDT, Route to Pharmacy Electronically, [facility]/pharmacy #0315, 167.64, cm, 02/01/20 [...] 6 Refills, Soft Stop, 03/19/20 13:23:00 EDT, [facility]/pharmacy #0315, 167.64, cm, 02/01/20 [...]
--- OUTSIDE RECORDS SUMMARY | 2023-09-15 11:50 | XMS_ITS | Continuity of Care Document ---
Author Name Unknown Organization [facility] Primary Car e [facility] Address [address] [place] [address]- Care Team Providers Care Tooth Cutter Spur Name Role Phone Beatrice DEAN ([facility]), Antonia Richardson Primary Care Ph ysician Encounter [facility] Date(s): 08/01/22 - 08/31/22 [facility] Care [facility] [address] [place] [address]- Allergies, Adverse Reactions, Alerts Substance Reaction Severity [...] Stop,05/06/22 9:49:00 EDT, Route to Pharmacy Electronically, [id number], [facility]/pharmacy #1230, 169, cm, 04/10/22 14:11:00 EDT, Giles... Start Date: 05/06/22 Stop Date: 09/03/22 Status: Ordered calcium-vitamin D 600 mg-400 intl units oral tablet 1 tablet, By Mouth, 2 times a day, # 180 tablet, 1 Refills, [facility] 23981, 90, TAKE 1 TABLET BY MOUTH TWICE [...] 13:29:00 EDT, Route to Pharmacy Electronically, [facility]/pharmacy #0315, 169, cm, 04/10/22 14:11:00 [...] tablet, Refills 0, Route to Pharmacy Electronically, [facility] 97134, 169, cm, 04/10/22 14:11:00 EDT, Height, 129, [...] Required Details, Route to Pharmacy Electronically, [facility]/pharmacy #0315, 169, cm, 04/10/22... Start [...] a day, # 90 tablet, 1 Refills, [facility] 98846, 169, cm, 03/28/22 10:25:00 EDT, Height, 129, kg, 02/21/22 9:37:00 EDT, Dry Weight Start Date: 04/09/22 Status: Ordered montelukast 10 mg oral tablet 1, tablet, By Mouth, Daily, # 90 tablet, Refills 1, Maintenance, 07/25/22 21:44:00 EDT, Route to Pharmacy Electronically, [facility] 18536, 169, cm, 04/10/22 14:11:00 EDT, Height, 129, [...] Replace Required Details, Route to Pharmacy Electronically, [id number], [facility] 79223, 168, cm, ... Start Date: 08/08/22 Status: [...] Back Pain Scale: 68 on 12/01/17; initial [place]: 7 on 12/01/17 2PROCEDURE DATE: 08/10/2017 PREOPERATIVE [...] Care team information Personnel Name: Beatrice DEAN ([facility]), Antonia Richardson Address: Address: [address] [place] [address], [place] [address]- [place]
--- OUTSIDE RECORDS SUMMARY | 2023-09-15 11:50 | XMS_ITS | Continuity of Care Document ---
Author Name Unknown Organization [facility] [place] Address [address] [place] [address]- Care Team Providers Care Supervisor Drying Name Role Phone Beatrice DEAN ([facility])Antonia Primary Care Ph ysician Encounter [facility] Date(s): 11/05/21 - 01/02/[address] [address] Attending Physician: Beatrice DEAN ([facility])Antonia Allergies, Adverse Reactions, Alerts Substance Reaction Severity [...] 03/19/20 13:36:00 EDT, Route to Pharmacy Electronically, [facility]/pharmacy #0315, 167.64, cm, 02/01/20 15:51:00 EST,Height, [...] Back Pain Scale: 68 on 12/01/17; initial [place]: 7 on 12/01/17 2PROCEDURE DATE: 08/10/2017 PREOPERATIVE [...]
--- OUTSIDE RECORDS SUMMARY | 2023-09-15 11:50 | XMS_ITS | Continuity of Care Document ---
Author Name Unknown Organization [facility] Primary Car e [facility] Address [address] [place] [address]- Care Team Providers Care Roadway Designer Name Role Phone Beatrice DEAN ([facility]), Antonia Richardson Primary Care Ph ysician Encounter [facility] Date(s): 04/23/21 - 05/23/21 [facility] Care [facility] [address] [place] [address]- Allergies, Adverse Reactions, Alerts Substance Reaction Severity Status dicloxacillin 1, 2 D - Diarrhea Active niacin skin turns red Active sulfa drugs hives Active statins muscle pain Active 1Patient prevously thought was rash but says today ot. Tolerated PCN, Amoxicillin 2RASH Immunizations Given and Recorded Vaccine Date Status Refusal Reason SARS-CoV-2 (COVID-19) mRNA-4502 vaccine 04/13/21 R ecorded influenza virus vaccine, [...] PUFF EVERY 6 HOURS NEEDED FOR WHEEZING, [facility] Mail Delivery Start Date: 05/11/19 Status: Ordered Celebrate vitamins 1, By Mouth, Daily in AM, Maintenance, 01/06/20 13:52:00 EST, Celebrate vitamins Start Date: 01/06/20 Status: Ordered citalopram 40 mg oral tablet 40 mg, 1, tablet, By Mouth, Daily, # 90 tablet, Refills 2, Tot. Refills 2, Maintenance, 03/19/20 13:36:00 EDT, Route to Pharmacy Electronically, [facility]/pharmacy #0315, 167.64, cm, 02/01/20 [...] 05/15/21 8:27:00 EDT, [facility] 167.64, cm, 04/23/21 9:50:00... [...] 6 Refills, Soft Stop, 03/19/20 13:23:00 EDT, [facility]/pharmacy #0315, 167.64, cm, 02/01/20 [...] Back Pain Scale: 68 on 12/01/17; initial [place]: 7 on 12/01/17 2PROCEDURE DATE: 08/10/2017 PREOPERATIVE [...]
--- OUTSIDE RECORDS SUMMARY | 2023-09-15 11:50 | XMS_ITS | Continuity of Care Document ---
Author Name Unknown Organization [facility] Address [address] [place] [address]- Care Team Providers Care Window Cutter Name Role Phone Beatrice DEAN ([facility]), Antonia Richardson Primary Care Ph ysician Encounter [facility] Date(s): 10/04/20 - 12/20/[address] [address]- Attending Physician: Beatrice DEAN ([facility])Antonia Admitting Physician: Beatrice DEAN ([facility])Antonia Referring Physician: Beatrice DEAN ([facility])Antonia Allergies, Adverse Reactions, Alerts Substance Reaction Severity Status niacin skin turns red Active sulfa drugs hives Active statins muscle pain Active dicloxacillin 1, 2 D - Diarrhea Active 1Patient prevously thought was rash but [...] PUFF EVERY 6 HOURS NEEDED FOR WHEEZING, [facility] Mail Delivery Start Date: 05/11/19 Status: Ordered Celebrate vitamins 1, By Mouth, Daily in AM, Maintenance, 01/06/20 13:52:00 EST, Celebrate vitamins Start Date: 01/06/20 Status: Ordered citalopram 40 mg oral tablet 40 mg, 1, tablet, By Mouth, Daily, # 90 tablet, Refills 2, Tot. Refills 2, Maintenance, 03/19/20 13:36:00 EDT, Route to Pharmacy Electronically, [facility]/pharmacy #0315, 167.64, cm, 02/01/20 15:51:00 EST,Height, [...] 6 Refills, Soft Stop, 03/19/20 13:23:00 EDT, [facility]/pharmacy #0315, 167.64, cm, 02/01/20 15:51:00 EST, [...]
--- OUTSIDE RECORDS SUMMARY | 2023-09-15 11:50 | XMS_ITS | Continuity of Care Document ---
Author Name Unknown Organization [facility] [place] Address [address] [place] [address]- Care Team Providers Care Women'S Ministry Director Name Role Phone Beatrice DEAN ([facility]), Antonia Richardson Primary Care Ph ysician Encounter [facility] Date(s): 01/17/20 - 01/27/20 [facility] [address] [address]- [facility] Attending Physician: AdmFransisco miles Admitting Physician: AdmtrFransisco Referring Physician: Admtr, Fransisco Allergies, Adverse Reactions, Alerts Substance Reaction Severity [...] PUFF EVERY 6 HOURS NEEDED FOR WHEEZING, [facility] Mail [facility] Start Date: 05/11/19 Status: Ordered Celebrate vitamins 1, By Mouth, Daily in AM, Maintenance, 01/06/20 13:52:00 EST, [facility] Start Date: 01/06/20 Status: Ordered citalopram 40 mg oral tablet 40 mg, 1, tablet, By Mouth, Daily, # 90 tablet, Refills 1, Tot. Refills 1, Maintenance, 06/10/19 17:40:00 EDT, Route to Pharmacy Electronically, [id number], [facility] Mail Delivery Start Date: 06/10/19 Stop [...] tablet, 1 Refills, Soft Stop, 12/03/2019:27:00 EST, [facility] Mail [facility], 167, cm, 09/16/19 10:05:00 EDT, Height, 158.3, kg, 08/18/19 10:50:00 EDT, Dry Weight Start Date: 12/03/19 Status: Ordered montelukast 10 mg oral tablet See Instructions, # 90 tablet, Refills 1 Tot. Refills 1, TAKE 1 TABLET EVERY DAY, [facility] Mail [facility] Start Date: 06/16/19 Status: Ordered omeprazole 20 mg oral delayed release tablet 1 tablet = 20 mg, By Mouth, Daily, # 90 tablet, 5 Refills, Maintenance, 06/10/19 17:40:00 EDT, EC Tablet Start Date: 06/10/19 Status: Ordered Symbicort 80mcg/4.5mcg Inhaler See Instructions, # 3 Unknown, INHALE 2 PUFFS TWICE DAILY, [facility] Mail [facility] Start Date: 07/14/19 Status: [...] Back Pain Scale: 68 on 12/01/17; initial [place]: 7 on 12/01/17 2PROCEDURE DATE: 08/10/2017 PREOPERATIVE [...]
--- OUTSIDE RECORDS SUMMARY | 2023-09-15 11:50 | XMS_ITS | Continuity of Care Document ---
Author Name Unknown Organization [facility] Primary Car e [facility] Address [address] [place] [address]- Care Team Providers Care Physician Coding Specialist Name Role Phone Beatrice DEAN ([facility]), Antonia Richardson Primary Care Ph ysician Encounter [facility] Date(s): 07/31/20 - 08/30/20 [facility] Care [facility] [address] [place] [address]- [facility] Allergies, Adverse Reactions, Alerts Substance Reaction Severity [...] HOURS NEEDED FOR WHEEZING, [facility] Mail Delivery Start Date: 05/11/19 Status: Ordered Celebrate vitamins 1, By Mouth, Daily in AM, Maintenance, 01/06/20 13:52:00 EST, Celebrate vitamins Start Date: 01/06/20 Status: Ordered citalopram 40 mg oral tablet 40 mg, 1, tablet, By Mouth, Daily, # 90 tablet, Refills 2, Tot. Refills 2, Maintenance, 03/19/20 13:36:00 EDT, Route to Pharmacy Electronically, [facility]/pharmacy #0315, 167.64, cm, 02/01/20 15:51:00 EST,Height, 135.6, kg, 02/01/20 15:51:00 EST, Dry Weight Start Date: 03/19/20 Stop Date: 12/14/20 Status: Ordered gabapentin 300 mg oral capsule 1,500 mg, 5, capsule, By Mouth, Daily, 1 CAP IN THE AM, 1 AT NOON, AND 3 CAPS AT BEDTIME.., # 450 capsule, Refills 1, Tot. Refills 1, Maintenance, 03/19/20 13:36:00 EDT, Route to Pharmacy Electronically, [facility]/pharmacy #0315, 167.64, cm, 02/01/20 15:51:... Start [...] Refills, Maintenance, 03/19/20 13:23:00 EDT, EC Tablet, [facility]/pharmacy #0315, 167.64, cm, 02/01/20 15:51:00 EST, [...] Back Pain Scale: 68 on 12/01/17; initial [place]: 7 on 12/01/17 2PROCEDURE DATE: 08/10/2017 PREOPERATIVE [...]
--- OUTSIDE RECORDS SUMMARY | 2023-09-15 11:50 | XMS_ITS | Continuity of Care Document ---
Author Name Unknown Organization [facility] Primary [facility] e [place] Address [address] [place] [address]- Care Team Providers Care Dry Plasterer Helper Name Role Phone Beatrice DEAN ([facility]), Antonia Richardson Primary Care Ph ysician Encounter [facility] Date(s): 04/03/22 - 05/03/22 [facility] Care [facility] [address] [place] [address]- Allergies, Adverse Reactions, Alerts Substance Reaction Severity [...] 03/19/20 13:36:00 EDT, Route to Pharmacy Electronically, [facility]/pharmacy #0315, 167.64, cm, 02/01/20 [...] Back Pain Scale: 68 on 12/01/17; initial [place]: 7 on 12/01/17 2PROCEDURE DATE: 08/10/2017 PREOPERATIVE [...]
--- OUTSIDE RECORDS SUMMARY | 2023-09-15 11:50 | XMS_ITS | Continuity of Care Document ---
Author Name Unknown Organization [facility] Primary Car e [place] Address [address] [place] [address]- Care Team Providers Care Manager Product Design Name Role Phone Beatrice DEAN ([facility]), Antonia Richardson Primary Care Ph ysician Encounter [facility] Date(s): 06/09/23 - 07/09/23 [facility] Care [facility] [address] [place] [address]- Allergies, Adverse Reactions, Alerts Substance Reaction Severity [...] Stop,05/06/22 9:49:00 EDT, Route to Pharmacy Electronically, [id number], [facility]/pharmacy #1230, 169, cm, 04/10/22 14:11:00 EDT, [facility]... Start Date: 05/06/22 Stop Date: 09/03/22 Status: Ordered calcium-vitamin D 600 mg-400 intl units oral tablet 1 tablet, By Mouth, 2 times a day, # 180 tablet, 1 Refills, 02/04/23 8:58:00 EST, [facility]/pharmacy #1230, 1 tablet By Mouth [...] 06/19/23 6:31:00 EDT, Route to Pharmacy Electronically, [facility] 79896, 167, cm, 06/01/23 11:29:00 EDT, Height, 134, [...] Replace Required Details, Route to Pharmacy Electronically, [facility] 24672, 167, cm, 02/16/23 13:41... Start Date: 05/20/23 [...] tablet, 1 Refills, Maintenance, 04/19/23 11:19:00 EDT, [facility] 89534, 167, cm, 02/16/23 13:41:00 EDT, Height, 134, kg, 01/29/23 9:11:00 EST, Dry Weight Start Date: 04/19/23 Status: Ordered montelukast 10 mg oral tablet 1, tablet, By Mouth, Daily, # 90 tablet, Refills 1, Maintenance, 04/13/23 9:49:00 EDT, Route to Pharmacy Electronically, [facility] 21080, 167, cm, 02/16/23 13:41:00 EDT, Height, 134, [...] Replace Required Details, Route to Pharmacy Electronically, [id number]... Start Date: 01/12/23 Status: Ordered traMADol 50 [...] Back Pain Scale: 68 on 12/01/17; initial [place]: 7 on 12/01/17 2PROCEDURE DATE: 08/10/2017 PREOPERATIVE [...] information Care Team Personnel Name: Beatrice DEAN ([facility]), Antonia Richardson Position: [facility] Physician - Primary Care Member Role: PCP Address: Address: [address] [place] [address] [place] [address]- Name: Natalya Phillip PharmD Position: [facility] Associate Professional Member Role: Lifetime Consulting Provider Address: Address: [address] [place] [address] [place] [address]- Name: Smiley Blair Position: [facility] Outreach Member Role: Lifetime Consulting Physician Name: Marcin Peacock Position: [facility] Outreach Member Role: Lifetime Consulting Physician Name: Bianca RN, Nancy Mireles Position: [facility] Onco RN Member Role: Primary Care Nurse Care Team Related Persons Name: EBONY DUENAS Address: home [address] [place], [place] Name: AMPARO DUENAS Address: home [address] [place], [place] Name: EBONY WASHBURN Address: home [address] [place], [place] Name: JULI CLAYTON
--- OUTSIDE RECORDS SUMMARY | 2023-09-15 11:51 | XMS_ITS | Continuity of Care Document ---
Author Name Unknown Organization [facility] Infect[facility] Address [address] [place] [address]- Care Team Providers Care Transformation Consultant Name Role Phone Beatrice DEAN ([facility]), Antonia Richardson Primary Care Ph ysician Encounter [facility] Date(s): 02/18/23 - 03/20/23 [facility] [address] [place] [address]- Attending Physician: Fransisco Tamez Admitting Physician: Fransisco Tamez Referring Physician: AdmFransisco miles Allergies, Adverse Reactions, Alerts Substance Reaction Severity [...] Stop,05/06/22 9:49:00 EDT, Route to Pharmacy Electronically, [id number], [facility]/pharmacy #1230, 169, cm, 04/10/22 14:11:00 EDT, [place]iles... Start Date: 05/06/22 Stop Date: 09/03/22 Status: Ordered calcium-vitamin D 600 mg-400 intl units oral tablet 1 tablet, By Mouth, 2 times a day, # 180 tablet, 1 Refills, 02/04/23 8:58:00 EST, [facility]/pharmacy #1230, 1 tablet By Mouth 2 [...] 13:29:00 EDT, Route to Pharmacy Electronically, [facility]/pharmacy #0315, 169, cm, 04/10/22 14:11:00 EDT, [...] Required Details, Route to Pharmacy Electronically, [facility]/pharmacy #1230, 168, cm, 12/15/22 0:20:00 ES... [...] Required Details, Route to Pharmacy Electronically, [facility]/pharmacy #1230, 168, cm, ... Start Date: 01/22/23 Status: Ordered loratadine 10 mg oral capsule 1 capsule = 10 mg, By Mouth, Daily, # 30 capsule, 0 Refills, Maintenance, 06/04/17 8:06:21, Capsule Start Date: 06/04/17 Stop Date: 07/04/17 Status: Ordered Metoprolol Tartrate 25 mg oral tablet 0.5 tablet, By Mouth, 2 times a day, # 90 tablet, 1 Refills, Maintenance, 10/07/22 14:35:00 EST, [facility] 33298, 167.64, cm, 10/06/22 9:14:00 EST, Height, 134.2, kg, 10/06/22 9:14:00 EST, Dry Weight Start Date: 10/07/22 Status: Ordered montelukast 10 mg oral tablet 1, tablet, By Mouth, Daily, # 90 tablet, Refills 1, Maintenance, 07/25/22 21:44:00 EDT, Route to Pharmacy Electronically, [facility] 427[facility], 169, cm, 04/10/22 14:11:00 EDT, Height, 129, [...] Replace Required Details, Route to Pharmacy Electronically, [id number]... Start Date: 01/12/23 Status: Ordered traMADol 50 [...] 6 Refills, Soft Stop, 06/11/22 9:38:00 EDT, [facility]/pharmacy #1230, 169, cm, 04/10/22 14:11:00 EDT, [...] Back Pain Scale: 68 on 12/01/17; initial [place]: 7 on 12/01/17 2PROCEDURE DATE: 08/10/2017 PREOPERATIVE [...] information Care Team Personnel Name: Beatrice DEAN ([facility]), Antonia Richardson Position: [facility] Primary Care Physician Member Role: PCP Address: Address: [address] [place] [address] [place] [address]- Name: Natalya Phillip PharmD Position: [facility] Associate Professional Member Role: Lifetime Consulting Provider Address: Address: [address] [address] [place] [address]- Name: Smiley Blair Position: [facility] Outreach Member Role: Lifetime Consulting Physician Name: Marcin Peacock Position: [facility] Outreach Member Role: Lifetime Consulting Physician Name: Bianca GRIFFITHS, Nancy Mireles Position: [facility] Onco RN Member Role: Primary Care Nurse Care Team Related Persons Name: EBONY DUENAS Address: [address] [place] [address] Name: AMPARO DUENAS Address: [address] [place] [address] Name: EBONY WASHBURN Address: home [address] [place] [id number] Name: JULI CLAYTON
--- OUTSIDE RECORDS SUMMARY | 2023-09-15 11:51 | XMS_ITS | Continuity of Care Document ---
Author Name Unknown Organization [facility] Address [address] [place] [address]- Care Team Providers Care Automotive Designer Name Role Phone Beatrice DEAN ([facility]), Antonia Richardson Primary Care Ph ysician Encounter [facility] Date(s): 02/08/21 - 02/08/[address] [address]- Discharge Disposition: A-D/C Home Attending Physician: Gera Hughes MD Admitting Physician: Gera Hughes MD Referring Physician: Not on Staff, Referring [...] PUFF EVERY 6 HOURS NEEDED FOR WHEEZING, [facility] Mail Delivery Start Date: 05/11/19 Status: Ordered Celebrate vitamins 1, By Mouth, Daily in AM, Maintenance, 01/06/20 13:52:00 EST, Celebrate vitamins Start Date: 01/06/20 Status: Ordered citalopram 40 mg oral tablet 40 mg, 1, tablet, By Mouth, Daily, # 90 tablet, Refills 2, Tot. Refills 2, Maintenance, 03/19/20 13:36:00 EDT, Route to Pharmacy Electronically, [facility]/pharmacy #[id number], 167.64, cm, 02/01/20 [...] 6 Refills, Soft Stop, 03/19/20 13:23:00 EDT, [facility]/pharmacy #[id number], 167.64, cm, 02/01/20 [...] Back Pain Scale: 68 on 12/01/17; initial [place]: 7 on 12/01/17 2PROCEDURE DATE: 08/10/2017 PREOPERATIVE [...] Exam Date Time Procedure Performing Provider Status 02/08/21 6:18 PM Ribs W/ PA Chest Left Marlyn Garcia ue; Auth (Verified) Notes: (Ribs W/ PA Chest Left) Reason For Exam: Pain RESULT: Ribs W/ PA Chest Left Ribs W/ PA Chest Left Hx of Present Illness: Pt states she bent over a metal railing, and heard a crunch in her lower left chest, and states lower back pain that is unrelated.; Reason: Pain; Clinical Question(s): Fracture COMPARISON: 02/24/2018 FINDINGS: LINES AND TUBES: None. LUNGS AND PLEURA: Low lung volumes with mild bibasilar atelectasis. No effusion or pneumothorax. HEART, MEDIASTINUM AND TONI: Normal. BONES: No fractures or bone lesions. SOFT TISSUES: IVC filter. IMPRESSION: Mild bibasilar atelectasis. No fracture identified. WSN: [id number] Ordering Physician: Shi Pickard Dictated By: Trever Ramirez DO Dictated Date/Time: 02/08/21 6:42 pm Reviewed By: Trever Ramirez DO Signed By: Trever Ramirez DO Signed Date/Time: 02/08/21 6:42 pm Transcribed By: MARYJO Transcribed Date/Time: 02/08/21 6:40 pm Vital Signs Most recent to oldest [Reference Range]: 1 2 3 Height 160 cm (02/08/21 7:55 PM) 160 cm (02/08/21 3:53 PM) 160 cm (02/08/21 3:49 PM) Weight 135.1 kg (02/08/21 7:55 PM) 135.1 kg (02/08/21 3:53 PM) 135.1 kg (02/08/21 3:49 PM) Oxygen Saturation [94-100 %] 100 % (02/08/21 7:55 PM) 100 % (02/08/21 3:49 PM) Pulse Rate [55-90 bpm] 82 bpm (02/08/21 7:55 PM) 70 bpm (02/08/21 3:49 PM) Body Mass Index [18.5-24.99] 52.77 *>HHI* (02/08/21 7:55 PM) 52.77 *>HHI* (02/08/21 3:53 PM) 52.77 *>HHI* (02/08/21 3:47 PM) Blood Pressure [90-138/55-84 mm Hg] 123/63mm Hg (02/08/21 7:55 PM) 121/83mm Hg (02/08/21 3:49 PM) Respiratory Rate [16-30 br/min] 18 br/min (02/08/21 7:55 PM) 26 br/min (02/08/21 3:49 PM) Temperature [96.8-100.4 DegF] 98.6 DegF (02/08/21 7:55 PM) 98.3 DegF (02/08/21 3:53 PM) Mode of Delivery (Oxygen) Room air (02/08/21 7:55 PM) Room air (02/08/21 3:49 PM) Blood pressure sites Arm, right (02/08/21 7:55 PM) Arm, left (02/08/21 3:49 PM) Temperature Route Oral (02/08/21 7:55 PM) Oral (02/08/21 3:53 PM) Dry Weight 135.1 kg (02/08/21 7:55 PM) 135.1 kg (02/08/21 3:53 PM) 135.1 kg (02/08/21 3:49 PM) Weight Obtained Via Standing scale (02/08/21 3:47 PM) Dry Weight Obtained Via Standing scale (02/08/21 3:47 PM) Social History Social History Type Response Smoking Status Former smoker; Tobac co user in household: No; Stopped at age: 41; entered on: 03/25/18 Sex
--- OUTSIDE RECORDS SUMMARY | 2023-09-15 11:51 | XMS_ITS | Continuity of Care Document ---
Author Name Unknown Organization [facility] ter Address [address] [place] [address]- Care Team Providers Care Electrical System Specialist Name Role Phone Beatrice DEAN ([facility] [place]), Antonia Richardson Primary Care Ph ysician Encounter [facility] Date(s): 02/25/21 - 02/25/[address] [address]- Discharge Disposition: A-D/C Home Attending Physician: Armen Spencer MD Admitting Physician: Armen Spencer MD Referring Physician: Armen Spencer MD Allergies, Adverse Reactions, Alerts Substance Reaction [...] PUFF EVERY 6 HOURS NEEDED FOR WHEEZING, [facility] Mail Delivery Start Date: 05/11/19 Status: [...] Back Pain Scale: 68 on 12/01/17; initial [place]: 7 on 12/01/17 2PROCEDURE DATE: 08/10/2017 PREOPERATIVE [...] ureteral jets. SURGEON: Ching Melgoza M.D. Results Orders for Microbiology Reports Name Date Wound Deep Culture w/ Gram Smear 02/25/21 Microbiology Reports TEST:Deep Wound Culture STATUS:Unauthenticated BODY SITE: SOURCE:TISSUE1 COLLECTED DATE/TIME:02/25/21 8:00 AM Deep Wound Culture SPECIMEN DESCRIPTION : TISSUE FOOT RT WOUND SPECIAL REQUESTS : NONE GRAM STAIN : 2+ RBC'S NO ORGANISMS SEEN REPORT STATUS : PRELIMINARY REPORT Vital Signs Most recent to oldest [Reference Range]: 1 2 3 Height 167.64 cm (02/25/21 7:02 AM) 167.64 cm (02/20/21 10:36 AM) Weight 131.82 kg (02/25/21 7:02 AM) 131.82 kg (02/20/21 10:36 AM) Oxygen Saturation [94-100 %] 100 % (02/25/21 10:45 AM) 100 % (02/25/21 10:30 AM) 100 % (02/25/21 10:15 AM) Pulse Rate [55-90 bpm] 62 bpm (02/25/21 7:02 AM) Body Mass Index [18.5-24.99] 46.91 *>HHI* (02/25/21 7:02 AM) 46.91 *>HHI* (02/20/21 10:36 AM) Blood Pressure [90-138/55-84 mm Hg] 146/78mm Hg *H* (02/25/21 10:45 AM) 129/81mm Hg (02/25/21 10:30 AM) 140/73mm Hg *H* (02/25/21 10:15 AM) Respiratory Rate [16-30 br/min] 13 br/min *L* (02/25/21 10:45 AM) 10 br/min *L* (02/25/21 10:30 AM) 9 br/min *L* (02/25/21 10:15 AM) Temperature [96.8-100.4 DegF] 97.9 DegF (02/25/21 1:15 PM) 97.4 DegF (02/25/21 9:50 AM) 98.4 DegF (02/25/21 7:02 AM) Liters per Minute 5 L/min (02/25/21 10:30 AM) 5 L/min (02/25/21 10:15 AM) 5 L/min (02/25/21 10:00 AM) Mode of Delivery (Oxygen) Room air (02/25/21 1:15 PM) Room air (02/25/21 10:45 AM) Room air (02/25/21 10:39 AM) Blood pressure sites Arm, right (02/25/21 9:50 AM) Arm, right (02/25/21 7:40 AM) Arm, right (02/25/21 7:35 AM) Temperature Route Temporal (02/25/21 1:15 PM) Tympanic (02/25/21 9:50 AM) Temporal (02/25/21 7:02 AM) Dry Weight 134 kg (02/25/21 7:02 AM) 131.82 kg (02/20/21 10:36 AM) Dry Weight Obtained Via Standing scale (02/25/21 7:02 AM) Patient/family stated (02/20/21 10:36 AM) Social History Social History Type Response Smoking Status Former smoker; Tobac co user in household: No; Stopped at age: 41; entered on: 03/25/18 Sex
--- OUTSIDE RECORDS SUMMARY | 2023-09-15 11:51 | XMS_ITS | Continuity of Care Document ---
Author Name Unknown Organization [facility] Address [address] [place] [phone]- Care Team Providers Care Customer Support Associate Name Role Phone Beatrice DEAN ([facility])Antonia Primary Care Ph ysician [place] [facility] [place] 12/05/20 - 04/04/21 [facility] PRES[facility] Oncology [address] [place] [phone]- Attending Physician: Ching Melgoza MD Admitting Physician: Ching Melgoza MD Referring Physician: Beatrice DEAN ([facility])Antonia Allergies, Adverse Reactions, Alerts Substance [...] PUFF EVERY 6 HOURS NEEDED FOR WHEEZING, [facility] Mail Delivery Start Date: 05/11/19 Status: Ordered Celebrate vitamins 1, By Mouth, Daily in AM, Maintenance, 01/06/20 13:52:00 EST, Celebrate vitamins Start Date: 01/06/20 Status: Ordered citalopram 40 mg oral tablet 40 mg, 1, tablet, By Mouth, Daily, # 90 tablet, Refills 2, Tot. Refills 2, Maintenance, 03/19/20 13:36:00 EDT, Route to Pharmacy Electronically, [facility]/pharmacy #[id number], 167.64, cm, 02/01/20 15:51:00 [...] 6 Refills, Soft Stop, 03/19/20 13:23:00 EDT, [facility]/pharmacy #[id number], 167.64, cm, 02/01/20 15:51:00 EST, [...] Back Pain Scale: 68 on 12/01/17; initial [place]: 7 on 12/01/17 2PROCEDURE DATE: 08/10/2017 PREOPERATIVE [...]
--- OUTSIDE RECORDS SUMMARY | 2023-09-15 11:51 | XMS_ITS | Continuity of Care Document ---
Author Name Unknown Organization [facility] Address [address] [place] [address]- Care Team Providers Care Price Lister Name Role Phone Beatrice DEAN ([facility]), Antonia Richardson Primary Care Ph ysician Encounter [facility] Date(s): 02/21/22 - 02/21/[address] [address]- Discharge Disposition: A-D/C Home Attending Physician: Desean Abad MD Admitting Physician: Desean Abad MD Referring Physician: Desean Abad MD Allergies, Adverse Reactions, Alerts Substance Reaction [...] 03/19/20 13:36:00 EDT, Route to Pharmacy Electronically, [facility]/pharmacy #[id number], 167.64, cm, 02/01/20 15:51:00 [...] Back Pain Scale: 68 on 12/01/17; initial [place]: 7 on 12/01/17 2PROCEDURE DATE: 08/10/2017 PREOPERATIVE [...] bilateral ureteral jets. SURGEON: Ching Melgoza M.D. Procedures Procedure Date Related Diagnosis Body Site Status Colonoscopy 02/21/22 Completed Vital Signs Most recent to oldest [Reference Range]: 1 2 3 Height 169 cm (02/21/22 9:23 AM) Oxygen Saturation [94-100 %] 99 % (02/21/22 11:15 AM) 100 % (02/21/22 11:10 AM) 97 % (02/21/22 11:05 AM) Pulse Rate [55-90 bpm] 58 bpm (02/21/22 9:23 AM) Blood Pressure [90-138/55-84 mm Hg] 111/71mm Hg (02/21/22 11:15 AM) 99/65mm Hg (02/21/22 11:10 AM) 94/79mm Hg (02/21/22 11:05 AM) Respiratory Rate [16-30 br/min] 22 br/min (02/21/22 11:15 AM) 16 br/min (02/21/22 11:10 AM) 27 br/min (02/21/22 11:05 AM) Temperature [96.8-100.4 DegF] 97.4 DegF (02/21/22 11:01 AM) 97.3 DegF (02/21/22 9:23 AM) Mode of Delivery (Oxygen) Room air (02/21/22 11:15 AM) Room air (02/21/22 11:10 AM) Room air (02/21/22 11:05 AM) Blood pressure sites Arm, right (02/21/22 9:23 AM) Temperature Route Temporal (02/21/22 11:01 AM) Temporal (02/21/22 9:23 AM) Dry Weight 129 kg (02/21/22 9:23 AM) Dry Weight Obtained Via Patient/family s tated (02/21/22 9:23 AM) Social History Social History Type Response Smoking Status Former smoker; Tobac co user in household: No; Stopped at age: 41; entered on: 03/25/18 Sex
--- OUTSIDE RECORDS SUMMARY | 2023-09-15 11:51 | XMS_ITS | Continuity of Care Document ---
Author Name Unknown Organization [facility] ter Address [address] [place] [phone]- Care Team Providers Care Joy Loader Name Role Phone Beatrice DEAN ([facility]), Antonia Richardson Primary Care Ph ysician Encounter [facility] Date(s): 09/27/20 - 12/04/[address] [address]- Attending Physician: Beatrice DEAN ([facility])Antonia Admitting Physician: Beatrice DEAN ([facility])Antonia Referring Physician: Beatrice DEAN ([facility])Antonia Allergies, [...] PUFF EVERY 6 HOURS NEEDED FOR WHEEZING, [facility] Mail Delivery Start Date: 05/11/19 Status: Ordered Celebrate vitamins 1, By Mouth, Daily in AM, Maintenance, 01/06/20 13:52:00 EST, Celebrate vitamins Start Date: 01/06/20 Status: Ordered citalopram 40 mg oral tablet 40 mg, 1, tablet, By Mouth, Daily, # 90 tablet, Refills 2, Tot. Refills 2, Maintenance, 03/19/20 13:36:00 EDT, Route to Pharmacy Electronically, [facility]/pharmacy #[id number], 167.64, cm, 02/01/20 [...] 6 Refills, Soft Stop, 03/19/20 13:23:00 EDT, [facility]/pharmacy #[id number], 167.64, cm, 02/01/20 [...] Back Pain Scale: 68 on 12/01/17; initial [place]: 7 on 12/01/17 2PROCEDURE DATE: 08/10/2017 PREOPERATIVE [...]
--- OUTSIDE RECORDS SUMMARY | 2023-09-15 11:51 | XMS_ITS | Continuity of Care Document ---
Author Name Unknown Organization [facility] ter Address [address] [place] [phone]- Care Team Providers Care Chief Meter Reader Name Role Phone Beatrice DEAN ([facility] [place]), Antonia Richardson Primary Care Ph ysician [place] [facility]04[place] - 01/06/[address] [address]- [facility] Discharge Disposition: A-D/C Home Attending Physician: Surya Estrada MD Admitting Physician: María Jacobson MD Referring Physician: María Jacobson MD Allergies, Adverse Reactions, Alerts Substance Reaction [...] EVERY 6 HOURS NEEDED FOR WHEEZING, [facility] Mail Delivery Start Date: 05/11/19 Status: Ordered Celebrate vitamins 1, By Mouth, Daily in AM, Maintenance, 01/06/20 13:52:00 EST, Celebrate vitamins Start Date: 01/06/20 Status: Ordered citalopram 40 mg oral tablet 40 mg, 1, tablet, By Mouth, Daily, # 90 tablet, Refills 1, Tot. Refills 1, Maintenance, 06/10/19 17:40:00 EDT, Route to Pharmacy Electronically, [id number], [facility] Mail Delivery Start Date: 06/10/19 Stop Date: 12/07/19 Status: Ordered doxycycline hyclate 100 mg oral capsule 1 capsule = 100 mg, By Mouth, 2 times a day, for 7 days, # 14 capsule, 0 Refills, Acute 01/13/20 13:53:00 EST, 01/06/20 13:53:00 EST, Capsule, [facility]/pharmacy #[id number], 168, cm, 01/06/20 7:40:00 EST, Height, 137, kg, 01/04/20 17:58:00 EST, Dry Weight Start Date: 01/06/20 Stop Date: 01/13/20 Status: Ordered Gauze Pad (4 X 4) [...] Dry Weight Start Date: 01/06/20 Status: Ordered levoFLOXacin 750 mg oral tablet 1 tablet = 750 mg, By Mouth, Every 24 hours, 0 Refills, Maintenance, 01/06/20 13:55:00 EST, Tablet Start Date: 01/06/20 Stop Date: 01/13/20 Status: Ordered Metoprolol Tartrate 25 mg oral tablet See Instructions, TAKE 0.5 TABLET BY MOUTH TWICE A DAY, # 30 tablet, 1 Refills, Soft Stop, 12/03/2019:27:00 EST, [facility] Mail [facility], 167, cm, 09/16/19 10:05:00 EDT, Height, 158.3, kg, 08/18/19 10:50:00 EDT, Dry Weight Start Date: 12/03/19 Status: Ordered montelukast 10 mg oral tablet See Instructions, # 90 tablet, Refills 1 Tot. Refills 1, TAKE 1 TABLET EVERY DAY, [facility] Mail Delivery Start Date: 06/16/19 Status: Ordered omeprazole 20 mg oral delayed release tablet 1 tablet = 20 mg, By Mouth, Daily, # 90 tablet, 5 Refills, Maintenance, 06/10/19 17:40:00 EDT, EC Tablet Start Date: 06/10/19 Status: Ordered Symbicort 80mcg/4.5mcg Inhaler See Instructions, # 3 Unknown, INHALE 2 PUFFS TWICE DAILY, [facility] Mail Delivery Start Date: 07/14/19 Status: [...] Back Pain Scale: 68 on 12/01/17; initial [place]: 7 on 12/01/17 2PROCEDURE DATE: 08/10/2017 PREOPERATIVE [...] Results Orders for Microbiology Reports Name Date Blood Culture 01/04/20 Blood Culture #2 01/04/20 Microbiology Reports TEST:Blood Culture STATUS:Unauthenticated BODY SITE: SOURCE:Blood COLLECTED DATE/TIME:01/04/20 10:39 PM Blood Culture SPECIMEN DESCRIPTION : BLOOD RAC SPECIAL REQUESTS : NONE CULTURE : NO GROWTH AFTER 24 HOURS REPORT STATUS : PRELIMINARY REPORT TEST:Blood Culture, Second Order STATUS:Unauthenticated BODY SITE: SOURCE:Blood COLLECTED DATE/TIME:01/04/20 10:39 PM Blood Culture, Second Order SPECIMEN DESCRIPTION : BLOOD LAC SPECIAL REQUESTS : NONE CULTURE : NO GROWTH AFTER 24 HOURS REPORT STATUS : PRELIMINARY REPORT Vital Signs Most recent to oldest [Reference Range]: 1 2 3 Height 168 cm (01/06/20 3:18 PM) 168 cm (01/06/20 7:40 AM) 168 cm (01/05/20 11:31 PM) Weight 137 kg (01/04/20 5:58 PM) Oxygen Saturation [94-100 %] 97 % (01/06/20 7:40 AM) 95 % (01/05/20 11:31 PM) 97 % (01/05/20 7:22 PM) Pulse Rate [55-90 bpm] 63 bpm (01/06/20 8:47 AM) 63 bpm (01/06/20 7:40 AM) 58 bpm (01/05/20 11:31 PM) Body Mass Index [18.5-24.99] 48.54 *>HHI* (01/04/20 5:58 PM) Blood Pressure [90-138/55-84 mm Hg] 112/56mm Hg (01/06/20 8:47 AM) 112/56mm Hg (01/06/20 7:40 AM) 99/62mm Hg (01/05/20 11:31 PM) Respiratory Rate [16-30 br/min] 19 br/min (01/06/20 12:21 PM) 19 br/min (01/06/20 10:24 AM) 18 br/min (01/06/20 8:47 AM) Temperature [96.8-100.4 DegF] 97.9 DegF (01/06/20 7:40 AM) 98.4 DegF (01/05/20 11:31 PM) 98.3 DegF (01/05/20 7:22 PM) Mode of Delivery (Oxygen) Room air (01/06/20 7:40 AM) Room air (01/05/20 11:31 PM) Room air (01/05/20 7:22 PM) Blood pressure sites Arm, left (01/06/20 7:40 AM) Arm, right (01/05/20 11:31 PM) Arm, right (01/05/20 7:22 PM) Temperature Route Oral (01/06/20 7:40 AM) Oral (01/05/20 11:31 PM) Oral (01/05/20 7:22 PM) Dry Weight 137 kg (01/04/20 5:58 PM) Sensory deficits None (01/04/20 5:58 PM) Mobility assistance Independent (01/04/20 5:58 PM) Social History Social History Type Response Smoking Status Former smoker; Tobac co user in household: No; Stopped at age: 41; entered on: 03/25/18 Sex
--- OUTSIDE RECORDS SUMMARY | 2023-09-15 11:51 | XMS_ITS | Continuity of Care Document ---
Author Name Unknown Organization [facility] Address [address] [place] [address]- Care Team Providers Care Corn Cutter Operator Name Role Phone Beatrice DEAN ([facility] [place]), Antonia Richardson Primary Care Ph ysician Encounter [facility] Date(s): 05/06/22 - 06/05/22 [facility] [address] [place] [address]- Allergies, Adverse Reactions, Alerts Substance Reaction Severity [...] EDT, Route to Pharmacy Electronically, [facility]/pharmacy #[id number], 167.64, cm, 02/01/20 15:51:00 [...] Back Pain Scale: 68 on 12/01/17; initial [place]: 7 on 12/01/17 2PROCEDURE DATE: 08/10/2017 PREOPERATIVE [...]
--- OUTSIDE RECORDS SUMMARY | 2023-09-15 11:51 | XMS_ITS | Continuity of Care Document ---
Author Name Unknown Organization [facility] Address [address] [place] [address]- Care Team Providers Care Fat Purification Worker Name Role Phone Beatrice DEAN ([facility] [place]), Antonia Richardson Primary Care Ph ysician Encounter [facility] Date(s): 11/06/22 - 12/06/22 [facility] [address] [place] [address]- Allergies, Adverse Reactions, Alerts Substance Reaction Severity [...] Stop,05/06/22 9:49:00 EDT, Route to Pharmacy Electronically, [id number], [facility]/pharmacy #[id number], 169, cm, 04/10/22 14:11:00 EDT, [place]... Start Date: 05/06/22 Stop Date: 09/03/22 Status: Ordered calcium-vitamin D 600 mg-400 intl units oral tablet 1 tablet, By Mouth, 2 times a day, # 180 tablet, 1 Refills, [facility] STORE 8[facility]32, 90, TAKE 1 TABLET BY MOUTH TWICE [...] 07/23/22 13:29:00 EDT, Route to Pharmacy Electronically, [facility]/pharmacy #[id number], 169, cm, 04/10/22 14:11:00 EDT, [...] 0, 10/27/22 12:15:00 EST,Route to Pharmacy Electronically, [facility]/pharmacy #1230, 167.64, cm, 10/06/22 9:14:00 EST, [...] Replace Required Details, Route to Pharmacy Electronically, [facility]/pharmacy #1230, 167.64, cm, ... Start Date: 10/28/22 Status: Ordered loratadine 10 mg oral capsule 1 capsule = 10 mg, By Mouth, Daily, # 30 capsule, 0 Refills, Maintenance, 06/04/17 8:06:21, Capsule Start Date: 06/04/17 Stop Date: 07/04/17 Status: Ordered Metoprolol Tartrate 25 mg oral tablet 0.5 tablet, By Mouth, 2 times a day, # 90 tablet, 1 Refills, Maintenance, 10/07/22 14:35:00 EST, [facility] STORE [facility]013, 167.64, cm, 10/06/22 9:14:00 EST, Height, 134.2, kg, 10/06/22 9:14:00 EST, Dry Weight Start Date: 10/07/22 Status: Ordered montelukast 10 mg oral tablet 1, tablet, By Mouth, Daily, # 90 tablet, Refills 1, Maintenance, 07/25/22 21:44:00 EDT, Route to Pharmacy Electronically, [facility] STORE [address], 169, cm, 04/10/22 14:11:00 EDT, Height, 129, [...] Replace Required Details, Route to Pharmacy Electronically, [id number], [id number], 168, cm, ... Start Date: 08/08/22 Status: [...] 6 Refills, Soft Stop, 06/11/22 9:38:00 EDT, [facility]/pharmacy #1230, 169, cm, 04/10/22 14:11:00 EDT, Height,129, kg, 02/21/22 9:37:00 EDT, Dry Weight Start Date: 06/11/22 Status: Ordered Problem List Condition Confirmation Course Effective Dates Status H ealt Status Informant Arthritis Confirmed Active Asthma Confirmed [...] Back Pain Scale: 68 on 12/01/17; initial [place]: 7 on 12/01/17 2PROCEDURE DATE: 08/10/2017 PREOPERATIVE [...] information Care Team Personnel Name: Beatrice DEAN ([facility]), Antonia Richardson Position: [facility] Primary Care Physician Member Role: PCP Address: Address: [address] [place] [id number] Name: Natalya Phillip PharmD Position: [facility] Associate Professional Member Role: Lifetime Consulting Provider Address: Address: [address] [place] [address] [place] [address]- Name: Smiley Blair Position: [facility] Outreach Member Role: Lifetime Consulting Physician Name: Marcin Peacock Position: [facility] Outreach Member Role: Lifetime Consulting Physician Name: Bianca GRIFFITHS, Nancy Mireles Position: [facility] Onco RN Member Role: Primary Care Nurse Care Team Related Persons Name: EBONY DUENAS Address: home [address] [place] [address] Name: AMPARO DUENAS Address: home [address] [place], [place] Name: EBONY WASHBURN Address: home [address] [place] [address]
--- OUTSIDE RECORDS SUMMARY | 2023-09-15 11:51 | XMS_ITS | Continuity of Care Document ---
Author Name Unknown Organization [facility] [place] Address [address] [place] [address]- Care Team Providers Care Welding Process Specialist Name Role Phone Beatrice DEAN ([facility] [place]), Antonia Richardson Primary Care Ph ysician Encounter [facility] Date(s): 08/14/21 - 09/13/21 [facility] [place] [address] [place], [place] [address] Attending Physician: Fransisco Tamez Admitting Physician: Fransisco [...] PUFF EVERY 6 HOURS NEEDED FOR WHEEZING, [facility] Mail Delivery Start Date: 05/11/19 Status: Ordered Augmentin 500 mg-125 mg oral tablet 1 tablet, By Mouth, Every 8 hours, for 10 days, # 30 tablet, 0 Refills, Acute 09/21/21 19:39:00 EDT, 09/11/21 19:39:00 EDT, Tablet, [facility]/pharmacy #[id number], Partial fill upon patient request if the prescription is for a schedule II opioid drug., 168, cm, 1... Start Date: 09/11/21 Stop Date: 09/21/21 Status: Ordered Celebrate vitamins 1, By Mouth, Daily in AM, Maintenance, 01/06/20 13:52:00 EST, Celebrate vitamins Start Date: 01/06/20 Status: Ordered citalopram 40 mg oral tablet 40 mg, 1, tablet, By Mouth, Daily, # 90 tablet, Refills 2, Tot. Refills 2, Maintenance, 03/19/20 13:36:00 EDT, Route to Pharmacy Electronically, [facility]/pharmacy #[id number], 167.64, cm, 02/01/20 15:51:00 [...] Electronically, [facility]/pharmacy #[id number], 167.64, cm, 04/23/21 9:50:00... Start Date: 05/15/21 Stop Date: 11/11/21 Status: Ordered naproxen 250 mg oral tablet 250 mg, 1, tablet, By Mouth, 2 times a day, PRN, # 20 tablet, Refills 0, Tot. Refills 0, Acute 09/17/21 19:40:00 EDT, for pain, 09/11/21 19:39:00 EDT, Route to Pharmacy Electronically, [facility]/pharmacy #[id number], Partial fill upon patient request if the presc... Start Date: 09/11/21 Stop Date: 09/17/21 Status: Ordered Symbicort 80mcg/4.5mcg Inhaler See Instructions, [...] Back Pain Scale: 68 on 12/01/17; initial [place]: 7 on 12/01/17 2PROCEDURE DATE: 08/10/2017 PREOPERATIVE [...]
--- OUTSIDE RECORDS SUMMARY | 2023-09-15 11:51 | XMS_ITS | Continuity of Care Document ---
Author Name Unknown Organization [facility] Address [address] [place] [address]- Care Team Providers Care Ear Pull Machine Operator Name Role Phone Beatrice DEAN ([facility]), Antonia Richardson Primary Care Ph ysician Encounter [facility] Date(s): 06/08/23 - 07/08/23 [facility] [address] [place] [address]- Allergies, Adverse Reactions, Alerts Substance Reaction Severity [...] Stop,05/06/22 9:49:00 EDT, Route to Pharmacy Electronically, [id number], [facility]/pharmacy #1230, 169, cm, 04/10/22 14:11:00 EDT, [place]iles... Start Date: 05/06/22 Stop Date: 09/03/22 Status: Ordered calcium-vitamin D 600 mg-400 intl units oral tablet 1 tablet, By Mouth, 2 times a day, # 180 tablet, 1 Refills, 02/04/23 8:58:00 EST, [facility]/pharmacy #1230, 1 tablet By Mouth 2 [...] 06/19/23 6:31:00 EDT, Route to Pharmacy Electronically, [facility], 167, cm, 06/01/23 11:29:00 EDT, Height, 134, [...] Replace Required Details, Route to Pharmacy Electronically, [facility] 400[facility], 167, cm, 02/16/23 13:41... Start Date: 05/20/23 [...] tablet, 1 Refills, Maintenance, 04/19/23 11:19:00 EDT, [facility] 78604, 167, cm, 02/16/23 13:41:00 EDT, Height, 134, kg, 01/29/23 9:11:00 EST, Dry Weight Start Date: 04/19/23 Status: Ordered montelukast 10 mg oral tablet 1, tablet, By Mouth, Daily, # 90 tablet, Refills 1, Maintenance, 04/13/23 9:49:00 EDT, Route to Pharmacy Electronically, [facility] 564[facility], 167, cm, 02/16/23 13:41:00 EDT, Height, 134, [...] Replace Required Details, Route to Pharmacy Electronically, [id number]... Start Date: 01/12/23 Status: Ordered traMADol 50 [...] 6 Refills, Soft Stop, 06/11/22 9:38:00 EDT, [facility]/pharmacy #1230, 169, cm, 04/10/22 14:11:00 [...] Back Pain Scale: 68 on 12/01/17; initial [place]: 7 on 12/01/17 2PROCEDURE DATE: 08/10/2017 PREOPERATIVE [...] information Care Team Personnel Name: Beatrice DEAN ([facility]), Antonia Richardson Position: [facility] Physician - Primary Care Member Role: PCP Address: Address: [address] [place] [address] [place] [address]- Name: Natalya Phillip PharmD Position: [facility] Associate Professional Member Role: Lifetime Consulting Provider Address: Address: [address] [place] [address] [place] [address]- Name: Smiley Blair Position: [facility] Outreach Member Role: Lifetime Consulting Physician Name: Marcin Peacock Position: [facility] Outreach Member Role: Lifetime Consulting Physician Name: Bianca RN, Nancy Mireles Position: [facility] Onco RN Member Role: Primary Care Nurse Care Team Related Persons Name: EBONY DUENAS Address: home [address] [place], [place] Name: AMPARO DUENAS Address: home [address] [place], [place] Name: EBONY WASHBURN Address: home [address], [place] Name: JULI CLAYTON
--- OUTSIDE RECORDS SUMMARY | 2023-09-15 11:51 | XMS_ITS | Continuity of Care Document ---
Author Name Unknown Organization [facility] Address [address] [place] [address]- Care Team Providers Care Paint Roller Assembler Name Role Phone Beatrice DEAN ([facility]), Antonia Richardson Primary Care Ph ysician Encounter [facility] Date(s): 05/12/23 - 06/11/23 [facility] [address] [place] [address]- Allergies, Adverse Reactions, Alerts Substance Reaction Severity [...] Stop,05/06/22 9:49:00 EDT, Route to Pharmacy Electronically, [id number], [facility]/pharmacy #1230, 169, cm, 04/10/22 14:11:00 EDT, Giles... Start Date: 05/06/22 Stop Date: 09/03/22 Status: Ordered calcium-vitamin D 600 mg-400 intl units oral tablet 1 tablet, By Mouth, 2 times a day, # 180 tablet, 1 Refills, 02/04/23 8:58:00 EST, [facility]/pharmacy #1230, 1 tablet By Mouth 2 [...] tablet, By Mouth, Daily, # 90 tablet, 0 Refills, Maintenance, 04/13/23 14:26:00 EDT, [facility] STORE 52858, 167, cm, 02/16/23 13:41:00 EDT, Height, 134, kg, 01/29/23 9:11:00 EST, Dry Weight Start Date: 04/13/23 Status: Ordered Diabetic shoes Diabetic shoes, See [...] day, # 180 tablet, Refills 0, Maintenance, 05/20/23 7:54:00 EDT, Route to Pharmacy Electronically, [facility] 75001, 167, cm, 02/16/23 13:41:00 EDT, Height, 134, kg, 01/29/23 9:11:00 EST, Dry Weight Start Date: 05/20/23 Status: Ordered Freestyle Lite Lancets See Instructions, [...] Replace Required Details, Route to Pharmacy Electronically, [facility] 41653, 167, cm, 02/16/23 13:41... Start Date: 05/20/23 [...] tablet, 1 Refills, Maintenance, 04/19/23 11:19:00 EDT, [facility] 71203, 167, cm, 02/16/23 13:41:00 EDT, Height, 134, kg, 01/29/23 9:11:00 EST, Dry Weight Start Date: 04/19/23 Status: Ordered montelukast 10 mg oral tablet 1, tablet, By Mouth, Daily, # 90 tablet, Refills 1, Maintenance, 04/13/23 9:49:00 EDT, Route to Pharmacy Electronically, [facility] 72889, 167, cm, 02/16/23 13:41:00 EDT, Height, 134, [...] Replace Required Details, Route to Pharmacy Electronically, [id number]... Start Date: 01/12/23 Status: Ordered traMADol 50 [...] Back Pain Scale: 68 on 12/01/17; initial [place]: 7 on 12/01/17 2PROCEDURE DATE: 08/10/2017 PREOPERATIVE [...] information Care Team Personnel Name: Beatrice DEAN ([facility]), Antonia Richardson Position: [facility] Physician - Primary Care Member Role: PCP Address: Address: [address] [place] [address] [place] [address] Name: Natalya Phillip PharmD Position: [facility] Associate Professional Member Role: Lifetime Consulting Provider Address: Address: [address] [place] [address] [place] [address]- Name: Smiley Blair Position: [facility] Outreach Member Role: Lifetime Consulting Physician Name: Marcin Peacock Position: [facility] Outreach Member Role: Lifetime Consulting Physician Name: Bianca GRIFFITHS, Nancy Mireles Position: [facility] Onco RN Member Role: Primary Care Nurse Care Team Related Persons Name: EBONY DUENAS Address: [address] [place] [address] Name: AMPARO DUENAS Address: [address] [place] [address] Name: EBONY WASHBURN Address: [address] [place] [address] Name: JULI CLAYTON
--- OUTSIDE RECORDS SUMMARY | 2023-09-15 11:51 | XMS_ITS | Continuity of Care Document ---
Author Name Unknown Organization [facility] Address [address] [place] [address]- Care Team Providers Care Director Television News Name Role Phone Beatrice DEAN ([facility]), Antonia Richardson Primary Care Ph ysician Encounter [facility] Date(s): 05/29/23 - 06/28/23 [facility] [address] [place] [address]- Attending Physician: Fransisco Tamez Admitting Physician: AdmtrFransisco Referring Physician: AdmtrFransisco Allergies, [...] Stop,05/06/22 9:49:00 EDT, Route to Pharmacy Electronically, [id number], [facility]/pharmacy #1230, 169, cm, 04/10/22 14:11:00 EDT, Giles... Start Date: 05/06/22 Stop Date: 09/03/22 Status: Ordered calcium-vitamin D 600 mg-400 intl units oral tablet 1 tablet, By Mouth, 2 times a day, # 180 tablet, 1 Refills, 02/04/23 8:58:00 EST, [facility]/pharmacy #1230, 1 tablet By [...] 06/19/23 6:31:00 EDT, Route to Pharmacy Electronically, [facility] 612[facility], 167, cm, 06/01/23 11:29:00 EDT, Height, 134, [...] Replace Required Details, Route to Pharmacy Electronically, [facility] 76728, 167, cm, 02/16/23 13:41... Start Date: 05/20/23 [...] tablet, 1 Refills, Maintenance, 04/19/23 11:19:00 EDT, [facility] 61029, 167, cm, 02/16/23 13:41:00 EDT, Height, 134, kg, 01/29/23 9:11:00 EST, Dry Weight Start Date: 04/19/23 Status: Ordered montelukast 10 mg oral tablet 1, tablet, By Mouth, Daily, # 90 tablet, Refills 1, Maintenance, 04/13/23 9:49:00 EDT, Route to Pharmacy Electronically, [facility] 33632, 167, cm, 02/16/23 13:41:00 EDT, Height, 134, [...] Replace Required Details, Route to Pharmacy Electronically, [id number]... Start Date: 01/12/23 Status: Ordered traMADol 50 [...] information Care Team Personnel Name: Beatrice DEAN ([facility]), Antonia Richardson Position: [facility] Physician - Primary Care Member Role: PCP Address: Address: [address] [place] [address] [place] [address] Name: Natalya Phillip PharmD Position: [facility] Associate Professional Member Role: Lifetime Consulting Provider Address: Address: [address] [place] [address] [place] [address]- Name: Smiley Blair Position: [facility] Outreach Member Role: Lifetime Consulting Physician Name: Marcin Peacock Position: [facility] Outreach Member Role: Lifetime Consulting Physician Name: Nancy Valenzuela RN Position: [facility] Onco RN Member Role: Primary Care Nurse Care Team Related Persons Name: EBONY DUENAS Address: home [address] [place], [place] Name: AMPARO DUENAS Address: [address] [place], [place] Name: EBONY WASHBURN Address: [address] [place] [address] Name: JULI CLAYTON
--- OUTSIDE RECORDS SUMMARY | 2023-09-15 11:51 | XMS_ITS | Continuity of Care Document ---
Author Name Unknown Organization [facility] Address [address] [place] [address]- Care Team Providers Care Cell Biologist Name Role Phone Beatrice DEAN ([facility]), Antonia Richardson Primary Care Ph ysician Encounter [facility] Date(s): 01/11/20 - 01/21/[address] [address]- [facility] Attending Physician: AdmFransisco miles Admitting Physician: AdmtrFransisco Referring Physician: Admtr, Jesus8 Allergies, Adverse Reactions, Alerts Substance Reaction Severity [...] PUFF EVERY 6 HOURS NEEDED FOR WHEEZING, [facility] Start Date: 05/11/19 Status: Ordered Celebrate vitamins 1, By Mouth, Daily in AM, Maintenance, 01/06/20 13:52:00 EST, [facility] Start Date: 01/06/20 Status: Ordered citalopram 40 mg oral tablet 40 mg, 1, tablet, By Mouth, Daily, # 90 tablet, Refills 1, Tot. Refills 1, Maintenance, 06/10/19 17:40:00 EDT, Route to Pharmacy Electronically, [id number], [facility] Start Date: 06/10/19 Stop [...] tablet, 1 Refills, Soft Stop, 12/03/2019:27:00 EST, [facility], 167, cm, 09/16/19 10:05:00 EDT, Height, 158.3, kg, 08/18/19 10:50:00 EDT, Dry Weight Start Date: 12/03/19 Status: Ordered montelukast 10 mg oral tablet See Instructions, # 90 tablet, Refills 1 Tot. Refills 1, TAKE 1 TABLET EVERY DAY, [facility] Start Date: 06/16/19 Status: Ordered omeprazole 20 mg oral delayed release tablet 1 tablet = 20 mg, By Mouth, Daily, # 90 tablet, 5 Refills, Maintenance, 06/10/19 17:40:00 EDT, EC Tablet Start Date: 06/10/19 Status: Ordered Symbicort 80mcg/4.5mcg Inhaler See Instructions, # 3 Unknown, INHALE 2 PUFFS TWICE DAILY, [facility] Start Date: 07/14/19 Status: [...] Back Pain Scale: 68 on 12/01/17; initial [place]: 7 on 12/01/17 2PROCEDURE DATE: 08/10/2017 PREOPERATIVE [...]
--- OUTSIDE RECORDS SUMMARY | 2023-09-15 11:51 | XMS_ITS | Continuity of Care Document ---
Author Name Unknown Organization [facility] Address [address] [place] [address]- Care Team Providers Care Facilities Maintenance Supervisor Name Role Phone Beatrice DEAN ([facility])Antonia Primary Care Ph ysician Encounter [facility] Date(s): 04/10/22 - 07/25/22 [facility] [address] [place] [address]- Attending Physician: Beatrice DEAN ([facility])Antonia Allergies, Adverse Reactions, Alerts Substance Reaction Severity [...] Celebrate vitamins Start Date: 01/06/20 Status: Ordered Glucosamine Chondroitin 3 capsule, By [...] Back Pain Scale: 68 on 12/01/17; initial [place]: 7 on 12/01/17 2PROCEDURE DATE: 08/10/2017 PREOPERATIVE [...] Sex Care Team Personnel Name: Beatrice DEAN ([facility]), Antonia Richardson Address: [address] [place] [address], [address]
--- OUTSIDE RECORDS SUMMARY | 2023-09-15 11:51 | XMS_ITS | Continuity of Care Document ---
Author Name Unknown Organization [facility] [place] Address [address] [place] [address]- Care Team Providers Care History Department Chair Name Role Phone Beatrice DEAN ([facility])Antonia Primary Care Ph ysician Encounter [facility] Date(s): 04/27/20 - 06/24/20 [facility] [address] [place] [address]- [facility] Attending Physician: Beatrice DEAN ([facility])Antonia Allergies, Adverse Reactions, Alerts Substance [...] PUFF EVERY 6 HOURS NEEDED FOR WHEEZING, [facility] Start Date: 05/11/19 Status: Ordered Celebrate vitamins 1, By Mouth, Daily in AM, Maintenance, 01/06/20 13:52:00 EST, [facility] Start Date: 01/06/20 Status: Ordered citalopram 40 mg oral tablet 40 mg, 1, tablet, By Mouth, Daily, # 90 tablet, Refills 2, Tot. Refills 2, Maintenance, 03/19/20 13:36:00 EDT, Route to Pharmacy Electronically, [facility]/pharmacy #0315, 167.64, cm, 02/01/20 15:51:00 EST,Height, 135.6, kg, 02/01/20 15:51:00 EST, Dry Weight Start Date: 03/19/20 Stop Date: 12/14/20 Status: Ordered gabapentin 300 mg oral capsule 1,500 mg, 5, capsule, By Mouth, Daily, 1 CAP IN THE AM, 1 AT NOON, AND 3 CAPS AT BEDTIME.., # 450 capsule, Refills 1, Tot. Refills 1, Maintenance, 03/19/20 13:36:00 EDT, Route to Pharmacy Electronically, [facility]/pharmacy #0315, 167.64, cm, 02/01/20 15:51:... Start Date: [...] Back Pain Scale: 68 on 12/01/17; initial [place]: 7 on 12/01/17 2PROCEDURE DATE: 08/10/2017 PREOPERATIVE [...]
--- OUTSIDE RECORDS SUMMARY | 2023-09-15 11:52 | XMS_ITS | Continuity of Care Document ---
Author Name Unknown Organization [facility] Primary [facility] Address [address] [place] [address]- Care Team Providers Care Mortuary Beautician Name Role Phone Beatrice DEAN ([facility])Antonia Primary Care ysician Encounter [facility] Date(s): 04/12/20 - 04/19/20 [facility] [address] [place] [address]- [facility] Encounter Diagnosis Lower back pain(Discharge Diagnosis) - 04/12/20 Attending Physician: Beatrice DEAN ([facility])Antonia Allergies, Adverse Reactions, Alerts Substance Reaction [...] PUFF EVERY 6 HOURS NEEDED FOR WHEEZING, [facility] Start Date: 05/11/19 Status: [...] [facility]/pharmacy #0315, 167.64, cm, 02/01/20 15:51:... Start [...] Refills, Maintenance, 03/19/20 13:23:00 EDT, EC Tablet, [facility]/pharmacy #0315, 167.64, cm, 02/01/20 15:51:00 EST, [...] Back Pain Scale: 68 on 12/01/17; initial [place]: 7 on 12/01/17 2PROCEDURE DATE: 08/10/2017 PREOPERATIVE [...] bilateral ureteral jets. SURGEON: Ching Melgoza M.D. Diagnosis Diagnosis Type Effective Dates Health Status Cl inical Service Informant Lower back pain Discharge Diagnosis 04/12/20 Social History Social History Type Response Smoking Status Former smoker; Tobac co user in household: No; Stopped at age: 41; entered on: 03/25/18 Sex
--- OUTSIDE RECORDS SUMMARY | 2023-09-15 11:52 | XMS_ITS | Continuity of Care Document ---
Author Name Unknown Organization [facility] [place] Address [address] [place] [address]- Care Team Providers Care Cleaning Technician Name Role Phone Beatrice DEAN ([facility])Antonia Primary Care Ph ysician Encounter [facility] Date(s): 07/23/21 - 09/19/[address] [address]- Attending Physician: Beatrice DEAN ([facility])Antonia Allergies, Adverse Reactions, Alerts Substance Reaction Severity [...] EVERY 6 HOURS NEEDED FOR WHEEZING, [facility] Start Date: 05/11/19 Status: Ordered Augmentin 500 mg-125 mg oral tablet 1 tablet, By Mouth, Every 8 hours, for 10 days, # 30 tablet, 0 Refills, Acute 09/21/21 19:39:00 EDT, 09/11/21 19:39:00 EDT, Tablet, [facility]/pharmacy #0315, Partial fill upon patient [...] 05/15/21 8:27:00 EDT, Route to Pharmacy Electronically, [facility]/pharmacy #0315, 167.64, cm, 04/23/21 9:50:00... [...] Back Pain Scale: 68 on 12/01/17; initial [place]: 7 on 12/01/17 2PROCEDURE DATE: 08/10/2017 PREOPERATIVE [...]
--- OUTSIDE RECORDS SUMMARY | 2023-09-15 11:52 | XMS_ITS | Continuity of Care Document ---
Author Name Unknown Organization [facility] [address] [place] [address]- Care Team Providers Care Toddler Guide Name Role Phone Beatrice DEAN ([facility]), Antonia Richardson Primary Care Ph ysician Encounter [facility] Date(s): 10/06/22 - 10/13/[address] [place] [address]- Attending Physician: Aaron DEAN, Reynaldo Referring Physician: Martin Landrum MD Allergies, Adverse [...] Stop,05/06/22 9:49:00 EDT, Route to Pharmacy Electronically, [id number], [facility]/pharmacy #1230, 169, cm, 04/10/22 14:11:00 EDT, Giles... Start Date: 05/06/22 Stop Date: 09/03/22 Status: Ordered calcium-vitamin D 600 mg-400 intl units oral tablet 1 tablet, By Mouth, 2 times a day, # 180 tablet, 1 Refills, [facility] 91338, 90, TAKE 1 TABLET BY MOUTH TWICE [...] 07/23/22 13:29:00 EDT, Route to Pharmacy Electronically, [facility]/pharmacy #0315, 169, cm, 04/10/22 14:11:00 EDT, [...] tablet, Refills 0, Route to Pharmacy Electronically, [facility] 65622, 169, cm, 04/10/22 14:11:00 EDT, Height, 129, [...] Replace Required Details, Route to Pharmacy Electronically, [facility]/pharmacy #0315, 169, cm, 04/10/22... Start Date: 07/21/22 Status: Ordered loratadine 10 mg oral capsule 1 capsule = 10 mg, By Mouth, Daily, # 30 capsule, 0 Refills, Maintenance, 06/04/17 8:06:21, Capsule Start Date: 06/04/17 Stop Date: 07/04/17 Status: Ordered Metoprolol Tartrate 25 mg oral tablet 0.5 tablet, By Mouth, 2 times a day, # 90 tablet, 1 Refills, Maintenance, 10/07/22 14:35:00 EST, [facility] 78796, 167.64, cm, 10/06/22 9:14:00 EST, Height, 134.2, kg, 10/06/22 9:14:00 EST, Dry Weight Start Date: 10/07/22 Status: Ordered montelukast 10 mg oral tablet 1, tablet, By Mouth, Daily, # 90 tablet, Refills 1, Maintenance, 07/25/22 21:44:00 EDT, Route to Pharmacy Electronically, [facility] 0[facility]72, 169, cm, 04/10/22 14:11:00 EDT, Height, 129, [...] Replace Required Details, Route to Pharmacy Electronically, [id number], [facility], 168, cm, ... 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 Vital Signs Most recent to oldest [Reference Range]: 1 Height 167.64 cm (10/06/22 9:14 AM) Weight 134.2 kg (10/06/22 9:14 AM) Oxygen Saturation [94-100 %] 98 % (10/06/22 9:14 AM) Pulse Rate [55-90 bpm] 61 bpm (10/06/22 9:14 AM) Body Mass Index [18.5-24.99 kg/m2] 47.75 kg/m2 *>HHI* (10/06/22 9:14 AM) Blood Pressure [90-138/55-84 mm Hg] 122/ 83mm Hg (10/06/22 9:14 AM) Temperature [96.8-100.4 DegF] 97.5 DegF (10/06/22 9:14 AM) Mode of Delivery (Oxygen) Room air (10/06/22 9:14 AM) Blood pressure sites Arm, left (10/06/22 9:14 AM) Temperature Route Temporal (10/06/22 9:14 AM) Dry Weight 134.2 kg (10/06/22 9:14 AM) Weight Obtained Via Standing scale (10/06/22 9:14 AM) Dry Weight Obtained Via Standing scale (10/06/22 9:14 AM) Social History Social History Type Response Smoking Status Former smoker; Tobac co user in household: No; Stopped at age: 41; entered on: 03/25/18 Sex Patient Care team information Care Team Personnel Name: Beatrice DEAN ([facility]), Antonia Richardson Position: [facility] Primary Care Physician Member Role: PCP Address: Address: [address] [place] [address] Primary Care, [place] [address]- Name: Natalya Phillip PharmD Position: [facility] Associate Professional Member Role: Lifetime Consulting Provider Address: Address: [address] [place] [address] [place] [address]- Name: Smiley Blair Position: [facility] Outreach Member Role: Lifetime Consulting Physician Name: Marcin Peacock Position: [facility] Outreach Member Role: Lifetime Consulting Physician Name: Bianca GRIFFITHS, Nancy Mireles Position: [facility] Onco RN Member Role: Primary Care Nurse Care Team Related Persons Name: EBONY DUENAS Address: [address] [place] [address] Name: AMPARO DUENAS Address: [address] [place] [address] Name: EBONY WASHBURN Address: [address] [place] [address]
--- OUTSIDE RECORDS SUMMARY | 2023-09-15 11:52 | XMS_ITS | Continuity of Care Document ---
Author Name Unknown Organization [facility] Address [address] [place] [address]- Care Team Providers Care Electrician Marine Name Role Phone Beatrice DEAN ([facility]), Antonia Richardson Primary Care Ph ysician Encounter [facility] Date(s): 08/06/22 - 08/06/[address] [address]- Discharge Disposition: A-D/C Home Attending Physician: Geovanna Reyes MD Admitting Physician: Geovanna Reyes MD Referring Physician: Not on Staff, Referring [...] Stop,05/06/22 9:49:00 EDT, Route to Pharmacy Electronically, [id number], [facility]/pharmacy #[id number], 169, cm, 04/10/22 14:11:00 EDT, Heigh... [...] 1 Refills, [facility] ST[id number], 90, TAKE 1 TABLET BY MOUTH TWICE [...] Status: Ordered doxycycline monohydrate 100 mg oral capsule 1 capsule = 100 mg, By Mouth, 2 times a day, for 7 days, stay out of the sun while taking this medication as it increases risk of severe sunburn, # 14 capsule, 0 Refills, Acute 08/13/22 22:49:00 EDT,08/06/22 22:49:00 EDT, Capsule, [facility]/pharmacy #[id number],... Start Date: 08/06/22 Stop Date: 08/13/22 Status: Ordered famotidine 20 mg oral tablet 1, tablet, By Mouth, 2 times a day, # 180 tablet, Refills 0, Route to Pharmacy Electronically, [facility] ST[id number], 169, cm, 04/10/22 14:11:00 EDT, Height, 129, [...] to Pharmacy Electronically, [facility]/pharmacy #[id number], 169, cm, 04/10/22... Start Date: 07/21/22 Status: [...] a day, # 90 tablet, 1 Refills, [facility] ST[facility] [id number], 169, cm, 03/28/22 10:25:00 EDT, Height, 129, kg, 02/21/22 9:37:00 EDT, Dry Weight Start Date: 04/09/22 Status: Ordered montelukast 10 mg oral tablet 1, tablet, By Mouth, Daily, # 90 tablet, Refills 1, Maintenance, 07/25/22 21:44:00 EDT, Route to Pharmacy Electronically, [facility], 169, cm, 04/10/22 14:11:00 EDT, Height, 129, [...] puff Inhalation 1- 2 times a day, # 1 each, Refills 3, Tot. Refills 3, Maintenance, 03/28/22 11:00:00 EDT, Instructions Replace Required Details Inhaler, Route to Pharmacy Electronically, [id number], [facility]... Start Date: 03/28/22 Status: Ordered traMADol 50 mg oral tablet [...] Back Pain Scale: 68 on 12/01/17; initial [place]: 7 on 12/01/17 2PROCEDURE DATE: 08/10/2017 PREOPERATIVE [...] Exam Date Time Procedure Performing Provider Status 08/06/22 8:44 PM Sacrum and Coccyx Min 2 Views Raina Gonzales; Auth (Verified) Notes: (Sacrum and Coccyx Min 2 Views) Reason For Exam: Trauma RESULT: Sacrum and Coccyx Min 2 Views Sacrum and Coccyx Min 2 Views Hx of Present Illness: Pt arrives after a fall last night with c o LLE pain and bruising, L middle finger pain and back pain. Pt denies head strike loc, pt is on warfarin.; Reason: Trauma; Clinical Question(s): Fracture Dislocation COMPARISON: None FINDINGS: No bone lesions or fractures. No arthritic changes of the SI joints. Normal alignment of the sacrumand coccyx. There is grade 1 L5-S1 spondylolisthesis. Endplate degenerative changes are noted at the L4 and L5 levels. Hip joints appear normal and symmetric. An IVC filter is partially included in the imaged area in the lateral projection. IMPRESSION: No acute abnormality. Grade 1 L5-S1 spondylolisthesis. Vertebral endplate degenerative changes at the L4 and L5 levels. IVC filter. WSN: [id number] Ordering Physician: Queta Graf Dictated By: Eliel Hernandes MD Dictated Date/Time: 08/06/22 9:29 pm Reviewed By: Eliel Hernandes MD Signed By: Eliel Hernandes MD Signed Date/Time: 08/06/22 9:29 pm Transcribed By: MARYJO Transcribed Date/Time: 08/06/22 9:27 pm * Exam Date Time Procedure Performing Provider Status 08/06/22 8:44 PM Knee 1 or 2 Views Left Mervat Gonzales; Auth (Verified) Notes: (Knee 1 or 2 Views Left) Reason For Exam: Trauma RESULT: Knee 1 or 2 Views Left Knee 1 or 2 Views Left, 2 views Hx of Present Illness: Pt arrives after a fall last night with c o LLE pain and bruising, L middle finger pain and back pain. Pt denies head strike loc, pt is on warfarin.; Reason: Trauma; Clinical Question(s): Fracture COMPARISON: 07/03/2017 FINDINGS: There is no evidence of acute or healing fracture, dislocation or bone lesion. Bone mineralization is normal. There is extensive osteophyte formation along the femoral condyles and tibial plateau as well as along the inferior pole of the patella. There is subchondral sclerosis in the medial femoral condyle and medial tibial plateau with severe narrowing of the medial compartment similar to the previous examination. Mild medial subluxation of the femur on the tibia is unchanged. No evidence of joint effusion. Dystrophic soft tissue calcification again is noted along the medial aspect of the joint. IMPRESSION: No acute abnormality. Advanced tricompartmental osteoarthritis of the left knee similar to the examination of 07/03/2017. WSN: [id number] Ordering Physician: Queta Graf Dictated By: Eliel Hernandes MD Dictated Date/Time: 08/06/22 9:27 pm Reviewed By: Eliel Hernandes MD Signed By: Eliel Hernandes MD Signed Date/Time: 08/06/22 9:27 pm Transcribed By: MARYJO Transcribed Date/Time: 08/06/22 9:25 pm * Exam Date Time Procedure Performing Provider Status 08/06/22 8:44 PM Hand Min 3 Views Left Raina Gonzales; Auth (Verified) Notes: (Hand Min 3 Views Left) Reason For Exam: Trauma RESULT: Hand Min 3 Views Left Hand Min 3 Views Left, 3 views Hx of Present Illness: Pt arrives after a fall last night with c o LLE pain and bruising, L middle finger pain and back pain. Pt denies head strike loc, pt is on warfarin.; Reason: Trauma; Clinical Question(s): Fracture COMPARISON: None. FINDINGS: No fractures or bone lesions. No arthritic changes. Normal soft tissues. IMPRESSION: Normal. WSN: [id number] Ordering Physician: Queta Graf Dictated By: Eliel Hernandes MD Dictated Date/Time: 08/06/22 9:25 pm Reviewed By: Eliel Hernandes MD Signed By: Eliel Hernandes MD Signed Date/Time: 08/06/22 9:25 pm Transcribed By: MARYJO Transcribed Date/Time: 08/06/22 9:24 pm Vital Signs Most recent to oldest [Reference Range]: 1 2 3 Height 168 cm (08/06/22 8:04 PM) 168 cm (08/06/22 5:57 PM) 168 cm (08/06/22 5:49 PM) Weight 131.4 kg (08/06/22 8:04 PM) 131.4 kg (08/06/22 5:57 PM) 131.4 kg (08/06/22 5:49 PM) Oxygen Saturation [94-100 %] 99 % (9/7/22 8:04 PM) 99 % (08/06/22 5:49 PM) Pulse Rate [55-90 bpm] 87 bpm (08/06/22 8:04 PM) 90 bpm (08/06/22 5:49 PM) Body Mass Index [18.5-24.99] 46.56 *>HHI* (08/06/22 8:04 PM) 46.56 *>HHI* (08/06/22 5:49 PM) Blood Pressure [90-138/55-84 mm Hg] 120/72mm Hg (08/06/22 8:04 PM) 116/79mm Hg (08/06/22 5:49 PM) Respiratory Rate [16-30 br/min] 19 br/min (08/06/22 8:04 PM) 18 br/min (08/06/22 5:49 PM) Temperature [96.8-100.4 DegF] 97.4 DegF (08/06/22 8:04 PM) 97.2 DegF (08/06/22 5:49 PM) Liters per Minute 0 L/min (08/06/22 8:04 PM) Mode of Delivery (Oxygen) Room air (08/06/22 8:04 PM) Room air (08/06/22 5:49 PM) Blood pressure sites Arm, right (08/06/22 5:49 PM) Temperature Route Oral (08/06/22 8:04 PM) Temporal (08/06/22 5:49 PM) Dry Weight 131.4 kg (08/06/22 8:04 PM) 131.4 kg (08/06/22 5:57 PM) 131.4 kg (08/06/22 5:49 PM) Weight Obtained Via Standing scale (08/06/22 5:49 PM) Social History Social History Type Response Smoking Status Former smoker; Tobac co user in household: No; Stopped at age: 41; entered on: 03/25/18 Sex Note * BHSPowerscribe , CIS S: TRANSCRIBE Eliel Hernandes MD: VERIFY Event Display: Result: Authored Date: Hand Min 3 Views Left, 3 views Hx of Present Illness: Pt arrives after a fall last night with c o LLE pain and bruising, L middle finger pain and back pain. Pt denies head strike loc, pt is on warfarin.; Reason: Trauma; Clinical Question(s): Fracture COMPARISON: None. FINDINGS: No fractures or bone lesions. No arthritic changes. Normal soft tissues. IMPRESSION: Normal. WSN: [id number] Ordering Physician: Queta Graf Dictated By: Eliel Hernandes MD Dictated Date/Time: 08/06/22 9:25 pm Reviewed By: Eliel Hernandes MD Signed By: Eliel Hernandes MD Signed Date/Time: 08/06/22 9:25 pm Transcribed By: MARYJO Transcribed Date/Time: 08/06/22 9:24 pm * Vandascpretty , CIS S: TRANSCRIBE Eliel Hernandes MD: VERIFY Event Display: Result: Authored Date: [id number] Knee 1 or 2 Views Left, 2 views Hx of Present Illness: Pt arrives after a fall last night with c o LLE pain and bruising, L middle finger pain and back pain. Pt denies head strike loc, pt is on warfarin.; Reason: Trauma; Clinical Question(s): Fracture COMPARISON: 07/03/2017 FINDINGS: There is no evidence of acute or healing fracture, dislocation or bone lesion. Bone mineralization is normal. There is extensive osteophyte formation along the femoral condyles and tibial plateau as well as along the inferior pole of the patella. There is subchondral sclerosis in the medial femoral condyle and medial tibial plateau with severe narrowing of the medial compartment similar to the previous examination. Mild medial subluxation of the femur on the tibia is unchanged. No evidence of joint effusion. Dystrophic soft tissue calcification again is noted along the medial aspect of the joint. IMPRESSION: No acute abnormality. Advanced tricompartmental osteoarthritis of the left knee similar to the examination of 07/03/2017. WSN: [id number] Ordering Physician: Queta Graf Dictated By: Eliel Hernandes MD Dictated Date/Time: 08/06/22 9:27 pm Reviewed By: Eliel Hernandes MD Signed By: Eliel Hernandes MD Signed Date/Time: 08/06/22 9:27 pm Transcribed By: MARYJO Transcribed Date/Time: 08/06/22 9:25 pm * [employer]SP[employer]ers[employer] , CIS S: TRANSCRIBE Eliel Hernandes MD: VERIFY Event Display: Result: Authored Date: Sacrum and Coccyx Min 2 Views Hx of Present Illness: Pt arrives after a fall last night with c o LLE pain and bruising, L middle finger pain and back pain. Pt denies head strike loc, pt is on warfarin.; Reason: Trauma; Clinical Question(s): Fracture Dislocation COMPARISON: None FINDINGS: No bone lesions or fractures. No arthritic changes of the SI joints. Normal alignment of the sacrumand coccyx. There is grade 1 L5-S1 spondylolisthesis. Endplate degenerative changes are noted at the L4 and L5 levels. Hip joints appear normal and symmetric. An IVC filter is partially included in the imaged area in the lateral projection. IMPRESSION: No acute abnormality. Grade 1 L5-S1 spondylolisthesis. Vertebral endplate degenerative changes at the L4 and L5 levels. IVC filter. WSN: [id number] Ordering Physician: Queta Graf Dictated By: Eliel Hernandes MD Dictated Date/Time: 08/06/22 9:29 pm Reviewed By: Eliel Hernandes MD Signed By: Eliel Hernandes MD Signed Date/Time: 08/06/22 9:29 pm Transcribed By: MARYJO Transcribed Date/Time: 08/06/22 9:27 pm Care Team Personnel Name: Beatrice DEAN ([facility] [place])Antonia Address: [address] [place] [address]
--- OUTSIDE RECORDS SUMMARY | 2023-09-15 11:52 | XMS_ITS | Continuity of Care Document ---
Author Name Unknown Organization [facility] [place] Address [address] [place] [address]- Care Team Providers Care Community Services Coordinator Name Role Phone Beatrice DEAN ([facility])Antonia Primary Care Ph ysician Encounter [facility] Date(s): 01/01/21 - 03/03/[address] [address]- Attending Physician: Beatrice DEAN ([facility])Antonia Allergies, Adverse Reactions, Alerts Substance Reaction Severity [...] NEEDED FOR WHEEZING, [facility] Start Date: 05/11/19 Status: Ordered Celebrate vitamins 1, By Mouth, Daily in AM, Maintenance, 01/06/20 13:52:00 EST, Celebrate vitamins Start Date: 01/06/20 Status: Ordered citalopram 40 mg oral tablet 40 mg, 1, tablet, By Mouth, Daily, # 90 tablet, Refills 2, Tot. Refills 2, Maintenance, 03/19/20 13:36:00 EDT, Route to Pharmacy Electronically, [facility]/pharmacy #[id number], 167.64, cm, 02/01/20 15:51:00 [...] Refills, Soft Stop, 03/19/20 13:23:00 EDT, [facility]/pharmacy #[id number], 167.64, cm, 02/01/20 15:51:00 EST, [...] Back Pain Scale: 68 on 12/01/17; initial [place]: 7 on 12/01/17 2PROCEDURE DATE: 08/10/2017 PREOPERATIVE [...]
--- OUTSIDE RECORDS SUMMARY | 2023-09-15 11:52 | XMS_ITS | Continuity of Care Document ---
Author Name Unknown Organization [facility] [place] Address [address] [place] [address]- Care Team Providers Care Main Line Assembler Name Role Phone Beatrice DEAN ([facility])Antonia Primary Care Ph ysician Encounter [facility] Date(s): 04/14/22 - 06/18/[address] [address]- Attending Physician: Beatrice DEAN ([facility] [...] 13:36:00 EDT, Route to Pharmacy Electronically, [facility]/pharmacy #[id number], 167.64, cm, 02/01/20 15:51:00 EST,Height, [...] Back Pain Scale: 68 on 12/01/17; initial [place]: 7 on 12/01/17 2PROCEDURE DATE: 08/10/2017 PREOPERATIVE DIAGNOSIS: 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 PROCEDURE: Total laparoscopic hysterectomy, bilateral salpingo-oophorectomy, left pelvic lymph nodedissection via da Masood. Cystoscopy FINDINGS: A 8-week uterus, grossly normal adnexa, grossly normal pelvic lymph nodes. Normal bladderarchitecture, bilateral ureteral jets. SURGEON: Ching eMlgoza M.D. Social History Social History Type Response Smoking Status Former smoker; Tobac co user in household: No; Stopped at age: 41; entered on: 03/25/18 Sex
--- OUTSIDE RECORDS SUMMARY | 2023-09-15 11:52 | XMS_ITS | Continuity of Care Document ---
Author Name Unknown Organization [facility] [place] Address [address] [place] [address]- Care Team Providers Care Polisher Balance Screwhead Name Role Phone Beatrice DEAN ([facility])Antonia Primary Care Ph ysician Encounter [facility] Date(s): 01/11/20 - 03/09/20 [facility] [address] [place] [address]- [facility] Attending Physician: Beatrice DEAN ([facility])Antonia Allergies, Adverse Reactions, Alerts Substance [...] PUFF EVERY 6 HOURS NEEDED FOR WHEEZING, [facility] Mail [facility] Start Date: 05/11/19 Status: Ordered Celebrate vitamins 1, By Mouth, Daily in AM, Maintenance, 01/06/20 13:52:00 EST, Celebrate vitamins Start Date: 01/06/20 Status: Ordered citalopram 40 mg oral tablet 40 mg, 1, tablet, By Mouth, Daily, # 90 tablet, Refills 1, Tot. Refills 1, Maintenance, 06/10/19 17:40:00 EDT, Route to Pharmacy Electronically, [id number], [facility] Start Date: 06/10/19 Stop [...] tablet, 1 Refills, Soft Stop, 12/03/2019:27:00 EST, [facility], 167, cm, 09/16/19 10:05:00 EDT, Height, 158.3, kg, 08/18/19 10:50:00 EDT, Dry Weight Start Date: 12/03/19 Status: Ordered montelukast 10 mg oral tablet See Instructions, # 90 tablet, Refills 1 Tot. 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 PROCEDURE: Total laparoscopic hysterectomy, bilateral salpingo-oophorectomy, left pelvic lymph nodedissection via da Masood. Cystoscopy FINDINGS: A 8-week uterus, grossly normal adnexa, grossly normal pelvic lymph nodes. Normal bladderarchitecture, bilateral ureteral jets. SURGEON: Ching Melgzoa M.D. Social History Social History Type Response Smoking Status Former smoker; Tobac co user in household: No; Stopped at age: 41; entered on: 03/25/18 Sex
--- OUTSIDE RECORDS SUMMARY | 2023-09-15 11:52 | XMS_ITS | Continuity of Care Document ---
Author Name Unknown Organization [facility] Address [address] [place] [address]- Care Team Providers Care Rouge Sifter And Miller Name Role Phone Beatrice DEAN ([facility]), Antonia Richardson Primary Care Ph ysician Encounter [facility] Date(s): 12/14/22 - 12/15/[address] [address]- Discharge Disposition: A-D/C Home Attending Physician: Denilson Lee DO Admitting Physician: Denilson Lee DO Referring Physician: Not on Staff, Referring MD [...] opioid drug. Start Date: 08/26/22 Status: Ordered acetaminophen-HYDROcodone 325 mg-5 mg oral tablet 3 tablet, Tablet, By Mouth, Once, PRN for Pain , Moderate, Routine, 12/15/22 0:30:00 EST Start Date: 12/15/22 Stop Date: 12/15/22 Status: Completed albuterol CFC free 90 mcg/inh inhalation aerosol 1, puffs, Inhalation, Every 6 hours, PRN, OV 06-25-22, # 8 Gm, Refills 3, Tot. Refills 3, Soft Stop,05/06/22 9:49:00 EDT, Route to Pharmacy Electronically, [id number], [facility]/pharmacy #1230, 169, cm, 04/10/22 14:11:00 EDT, [place]... Start Date: 05/06/22 Stop Date: 09/03/22 Status: Ordered calcium-vitamin D 600 mg-400 intl units oral tablet 1 tablet, By Mouth, 2 times a day, # 180 tablet, 1 Refills, [facility] STORE [facility], 90, TAKE 1 TABLET BY MOUTH TWICE [...] 0, 10/27/22 12:15:00 EST,Route to Pharmacy Electronically, [facility]/pharmacy #1230, 167.64, cm, 10/06/22 9:14:00 EST, Height, [...] Pharmacy Electronically, [facility]/pharmacy #1230, 167.64, cm, ... Start Date: 10/28/22 Status: Ordered loratadine 10 mg oral capsule 1 capsule = 10 mg, By Mouth, Daily, # 30 capsule, 0 Refills, Maintenance, 06/04/17 8:06:21, Capsule Start Date: 06/04/17 Stop Date: 07/04/17 Status: Ordered Metoprolol Tartrate 25 mg oral tablet 0.5 tablet, By Mouth, 2 times a day, # 90 tablet, 1 Refills, Maintenance, 10/07/22 14:35:00 EST, [facility] STORE [facility]7877, 167.64, cm, 10/06/22 9:14:00 EST, Height, 134.2, kg, 10/06/22 9:14:00 EST, Dry Weight Start Date: 10/07/22 Status: Ordered montelukast 10 mg oral tablet 1, tablet, By Mouth, Daily, # 90 tablet, Refills 1, Maintenance, 07/25/22 21:44:00 EDT, Route to Pharmacy Electronically, [id number], 169, cm, 04/10/22 14:11:00 EDT, Height, 129, [...] Replace Required Details, Route to Pharmacy Electronically, [id number], [facility] STORE 81870, 168, cm, 0... Start Date: 08/08/22 Status: [...] 6 Refills, Soft Stop, 06/11/22 9:38:00 EDT, [facility]/pharmacy #1230, 169, cm, [...] Back Pain Scale: 68 on 12/01/17; initial [place]: 7 on 12/01/17 2PROCEDURE DATE: 08/10/2017 PREOPERATIVE [...] Exam Date Time Procedure Performing Provider Status 12/14/22 11:[address] Abd/Pelvis W/ IV Contrast Only Mo John T; Auth (Verified) Notes: (CT Abd/Pelvis W/ IV Contrast Only) Reason For Exam: Trauma RESULT: CT Abd/Pelvis W/ IV Contrast Only CT Chest W/ Contrast, CT Abd/Pelvis W/ IV Contrast Only INDICATION: Hx of Present Illness: pt ambulatory from home stating she leaned over a railing yesterday and now experiencing right rib pain.; Reason: Trauma; Clinical Question(s): Other: TECHNIQUE: Helical CT scan of the chest, abdomen, and pelvis with IV contrast, formatted in 3 planes. 100 cc of Omnipaque 300 was administered intravenously. This study was performed without oral contrast. Weight-based protocol was performed using automatic exposure control. CTDIvol Body: 29.21 mGy, DLP Body: 1931 mGy*cm. COMPARISON: None. FINDINGS: Gas Engine Operator view findings, lines and tubes: None. Trachea and airways: Patent without evidence of tracheal or endobronchial lesion. Lungs and pleura: Clear lungs. No effusion or pneumothorax. Mediastinum and una: No mass or hematoma. No mediastinal or hilar lymphadenopathy. No esophageal abnormality. Heart: Heart is normal in size. No pericardial effusion. Aorta: No aortic aneurysm. Pulmonary arteries: Normal caliber. No evidence of pulmonary embolism on this study performed without angiographic technique. Chest wall soft tissues: No acute abnormality. Diaphragm: Intact. Liver: Normal in attenuation and morphology. No suspicious lesion. Gallbladder: Cholelithiasis without evidence of acute cholecystitis. Bile ducts: No biliary ductal dilation. Spleen: Normal in size. Pancreas: No suspicious lesion or ductal dilatation. Adrenal glands: No nodule. Kidneys and ureters: No hydronephrosis, stone, or suspicious lesion. Bladder: No wall thickening or surrounding stranding. Reproductive organs: Unremarkable. Stomach, small bowel, and large bowel: Small hiatal hernia. Postoperative findings in the stomach. No acute bowel abnormality. Appendix: No evidence of acute appendicitis. Peritoneum and retroperitoneum: No ascites or pneumoperitoneum. No omental or mesenteric lesions. Lymph nodes: No enlarged lymph nodes. Blood vessels: No vascular calcifications or aneurysm. IVC filter in expected position. Abdominal and pelvic wall soft tissues: No acute abnormality. Bones: No acute abnormality. IMPRESSION: No acute abnormality. Cholelithiasis. No evidence of acute traumatic abnormality in the chest abdomen pelvis. WSN: [id number] Ordering Physician: Denilson Lee Dictated By: Yosef Johnson MD Dictated Date/Time: 12/15/22 6:30 pm Reviewed By: Yosef Johnson MD Signed By: Yosef Johnson MD Signed Date/Time: 12/15/22 6:30 pm Transcribed By: MARYJO Transcribed Date/Time: 12/15/22 6:25 pm * Exam Date Time Procedure Performing Provider Status 12/14/22 11:[address] Chest W/ Contrast Mo , Thuthao T ; Auth (Verified) Notes: (CT Chest W/ Contrast) Reason For Exam: Trauma RESULT: CT Chest W/ Contrast CT Chest W/ Contrast, CT Abd/Pelvis W/ IV Contrast Only INDICATION: Hx of Present Illness: pt ambulatory from home stating she leaned over a railing yesterday and now experiencing right rib pain.; Reason: Trauma; Clinical Question(s): Other: TECHNIQUE: Helical CT scan of the chest, abdomen, and pelvis with IV contrast, formatted in 3 planes. 100 cc of Omnipaque 300 was administered intravenously. This study was performed without oral contrast. Weight-based protocol was performed using automatic exposure control. CTDIvol Body: 29.21 mGy, DLP Body: 1931 mGy*cm. COMPARISON: None. FINDINGS: Gas Engine Operator view findings, lines and tubes: None. Trachea and airways: Patent without evidence of tracheal or endobronchial lesion. Lungs and pleura: Clear lungs. No effusion or pneumothorax. Mediastinum and una: No mass or hematoma. No mediastinal or hilar lymphadenopathy. No esophageal abnormality. Heart: Heart is normal in size. No pericardial effusion. Aorta: No aortic aneurysm. Pulmonary arteries: Normal caliber. No evidence of pulmonary embolism on this study performed without angiographic technique. Chest wall soft tissues: No acute abnormality. Diaphragm: Intact. Liver: Normal in attenuation and morphology. No suspicious lesion. Gallbladder: Cholelithiasis without evidence of acute cholecystitis. Bile ducts: No biliary ductal dilation. Spleen: Normal in size. Pancreas: No suspicious lesion or ductal dilatation. Adrenal glands: No nodule. Kidneys and ureters: No hydronephrosis, stone, or suspicious lesion. Bladder: No wall thickening or surrounding stranding. Reproductive organs: Unremarkable. Stomach, small bowel, and large bowel: Small hiatal hernia. Postoperative findings in the stomach. No acute bowel abnormality. Appendix: No evidence of acute appendicitis. Peritoneum and retroperitoneum: No ascites or pneumoperitoneum. No omental or mesenteric lesions. Lymph nodes: No enlarged lymph nodes. Blood vessels: No vascular calcifications or aneurysm. IVC filter in expected position. Abdominal and pelvic wall soft tissues: No acute abnormality. Bones: No acute abnormality. IMPRESSION: No acute abnormality. Cholelithiasis. No evidence of acute traumatic abnormality in the chest abdomen pelvis. WSN: [id number] Ordering Physician: Denilson Lee Dictated By: Yosef Johnson MD Dictated Date/Time: 12/15/22 6:30 pm Reviewed By: Yosef Johnson MD Signed By: Yosef Johnson MD Signed Date/Time: 12/15/22 6:30 pm Transcribed By: MARYJO Transcribed Date/Time: 12/15/22 6:25 pm * Exam Date Time Procedure Performing Provider Status 12/14/22 5:15 PM Ribs W/ PA Chest Right John Mo; Auth (Verified) Notes: (Ribs W/ PA Chest Right) Reason For Exam: Pain RESULT: Ribs W/ PA Chest Right Ribs W/ PA Chest Right Hx of Present Illness: pt ambulatory from home stating she leaned over a railing yesterday and now experiencing right rib pain.; Reason: Pain; Clinical Question(s): Fracture COMPARISON: 04/10/2022 FINDINGS: LINES AND TUBES: None. LUNGS AND PLEURA: Bibasilar subsegmental atelectasis. No effusion or pneumothorax. HEART, MEDIASTINUM AND UNA: Normal. BONES: No fractures or bone lesions. SOFT TISSUES: IVC filter partially imaged. IMPRESSION: No displaced rib fracture. No pleural effusion or pneumothorax. WSN: [id number] Ordering Physician: Gordo Duenas Dictated By: Subhash Gomez MD Dictated Date/Time: 12/14/22 5:25 pm Reviewed By: Subhash Gomez MD Signed By: Subhash Gomez MD Signed Date/Time: 12/14/22 5:25 pm Transcribed By: MARYJO Transcribed Date/Time: 12/14/22 5:22 pm Vital Signs Most recent to oldest [Reference Range]: 1 2 3 Height 168 cm (12/15/22 12:20 AM) 168 cm (12/14/22 10:18 PM) 168 cm (12/14/22 7:27 PM) Weight 132.6 kg (12/15/22 12:20 AM) 132.6 kg (12/14/22 10:18 PM) 132.6 kg (12/14/22 7:27 PM) Oxygen Saturation [94-100 %] 96 % (12/15/22 12:20 AM) 99 % (12/14/22 10:18 PM) 100 % (12/14/22 7:27 PM) Pulse Rate [55-90 bpm] 59 bpm (12/15/22 12:20 AM) 53 bpm *L* (12/14/22 10:18 PM) 60 bpm (12/14/22 7:27 PM) Body Mass Index [18.5-24.99 kg/m2] 46.98 kg/m2 *>HHI* (12/15/22 12:20 AM) 46.98 kg/m2 *>HHI* (12/14/22 10:18 PM) 46.98 kg/m2 *>HHI* (12/14/22 7:27 PM) Blood Pressure [90-138/55-84 mm Hg] 125/88mm Hg (12/15/22 12:20 AM) 119/72mm Hg (12/14/22 10:18 PM) 139/90mm Hg *H* (12/14/22 7:27 PM) Respiratory Rate [16-30 br/min] 16 br/min (12/15/22 12:20 AM) 18 br/min (12/15/22 12:19 AM) 16 br/min (12/14/22 10:18 PM) Temperature [96.8-100.4 DegF] 98.6 DegF (12/14/22 4:58 PM) Mode of Delivery (Oxygen) Room air (12/15/22 12:20 AM) Room air (12/14/22 7:27 PM) Room air (12/14/22 4:58 PM) Blood pressure sites Arm, left (12/14/22 7:27 PM) Arm, left (12/14/22 4:58 PM) Temperature Route Temporal (12/14/22 4:58 PM) Dry Weight 132.6 kg (12/15/22 12:20 AM) 132.6 kg (12/14/22 10:18 PM) 132.6 kg (12/14/22 7:27 PM) Social History Social History Type Response Smoking Status Former smoker; Tobac co user in household: No; Stopped at age: 41; entered on: 03/25/18 Sex XR Ribs - right Views and Chest PA * [facility] , CIS S: TRANSCRIBECKIE Gomez MD, Subhash W: VERIFY Event Display: Result: Authored Date: [id number] Ribs W/ PA Chest Right Hx of Present Illness: pt ambulatory from home stating she leaned over a railing yesterday and now experiencing right rib pain.; Reason: Pain; Clinical Question(s): Fracture COMPARISON: 04/10/2022 FINDINGS: LINES AND TUBES: None. LUNGS AND PLEURA: Bibasilar subsegmental atelectasis. No effusion or pneumothorax. HEART, MEDIASTINUM AND UNA: Normal. BONES: No fractures or bone lesions. SOFT TISSUES: IVC filter partially imaged. IMPRESSION: No displaced rib fracture. No pleural effusion or pneumothorax. WSN: [id number] Ordering Physician: Gordo Duenas Dictated By: Subhash Gomez MD Dictated Date/Time: 12/14/22 5:25 pm Reviewed By: Subhash Gomez MD Signed By: Subhash Gomez MD Signed Date/Time: 12/14/22 5:25 pm Transcribed By: MARYJO Transcribed Date/Time: 12/14/22 5:[address] Abdomen and Pelvis W contrast IV * [facility] , CIS S: TRANSCRIBE Yosef Johnson MD S: VERIFY Event Display: Result: Authored Date: [id number] CT Chest W/ Contrast, CT Abd/Pelvis W/ IV Contrast Only INDICATION: Hx of Present Illness: pt ambulatory from home stating she leaned over a railing yesterday and now experiencing right rib pain.; Reason: Trauma; Clinical Question(s): Other: TECHNIQUE: Helical CT scan of the chest, abdomen, and pelvis with IV contrast, formatted in 3 planes. 100 cc of Omnipaque 300 was administered intravenously. This study was performed without oral contrast. Weight-based protocol was performed using automatic exposure control. CTDIvol Body: 29.21 mGy, DLP Body: 1931 mGy*cm. COMPARISON: None. FINDINGS: Gas Engine Operator view findings, lines and tubes: None. Trachea and airways: Patent without evidence of tracheal or endobronchial lesion. Lungs and pleura: Clear lungs. No effusion or pneumothorax. Mediastinum and una: No mass or hematoma. No mediastinal or hilar lymphadenopathy. No esophageal abnormality. Heart: Heart is normal in size. No pericardial effusion. Aorta: No aortic aneurysm. Pulmonary arteries: Normal caliber. No evidence of pulmonary embolism on this study performed without angiographic technique. Chest wall soft tissues: No acute abnormality. Diaphragm: Intact. Liver: Normal in attenuation and morphology. No suspicious lesion. Gallbladder: Cholelithiasis without evidence of acute cholecystitis. Bile ducts: No biliary ductal dilation. Spleen: Normal in size. Pancreas: No suspicious lesion or ductal dilatation. Adrenal glands: No nodule. Kidneys and ureters: No hydronephrosis, stone, or suspicious lesion. Bladder: No wall thickening or surrounding stranding. Reproductive organs: Unremarkable. Stomach, small bowel, and large bowel: Small hiatal hernia. Postoperative findings in the stomach. No acute bowel abnormality. Appendix: No evidence of acute appendicitis. Peritoneum and retroperitoneum: No ascites or pneumoperitoneum. No omental or mesenteric lesions. Lymph nodes: No enlarged lymph nodes. Blood vessels: No vascular calcifications or aneurysm. IVC filter in expected position. Abdominal and pelvic wall soft tissues: No acute abnormality. Bones: No acute abnormality. IMPRESSION: No acute abnormality. Cholelithiasis. No evidence of acute traumatic abnormality in the chest abdomen pelvis. WSN: [id number] Ordering Physician: Denilson Lee Dictated By: Yosef Johnson MD Dictated Date/Time: 12/15/22 6:30 pm Reviewed By: Yosef Johnson MD Signed By: Yosef Johnson MD Signed Date/Time: 12/15/22 6:30 pm Transcribed By: MARYJO Transcribed Date/Time: 12/15/22 6:[address] Chest W contrast IV * [facility] , CIS S: TRANSCRIBE Yosef Johnson MD: VERIFY Event Display: Result: Authored Date: [id number] CT Chest W/ Contrast, CT Abd/Pelvis W/ IV Contrast Only INDICATION: Hx of Present Illness: pt ambulatory from home stating she leaned over a railing yesterday and now experiencing right rib pain.; Reason: Trauma; Clinical Question(s): Other: TECHNIQUE: Helical CT scan of the chest, abdomen, and pelvis with IV contrast, formatted in 3 planes. 100 cc of Omnipaque 300 was administered intravenously. This study was performed without oral contrast. Weight-based protocol was performed using automatic exposure control. CTDIvol Body: 29.21 mGy, DLP Body: 1931 mGy*cm. COMPARISON: None. FINDINGS: Gas Engine Operator view findings, lines and tubes: None. Trachea and airways: Patent without evidence of tracheal or endobronchial lesion. Lungs and pleura: Clear lungs. No effusion or pneumothorax. Mediastinum and una: No mass or hematoma. No mediastinal or hilar lymphadenopathy. No esophageal abnormality. Heart: Heart is normal in size. No pericardial effusion. Aorta: No aortic aneurysm. Pulmonary arteries: Normal caliber. No evidence of pulmonary embolism on this study performed without angiographic technique. Chest wall soft tissues: No acute abnormality. Diaphragm: Intact. Liver: Normal in attenuation and morphology. No suspicious lesion. Gallbladder: Cholelithiasis without evidence of acute cholecystitis. Bile ducts: No biliary ductal dilation. Spleen: Normal in size. Pancreas: No suspicious lesion or ductal dilatation. Adrenal glands: No nodule. Kidneys and ureters: No hydronephrosis, stone, or suspicious lesion. Bladder: No wall thickening or surrounding stranding. Reproductive organs: Unremarkable. Stomach, small bowel, and large bowel: Small hiatal hernia. Postoperative findings in the stomach. No acute bowel abnormality. Appendix: No evidence of acute appendicitis. Peritoneum and retroperitoneum: No ascites or pneumoperitoneum. No omental or mesenteric lesions. Lymph nodes: No enlarged lymph nodes. Blood vessels: No vascular calcifications or aneurysm. IVC filter in expected position. Abdominal and pelvic wall soft tissues: No acute abnormality. Bones: No acute abnormality. IMPRESSION: No acute abnormality. Cholelithiasis. No evidence of acute traumatic abnormality in the chest abdomen pelvis. WSN: [id number] Ordering Physician: Denilson Lee Dictated By: Yosef Johnson MD Dictated Date/Time: 12/15/22 6:30 pm Reviewed By: Yosef Johnson MD Signed By: Yosef Johnson MD Signed Date/Time: 12/15/22 6:30 pm Transcribed By: MARYJO Transcribed Date/Time: 12/15/22 6:25 pm Patient Care team information Care Team Personnel Name: Beatrice DEAN ([facility] - [facility])Antonia Position: [facility] Primary Care Physician Member Role: PCP Address: Address: [address] [place] [address] Primary Care, [place] [address]- Name: Natalya Phillip PharmD Position: [facility] Associate Professional Member Role: Lifetime Consulting Provider Address: Address: [address] [place] [address] [place] [address]- Name: Smiley Blair Position: [facility] Outreach Member Role: Lifetime Consulting Physician Name: Marcin Peacock Position: [facility] Outreach Member Role: Lifetime Consulting Physician Name: Bianca GRIFFITHS, Nancy Mireles Position: [facility] Onco RN Member Role: Primary Care Nurse Name: Denilson Lee DO Position: [facility] ED Medicine MD Member Role: Admitting Physician Address: Address: [address] [place] [address] [place], [place] [address] Name: Deisi Knutson RN Position: [facility] ED RN W/OE and Tasks Member Role: Patient Care Provider Name: Abena Warner Position: [facility] ED OA Member Role: Animal Physiologist Care Team Related Persons Name: EBONY DUENAS Address: home [address] [place] [address] Name: AMPARO DUENAS Address: home [address] [place] [address] Name: EBONY WASHBURN Address: home [address] [place] [id number]
--- OUTSIDE RECORDS SUMMARY | 2023-09-15 11:52 | XMS_ITS | Continuity of Care Document ---
Author Name Unknown Organization [facility] Address [address] [place] [address]- Care Team Providers Care Central Scheduler Name Role Phone Beatrice DEAN ([facility]), Antonia Richardosn Primary Care Ph ysician Encounter [facility] Date(s): 02/05/23 - 03/07/23 [facility] [address] [place] [address]- Allergies, Adverse Reactions, Alerts Substance Reaction Severity [...] Stop,05/06/22 9:49:00 EDT, Route to Pharmacy Electronically, [id number], [facility]/pharmacy #1230, 169, cm, 04/10/22 14:11:00 EDT, Hemikal... [...] 07/23/22 13:29:00 EDT, Route to Pharmacy Electronically, [facility]/pharmacy #0315, 169, cm, 04/10/22 14:11:00 [...] Replace Required Details, Route to Pharmacy Electronically, [facility]/pharmacy #1230, 168, cm, 12/15/22 0:20:00 ES... [...] Replace Required Details, Route to Pharmacy Electronically, [facility]/pharmacy #1230, 168, cm, ... Start Date: 01/22/23 Status: Ordered loratadine 10 mg oral capsule 1 capsule = 10 mg, By Mouth, Daily, # 30 capsule, 0 Refills, Maintenance, 06/04/17 8:06:21, Capsule Start Date: 06/04/17 Stop Date: 07/04/17 Status: Ordered Metoprolol Tartrate 25 mg oral tablet 0.5 tablet, By Mouth, 2 times a day, # 90 tablet, 1 Refills, Maintenance, 10/07/22 14:35:00 EST, [facility] STORE [facility]272, 167.64, cm, 10/06/22 9:14:00 EST, Height, 134.2, kg, 10/06/22 9:14:00 EST, Dry Weight Start Date: 10/07/22 Status: Ordered montelukast 10 mg oral tablet 1, tablet, By Mouth, Daily, # 90 tablet, Refills 1, Maintenance, 07/25/22 21:44:00 EDT, Route to Pharmacy Electronically, [facility] STORE [facility], 169, cm, 04/10/22 14:11:00 EDT, Height, 129, [...] Replace Required Details, Route to Pharmacy Electronically, [id number]... Start Date: 01/12/23 Status: Ordered traMADol 50 [...] Back Pain Scale: 68 on 12/01/17; initial [place]: 7 on 12/01/17 2PROCEDURE DATE: 08/10/2017 PREOPERATIVE [...] information Care Team Personnel Name: Beatrice DEAN ([facility] - [facility])Antonia Position: [facility] Primary Care Physician Member Role: PCP Address: Address: [address] [place] [id number] Name: Natalya Phillip PharmD Position: [facility] Associate Professional Member Role: Lifetime Consulting Provider Address: Address: [address] [place] [address] [place] [address]- [place] Name: Smiley Blair Position: [facility] Outreach Member Role: Lifetime Consulting Physician Name: Marcin Peacock Position: [facility] Outreach Member Role: Lifetime Consulting Physician Name: Bianca GRIFFITHS, Nancy Mireles Position: [facility] Onco RN Member Role: Primary Care Nurse Care Team Related Persons Name: EBONY DUENAS Address: [place] [address] Name: AMPARO DUENAS Address: home [address] [place] [address] Name: EBONY WASHBURN Address: [address] [place] [address] Name: JULI CLAYTON
--- OUTSIDE RECORDS SUMMARY | 2023-09-15 11:52 | XMS_ITS | Continuity of Care Document ---
Author Name Unknown Organization [facility] [place] Address [address] [place] [address]- Care Team Providers Care Dietetic Assistant Name Role Phone Beatrice DEAN ([facility]), Antonia Richardson Primary Care Ph ysician Encounter [facility] Date(s): 03/03/23 - 04/02/23 [facility] Infectious Disease [address] [address]- Allergies, Adverse Reactions, Alerts Substance Reaction Severity [...] Stop,05/06/22 9:49:00 EDT, Route to Pharmacy Electronically, [id number], [facility]/pharmacy #1230, 169, cm, 04/10/22 14:11:00 EDT, Hemikal... Start Date: 05/06/22 Stop Date: 09/03/22 Status: Ordered calcium-vitamin D 600 mg-400 intl units oral tablet 1 tablet, By Mouth, 2 times a day, # 180 tablet, 1 Refills, 02/04/23 8:58:00 EST, [facility]/pharmacy #1230, 1 tablet By Mouth 2 [...] 07/23/22 13:29:00 EDT, Route to Pharmacy Electronically, [facility]/pharmacy #0315, 169, cm, 04/10/22 14:11:00 EDT, [...] Replace Required Details, Route to Pharmacy Electronically, [facility]/pharmacy #1230, 168, cm, 12/15/22 0:20:00 ES... [...] Replace Required Details, Route to Pharmacy Electronically, [facility]/pharmacy #1230, 168, cm, ... Start Date: 01/22/23 Status: Ordered loratadine 10 mg oral capsule 1 capsule = 10 mg, By Mouth, Daily, # 30 capsule, 0 Refills, Maintenance, 06/04/17 8:06:21, Capsule Start Date: 06/04/17 Stop Date: 07/04/17 Status: Ordered Metoprolol Tartrate 25 mg oral tablet 0.5 tablet, By Mouth, 2 times a day, # 90 tablet, 1 Refills, Maintenance, 10/07/22 14:35:00 EST, [facility], 167.64, cm, 10/06/22 9:14:00 EST, Height, 134.2, kg, 10/06/22 9:14:00 EST, Dry Weight Start Date: 10/07/22 Status: Ordered montelukast 10 mg oral tablet 1, tablet, By Mouth, Daily, # 90 tablet, Refills 1, Maintenance, 07/25/22 21:44:00 EDT, Route to Pharmacy Electronically, [facility], 169, cm, 04/10/22 14:11:00 EDT, Height, 129, [...] Replace Required Details, Route to Pharmacy Electronically, [id number]... Start Date: 01/12/23 Status: Ordered traMADol 50 [...] 6 Refills, Soft Stop, 06/11/22 9:38:00 EDT, [facility]/pharmacy #1230, 169, cm, 04/10/22 14:11:00 EDT, [...] Back Pain Scale: 68 on 12/01/17; initial [place]: 7 on 12/01/17 2PROCEDURE DATE: 08/10/2017 PREOPERATIVE [...] information Care Team Personnel Name: Beatrice DEAN ([facility] [place]), Antonia Richardson Position: [facility] Primary Care Physician Member Role: PCP Address: Address: [address] [place] [address] [place] [address]- Name: Natalya Phillip PharmD Position: [facility] Associate Professional Member Role: Lifetime Consulting Provider Address: Address: [address] [place] [address] [place] [address]- [place] Name: Smiley Blair Position: [facility] Outreach Member Role: Lifetime Consulting Physician Name: Marcin Peacock Position: [facility] Outreach Member Role: Lifetime Consulting Physician Name: Nancy Valenzuela RN Position: [facility] Onco RN Member Role: Primary Care Nurse Care Team Related Persons Name: EBONY DUENAS Address: [address] [place] [address] Name: AMPARO DUENAS Address: [address] [place] [address] Name: EBONY WASHBURN Address: [place] [address] [place] [address] Name: JULI CLAYTON
--- OUTSIDE RECORDS SUMMARY | 2023-09-15 11:52 | XMS_ITS | Continuity of Care Document ---
Author Name Unknown Organization [facility] Address [address] [place] [address]- Care Team Providers Care Track Walker Name Role Phone Beatrice DEAN ([facility]), Antonia Richardson Primary Care Ph ysician Encounter [facility] Date(s): 01/25/20 - 02/04/[address] [facility] [address] [address]- [facility] Attending Physician: Admtr, Jesus8 Admitting Physician: Admtr, ArAndrea Referring Physician: Admtr, Ar8 Allergies, Adverse Reactions, [...] EVERY 6 HOURS NEEDED FOR WHEEZING, [facility] Start Date: 05/11/19 Status: Ordered Celebrate vitamins 1, By Mouth, Daily in AM, Maintenance, 01/06/20 13:52:00 EST, [facility] Start Date: 01/06/20 Status: Ordered citalopram 40 mg oral tablet 40 mg, 1, tablet, By Mouth, Daily, # 90 tablet, Refills 1, Tot. Refills 1, Maintenance, 06/10/19 17:40:00 EDT, Route to Pharmacy Electronically, [id number], [facility] Start Date: 06/10/19 Stop [...] tablet, 1 Refills, Soft Stop, 12/03/2019:27:00 EST, [facility], 167, cm, 09/16/19 10:05:00 EDT, Height, 158.3, kg, 08/18/19 10:50:00 EDT, Dry Weight Start Date: 12/03/19 Status: Ordered montelukast 10 mg oral tablet See Instructions, # 90 tablet, Refills 1 Tot. Refills 1, TAKE 1 TABLET EVERY DAY, [facility] Start Date: 06/16/19 Status: [...] Back Pain Scale: 68 on 12/01/17; initial [place]: 7 on 12/01/17 2PROCEDURE DATE: 08/10/2017 PREOPERATIVE [...]
--- OUTSIDE RECORDS SUMMARY | 2023-09-15 11:52 | XMS_ITS | Continuity of Care Document ---
Author Name Unknown Organization [facility] Infectious Disease Address [address] [place] [address]- Care Team Providers Care Regulatory Affairs Manager Name Role Phone Beatrice DEAN ([facility]), Antonia Richardson Primary Care Ph ysician Encounter [facility] Date(s): 02/17/23 - 03/19/23 [facility] Infectious Disease [address] [place] [address]- Allergies, Adverse Reactions, Alerts Substance Reaction Severity [...] Stop,05/06/22 9:49:00 EDT, Route to Pharmacy Electronically, [id number], [facility]/pharmacy #1230, 169, cm, 04/10/22 14:11:00 EDT, Hemikal... Start Date: 05/06/22 Stop Date: 09/03/22 Status: Ordered calcium-vitamin D 600 mg-400 intl units oral tablet 1 tablet, By Mouth, 2 times a day, # 180 tablet, 1 Refills, 02/04/23 8:58:00 EST, [facility]/pharmacy #1230, 1 tablet By Mouth 2 [...] 13:29:00 EDT, Route to Pharmacy Electronically, [facility]/pharmacy #0315, 169, cm, 04/10/22 14:11:00 [...] Required Details, Route to Pharmacy Electronically, [facility]/pharmacy #1230, 168, cm, 12/15/22 0:20:00 [...] Required Details, Route to Pharmacy Electronically, [facility]/pharmacy #1230, 168, cm, ... Start [...] tablet, 1 Refills, Maintenance, 10/07/22 14:35:00 EST, [facility] 70416, 167.64, cm, 10/06/22 9:14:00 EST, Height, 134.2, kg, 10/06/22 9:14:00 EST, Dry Weight Start Date: 10/07/22 Status: Ordered montelukast 10 mg oral tablet 1, tablet, By Mouth, Daily, # 90 tablet, Refills 1, Maintenance, 07/25/22 21:44:00 EDT, Route to Pharmacy Electronically, [facility] 534[facility], 169, cm, 04/10/22 14:11:00 EDT, Height, 129, [...] Replace Required Details, Route to Pharmacy Electronically, [id number]... Start Date: 01/12/23 Status: Ordered traMADol 50 [...] Refills, Soft Stop, 06/11/22 9:38:00 EDT, [facility]/pharmacy #1230, 169, cm, 04/10/22 14:11:00 [...] Back Pain Scale: 68 on 12/01/17; initial [place]: 7 on 12/01/17 2PROCEDURE DATE: 08/10/2017 PREOPERATIVE [...] information Care Team Personnel Name: Beatrice DEAN ([facility]), Antonia Richardson Position: [facility] Primary Care Physician Member Role: PCP Address: Address: [address] [place] [address] [place] [address]- Name: Natalya Phillip PharmD Position: [facility] Associate Professional Member Role: Lifetime Consulting Provider Address: Address: [address] [place] [address] [place] [address]- [place] Name: Smiley Blair Position: [facility] Outreach Member Role: Lifetime Consulting Physician Name: Marcin Peacock Position: [facility] Outreach Member Role: Lifetime Consulting Physician Name: Nancy Valenzuela RN Position: [facility] Onco RN Member Role: Primary Care Nurse Care Team Related Persons Name: EBONY DUENAS Address: [address] [place] [address] Name: AMPARO DUENAS Address: [address] [place] [address] Name: EBONY WASHBURN Address: [place] [address] [place] [address] Name: JULI CLAYTON
--- OUTSIDE RECORDS SUMMARY | 2023-09-15 11:52 | XMS_ITS | Continuity of Care Document ---
Author Name Unknown Organization [facility] [place] Address [address] [place] [address]- Care Team Providers Care Middle School Art Teacher Name Role Phone Beatrice DEAN ([facility]), Antonia Richardson Primary Care Ph ysician Encounter [facility] Date(s): 04/19/23 - 05/19/23 [facility] [place] [address] [place] [address]- Allergies, Adverse Reactions, Alerts Substance Reaction Severity [...] Stop,05/06/22 9:49:00 EDT, Route to Pharmacy Electronically, [id number], [facility]/pharmacy #1230, 169, cm, 04/10/22 14:11:00 EDT, [facility]... Start Date: 05/06/22 Stop Date: 09/03/22 Status: Ordered calcium-vitamin D 600 mg-400 intl units oral tablet 1 tablet, By Mouth, 2 times a day, # 180 tablet, 1 Refills, 02/04/23 8:58:00 EST, [facility]/pharmacy #1230, 1 tablet By Mouth [...] tablet, 0 Refills, Maintenance, 04/13/23 14:26:00 EDT, [facility] 78010, 167, cm, 02/16/23 13:41:00 EDT, Height, 134, [...] Replace Required Details, Route to Pharmacy Electronically, [facility]/pharmacy #1230, 168, cm, 12/15/22 0:20:00 [...] Replace Required Details, Route to Pharmacy Electronically, [facility]/pharmacy #1230, 168, cm, ... Start [...] tablet, 1 Refills, Maintenance, 04/19/23 11:19:00 EDT, [facility], 167, cm, 02/16/23 13:41:00 EDT, Height, 134, kg, 01/29/23 9:11:00 EST, Dry Weight Start Date: 04/19/23 Status: Ordered montelukast 10 mg oral tablet 1, tablet, By Mouth, Daily, # 90 tablet, Refills 1, Maintenance, 04/13/23 9:49:00 EDT, Route to Pharmacy Electronically, [facility] 125[facility], 167, cm, 02/16/23 13:41:00 EDT, Height, 134, [...] Replace Required Details, Route to Pharmacy Electronically, [id number]... Start Date: 01/12/23 Status: Ordered traMADol 50 [...] Back Pain Scale: 68 on 12/01/17; initial [place]: 7 on 12/01/17 2PROCEDURE DATE: 08/10/2017 PREOPERATIVE [...] Care Team Personnel Name: Beatrice DEAN ([facility]), Antonia Richardson Position: [facility] Physician - Primary Care Member Role: PCP Address: Address: [address] [place] [address] [place] [address] Name: Natalya Phillip PharmD Position: [facility] Associate Professional Member Role: Lifetime Consulting Provider Address: Address: [address] [place] [address] [place] [address]- [place] Name: Smiley Blair Position: [facility] Outreach Member Role: Lifetime Consulting Physician Name: Marcin Peacock Position: [facility] Outreach Member Role: Lifetime Consulting Physician Name: Bianca GRIFFITHS, Nancy Mireles Position: [facility] Onco RN Member Role: Primary Care Nurse Care Team Related Persons Name: EBONY DUENAS Address: [address] [place] [address] Name: AMPARO DUENAS Address: [address] [place] [address] Name: EBONY WASHBURN Address: [address] [place] [address] Name: JULI CLAYTON
--- OUTSIDE RECORDS SUMMARY | 2023-09-15 11:52 | XMS_ITS | Continuity of Care Document ---
Author Name Unknown Organization [facility] Address [address] [place] [address]- Care Team Providers Care Nutrient Management Specialist Name Role Phone Beatrice DEAN ([facility] Antonia Richardson Primary Care Ph ysician Encounter 02/03/23 - 03/13/23 [facility] [address] [place] [address]- Discharge Disposition: [facility] Allergies, Adverse Reactions, Alerts Substance Reaction Severity [...] Brett rded influenza virus vaccine, inactivated 11/10/13 Rbett rded influenza virus vaccine, inactivated 12/09/12 Brett [...] Stop,05/06/22 9:49:00 EDT, Route to Pharmacy Electronically, [id number], [facility]/pharmacy #1230, 169, cm, 04/10/22 14:11:00 EDT, [facility]... Start Date: 05/06/22 Stop Date: 09/03/22 Status: Ordered calcium-vitamin D 600 mg-400 intl units oral tablet 1 tablet, By Mouth, 2 times a day, # 180 tablet, 1 Refills, 02/04/23 8:58:00 EST, [facility]/pharmacy #1230, 1 tablet By Mouth [...] 07/23/22 13:29:00 EDT, Route to Pharmacy Electronically, [facility]/pharmacy #0315, 169, cm, 04/10/22 14:11:00 [...] Replace Required Details, Route to Pharmacy Electronically, [facility]/pharmacy #1230, 168, cm, 12/15/22 0:20:00 [...] Replace Required Details, Route to Pharmacy Electronically, [facility]/pharmacy #1230, 168, cm, ... Start [...] tablet, 1 Refills, Maintenance, 10/07/22 14:35:00 EST, [facility] 57247, 167.64, cm, 10/06/22 9:14:00 EST, Height, 134.2, kg, 10/06/22 9:14:00 EST, Dry Weight Start Date: 10/07/22 Status: Ordered montelukast 10 mg oral tablet 1, tablet, By Mouth, Daily, # 90 tablet, Refills 1, Maintenance, 07/25/22 21:44:00 EDT, Route to Pharmacy Electronically, [facility], 169, cm, 04/10/22 14:11:00 EDT, Height, 129, [...] Replace Required Details, Route to Pharmacy Electronically, [id number]... Start Date: 01/12/23 Status: Ordered traMADol 50 [...] Back Pain Scale: 68 on 12/01/17; initial [place]: 7 on 12/01/17 2PROCEDURE DATE: 08/10/2017 [...] Personnel Name: Beatrice DEAN ([facility])Antonia Position: [facility] Primary Care Physician Member Role: PCP Address: Address: [address] [place] [address]- Name: Natalya Phillip PharmD Position: [facility] Associate Professional Member Role: Lifetime Consulting Provider Address: Address: [address] [place] [address] [place] [address]- [place] Name: Smiley Blair Position: [facility] Outreach Member Role: Lifetime Consulting Physician Name: Marcin Peacock Position: [facility] Outreach Member Role: Lifetime Consulting Physician Name: Bianca GRIFFITHS, Nancy Mireles Position: [facility] Onco RN Member Role: Primary Care Nurse Care Team Related Persons Name: EBONY DUENAS Address: [place] [address] Name: AMPARO DUENAS Address: home [address] [place] [address] Name: EBONY WASHBURN Address: [place] [address] Name: JULI CLAYTON
--- OUTSIDE RECORDS SUMMARY | 2023-09-15 11:52 | XMS_ITS | Continuity of Care Document ---
Author Name Unknown Organization [facility] [place] Address [address] [place] [address]- Care Team Providers Care Packer Denture Name Role Phone Beatrice DEAN ([facility]), Antonia Richardson Primary Care Ph ysician Encounter [facility] Date(s): 06/10/23 - 07/10/23 [facility] [place] [address] [place] [address]- Allergies, Adverse Reactions, Alerts Substance Reaction Severity [...] Stop,05/06/22 9:49:00 EDT, Route to Pharmacy Electronically, [id number], [facility]/pharmacy #1230, 169, cm, 04/10/22 14:11:00 EDT, [facility]... Start Date: 05/06/22 Stop Date: 09/03/22 Status: Ordered calcium-vitamin D 600 mg-400 intl units oral tablet 1 tablet, By Mouth, 2 times a day, # 180 tablet, 1 Refills, 02/04/23 8:58:00 EST, [facility]/pharmacy #1230, 1 tablet By Mouth 2 [...] 06/19/23 6:31:00 EDT, Route to Pharmacy Electronically, [facility], 167, cm, 06/01/23 11:29:00 EDT, Height, 134, [...] Replace Required Details, Route to Pharmacy Electronically, [facility] 48[facility], 167, cm, 02/16/23 13:41... Start Date: 05/20/23 [...] tablet, 1 Refills, Maintenance, 04/19/23 11:19:00 EDT, [facility]87[facility], 167, cm, 02/16/23 13:41:00 EDT, Height, 134, kg, 01/29/23 9:11:00 EST, Dry Weight Start Date: 04/19/23 Status: Ordered montelukast 10 mg oral tablet 1, tablet, By Mouth, Daily, # 90 tablet, Refills 1, Maintenance, 04/13/23 9:49:00 EDT, Route to Pharmacy Electronically, [facility] 8[facility], 167, cm, 02/16/23 13:41:00 EDT, Height, 134, [...] Replace Required Details, Route to Pharmacy Electronically, [id number]... Start Date: 01/12/23 Status: Ordered traMADol 50 [...] 6 Refills, Soft Stop, 06/11/22 9:38:00 EDT, [facility]/pharmacy #1230, 169, cm, 04/10/22 14:11:00 EDT, [...] Back Pain Scale: 68 on 12/01/17; initial [place]: 7 on 12/01/17 2PROCEDURE DATE: 08/10/2017 PREOPERATIVE [...] DEAN ([facility]), Antonia Richardson Position: [facility] Physician - Primary Care Member Role: PCP Address: Address: [address] [place] [address] [place] [address]- Name: Natalya Phillip PharmD Position: [facility] Associate Professional Member Role: Lifetime Consulting Provider Address: Address: [address] [place] [address] [place] [address]- Name: Smiley Blair Position: [facility] Outreach Member Role: Lifetime Consulting Physician Name: Marcin Peacock Position: [facility] Outreach Member Role: Lifetime Consulting Physician Name: Bianca RN, Nancy Mireles Position: [facility] Onco RN Member Role: Primary Care Nurse Care Team Related Persons Name: EBONY DUENAS Address: home [address] [place], [place] Name: AMPARO DUENAS Address: [address] [place], [place] Name: EBONY WASHBURN Address: [address] [place], [place] Name: JULI CLAYTON
--- OUTSIDE RECORDS SUMMARY | 2023-09-15 11:52 | XMS_ITS | Continuity of Care Document ---
Author Name Unknown Organization [facility] Address [address] [place] [address]- Care Team Providers Care Senior Network Engineer Name Role Phone Beatrice DEAN ([facility]), Antonia Richardson Primary Care Ph ysician [id number] Date(s): 03/07/21 - 04/06/[address] [address]- Allergies, Adverse Reactions, Alerts Substance Reaction Severity [...] HOURS NEEDED FOR WHEEZING, [facility] Start Date: 05/11/19 Status: Ordered Celebrate vitamins 1, By Mouth, Daily in AM, Maintenance, 01/06/20 13:52:00 EST, [facility] Start Date: 01/06/20 Status: Ordered citalopram 40 mg oral tablet 40 mg, 1, tablet, By Mouth, Daily, # 90 tablet, Refills 2, Tot. Refills 2, Maintenance, 03/19/20 13:36:00 EDT, Route to Pharmacy Electronically, [facility]/pharmacy #0315, 167.64, cm, 02/01/20 15:51:00 EST,Height, [...] 6 Refills, Soft Stop, 03/19/20 13:23:00 EDT, [facility]/pharmacy #0315, 167.64, cm, 02/01/20 15:51:00 EST, [...] Back Pain Scale: 68 on 12/01/17; initial [place]: 7 on 12/01/17 2PROCEDURE DATE: 08/10/2017 PREOPERATIVE [...]
--- OUTSIDE RECORDS SUMMARY | 2023-09-15 11:53 | XMS_ITS | Continuity of Care Document ---
Author Name Unknown Organization [facility] Address [address] [place] [address]- Care Team Providers Care Deaf/Hard Of Hearing Specialist Name Role Phone Beatrice DEAN ([facility]), Antonia Richardson Primary Care Ph ysician Encounter [facility] Date(s): 08/20/21 - 01/04/[address] [address] Attending Physician: Desean Abad MD Admitting Physician: Desean Abad MD Allergies, Adverse Reactions, [...] Back Pain Scale: 68 on 12/01/17; initial [place]: 7 on 12/01/17 2PROCEDURE DATE: 08/10/2017 PREOPERATIVE [...]
--- OUTSIDE RECORDS SUMMARY | 2023-09-15 11:53 | XMS_ITS | Continuity of Care Document ---
Author Name Unknown Organization [facility] Address [address] [place] [address]- Care Team Providers Care Bindery Machine Feeder Offbearer Name Role Phone Beatrice DEAN ([facility]), Antonia Richardson Primary Care Ph ysician Encounter [facility] Date(s): 01/26/23 - 01/31/[address] [address]- Encounter Diagnosis Cellulitis of toe(Final) - 01/26/23 Discharge Disposition: A-D/C Home Attending Physician: Karina Euceda MD Admitting Physician: Clarence DEAN, Brooklynn Referring Physician: Gm Geiger MD Allergies, Adverse Reactions, Alerts Substance Reaction [...] Stop,05/06/22 9:49:00 EDT, Route to Pharmacy Electronically, [id number], [facility]/pharmacy #[id number], 169, cm, 04/10/22 14:11:00 EDT, [place] Start Date: 05/06/22 Stop Date: 09/03/22 Status: Ordered calcium-vitamin D 600 mg-400 intl units oral tablet 1 tablet, By Mouth, 2 times a day, # 180 tablet, 1 Refills, [facility] STORE [id number], 90, TAKE 1 TABLET BY MOUTH TWICE DAILY, 168, cm, 01/17/22 8:53:00 EST, Height, 135, kg, 09/16/21 15:58:00 EDT, Dry Weight Start Date: 01/23/22 Status: Ordered cefadroxil 500 mg oral capsule 2 capsule = 1,000 mg, By Mouth, Every 12 hours, for 10 days, # 40 capsule, 0 Refills, Acute 02/04/23 18:14:00 EST, 01/25/23 18:14:00 EST, Capsule, [facility]/pharmacy #[id number], Partial fill upon patient request if the prescription is for a schedule II opioid drChristian Start Date: 01/25/23 Stop Date: 02/04/23 Status: [...] Status: Ordered gabapentin 300 mg oral capsule 300 mg, Capsule, By Mouth, 01/31/23 11:00:00 EST Start Date: 01/31/23 Stop Date: 01/31/23 Status: Completed gabapentin 300 mg oral capsule 300 mg, Capsule, By Mouth, 01/31/23 9:00:00 EST Start Date: 01/31/23 Stop Date: 01/31/23 Status: Completed gabapentin 300 mg oral capsule See Instructions, TAKE 1 CAP IN THE AM, 1 CAP AT NOON AND 3 CAPS AT BEDTIME, # 450 capsule, Refills0, Tot. Refills 0, 01/22/23 16:48:00 EST, Instructions Replace Required Details, Route to Pharmacy Electronically, [facility]/pharmacy #[id number], 168, cm, ... Start Date: 01/22/23 Status: Ordered loratadine 10 mg oral capsule 1 capsule = 10 mg, By Mouth, Daily, # 30 capsule, 0 Refills, Maintenance, 06/04/17 8:06:21, Capsule Start Date: 06/04/17 Stop Date: 07/04/17 Status: Ordered metoprolol 25 mg oral tablet 12.5 mg, Tablet, By Mouth, 01/31/23 9:00:00 EST Start Date: 01/31/23 Stop Date: 01/31/23 Status: Completed Metoprolol Tartrate 25 mg oral tablet 0.5 tablet, By Mouth, 2 times a day, # 90 tablet, 1 Refills, Maintenance, 10/07/22 14:35:00 EST, [id number], 167.64, cm, 10/06/22 9:14:00 EST, Height, 134.2, kg, 10/06/22 9:14:00 EST, Dry Weight Start Date: 10/07/22 Status: Ordered montelukast 10 mg oral tablet 1, tablet, By Mouth, Daily, # 90 tablet, Refills 1, Maintenance, 07/25/22 21:44:00 EDT, Route to Pharmacy Electronically, [facility] [id number], 169, cm, 04/10/22 14:11:00 EDT, Height, 129, [...] Replace Required Details, Route to Pharmacy Electronically, [id number]... Start Date: 01/12/23 Status: Ordered traMADol 50 [...] Back Pain Scale: 68 on 12/01/17; initial [place]: 7 on 12/01/17 2PROCEDURE DATE: 08/10/2017 PREOPERATIVE [...] Date Wound Deep Culture w/ Gram Smear (DEEP W OUND CULTURE) 01/29/23 Microbiology Reports TEST:Deep Wound Culture STATUS:Unauthenticated BODY SITE: SOURCE:SWAB1 COLLECTED DATE/TIME:01/29/23 11:50 AM Deep Wound Culture SPECIMEN DESCRIPTION : SWAB LEFT TOE WOUND SECRETION SPECIAL REQUESTS : NONE GRAM STAIN : 1+ POLYMORPHONUCLEAR LEUKOCYTES NO ORGANISMS SEEN CULTURE : 1+ STAPHYLOCOCCUS AUREUS. This isolate was identified using Maldi-TOF system REPORT STATUS : PRELIMINARY REPORT Vital Signs Most recent to oldest [Reference Range]: 1 2 3 Height 167 cm (01/31/23 8:30 AM) 167 cm (01/31/23 4:57 AM) 167 cm (01/30/23 8:16 PM) Weight 135.4 kg (01/29/23 1:00 PM) 134 kg (01/29/23 9:11 AM) 134 kg (01/29/23 6:12 AM) Oxygen Saturation [94-100 %] 97 % (01/31/23 8:30 AM) 97 % (01/31/23 4:57 AM) 99 % (01/30/23 8:16 PM) Pulse Rate [55-90 bpm] 65 bpm (01/31/23 8:30 AM) 62 bpm (01/31/23 8:22 AM) 85 bpm (01/31/23 4:57 AM) Body Mass Index [18.5-24.99 kg/m2] 48.05 kg/m2 *>HHI* (01/29/23 9:11 AM) 48.05 kg/m2 *>HHI* (01/29/23 6:12 AM) 48.05 kg/m2 *>HHI* (01/28/23 4:53 AM) Blood Pressure [90-138/55-84 mm Hg] 109/67mm Hg (01/31/23 8:30 AM) 109/67mm Hg (01/31/23 8:22 AM) 102/68mm Hg (01/31/23 4:57 AM) Respiratory Rate [16-30 br/min] 18 br/min (01/31/23 10:40 AM) 18 br/min (01/31/23 10:13 AM) 18 br/min (01/31/23 9:15 AM) Temperature [96.8-100.4 DegF] 97.9 DegF (01/31/23 8:30 AM) 97.6 DegF (01/31/23 4:57 AM) 97.5 DegF (01/30/23 8:16 PM) Mode of Delivery (Oxygen) Room air (01/31/23 8:30 AM) Room air (01/31/23 4:57 AM) Room air (01/30/23 8:16 PM) Blood pressure sites Arm, left (01/31/23 8:30 AM) Arm, right (01/31/23 4:57 AM) Arm, right (01/30/23 8:16 PM) Temperature Route Oral (01/31/23 8:30 AM) Temporal (01/31/23 4:57 AM) Temporal (01/30/23 8:16 PM) Dry Weight 134 kg (01/29/23 9:11 AM) 134 kg (01/29/23 6:12 AM) 134 kg (01/28/23 4:53 AM) Weight Obtained Via Bed scale (01/29/23 1:00 PM) Dry Weight Obtained Via Standing scale (01/26/23 2:37 PM) Social History Social History Type Response Smoking Status Former smoker; Tobac co user in household: No; Stopped at age: 41; entered on: 03/25/18 Sex History and physical note * Raina Miranda: PERFORM, MODIFY Event Display: History and Physical Hospital Authored Date: Patient: ??MORAIMA RILEY ? Age:??57 Years?Sex:??Female?:??1965?? Chief Complaint/Reason for Consultation foot redness not improved since starting antibiotics History of Present Illness This is a 57-year-old female with history of obesity, LETHA, recurrent pulmonary embolism on warfarin, asthma, diet-controlled diabetes who presents to the hospital with toe swelling and redness.?? Shehad a callus under her left great toe which was pulled off a couple weeks ago. She was wrapping it with Neosporin and gauze.?More recently has developed??progressive redness and swelling around this toe and given a prior history of osteomyelitis she was concern for infection and came to the ER.?? She had an x-ray done yesterday which was unremarkable.?? She was discharged on Ceftin and doxycycline which she has taken 2 doses each so far.?? Despite this the area has become more erythematous sw ollen tracking up the dorsum of the foot and streaking upwards.?? She denies any fevers or chills.?? She was treated for a right second toe osteomyelitis in 2019, and subsequently had surgery with podiatry for a foot deformity but her bone biopsy did not show any growth. She also reports prior history of MRSA infection, has required admission in the past for IV antibiotics. ?? In the emergency department her vitals are stable.?? Labs with normal WBC, INR 2.2, COVID flu RSV is negative.?? She was given ceftriaxone. Review of Systems ?General NAD, pleasant, speaking in full sentences?HEENT??Moist mucous membranes ?Lung??CTA bilaterally, no wheezes, rhonchi, or rales?Heart??regular rate and rhythm, no murmurs, gallops, or rubs?Abdomen soft, non-tender, non-distended, bowel sounds present?Extremities?? no clubbing, no cyanosis,??no pedal edema, peripheral pulses intact. ?Neurologic??Alert & oriented x 3, moving all extremities, no gross focal deficits?Skin??left toe redness swelling warmth ? Psychiatry appropriate mood and affect?? Objective Measurements?? Height: 167 cm (01/26/23) Weight: 134 kg (01/26/23) Dry Weight: 134 kg (01/26/23) ? Vital Signs?? Temperature: 98.8 DegF (01/26/23 14:37:00) Temperature Route: Oral (01/26/23 14:37:00) Pulse Rate: 73 bpm (01/26/23 14:37:00) Respiratory Rate: 18 br/min (01/26/23 14:37:00) Systolic Blood Pressure: 110 mm Hg (01/26/23 14:37:00) Diastolic Blood Pressure: 69 mm Hg (01/26/23 14:37:00) Pulse Pressure: 41 mm Hg (01/26/23 14:37:00) Oxygen Saturation: 96 % (01/26/23 14:37:00) Mode of Delivery (Oxygen): Room air (01/26/23 14:37:00) ? Physical Exam ?General NAD, pleasant, obese, speaking in full sentences?HEENT??Moist mucous membranes ?Lung??CTA bilaterally, no wheezes, rhonchi, or rales?Heart??regular rate and rhythm, no murmurs, gallops, or rubs?Abdomen soft, non-tender, non-distended, bowel sounds present?Extremities?? no clubbing, no cyanosis,??no pedal edema, peripheral pulses intact ?Neurologic??Alert & oriented x 3, moving all extremities, no gross focal deficits?Skin??left great toe with erythema warmth tracks up dorsum of foot towards the??ankle no appreciable discharge, mildly tender ?Psychiatry appropriate mood and affect?? Images toe r toe left foot left foot photo from 01/25? then today 01/26 Assessment/Plan This is a 57-year-old female with history of obesity, LETHA, recurrent pulmonary embolism on warfarin, asthma, diet-controlled diabetes who presents to the hospital with toe swelling and redness and isadmitted with cellulitis.? Cellulitis of toe (L03.039):?? Has not improved despite a 24 hours on oral antibiotics. Has prior history of osteomyelitis on toesof the other foot but x-ray does not show any bony erosive changes, she has normal white count and no fever though??given??spreading infection despite oral antibiotics at home will admit for IV antibiotics. She does have prior history of MRSA infection per her report. Clinically does not appear to represent??VTE and she is fully anticoagulated Continue vancomycin Elevate extremity We will check ESR, CRP ?? Asthma (J45.909):??No exacerbation. Breo for home Symbicort, albuterol as needed, continue montelukast ?? Depression (F32.9):??Continue citalopram ?? GERD (gastroesophageal reflux disease) (K21.9):??Continue famotidine ?? Hypertension (I10):??Continue metoprolol ?? 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 Recurrent pulmonary embolism (I26.99):??On warfarin. INR is therapeutic. Will monitor. ?? Type 2 diabetes mellitus (E11.9):??Diet controlled, no longer on any medication. Her A1c in 5.1 and her blood sugar appears controlled presently ?? VTE Prophylaxis:??Warfarin Code Status:??Full resuscitation ?Order Code Status:??Code Status Ordered Ongoing Medical Necessity:??Cellulitis Discharge Planning:??Pending clinical improvement of symptoms Histories Allergies Allergies ?(Active and Proposed Allergies Only) dicloxacillin? (Severity: Unknown severity, Onset: Unknown) ?Reactions: D - Diarrhea ?Comments: Patient prevously thought was rash but says today ot. Tolerated PCN, Amoxicillin ?Comments: RASH statins? (Severity: Unknown severity, Onset: Unknown) ?Reactions: muscle pain niacin? (Severity: Unknown severity, Onset: Unknown) ?Reactions: skin turns red sulfa drugs? (Severity: Unknown severity, Onset: Unknown) ?Reactions: hives ? Past Medical History/Problem List Active Problems??(29) Anticoagulated on warfarin Arthritis Asthma BMI 60.0-69.9, adult Chronic knee pain Depression Endometrial cancer, grade I GERD (gastroesophageal reflux disease) GERD (gastroesophageal reflux disease) H/O sciatica [place] History of surgery Hyperlipidemia Hypertension Limitation due to disability Lower back pain Morbid obesity Morbid obesity with BMI of 45.0-49.9, adult Morbid obesity with BMI of 60.0-69.9, adult Neck pain LETHA on CPAP Osteopenia Persistent moderate somatic symptom disorder with predominant pain Recurrent pulmonary embolism Severe obesity Shoulder pain Symptomatic cholelithiasis Thickened endometrium Type 2 diabetes mellitus ? 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 Social History Alcohol Details:??Use: Current. ??Frequency: 1-2 times per year. Employment/School Details:??Status: Disabled. Exercise Details:??Regular exercise: No. Home/Environment Details:??Living situation: Home/Independent. ??Lives with: Father, Mother. Nutrition/Health Details:??Diet: HIGH PROTEIN LOW CARB. Sexual Details:??Sexually involved in last 6 months: Yes. ??Sexual orientation: Heterosexual. ??Other sexual concerns: . Substance Abuse Details:??Use: Past. ??Type: Marijuana. ??Other: does not have state certificate. Tobacco Details:??Former smoker, Tobacco user in household: No. ??Stopped at age: 41 Years. Electronic Cigarette/Vaping Details:??Electronic Cigarette Use: Never. ? Family History Mother: Breast cancer ? 14-AUG-2014 21:03:23<$>; Hypercholesterolemia; Hypertension; Skin cancer Father: Arthritis; Asthma; Diabetes mellitus type II Mat. Grandmother: Hyperlipidemia; Hypertension Sister: Diabetes mellitus type II Other (Maternal Aunt): Brain cancer ?07-APR-2015 22:28:02<$>; Kidney carcinoma ?07-APR-2015 22:16:31<$> Sister: Thyroid disease ? Medications Home Medications 5-Hydroxytryptophan?200?Milligram?By Mouth?2 times a day Acetaminophen (Tylenol Extra Strength 500 mg oral tablet)?2?By Mouth?3 times a day?as needed?Pain , Mild Albuterol (albuterol CFC free 90 mcg/inh inhalation aerosol)?1?puff(s)?Inhalation?Every6 hours?as needed?for 30?OV 06-25-22?Days?Wheezing/Shortness of Breath Budesonide-Formoterol (Symbicort 80mcg/4.5mcg Inhaler)?See Instructions?INHALE 1 PUFF 1- 2 TIMES A DAYBRAND NAME SYMBICORT Calcium And Vitamin D Combination (calcium-vitamin D 600 mg-400 intl units oral tablet)?1?tab(s)?By Mouth?2 times a day Cefadroxil (cefadroxil 500 mg oral capsule)?2?capsule?1,000?Milligram?By Mouth?Every 12 hours?for 10?Days Chondroitin-Glucosamine?1?capsule?By Mouth?Daily Citalopram (citalopram 40 mg oral tablet)?40?Milligram?1?tablet?By Mouth?Daily?for 90?Days Doxycycline (doxycycline monohydrate 100 mg oral tablet)?1?tab(s)?100?Milligram?By Mouth?2 times a day?for 10?Days Durable Medical Equipment (Diabetic Shoes)?See Instructions?Use for footwear Diabetic shoes and [id number] Durable Medical Equipment (One 4 pronged Cane)?See Instructions?DILLON LifetimeHt ?? 168CMWt ?? 211.5 KG.DX ??Z91.81 Durable Medical Equipment (Tubular Labsyle Lite Monitor)?See Instructions?DX: E11.49 to test one a day Durable Medical Equipment (Freestyle Lite Lancets)?See Instructions?DX: E11.49to test blood sugar once a day Durable Medical Equipment (Freestyle Test Strips)?See Instructions?DX: E11.49 to test blood sugar once a day Durable Medical Equipment (Diabetic shoes)?See Instructions?Dx: ??E11.9 Diabetes Mellitus Famotidine (famotidine 20 mg oral tablet)?See Instructions?TAKE 1 TABLET BY MOUTH TWICE A DAY Gabapentin (gabapentin 300 mg oral capsule)?See Instructions?TAKE 1 CAP IN THE AM, 1 CAP AT NOON AND 3 CAPS AT BEDTIME Lidocaine Topical (lidocaine 1.8% topical film)?1?patch(es)?Topically?Daily?leave onup to 12 hours Loratadine (loratadine 10 mg oral capsule)?1?capsule?10?Milligram?By Mouth?Daily?for 30?Days Metoprolol (Metoprolol Tartrate 25 mg oral tablet)?0.5?tab(s)?By Mouth?2 times a day Miscellaneous Rx (FREESTYLE LITE TEST STRIP)?See Instructions?USE DAILY Montelukast (montelukast 10 mg oral tablet)?1?tablet?By Mouth?Daily Pt.'s Own Meds (Celebrate vitamins)?1?By Mouth?Daily?afternoon Tramadol (traMADol 50 mg oral tablet)?1?tab(s)?50?Milligram?By Mouth?3 times a day?as needed?Pain , Moderate Warfarin (warfarin 6 mg oral tablet)?See Instructions?TAKE 1 TABLET EVERY DAY OR DIRECTED BY ANTICOAGULATION NURSE ? Results Recent Labs BLOOD COUNT & DIFF WBC 5.7 k/mm3 ()?? 01/26/2023 16:50 RBC 4.10 m/mm3 (Low)?? 01/26/2023 16:50 Hgb 12.4 Gm/dL ()?? 01/26/2023 16:50 Hct 38.0 % ()?? 01/26/2023 16:50 MCV 92.7 femtoliters ()?? 01/26/2023 16:50 MCH 30.2 pg ()?? 01/26/2023 16:50 MCHC 32.6 g/dL (Low)?? 01/26/2023 16:50 Platelet Count 278 k/mm3 ()?? 01/26/2023 16:50 RDW-SD 47.2 femtoliters (High)?? 01/26/2023 16:50 MPV 9.4 femtoliters ()?? 01/26/2023 16:50 Nucleated RBC (Automated) 0.0 #/100 WBC'S ()?? 01/26/2023 16:50 Abs. NRBC 0.0 k/mm3 ()?? 01/26/2023 16:50 Abs. Neut 2.9 k/mm3 ()?? 01/26/2023 16:50 Abs. Lymph 2.0 k/mm3 ()?? 01/26/2023 16:50 Abs. [place] 0.6 k/mm3 ()?? 01/26/2023 16:50 Abs. Eo 0.2 k/mm3 ()?? 01/26/2023 16:50 Abs. Baso 0.1 k/mm3 ()?? 01/26/2023 16:50 Neut % 50.2 % ()?? 01/26/2023 16:50 Lymph % 34.9 % ()?? 01/26/2023 16:50 [place] % 9.7 % ()?? 01/26/2023 16:50 Eos % 3.7 % ()?? 01/26/2023 16:50 Baso % 1.1 % ()?? 01/26/2023 16:50 Imm Gran 0.4 % ()?? 01/26/2023 16:50 Abs. Imm Gran 0.0 k/mm3 ()?? 01/26/2023 16:50 ?? CHEM GENERAL Sodium 143 mmol/L ()?? 01/26/2023 16:50 Potassium 4.4 mmol/L ()?? 01/26/2023 16:50 Chloride 102 mmol/L ()?? 01/26/2023 16:50 Bicarbonate Level 27 mmol/L ()?? 01/26/2023 16:50 Anion Gap 14 ()?? 01/26/2023 16:50 Glucose Level 87 mg/dL ()?? 01/26/2023 16:50 BUN 25 mg/dL (High)?? 01/26/2023 16:50 Creatinine-Blood 0.8 mg/dL ()?? 01/26/2023 16:50 Estimated GFR Creatinine 85 ML/MIN/1.73 M2 ()?? 01/26/2023 16:50 Calcium 9.8 mg/dL ()?? 01/26/2023 16:50 Protein, Total 7.6 Gm/dL ()?? 01/26/2023 16:50 Albumin 4.1 Gm/dL ()?? 01/26/2023 16:50 AG Ratio 1.2 ()?? 01/26/2023 16:50 Alkaline Phosphatase 86 units/L ()?? 01/26/2023 16:50 AST (SGOT) 23 units/L ()?? 01/26/2023 16:50 ALT (SGPT) 21 units/L ()?? 01/26/2023 16:50 Bilirubin, Total 0.3 mg/dL ()?? 01/26/2023 16:50 ?? COAG INR 2.2 (High)?? 01/26/2023 16:50 Protime (PT) 22.1 seconds (High)?? 01/26/2023 16:50 ?? HEME OTHER Hold Blue Top SPECIMEN DISCARDED AFTER 4 HOURS. ()?? 01/25/2023 16:41 ?? MISC. CHEMISTRY Hold Green Top SPECIMEN DISCARDED AFTER 1 WEEK ()?? 01/26/2023 16:50 Hold Gel Top SPECIMEN DISCARDED AFTER 1 WEEK ()?? 01/26/2023 16:50 ?? VIROLOGY Influenza A PCR NEGATIVE ()?? 01/26/2023 17:09 Influenza B PCR NEGATIVE ()?? 01/26/2023 17:09 RSV PCR NEGATIVE ()?? 01/26/2023 17:09 COVID-19 PCR Specimen Source NASAL ()?? 01/26/2023 17:09 COVID-19 PCR Result NEGATIVE ()?? 01/26/2023 17:09 ? EKG study * Event Display: EKG Authored Date: * Event Display: ECG 12-Lead Authored Date: Please click on pdf link to open report * Event Display: ECG 12-Lead Authored Date: Ventricular Rate: 64 BPM Atrial Rate: 64 BPM P-R Interval: 176 ms QRS Duration: 76 ms Q-T Interval: 400 ms QTC Calculation(Bazett): 412 ms P [place]: 37 degrees R [place]: 28 degrees T [place]: 26 degrees Normal sinus rhythm Normal ECG When compared with ECG of 10-APR-2022 14:47, No significant change was found Confirmed by [facility] ([id number] on 01/28/2023 7:59:48 PM [place]: [facility] * Isabel Luna RN: PERFORM, SIGN, VERIFY Event Display: [facility] Authored Date: [id number] Patient: MORAIMA RILEY Age: 57 years Sex: Female : 1965 Associated Diagnoses: None Author: Isabel Luna RN Findings Problem Related to Alteration in Integumentary : Alteration in Integumentary/new 01/31/2023 1:00 EST Alteration in Integumentary Related to Cellulitis, Other: ? osteomyelitis to lt great toe Goals & Outcomes, Integumentary Nutritional intake is adequate for metabolic needs, Pt will maintain adequate fluid & nutritional balance, Pt will maintain intact skin integrity, Wound will progress towards healing Interventions, Integumentary Consult Wound Care as needed for further interventions BH Goals/Interventions, Integumentary Yes Integumentary, Problem Start 01/28/2023 11:09 Reviewed plan with, Integumentary Patient Patient Progression, Integumentary Pt progressing according to plan . Narrative/Incidental Patient alert and oriented . She plans on continuation of IV antibiotics via PICC in Left upper arm. She stated the home service company sent a video for eucation and she is comfortable administeringantibiotics tonight. Toe wound without drainage today . Loos like a scab on the tip of left great tos. She offers no complaints exept minimal pain managed by Gabepentin. Call suazo in reach. * Ryan King RN: PERFORM, SIGN, VERIFY Event Display: Progress Note Hospital Authored Date: Patient: MORAIMA RILEY Age: 57 years Sex: Female : 1965 Associated Diagnoses: None Author: Ryan King RN Findings Nursing Data Integumentary Data. : Integumentary Data. 01/30/2023 21:19 EST Skin Abnormality Dry Skin Color Normal for ethnicity Skin Integrity Intact Mucous Membrane Color [place] Mucous Membrane Description Moist Activity Walks occasionally Mobility No limitations Integumentary WNL except . Musculoskeletal Data. : Musculoskeletal Data. 01/30/2023 21:19 EST Musculoskeletal Symptoms Other: Left great toe osteomyelitis Musculoskeletal WNL except . Vital Signs : VITAL SIGNS SECTION 01/31/2023 4:57 EST Temperature 97.6 DegF Temperature Route Temporal Pulse Rate 85 bpm Respiratory Rate 18 br/min Systolic Blood Pressure 102 mm Hg Diastolic Blood Pressure 68 mm Hg Blood pressure sites Arm, right Mean Arterial Pressure 79 mm Hg Pulse Pressure 34 mm Hg Oxygen Saturation 97 % Mode of Delivery (Oxygen) Room air . Evaluation A/Ox4. Up ad jd. IV abx of vancomycin. Pain management with tramadol & tylenol. Newly insertedsingle lumen PICC to the right upper arm was bleeding through the dsg. Dressing changed and is currently C/D/I. PICC flushes easily with no resistance and has good blood return. Purposefully hourly rounding done and safety maintained. . Discharge Information Case Management Discharge Plan : Case Management Discharge Plan Data 01/25/2023 18:34 EST Discharge Level of Care at Discharge Home/Senior Care/Foster Care Pulmonary Rehab Discharge : Pulmonary Rehab Discharge Status 01/30/2023 23:41 EST CPAP/BiPAP Mask Type Full CPAP/BiPAP Mask Size Medium 01/30/2023 6:14 EST CPAP/BiPAP Mask Type Full CPAP/BiPAP Mask Size Medium 01/30/2023 1:56 EST CPAP/BiPAP Mask Type Full CPAP/BiPAP Mask Size Medium 01/29/2023 23:22 EST CPAP/BiPAP Mask Type Full CPAP/BiPAP Mask Size Medium * Ok DEAN, Karina Vazquez: PERFORM Event Display: Progress Note Hospital Authored Date: [id number] Patient: ??ROSEMARY, MORAIMA ? Age:??57 Years?Sex:??Female?:??1965?? Subjective Patient was seen and examined at bedside Care plan was discussed in detail??after ID consultation I obtained??consent from the patient to insert a PICC line I also asked case operator to arrange??VNA services. ?? I also discussed front offloading shoes to avoid further complications Review of Systems No fever Mild malaise Left great toe swelling erythema??receding No nausea vomiting diarrhea No chest pain No shortness of breath Chronic weight gain No dysuria Objective Measurements?? Height: 167 cm (01/30/23) Weight: 135.4 kg (01/29/23) Dry Weight: 134 kg (01/29/23) Body Mass Index:??48.05 kg/m2??Critical (01/29/23) ? Vital Signs?? Temperature: 97.8 DegF (01/30/23 15:00:00) Temperature Route: Oral (01/30/23 15:00:00) Pulse Rate:??52 bpm??Low (01/30/23 15:00:00) Respiratory Rate: 20 br/min (01/30/23 15:00:00) Systolic Blood Pressure:??146 mm Hg??High (01/30/23 15:00:00) Diastolic Blood Pressure:??88 mm Hg??High (01/30/23 15:00:00) Blood pressure sites: Arm, right (01/30/23 15:00:00) Mean Arterial Pressure: 78 mm Hg (01/30/23 07:53:00) Pulse Pressure: 58 mm Hg (01/30/23 15:00:00) Oxygen Saturation: 97 % (01/30/23 15:00:00) Mode of Delivery (Oxygen): Room air (01/30/23 15:00:00) FiO2: 21 % (01/30/23 06:14:00) Early Warning Score: 5 (01/30/23 15:09:49) ? Pain Scores 1 - 10 Pain Scale Score: 2 (08:52) Pain relief acceptable: Yes (22:08) ? Intake/Output? 01/26 18:42 01/30 07:00 01/29 07:00 01/28 07:00 01/27 07:00 ?? 01/30 15:44 01/30 15:44 01/30 06:59 01/29 06:59 01/28 06:59 Intake ? 3660 ?720 ? 1580 ?860 ?500 Output ?0 ?0 ?0 ?0 ?0 Net Total ? 3660 ?720 ? 1580 ?860 ?500 ? Urine Count ?7 ?2 ?3 ?2 ?0 ? Precautions No Precautions documented.? Therapeutic Activity Therapeutic Activities/Mobility/Balance?? No qualifying data available. ? Physical Exam ?Gen; no acute respiratory distress, cooperating with exam, morbid obese middle-aged female ?HEENT; no facial asymmetry?Lungs; CATB ?Cardiac; RRR, no M/R/G ?Abdomen; soft nontender, nondistended, normal bowel sounds ?Extremity; there is a??small??left great toe callus, mild swelling erythema around the first great toe. ??Pedal pulse palpable ?Neuro exam; alert oriented x3, CN 2-12 normal ?Mood;??appropriate ?Skin;??no rash ?Musculoskeletal;??no acute finding _ Inpatient Medications Medications (24) Active SCHEDULED: (16) Citalopram 20 mg Tablet (citalopram 20 mg oral tablet) ??40 mg, By Mouth, Daily Famotidine 20 mg Tablet (famotidine 20 mg oral tablet) ??20 mg, By Mouth, 2 times a day Gabapentin 300 mg Capsule (gabapentin 300 mg oral capsule) ??300 mg, By Mouth, Daily in AM Gabapentin 300 mg Capsule (gabapentin 300 mg oral capsule) ??300 mg, By Mouth, Daily before lunch Gabapentin 300 mg Capsule (gabapentin 300 mg oral capsule) ??900 mg, By Mouth, Daily at bedtime Influenza Quad (6mo - 64 yr) Fluzone 0.5mL (Influenza, Quadrivalent Vaccine (Fluzone Quad)) ??0.5 mL, Intramuscular, Once Loratadine 10 mg Tablet (loratadine 10 mg oral tablet) ??10 mg, By Mouth, Daily Metoprolol 25mg Tablet (metoprolol 25 mg oral tablet) ??12.5 mg, By Mouth, 2 times a day Montelukast 10 mg Tablet (montelukast 10 mg oral tablet) ??10 mg, By Mouth, Daily at bedtime NaCl 0.9% Flush 3ml (NaCL 0.9% Flush) ??3 mL, IV Push, Every 8 hours Symbicort 80-4.5mcg ??1 puff, By Mouth, 2 times a day Vancomycin 2 Gm / 500 mL D5W (Vancomycin IVPB) ??2,000 mg 500 mL, IVPB, Every 24 hours Warfarin 1 mg Tablet (Warfarin Tablet) ??3 mg, By Mouth, Every Thursday, Thursday and Thursday Warfarin 1 mg Tablet (Warfarin Tablet) ??3 mg, By Mouth, Every Thursday and Thursday Warfarin 1 mg Tablet (Warfarin Tablet) ??3 mg, By Mouth, Every Warfarin 2 mg Tablet (Warfarin Tablet) ??6 mg, By Mouth, Every Thursday CONTINUOUS: (0) PRN: (8) Acetaminophen 325 mg Tablet (Tylenol 325 mg oral tablet) ??650 mg, By Mouth, Every 6 hours Albuterol 90mcg/Inhalation Inhaler HFA (Albuterol 90 mcg Inhaler) ??180 mcg 2 puffs, Inhalation, Every 4 hours Calcium Carbonate 500 mg (Calcium 200 mg) Chewable Tablet (calcium carbonate 500 mg (200 mg elemental calcium) oral tablet, chewable) ??500 mg 1 tablet, Chew, Every 4 hours Dextromethorphan-Guaifenesin 20 mg-200 mg/10 mL Liqu UD (GuaiFENEsin /Dextromethorphan Liquid) ??10mL, By Mouth, Every 6 hours Melatonin 3 mg Tablet (Melatonin Tablet) ??6 mg, By Mouth, Daily at bedtime Polyvinyl Alcohol 1.4% Opthalmic Solution/Artificial Tears (Artificial Tears 1.4%) ??2 drops, Eyes,Both, Every 4 hours Sodium Chloride 0.65% Nasal [place] (Salinex [place]) ??1 sprays, Nares, Both, 4 times a day TraMADOL 50 mg Tablet (traMADol 50 mg oral tablet) ??50 mg, By Mouth, 3 times a day ? 72 Hour Antibiotic History Active Antibiotics Calendar Day Last Administered First Administered Vancomycin??2,000 mg, 500 mL, 260 mL/hr, IVPB, Every 24 hours ?5 01/29/2023 20:32 01/26/2023 21:16 ? Results Recent Labs BLOOD COUNT & DIFF WBC 3.7 k/mm3 (Low)?? 01/30/2023 05:50 RBC 4.16 m/mm3 (Low)?? 01/30/2023 05:50 Hgb 12.3 Gm/dL ()?? 01/30/2023 05:50 Hct 38.8 % ()?? 01/30/2023 05:50 MCV 93.3 femtoliters ()?? 01/30/2023 05:50 MCH 29.6 pg ()?? 01/30/2023 05:50 MCHC 31.7 g/dL (Low)?? 01/30/2023 05:50 Platelet Count 290 k/mm3 ()?? 01/30/2023 05:50 RDW-SD 47.3 femtoliters (High)?? 01/30/2023 05:50 MPV 9.4 femtoliters ()?? 01/30/2023 05:50 Nucleated RBC (Automated) 0.0 #/100 WBC'S ()?? 01/30/2023 05:50 Abs. NRBC 0.0 k/mm3 ()?? 01/30/2023 05:50 ?? CHEM GENERAL Sodium 140 mmol/L ()?? 01/30/2023 05:50 Potassium 4.3 mmol/L ()?? 01/30/2023 05:50 Chloride 102 mmol/L ()?? 01/30/2023 05:50 Bicarbonate Level 31 mmol/L (High)?? 01/30/2023 05:50 Anion Gap 7 ()?? 01/30/2023 05:50 BUN 20 mg/dL ()?? 01/30/2023 05:50 Creatinine-Blood 0.8 mg/dL ()?? 01/30/2023 05:50 Estimated GFR Creatinine 85 ML/MIN/1.73 M2 ()?? 01/30/2023 05:50 ?? COAG INR 2.4 (High)?? 01/30/2023 05:50 Protime (PT) 23.4 seconds (High)?? 01/30/2023 05:50 ?? HEME OTHER Hold Lavender Top SPECIMEN DISCARDED AFTER 24 HOURS. ()?? 01/29/2023 05:32 ?? TOXICOLOGY/TDM Vancomycin Level, Trough 9.2 mg/L (Low)?? 01/29/2023 19:34 ? Imaging(s) ?Other Image ?(01/28/2023 15:26 EST MRI Joint Ext Lower W+W/O Contrast Left) Diffuse marrow edema and mild enhancement throughout the first distal phalanx with adjacent skin wound, concerning for osteomyelitis.? Subcutaneous edema in the first digit and to lesser extent dorsum of the forefoot is seen, which can be seen with cellulitis. [1] Assessment/Plan Diagnoses Cellulitis of left foot ??(L03.116) Cellulitis of toe ??(L03.039) Osteomyelitis of toe ??(M86.9) 1. ??Asthma ??(J45.909) 2. ??Depression ??(F32.9) 3. ??Hypertension ??(I10) 4. ??Morbid obesity ??(E66.01) 5. ??LETHA on CPAP ??(G47.33) 6. ??Recurrent pulmonary embolism ??(I26.99) 7. ??Type 2 diabetes mellitus ??(E11.9) ?? Assessment:??This is a 57 years old female with multiple medical comorbidities including history ofpulmonary embolism,??morbid obesity, hypertension, obstructive sleep apnea. Patient is hospitalizedfor left great toe??osteomyelitis. ?? Cellulitis of toe (L03.039):??: ?? Cellulitis of left foot (L03.116):??: ?? Osteomyelitis of toe (M86.9):??Known for MRSA infection in the past.??Seen by infectious disease specialist. Plan PICC line Continue IV vancomycin, duration 4 to 6 weeks,??supervised by VNA. Check CBC, electrolyte renal function weekly, Vanco trough level weekly Discharge planning I discussed indication to use offloading shoes to avoid further complications ? Asthma (J45.909):??Stable, continue maintenance medication??montelukast ?? Depression (F32.9):??Continue home medication??citalopram and gabapentin ?? Hypertension (I10):??Well-controlled, continue home medication??amlodipine ?? Morbid obesity (E66.01):??: ?? LETHA on CPAP (G47.33):??Continue??CPAP ?? Recurrent pulmonary embolism (I26.99):??Continue??Coumadin, INR therapeutic ?? Type 2 diabetes mellitus (E11.9):??Hemoglobin A1c 5.3. Continue low-carb diet ?? VTE Prophylaxis:??Continue Coumadin ?VTE Prophylaxis Assessment:??VTE Prophylaxis Ordered ?? Code Status:??Full code ?Order Code Status:??Code Status Ordered ?? Ongoing Medical Necessity:??Osteomyelitis ?? Discharge Planning:??Discharge home tomorrow ?Billing code 06053; total preparation time 35 minutes with time spent at the bedside, time spent coordinating care with CM, nursing staff, infectious disease clinical education consultant??and??IV team, review medical record and diagnostics testing??osteomyelitis ? This documentation was prepared using the [employer] voice recognition system. Please forgive any typographical, punctuation or contextual errors.?? [1]??MRI Joint Ext Lower W+W/O Contrast Left; Not on Staff , RALF DEAN 01/28/2023 15:26 EST Note * Sade Villavicencio RN: PERFORM Event Display: Discharge/Transfer Note Hospital Authored Date: [id number] Nursing Discharge Note Entered On: 01/31/2023 12:44 EST Performed On: 01/31/2023 12:44 EST by Sade Villavicencio RN Nursing Discharge Note 2 Discharge Time : 01/31/2023 12:39 EST Discharge Level of Care at Discharge : Home/Senior Care/Foster Care Patient Left Unit Via : Wheelchair Patient Accompanied Off Unit with : Responsible adult DC Instructions Provided & Signed by Pt : Yes Patient Understands D/C Instructions : Yes Patient Instructions Discharge Signed : Yes Did Pt have Specialty Bed or Wound Vac : No Sade Villavicencio RN - 01/31/2023 12:44 EST * Ok DEAN, Karina Vazquez: PERFORM, MODIFY Event Display: Discharge/Transfer Note Hospital Authored Date: [id number] Patient: ??ROSEMARY, MORAIMA ? Age:??57 Years?Sex:??Female?:??1965?? Patient Information Discharge Location: Med Surg Primary Care Physician: Beatrice DEAN ([facility]), Antonia Richardson Admit Date/Time: 01/26/23 18:42 Discharge Disposition Discharge Disposition: ?? Discharge Diagnosis Cellulitis of toe (L03.039) Cellulitis of left foot (L03.116) Osteomyelitis of toe (M86.9) Asthma (J45.909) Depression (F32.9) Hypertension (I10) Morbid obesity (E66.01) LETHA on CPAP (G47.33) Recurrent pulmonary embolism (I26.99) Type 2 diabetes mellitus (E11.9) ?? _ Discharge Medications 5-Hydroxytryptophan?200?Milligram?By Mouth?2 times a day Acetaminophen (Tylenol Extra Strength 500 mg oral tablet)?2?By Mouth?3 times a day?as needed?Pain , Mild Albuterol (albuterol CFC free 90 mcg/inh inhalation aerosol)?1?puff(s)?Inhalation?Every6 hours?as needed?for 30?OV 06-25-22?Days?Wheezing/Shortness of Breath Budesonide-Formoterol (Symbicort 80mcg/4.5mcg Inhaler)?See Instructions?INHALE 1 PUFF 1- 2 TIMES A DAYBRAND NAME SYMBICORT Calcium And Vitamin D Combination (calcium-vitamin D 600 mg-400 intl units oral tablet)?1?tab(s)?By Mouth?2 times a day Cefadroxil (cefadroxil 500 mg oral capsule)?2?capsule?1,000?Milligram?By Mouth?Every 12 hours?for 10?Days Chondroitin-Glucosamine?1?capsule?By Mouth?Daily Citalopram (citalopram 40 mg oral tablet)?40?Milligram?1?tablet?By Mouth?Daily?for 90?Days Durable Medical Equipment (Diabetic Shoes)?See Instructions?Use for footwear Diabetic shoes and dwhpbpoOfJ40.9 Durable Medical Equipment (One 4 pronged Cane)?See Instructions?DILLON LifetimeHt ?? 168CMWt ?? 211.5 KG.DX ??Z91.81 Durable Medical Equipment (Freestyle Lite Monitor)?See Instructions?DX: E11.49 to test one a day Durable Medical Equipment (Freestyle Lite Lancets)?See Instructions?DX: E11.49to test blood sugar once a day Durable Medical Equipment (Freestyle Test Strips)?See Instructions?DX: E11.49 to test blood sugar once a day Durable Medical Equipment (Diabetic shoes)?See Instructions?Dx: ??E11.9 Diabetes Mellitus Famotidine (famotidine 20 mg oral tablet)?See Instructions?TAKE 1 TABLET BY MOUTH TWICE A DAY Gabapentin (gabapentin 300 mg oral capsule)?See Instructions?TAKE 1 CAP IN THE AM, 1 CAP AT NOON AND 3 CAPS AT BEDTIME Loratadine (loratadine 10 mg oral capsule)?1?capsule?10?Milligram?By Mouth?Daily?for 30?Days Metoprolol (Metoprolol Tartrate 25 mg oral tablet)?0.5?tab(s)?By Mouth?2 times a day Miscellaneous Rx (FREESTYLE LITE TEST STRIP)?See Instructions?USE DAILY Montelukast (montelukast 10 mg oral tablet)?1?tablet?By Mouth?Daily Pt.'s Own Meds (Celebrate vitamins)?1?By Mouth?Daily?afternoon Tramadol (traMADol 50 mg oral tablet)?1?tab(s)?50?Milligram?By Mouth?3 times a day?as needed?Pain , Moderate Vancomycin (vancomycin 1.25 g/150 mL-NaCl 0.9% intravenous solution)?1.25?gram?IV Infusion?Every 12 hours?for 6?week(s) Warfarin (warfarin 6 mg oral tablet)?See Instructions?TAKE 1 TABLET EVERY DAY OR DIRECTED BY ANTICOAGULATION NURSE ? Medications Started IV vancomycin, duration??6 weeks.?? Followed by doxycycline 100 mg p.o. twice daily for additional 2 to 3-month Allergies Allergies ?(Active and Proposed Allergies Only) dicloxacillin? (Severity: Unknown severity, Onset: Unknown) ?Reactions: D - Diarrhea ?Comments: Patient prevously thought was rash but says today ot. Tolerated PCN, Amoxicillin ?Comments: RASH statins? (Severity: Unknown severity, Onset: Unknown) ?Reactions: muscle pain niacin? (Severity: Unknown severity, Onset: Unknown) ?Reactions: skin turns red sulfa drugs? (Severity: Unknown severity, Onset: Unknown) ?Reactions: hives ? PCP Follow-Up/Heads-Up Follow-up on CBC electrolytes renal function, Vanco trough level??as well as INR??weekly Hospital Course foot redness not improved since starting antibiotics History of Present Illness This is a 57-year-old female with history of obesity, LETHA, recurrent pulmonary embolism on warfarin, asthma, diet-controlled diabetes who presents to the hospital with toe swelling and redness.?? Shehad a callus under her left great toe which was pulled off a couple weeks ago. She was wrapping it with Neosporin and gauze.?More recently has developed??progressive redness and swelling around this toe and given a prior history of osteomyelitis she was concern for infection and came to the ER.?? She had an x-ray done yesterday which was unremarkable.?? She was discharged on Ceftin and doxycycline which she has taken 2 doses each so far.?? Despite this the area has become more erythematous german avina tracking up the dorsum of the foot and streaking upwards.?? She denies any fevers or chills.?? She was treated for a right second toe osteomyelitis in 2019, and subsequently had surgery with podiatry for a foot deformity but her bone biopsy did not show any growth. She also reports prior history of MRSA infection, has required admission in the past for IV antibiotics. ?? In the emergency department her vitals are stable.?? Labs with normal WBC, INR 2.2, COVID flu RSV is negative.?? She was given ceftriaxone. [1] Objective Assessment and Plan Assessment:??This is a 57 years old female with multiple medical comorbidities including history ofpulmonary embolism,??morbid obesity, hypertension, obstructive sleep apnea. Patient is hospitalizedfor left great toe??osteomyelitis. ?? Cellulitis of toe (L03.039):??: ?? Cellulitis of left foot (L03.116):??: ?? Osteomyelitis of toe (M86.9):??Known for MRSA infection in the past.??Seen by infectious disease specialist. ??MRI confirmed??osteomyelitis. ??PICC line is placed??on??January 30 Plan Continue??PICC line??by VNA Continue IV vancomycin??1.25 g twice daily, duration??6 weeks,??supervised by VNA. Check CBC, electrolyte renal function weekly, Vanco trough level weekly After completion of 6 weeks IV antibiotic treatment,??patient should start doxycycline 100 mg p.o. twice daily for additional 2 to 3 months I discussed indication to use offloading shoes to avoid further complications Follow-up as PCP??in 2 to 3 weeks ? Asthma (J45.909):??Stable, continue??home medication??Symbicort ?? Depression (F32.9):??Continue home medication??including gabapentin ?? Hypertension (I10):??Well-controlled, continue home medication??metoprolol ?? Morbid obesity (E66.01):??: ?? LETHA on CPAP (G47.33):??Continue??CPAP ?? Recurrent pulmonary embolism (I26.99):??Continue??Coumadin, INR therapeutic. ??Check INR weekly??byVNA ?? Type 2 diabetes mellitus (E11.9):??Hemoglobin A1c 5.3. Continue low-carb diet ?? Discharge Planning:? Measurements?? Height: 167 cm (01/31/23) Weight: 135.4 kg (01/29/23) Dry Weight: 134 kg (01/29/23) Body Mass Index:??48.05 kg/m2??Critical (01/29/23) ? Vital Signs?? Temperature: 97.9 DegF (01/31/23 08:30:00) Temperature Route: Oral (01/31/23 08:30:00) Pulse Rate: 65 bpm (01/31/23 08:30:00) Respiratory Rate: 18 br/min (01/31/23 08:30:00) Systolic Blood Pressure: 109 mm Hg (01/31/23 08:30:00) Diastolic Blood Pressure: 67 mm Hg (01/31/23 08:30:00) Blood pressure sites: Arm, left (01/31/23 08:30:00) Mean Arterial Pressure: 81 mm Hg (01/31/23 08:30:00) Pulse Pressure: 42 mm Hg (01/31/23 08:30:00) Oxygen Saturation: 97 % (01/31/23 08:30:00) Mode of Delivery (Oxygen): Room air (01/31/23 08:30:00) FiO2: 21 % (01/30/23 23:41:00) Early Warning Score: 5 (01/31/23 08:30:38) ? Precautions No Precautions documented.? Mobility & Ambulation Level Mobility & Ambulation Level Activity Status ADL: Up ad jd (01/30/23) Ambulatory devices needed: None (01/29/23) ?? Therapeutic Activity Therapeutic Activities/Mobility/Balance?? No qualifying data available. ?? . Physical Exam ?Gen; no acute respiratory distress, cooperating with exam ?HEENT; no facial asymmetry?? Respiratory;??lungs clear to auscultation Cardiovascular;??distant heart sound ?Extremity; no edema. ??Left great toe has a callus??and mild erythema ?Neuro exam; alert oriented x3, CN 2-12 normal ? Pending Results Add On Lab Order ordered on 01/26/2023 Add On Lab Order ordered on 01/27/2023 Add On Lab Order ordered on 01/27/2023 COVID-19 (2019 Novel Coronavirus) PCR ordered on 01/29/2023 Creatinine ordered on 01/31/2023 INR ordered on 01/28/2023 MRI Ext Lower W/ Contrast Left ordered on 01/28/2023 Wound Deep Culture w/ Gram Smear ordered on 01/29/2023 Wound Deep Culture w/ Gram Smear ordered on 01/29/2023 Patient Education Titles Discharge Instructions for Osteomyelitis?? Follow-Up Appointments Added Follow Up ?Time Frame ?Comments Beatrice DEAN ([facility]), Antonia Richardson?2 to 3 weeks Patient Instructions ?? -Continue low-salt low-carb diet, activity as tolerated -Due to osteomyelitis, you were received total 6 weeks of IV vancomycin. ??You need weekly lab workincluding CBC electrolyte renal panel??Vanco trough level??done by??VNA. ??After you complete??6 weeks of IV antibiotic??treatment, you will need??doxycycline 100 mg p.o. twice daily for additional 2to 3 months -Please wear??front offloading shoes??to prevent further injuries -Please continue medications as prescribed, follow-up with PCP in 3??weeks -Please seeking medical attention immediately if you develop symptoms of fever, chills,??worsening swelling erythema of left great toe Post Discharge Care Discharge ?01/31/23 9:44:00 EST Home Health Face to Face *Denotes mandatory edouard ?? *I certify that this patient is under my care and that I or an allowed non- physician working with me had a face to face encounter with the patient on this date:??01/31/2023 09:54 ?? *The encounter with the patient was in whole, or in part, for the following medical condition, which is the primary diagnosis(es) for home health care:??Cellulitis of toe (L03.039) Cellulitis of left foot (L03.116) Osteomyelitis of toe (M86.9) Asthma (J45.909) Depression (F32.9) Hypertension (I10) Morbid obesity (E66.01) LETHA on CPAP (G47.33) Recurrent pulmonary embolism (I26.99) Type 2 diabetes mellitus (E11.9) ? *Select the indications for the discipline/s that are being arranged for this patient. Nursing (select all that apply): [_] None [x_] Medication management (reconciliation, teaching)?? [x_] Chronic disease management?? [_] Wound care and treatment?? [_] Home safety evaluation [x_] Administer SQ/IM/IV medications?? x[_] Cath care?? [_] Drain care?? [_] Trach or GT care?? Other _check CBC, basic metabolic panel,??Vanco trough,??INR weekly ?? Please use normal saline??for PICC line flush??as patient is on Coumadin for anticoagulation Occupation Therapy (select all that apply): [_] None [_] ADL Management [_] Fall prevention training [_] Energy conservation [_] Cognitive training Other _ Physical Therapy (select all that apply): [_] None [_] Functional mobility training [_] Home exercise program to strengthen [_] Increase ROM?? [_] Falls prevention training [_] Home maintenance program for chronic disease Other _ Speech Therapy (select all that apply): [_] None [_] Swallow evaluation and training [_] Speech and language training [_] Cognitive training to process, organize, and/or recall information Other _ ? *Homebound due to (select all that apply): [_] Inability to leave home without assistance/supervision [_] Inability to ambulate without assistance [_] Pain [x_] Decreased strength and endurance [_] Unsteady gait [_] Severe SOB and fatigue [_] Impaired transfers [_] Inability to negotiate stairs [_] Limited weight bearing [_] Mental status change? *Physician Signature: _Karina Euceda MD Ph D ?? *By signing this, I certify that I have personally evaluated the patient and agree with the findings and recommendations as documented above. ? F Results Discharge Labs BLOOD COUNT & DIFF WBC 3.7 k/mm3 (Low)?? 01/30/2023 05:50 RBC 4.16 m/mm3 (Low)?? 01/30/2023 05:50 Hgb 12.3 Gm/dL ()?? 01/30/2023 05:50 Hct 38.8 % ()?? 01/30/2023 05:50 MCV 93.3 femtoliters ()?? 01/30/2023 05:50 MCH 29.6 pg ()?? 01/30/2023 05:50 MCHC 31.7 g/dL (Low)?? 01/30/2023 05:50 Platelet Count 290 k/mm3 ()?? 01/30/2023 05:50 RDW-SD 47.3 femtoliters (High)?? 01/30/2023 05:50 MPV 9.4 femtoliters ()?? 01/30/2023 05:50 Nucleated RBC (Automated) 0.0 #/100 WBC'S ()?? 01/30/2023 05:50 Abs. NRBC 0.0 k/mm3 ()?? 01/30/2023 05:50 Abs. Neut 2.9 k/mm3 ()?? 01/26/2023 16:50 Abs. Lymph 2.0 k/mm3 ()?? 01/26/2023 16:50 Abs. [place] 0.6 k/mm3 ()?? 01/26/2023 16:50 Abs. Eo 0.2 k/mm3 ()?? 01/26/2023 16:50 Abs. Baso 0.1 k/mm3 ()?? 01/26/2023 16:50 Neut % 50.2 % ()?? 01/26/2023 16:50 Lymph % 34.9 % ()?? 01/26/2023 16:50 [place] % 9.7 % ()?? 01/26/2023 16:50 Eos % 3.7 % ()?? 01/26/2023 16:50 Baso % 1.1 % ()?? 01/26/2023 16:50 Imm Gran 0.4 % ()?? 01/26/2023 16:50 Abs. Imm Gran 0.0 k/mm3 ()?? 01/26/2023 16:50 ?? CARDIAC High Sensitivity Troponin (HSTnT) 8 ng/L ()?? 01/27/2023 19:52 ? CHEM GENERAL Sodium 140 mmol/L ()?? 01/30/2023 05:50 Potassium 4.3 mmol/L ()?? 01/30/2023 05:50 Chloride 102 mmol/L ()?? 01/30/2023 05:50 Bicarbonate Level 31 mmol/L (High)?? 01/30/2023 05:50 Anion Gap 7 ()?? 01/30/2023 05:50 Glucose Level 90 mg/dL ()?? 01/27/2023 04:10 Hemoglobin A1C (Monitoring) 5.3 % ()?? 01/27/2023 04:10 BUN 20 mg/dL ()?? 01/30/2023 05:50 Creatinine-Blood 0.8 mg/dL ()?? 01/31/2023 05:46 Estimated GFR Creatinine 85 ML/MIN/1.73 M2 ()?? 01/31/2023 05:46 Calcium 9.8 mg/dL ()?? 01/26/2023 16:50 Protein, Total 7.6 Gm/dL ()?? 01/26/2023 16:50 Albumin 4.1 Gm/dL ()?? 01/26/2023 16:50 AG Ratio 1.2 ()?? 01/26/2023 16:50 Alkaline Phosphatase 86 units/L ()?? 01/26/2023 16:50 AST (SGOT) 23 units/L ()?? 01/26/2023 16:50 ALT (SGPT) 21 units/L ()?? 01/26/2023 16:50 Bilirubin, Total 0.3 mg/dL ()?? 01/26/2023 16:50 C-Reactive Protein 4.6 mg/dL (High)?? 01/26/2023 16:50 ? COAG INR 2.2 (High)?? 01/31/2023 05:46 Protime (PT) 21.9 seconds (High)?? 01/31/2023 05:46 ?? HEME OTHER Sed Rate 80 mm/hr (High)?? 01/26/2023 16:50 Hold Lavender Top SPECIMEN DISCARDED AFTER 24 HOURS. ()?? 01/31/2023 05:46 ?? MISC. CHEMISTRY Hold Green Top SPECIMEN DISCARDED AFTER 1 WEEK ()?? 01/26/2023 16:50 Hold Gel Top SPECIMEN DISCARDED AFTER 1 WEEK ()?? 01/26/2023 16:50 ?? TOXICOLOGY/TDM Vancomycin Level, Trough 9.2 mg/L (Low)?? 01/29/2023 19:34 ? VIROLOGY Influenza A PCR NEGATIVE ()?? 01/26/2023 17:09 Influenza B PCR NEGATIVE ()?? 01/26/2023 17:09 RSV PCR NEGATIVE ()?? 01/26/2023 17:09 COVID-19 PCR Specimen Source NASAL ()?? 01/26/2023 17:09 COVID-19 PCR Result NEGATIVE ()?? 01/26/2023 17:09 ?(01/28/2023 15:26 EST MRI Joint Ext Lower W+W/O Contrast Left) Diffuse marrow edema and mild enhancement throughout the first distal phalanx with adjacent skin wound, concerning for osteomyelitis.? Subcutaneous edema in the first digit and to lesser extent dorsum of the forefoot is seen, which can be seen with cellulitis. [2] 35 minutes spent on discharge Discharge code 56356; this discharge preparation with time spent at the bedside, coordinating care with consulting physicians, transition care as well as performing [id number] documentation/patienteducation. This documentation was prepared using the [employer] voice recognition system. Please forgive any typographical, punctuation or contextual errors. ?? [1]??Initial Evaluation Note; Raina Miranda 01/26/2023 19:00 EST [2]??MRI Joint Ext Lower W+W/O Contrast Left; Not on Staff , RALF DEAN 01/28/2023 15:26 EST * Eric GRIFFITHS, Madai: PERFORM Event Display: Patient Education/Instruction Authored Date: Inpatient Adult Discharge Instructions [address] [address] Name: MORAIMA RILEY : 1965 Visit: 01/26/2023 18:42:00 Current Date: 01/31/2023 11:10 Account: [id number] Inpatient Adult Discharge Instructions We would like to thank you for allowing us to assist you with your healthcare needs. The following includes patient education materials and information regarding your injury/illness. Our entire staffstrives to provide an excellent experience for our patients and their families. PLEASE ENSURE YOU FOLLOW-UP PER THE INSTRUCTIONS BELOW! ?? YOUR OPINION IS IMPORTANT TO US! Please complete the survey you may receive by mail or email. Your feedback will be used to make improvements to the healthcare experiences of our patients and their families. Surveys are administered by [employer], [employer]. ?? If further treatment with your primary care physician or another doctor is recommended, it is important for you to keep the appointment. Call your primary care physician or return to the Emergency Department immediately if your condition worsens, fails to improve, or new symptoms develop. If you need to find a doctor, you can call [facility] [employer] for a referral at [phone] or toll free at [phone] ([phone]) or log in to [email or web address] ?? You can view and manage your care through the patient portal or by using a health care sunil of your choosing. Not iT is a website that allows you to securely view your medical information including your hospital discharge summary, office visit summaries, medications and follow-up visits. You can also request appointments, renew medications, and request access to your medical information using a health care sunil of your choosing, or just ask a question. You can enroll at [email or web address] or register during your next office visit. You have been discharged from [facility], Patient Care Unit: Med Surg. If you have any questions regarding these instructions after you leave, please call us and we will be happy to assist you. [facility] Your Care Team Attending Physician Ok DEAN, Karina Vazquez Consulting Providers Jolie DEAN, Ana Nixon Discharging Providers Ok DEAN, Karina Vazquez Reason for Admission Toe pain-swelling Your Diagnosis Cellulitis of toe Asthma Depression Hypertension Morbid obesity LETHA on CPAP Recurrent pulmonary embolism Type 2 diabetes mellitus Cellulitis of left foot Osteomyelitis of toe Tests Performed Below is a partial list of the tests performed during your hospitalization. You may have had other tests and procedures not included in this list. Please discuss all test results with your provider. BUN C-REACTIVE PROTEIN CBC CBC w/ Differential Comprehensive Metabolic Panel COVID-19, RSV, and Flu A/B, Rapid PCR Electrolytes Glucose Level HEMOGLOBIN A1C High Sensitivity Troponin T HOLD GEL TUBE HOLD GREEN TUBE HOLD LAVENDER TUBE INR PT (INR) SEDIMENTATION RATE,AUTOMATED Troponin T, High Sensitivity Vancomycin Trough Ext Lower MRI W/ Contrast Left?-- Results Pending -- ? You will be contacted within 72 hours with your results. Primary Care Provider Beatrice DEAN ([facility]), Antonia Richardson Advance Directive Health Care Proxy on File Yes - Health Care Proxy Discharge Vitals Temperature: 97.9 DegF Height: 167 cm Pulse Rate: 65 bpm Weight: 135.4 kg Respiratory Rate: 18 br/min Body Mass Index:??48.05 kg/m2??Critical Systolic Blood Pressure: 109 mm Hg Body surface area: 2.49 Diastolic Blood Pressure: 67 mm Hg ?? Oxygen Saturation: 97 % ?? Studies Pending All tests and labs ordered during this hospital stay have been completed unless listed below. Please discuss all pending results with your provider listed above in these instructions. ?? Add On Lab Order COVID-19 (2019 Novel Coronavirus) PCR Creatinine INR MRI Ext Lower W/ Contrast Left (Ext Lower MRI W/ Contrast Left) Wound Deep Culture w/ Gram Smear (DEEP WOUND CULTURE) What to do next Instructions From Your Doctor ?? -Continue low-salt low-carb diet, activity as tolerated -Due to osteomyelitis, you were received total 6 weeks of IV vancomycin. ??You need weekly lab workincluding CBC electrolyte renal panel??Vanco trough level??done by??[facility]. ??After you complete??6 weeks of IV antibiotic??treatment, you will need??doxycycline 100 mg p.o. twice daily for additional 2to 3 months -Please wear??front offloading shoes??to prevent further injuries -Please continue medications as prescribed, follow-up with PCP in 3??weeks -Please seeking medical attention immediately if you develop symptoms of fever, chills,??worsening swelling erythema of left great toe Discharge Orders You Need to Schedule the Following Appointments Follow Up with??Beatrice DEAN ([facility]), Antonia Richardson When??Within 2 to 3 weeks Where: [address] [facility], [place] [address]- Discharge Medications MORAIMA RILEY :1965 Visit Date:01/26/2023 Medications: Please continue your medications until treatment is completed or stopped by your provider. Medications not listed below should be discontinued. Discuss any questions related to medications with your provider. What How Much When Instructions Next Dose New Vancomycin (vancomycin 1.25 g/ 150 mL-NaCl 0.9% intravenous solution) 1.25 gram Intravenous Infusion Every 12 hours Duration: 6 week(s) Today 8PM Unchanged 5-Hydroxytryptophan 200 Milligram Oral Twice a day Home schedule Unchanged Acetaminophen (Tylenol Extra Strength 500 mg oral tablet) 2 Oral 3 times a day as needed for Pain , Mild Last given01/30 Unchanged Albuterol (albuterol CFC free 90 mcg/ inh inhalation aerosol) 1 puff(s) Inhalation Every 6 hours as needed for Wheezing/Shortness of Breath Duration: 30 Days OV 06-25-22 ?? as needed as directed Unchanged Budesonide-Formoterol (Symbicort 80mcg/ 4.5mcg Inhaler) See instructions INHALE 1 PUFF 1- 2 TIMES A DAY BRAND NAME SYMBICORT ?? Tonight 9PM Unchanged Calcium And Vitamin D Combination (calcium-vitamin D 600 mg-400 intl units oral tablet) 1 tab(s) Oral Twice a day Tonight 9PM Unchanged Cefadroxil (cefadroxil 500 mg oral capsule) 2 capsule Oral Every 12 hours Duration: 10 Days Home schedule Unchanged Chondroitin-Glucosamine 1 capsule Oral Daily Tomorrow Unchanged Citalopram (citalopram 40 mg oral tablet) 1 tab(s) Oral Daily Duration: 90 Days Tomorrow Unchanged Durable Medical Equipment (Diabetic shoes) See instructions Dx: ??E11.9 Diabetes Mellitus ?? Unchanged Durable Medical Equipment (Diabetic Shoes) See instructions Use for footwear Diabetic shoes and inserts ?? DxE11.9 ?? Unchanged Durable Medical Equipment (Freestyle Lite Lancets) See instructions DX: E11.49 to test blood sugar once a day ?? Unchanged Durable Medical Equipment (Freestyle Lite Monitor) See instructions DX: E11.49 to test one a day ?? Unchanged Durable Medical Equipment (Freestyle Test Strips) See instructions DX: E11.49 to test blood sugar once a day ?? Unchanged Durable Medical Equipment (One 4 pronged Cane) See instructions DILLON Lifetime Ht ?? 168CM Wt ?? 211.5 KG. DX ??Z91.81 ?? Unchanged Famotidine (famotidine 20 mg oral tablet) See instructions TAKE 1 TABLET BY MOUTH TWICE A DAY ?? Tonight 9PM Unchanged Gabapentin (gabapentin 300 mg oral capsule) See instructions TAKE 1 CAP IN THE AM, 1 CAP AT NOON AND 3 CAPS AT BEDTIME ?? Tonight 9PM Unchanged Loratadine (loratadine 10 mg oral capsule) 1 capsule Oral Daily Duration: 30 Days Tomorrow Unchanged Metoprolol (Metoprolol Tartrate 25 mg oral tablet) 0.5 tab(s) Oral Twice a day Tonight 9PM Unchanged Miscellaneous Rx (FREESTYLE LITE TEST STRIP) See instructions USE DAILY ?? Unchanged Montelukast (montelukast 10 mg oral tablet) 1 tab(s) Oral Daily Tonight 9PM Unchanged Pt.'s Own Meds (Celebrate vitamins) 1 Oral Daily afternoon ?? Home schedule Unchanged Tramadol (traMADol 50 mg oral tablet) 1 tab(s) Oral 3 times a day as needed for Pain , Moderate Last given 01/31 04:41 Unchanged Warfarin (warfarin 6 mg oral tablet) See instructions TAKE 1 TABLET EVERY DAY OR DIRECTED BY ANTICOAGULATION NURSE ?? Tonight 6PM ?? What How Much When Comments Stop Taking Doxycycline (doxycycline monohydrate 100 mg oral tablet) 1 tab(s) Oral Twice a day Duration: 10 Days Stop Taking Lidocaine Topical (lidocaine 1.8% topical film) 1 patch(es) Topically Daily leave on up to 12 hours ?? Test Results Below is a partial list of the most recent Laboratory test results done prior to this discharge. You may have had other tests and procedures not included in this list. Please discuss all test resultswith your provider. BUN (01/30/2023) ???BUN - 20 mg/dL C-REACTIVE PROTEIN (01/26/2023) ???C-Reactive Protein - 4.6 mg/dL CBC (01/30/2023) ???WBC - 3.7 k/mm3???RBC - 4.16 m/mm3???Hgb - 12.3 Gm/dL???Hct - 38.8 %???MCV - 93.3 femtoliters???MCH - 29.6 pg???MCHC - 31.7 g/dL???Platelet Count - 290 k/mm3???RDW-SD - 47.3 femtoliters???MPV - 9.4 femtoliters???Nucleated RBC (Automated) - 0.0 #/100 WBC'S???Abs. NRBC - 0.0 k/mm3 CBC w/ Differential (01/26/2023) ???WBC - 5.7 k/mm3???RBC - 4.10 m/mm3???Hgb - 12.4 Gm/dL???Hct - 38.0 %???MCV - 92.7 femtoliters???MCH - 30.2 pg???MCHC - 32.6 g/dL???Platelet Count - 278 k/mm3???RDW-SD - 47.2 femtoliters???MPV - 9.4 femtoliters???Nucleated RBC (Automated) - 0.0 #/100 WBC'S???Abs. NRBC - 0.0 k/mm3???Abs. Neut - 2.9 k/mm3???Abs. Lymph - 2.0 k/mm3???Abs. [place] - 0.6 k/mm3???Abs. Eo - 0.2 k/mm3???Abs. Baso - 0.1 k/mm3???Neut % - 50.2 %???Lymph % - 34.9 %???[place] % - 9.7 %???Eos % - 3.7 %???Baso % - 1.1 %???Imm Gran- 0.4 %???Abs. Imm Gran - 0.0 k/mm3 Comprehensive Metabolic Panel (01/26/2023) ???Sodium - 143 mmol/L???Potassium - 4.4 mmol/L???Chloride - 102 mmol/L???Bicarbonate Level - 27 mmol/L???Anion Gap - 14???Glucose Level - 87 mg/dL???BUN - 25 mg/dL???Creatinine-Blood - 0.8 mg/dL???Estimated GFR Creatinine - 85 ML/MIN/1.73 M2???Calcium - 9.8 mg/dL???Protein, Total - 7.6 Gm/dL???[place] min - 4.1 Gm/dL???AG Ratio - 1.2???Alkaline Phosphatase - 86 units/L???AST (SGOT) - 23 units/L???ALT (SGPT) - 21 units/L???Bilirubin, Total - 0.3 mg/dL COVID-19, RSV, and Flu A/B, Rapid PCR (01/26/2023) ???Influenza A PCR - NEGATIVE???Influenza B PCR - NEGATIVE???RSV PCR - NEGATIVE???COVID-19 PCR Specimen Source - NASAL???COVID-19 PCR Result - NEGATIVE Electrolytes (01/30/2023) ???Sodium - 140 mmol/L???Potassium - 4.3 mmol/L???Chloride - 102 mmol/L???Bicarbonate Level - 31 mmol/L???Anion Gap - 7 Glucose Level (01/27/2023) ???Glucose Level - 90 mg/dL HEMOGLOBIN A1C (01/27/2023) ???Hemoglobin A1C (Monitoring) - 5.3 % High Sensitivity Troponin T (01/27/2023) ???High Sensitivity Troponin (HSTnT) - 7 ng/L HOLD GEL TUBE (01/26/2023) ???Hold Gel Top - SPECIMEN DISCARDED AFTER 1 WEEK HOLD GREEN TUBE (01/26/2023) ???Hold Green Top - SPECIMEN DISCARDED AFTER 1 WEEK HOLD LAVENDER TUBE (01/31/2023) ???Hold Lavender Top - SPECIMEN DISCARDED AFTER 24 HOURS. INR (01/31/2023) ???INR - 2.2???Protime (PT) - 21.9 seconds PT (INR) (01/27/2023) ???INR - 2.0???Protime (PT) - 20.2 seconds SEDIMENTATION RATE,AUTOMATED (01/26/2023) ???Sed Rate - 80 mm/hr Troponin T, High Sensitivity (01/27/2023) ???High Sensitivity Troponin (HSTnT) - 8 ng/L Vancomycin Trough (01/29/2023) ???Vancomycin Level, Trough - 9.2 mg/L Allergies (NKA means No Known Allergies) dicloxacillin??(D - Diarrhea) niacin??(skin turns red) statins??(muscle pain) sulfa drugs??(hives) Problems Active Problems??(29) Anticoagulated on warfarin?? Arthritis?? Asthma?? BMI 60.0-69.9, adult?? Chronic knee pain?? Depression?? Endometrial cancer, grade I?? GERD (gastroesophageal reflux disease)?? GERD (gastroesophageal reflux disease)?? H/O sciatica?? Hammertoe?? History of surgery?? Hyperlipidemia?? Hypertension?? Limitation due to disability?? Lower back pain?? Morbid obesity?? Morbid obesity with BMI of 45.0-49.9, adult?? Morbid obesity with BMI of 60.0-69.9, adult?? Neck pain?? LETHA on CPAP?? Osteopenia?? Persistent moderate somatic symptom disorder with predominant pain?? Recurrent pulmonary embolism?? Severe obesity?? Shoulder pain?? Symptomatic cholelithiasis?? Thickened endometrium?? Type 2 diabetes mellitus?? Education Materials Below is the list of Educational Leaflet Providered with your Discharge Instructions. Discharge Instructions for Osteomyelitis?? Valuables and Belongings I fully understand and agree that [facility] accepts no responsibility for all my personal property including clothing, toilet articles, radios, jewelry, dentures, hearing aids, rings, money, or any other property that is in my possession or is brought to me after admission. I understand certain valuables may be placed in a hospital safe for a short period of time. I understand that the hospital is not liable for loss or damage due to accident, fire, or other natural occurrence while said property is in the safe. I accept full responsibility for any personal property that I keep with me, and will not hold the hospital responsible in case of loss or disappearance. I acknowledge that i have been encouraged to send valuables and belongings home. ?? Review of Valuable and Belonging List: With patient Date for Pt to Sign Valuables/Belongings: 01/29/23 14:03:00 ?? Other Discharge Information ?? Wound Assessment?? Wound Assessment?? Wound Location I: Toes, left Wound Type I: Other: unknown, pt says blister Wound I, Length: 2 cm Wound I, Width: 2 cm Wound I, Present on Admission: Yes ? Pulmonary Rehab Status?? Pulmonary Rehab Discharge Status?? CPAP/BiPAP Mask Type: Full CPAP/BiPAP Mask Size: Medium Respiratory Rate: 18 br/min ? Common Emergency Awareness Tips IS IT A STROKE? Act FAST and Check for these signs: FACE Does the face look uneven? ARM Does one arm drift down? SPEECH Does their speech sound strange? TIME Call at any sign of stroke ?? Heart Attack Signs Chest discomfort: Most heart attacks involve discomfort in the center of the chest and lasts more than a few minutes, or goes away and comes back. It can feel like uncomfortable pressure, squeezing, fullness or pain. Discomfort in upper body: Symptoms can include pain or discomfort in one or both arms, back, neck, jaw or stomach. Shortness of breath: With or without discomfort. Other signs: Breaking out in a cold sweat, nausea, or lightheaded. Remember, MINUTES DO MATTER. If you experience any of these heart attack warning signs, call to get immediate medical attention! ?? Smoking can increase your chances of developing chronic health problems and can cause harmful effects to other family members in your house. If you smoke, you are strongly encouraged to quit. Please call [facility] at [phone] or [phone] ([phone]) or log in to [email or web address] for referrals to smoking cessation programs. ?? The National Suicide Prevention Hotline is available 22/06 if you or someone you know needs to find a reason to keep living. By calling 5-242-664-[employer] (1578) you'll be connected to a skilled, trained counselor at a crisis center in your area. INPATIENT DISCHARGE INSTRUCTIONS SIGNATURE PAGE MORAIMA RILEY Location:[facility] Registration Date and Time:01/26/2023 18:42 EST Primary Care Physician: Beatrice DEAN ([facility]), Antonia Richardson, I ROSEMARY MORAIMA, have received the above patient education materials/instructions and have verbalized understanding. If ambulance or transport services are being used I further acknowledge being given a choice of service. ?? If you need to contact me, please call me at this number: . Patient/Brim Stretching Machine Operator Name: Patient/Brim Stretching Machine Operator Signature: Relationship to Patient: Witness Name/Signature: Date: * Ok DEAN, Karina J: PERFORM Event Display: Patient Education Leaflets Authored Date: [id number] Discharge Instructions for Osteomyelitis ?? [id number] Discharge Instructions for Osteomyelitis You have a condition called osteomyelitis. This is a bone infection caused by bacteria or fungi. Itmay have spread through the blood from one area of your body to the bone. Osteomyelitis is called acute when the infection is new. It's called chronic when you've had it for a longer time. Home care ??? Take your medicine exactly as directed. If you were given antibiotics or antifungal medicine, make sure you finish the prescription???even if you feel better. If you don???t finish the medicine, the infection may return and may make future infections harder??to treat. ??? Be careful not to injure the area where you have the infection. ??? Carefully follow all instructions for takingcare of any wounds. ??? Use a splint, sling, or brace as directed by your healthcare provider. ?? Follow-up care Make a follow-up appointment, or as directed. ?? When to get medical care Call your healthcare provider??if you have any of the following: ??? Increasing pain, redness, swelling, or drainage in the infected area ??? Fever of 100.4?? F??( 38??C) or higher, or as advised by your provider ??? Chills ??? Increasing fatigue or feeling tired ?? Last Reviewed Date: 2021 ?? 8300-1580 [employer]. All rights reserved. This information is not intended as a substitute for professional medical care. Always follow your healthcare professional's instructions. ?? Patient Care team information Care Team Personnel Name: Beatrice DEAN ([facility]), Antonia Richardson Position: [facility] Primary Care Physician Member Role: PCP Address: Address: [address] [place] [address] [place] [address] Name: Natalya Phillip PharmD Position: [facility] Associate Professional Member Role: Lifetime Consulting Provider Address: Address: [address] [place] [address] [place] [address]- Name: Smiley Blair Position: [facility] Outreach Member Role: Lifetime Consulting Physician Name: Marcin Peacock Position: [facility] Outreach Member Role: Lifetime Consulting Physician Name: Bianca GRIFFITHS, Nancy Mireles Position: [facility] Onco RN Member Role: Primary Care Nurse Name: Dwayne JACK Attending Position: [facility] ED Medicine Name: Debora Acosta RN Position: [facility] ED RN W/OE and Tasks Member Role: Patient Care Provider Name: Jacqueline Alegre Position: [facility] ED OA Member Role: Patient Care Provider Name: Berna So Position: [facility] ED TA [facility] Member Role: Patient Care Provider Care Team Related Persons Name: EBONY UDENAS Address: [address] [place] [address] Name: AMPARO DUENAS Address: [address] [place] [address] Name: EBONY WASHBURN Address: [address] [place] [address] Name: JULI CLAYTON
--- OUTSIDE RECORDS SUMMARY | 2023-09-15 11:53 | XMS_ITS | Continuity of Care Document ---
Author Name Unknown Organization [facility] [place] Address [address] [place] [address]- Care Team Providers Care Cranberry Bog Supervisor Name Role Phone Beatrice DEAN ([facility] WITH [facility]), Antonia Richardson Primary Care Ph ysician Encounter [facility] Date(s): 05/12/22 - 06/11/22 [facility] [place] [place] [address]- Allergies, Adverse Reactions, Alerts Substance Reaction Severity [...] 03/19/20 13:36:00 EDT, Route to Pharmacy Electronically, [facility]/pharmacy #[id number], 167.64, cm, 02/01/20 [...] Back Pain Scale: 68 on 12/01/17; initial [place]: 7 on 12/01/17 2PROCEDURE DATE: 08/10/2017 PREOPERATIVE [...]
--- OUTSIDE RECORDS SUMMARY | 2023-09-15 11:53 | XMS_ITS | Continuity of Care Document ---
Author Name Unknown Organization [facility] [place] Address [address] [place] [address]- Care Team Providers Care Boring Inspector Name Role Phone Beatrice DEAN ([facility])Antonia Primary Care Ph ysician Encounter [facility] Date(s): 11/12/20 - 01/09/[address] [address]- Attending Physician: Beatrice DEAN ([facility])Antonia Allergies, Adverse Reactions, Alerts Substance Reaction Severity [...] 6 HOURS NEEDED FOR WHEEZING, [facility] Mail Delivery Start Date: 05/11/19 Status: Ordered Celebrate vitamins 1, By Mouth, Daily in AM, Maintenance, 01/06/20 13:52:00 EST, Celebrate vitamins Start Date: 01/06/20 Status: Ordered citalopram 40 mg oral tablet 40 mg, 1, tablet, By Mouth, Daily, # 90 tablet, Refills 2, Tot. Refills 2, Maintenance, 03/19/20 13:36:00 EDT, Route to Pharmacy Electronically, [facility]/pharmacy #[id number], 167.64, cm, 02/01/20 [...] 6 Refills, Soft Stop, 03/19/20 13:23:00 EDT, [facility]/pharmacy #[id number], 167.64, cm, 02/01/20 [...] Back Pain Scale: 68 on 12/01/17; initial [place]: 7 on 12/01/17 2PROCEDURE DATE: 08/10/2017 [...]
--- OUTSIDE RECORDS SUMMARY | 2023-09-15 11:53 | XMS_ITS | Continuity of Care Document ---
Author Name Unknown Organization [facility] [place] Address [address] [place] [address]- Care Team Providers Care Ribbing Machine Operator Name Role Phone Beatrice DEAN ([facility]), Antonia Richardson Primary Care Ph ysician Encounter [facility] Date(s): 10/22/21 - 11/21/21 [facility] [address] [place] [address]- Allergies, Adverse Reactions, Alerts Substance Reaction Severity [...] 03/19/20 13:36:00 EDT, Route to Pharmacy Electronically, [facility]/pharmacy #[id number], 167.64, cm, 02/01/20 15:51:00 [...] 05/15/21 8:27:00 EDT, Route to Pharmacy Electronically, [facility]/pharmacy #[id number], 167.64, cm, 04/23/21 9:50:00... Start [...] Back Pain Scale: 68 on 12/01/17; initial [place]: 7 on 12/01/17 2PROCEDURE DATE: 08/10/2017 PREOPERATIVE [...]
--- OUTSIDE RECORDS SUMMARY | 2023-09-15 11:53 | XMS_ITS | Continuity of Care Document ---
Author Name Unknown Organization [facility] [place] Address [address] [place] [address]- Care Team Providers Care Rn House Supervisor Name Role Phone Beatrice DEAN ([facility]), Antonia Richardson Primary Care Ph ysician Encounter [facility] Date(s): 07/26/21 - 08/25/21 [facility] [address] [place], [place] [address] Allergies, Adverse Reactions, Alerts Substance Reaction Severity [...] PUFF EVERY 6 HOURS NEEDED FOR WHEEZING, [facility] Mail Delivery Start Date: 05/11/19 Status: Ordered Celebrate vitamins 1, By Mouth, Daily in AM, Maintenance, 01/06/20 13:52:00 EST, Celebrate vitamins Start Date: 01/06/20 Status: Ordered citalopram 40 mg oral tablet 40 mg, 1, tablet, By Mouth, Daily, # 90 tablet, Refills 2, Tot. Refills 2, Maintenance, 03/19/20 13:36:00 EDT, Route to Pharmacy Electronically, [facility]/pharmacy #[id number], 167.64, cm, 02/01/20 15:51:00 EST,Height, 135.6, kg, 02/01/20 15:51:00 EST, Dry Weight Start Date: 03/19/20 Stop Date: 12/14/20 Status: Ordered gabapentin 300 mg oral capsule 1,500 mg, 5, capsule, By Mouth, Daily, 1 CAP IN THE AM, 1 AT NOON, AND 3 CAPS AT BEDTIME.., # 450 capsule, Refills 1, Tot. Refills 1, Maintenance, 05/15/21 8:27:00 EDT, [id number] 167.[facility], cm, 04/23/21 9:50:00... Start [...] Back Pain Scale: 68 on 12/01/17; initial [place]: 7 on 12/01/17 2PROCEDURE DATE: 08/10/2017 PREOPERATIVE [...]
--- OUTSIDE RECORDS SUMMARY | 2023-09-15 11:53 | XMS_ITS | Continuity of Care Document ---
Author Name Unknown Organization [facility] [place] Address [address] [place] [address]- Care Team Providers Care Batch Blender Name Role Phone Beatrice DEAN ([facility]), Antonia Richardson Primary Care Ph ysician Encounter [facility] Date(s): 02/18/22 - 03/20/22 [facility] Care [place] [place] [address]- Allergies, Adverse Reactions, Alerts Substance Reaction Severity [...] 03/19/20 13:36:00 EDT, Route to Pharmacy Electronically, [facility]/pharmacy #[id number], 167.64, cm, 02/01/20 15:51:00 EST,Height, 135.6, [...] Back Pain Scale: 68 on 12/01/17; initial [place]: 7 on 12/01/17 2PROCEDURE DATE: 08/10/2017 PREOPERATIVE [...]
--- OUTSIDE RECORDS SUMMARY | 2023-09-15 11:53 | XMS_ITS | Continuity of Care Document ---
Author Name Unknown Organization [facility] Address [address] [place] [address]- Care Team Providers Care Top Dyeing Machine Tender Name Role Phone Beatrice DEAN ([facility]), Antonia Richardson Primary Care Ph ysician En[place] [facility] Date(s): 05/14/21 - 06/13/[address] [address]- Allergies, Adverse Reactions, Alerts Substance Reaction Severity Status dicloxacillin 1, 2 D - Diarrhea Active niacin skin turns red Active sulfa drugs hives Active statins muscle pain Active 1Patient prevously thought was rash but says today ot. Tolerated PCN, Amoxicillin 2RASH Immunizations Given and Recorded Vaccine Date Status Refusal Reason SARS-CoV-2 (COVID-19) mRNA-4827 vaccine 04/13/21 R ecorded influenza virus vaccine, [...] PUFF EVERY 6 HOURS NEEDED FOR WHEEZING, [facility] Start Date: 05/11/19 Status: [...] Back Pain Scale: 68 on 12/01/17; initial [place]: 7 on 12/01/17 2PROCEDURE DATE: 08/10/2017 PREOPERATIVE [...]
--- OUTSIDE RECORDS SUMMARY | 2023-09-15 11:53 | XMS_ITS | Continuity of Care Document ---
Author Name Unknown Organization [facility] [place] Address [address] [place] [address]- Care Team Providers Care Behavior Management Specialist Name Role Phone Beatrice DEAN ([facility] [place]), Antonia Richardson Primary Care Ph ysician Encounter [facility] Date(s): 02/17/23 - 03/19/23 [facility] [address] [address]- Allergies, Adverse Reactions, Alerts Substance Reaction Severity [...] Stop,05/06/22 9:49:00 EDT, Route to Pharmacy Electronically, [id number], [facility]/pharmacy #1230, 169, cm, 04/10/22 14:11:00 EDT, [facility]... Start Date: 05/06/22 Stop Date: 09/03/22 Status: Ordered calcium-vitamin D 600 mg-400 intl units oral tablet 1 tablet, By Mouth, 2 times a day, # 180 tablet, 1 Refills, 02/04/23 8:58:00 EST, [facility]/pharmacy #1230, 1 tablet By Mouth [...] 13:29:00 EDT, Route to Pharmacy Electronically, [facility]/pharmacy #0315, 169, cm, 04/10/22 14:11:00 [...] Required Details, Route to Pharmacy Electronically, [facility]/pharmacy #1230, 168, cm, 12/15/22 0:20:00 [...] Required Details, Route to Pharmacy Electronically, [facility]/pharmacy #1230, 168, cm, ... Start [...] tablet, 1 Refills, Maintenance, 10/07/22 14:35:00 EST, [facility], 167.64, cm, 10/06/22 9:14:00 EST, Height, 134.2, kg, 10/06/22 9:14:00 EST, Dry Weight Start Date: 10/07/22 Status: Ordered montelukast 10 mg oral tablet 1, tablet, By Mouth, Daily, # 90 tablet, Refills 1, Maintenance, 07/25/22 21:44:00 EDT, Route to Pharmacy Electronically, [facility]991, 169, cm, 04/10/22 14:11:00 EDT, Height, 129, [...] Replace Required Details, Route to Pharmacy Electronically, [id number]... Start Date: 01/12/23 Status: Ordered traMADol 50 [...] Refills, Soft Stop, 06/11/22 9:38:00 EDT, [facility]/pharmacy #1230, 169, cm, 04/10/22 14:11:00 [...] Back Pain Scale: 68 on 12/01/17; initial [place]: 7 on 12/01/17 2PROCEDURE DATE: 08/10/2017 [...] information Care Team Personnel Name: Beatrice DEAN ([facility]), Antonia Richardson Position: [facility] Primary Care Physician Member Role: PCP Address: Address: [address] [place] [address] [place] [address]- Name: Natalya Phillip PharmD Position: [facility] Associate Professional Member Role: Lifetime Consulting Provider Address: Address: [address] [place] [address] [place] [address]- [place] Name: Smiley Blair Position: [facility] Outreach Member Role: Lifetime Consulting Physician Name: Marcin Peacock Position: [facility] Outreach Member Role: Lifetime Consulting Physician Name: Nancy Valenzuela RN Position: [facility] Onco RN Member Role: Primary Care Nurse Care Team Related Persons Name: EBONY DUENAS Address: [address] [place] [address] Name: AMPARO DUENAS Address: [address] [place] [address] Name: EBONY WASHBURN Address: home [address] [place] [address] Name: JULI CLAYTON
--- OUTSIDE RECORDS SUMMARY | 2023-09-15 11:53 | XMS_ITS | Continuity of Care Document ---
Author Name Unknown Organization [facility] [place] Address [address] [place] [address]- Care Team Providers Care Table Top Tile Setter Name Role Phone Beatrice DEAN ([facility])Antonia Primary Care Ph ysician Encounter [facility] Date(s): 02/04/22 - 04/03/[address] [address]- Attending Physician: Beatrice DEAN ([facility])Antonia Allergies, Adverse Reactions, Alerts Substance Reaction [...] 03/19/20 13:36:00 EDT, Route to Pharmacy Electronically, [facility]/pharmacy #0315, 167.64, cm, 02/01/20 15:51:00 [...] Back Pain Scale: 68 on 12/01/17; initial [place]: 7 on 12/01/17 2PROCEDURE DATE: 08/10/2017 PREOPERATIVE [...]
--- OUTSIDE RECORDS SUMMARY | 2023-09-15 11:53 | XMS_ITS | Continuity of Care Document ---
Author Name Unknown Organization [facility] [place] Address [address] [place] [address]- Care Team Providers Care Gis Analyst Developer Name Role Phone Beatrice DEAN ([facility])Antonia Primary Care Ph ysician Encounter [facility] Date(s): 10/07/19 - 11/20/19 [facility] [address] [place] [address]- [facility] Attending Physician: Beatrice DEAN ([facility])Antonia Allergies, Adverse Reactions, Alerts Substance Reaction Severity Status dicloxacillin 1 Active niacin skin turns red Active sulfa drugs hives Active statins muscle pain Active 1RASH Immunizations Given and Recorded Vaccine Date Status [...] PUFF EVERY 6 HOURS NEEDED FOR WHEEZING, [facility] Mail Delivery Start Date: 05/11/19 Status: Ordered citalopram 40 mg oral tablet 40 mg, 1, tablet, By Mouth, Daily, # 90 tablet, Refills 1, Tot. Refills 1, Maintenance, 06/10/19 17:40:00 EDT, Route to Pharmacy Electronically, [id number], [facility] Start Date: 06/10/19 Stop Date: 12/07/19 Status: Ordered gabapentin 300 mg oral capsule 1,500 mg, 5, capsule, By Mouth, Daily, 1 CAP IN THE AM, 1 AT NOON, AND 3 CAPS AT BEDTIME.., # 450 capsule, Refills 1, Tot. Refills 1, Maintenance, 06/10/19 17:40:00 EDT, Route to Pharmacy Electronically, [id number], [facility]... Start Date: 06/10/19 Status: Ordered lisinopril 10 mg oral tablet See Instructions, TAKE 1 TABLET BY MOUTH EVERY DAY, # 90 tablet, Refills 1, Tot. Refills 1, Soft Stop, 06/10/19 17:40:00 EDT, Instructions Replace Required Details, Route to Pharmacy Electronically, [id number], [facility]... Start Date: 06/10/19 Status: Ordered metFORMIN 500 mg oral tablet = 500 mg, By Mouth, Daily, # 90 tablet, 1 Refills, Maintenance, 06/10/19 17:40:00 EDT, Tablet Start Date: 06/10/19 Stop Date: 12/07/19 Status: Ordered Metoprolol Tartrate 25 mg oral tablet See Instructions, # 30 tablet, Refills 1 Tot. Refills 1, TAKE 0.5 TABLET BY MOUTH TWICE A DAY, [facility]/pharmacy #0315 Start Date: 09/23/19 Status: Ordered montelukast 10 mg oral tablet See Instructions, # 90 tablet, Refills 1 Tot. Refills 1, TAKE 1 TABLET EVERY DAY, [facility] Start Date: 06/16/19 [...] 06/10/19 17:32:00 EDT, Route to Pharmacy Electronically, [id number], [facility]: 06/10/19 Status: Ordered Symbicort 80mcg/4.5mcg Inhaler See Instructions, # 3 Unknown, INHALE 2 PUFFS TWICE DAILY, [facility] Start Date: 07/14/19 Status: [...] Back Pain Scale: 68 on 12/01/17; initial [place]: 7 on 12/01/17 2PROCEDURE DATE: 08/10/2017 PREOPERATIVE [...]
--- OUTSIDE RECORDS SUMMARY | 2023-09-15 11:53 | XMS_ITS | Continuity of Care Document ---
Author Name Unknown Organization [facility] Address [address] [place] [address]- Care Team Providers Care Box Estimator Name Role Phone Beatrice DEAN (Psychiatric), Antonia Richardson Primary Care Ph ysician Encounter [facility] Date(s): 05/20/23 - 06/19/23 [facility] [address] [place] [address]- Allergies, Adverse Reactions, Alerts Substance Reaction Severity [...] Stop,05/06/22 9:49:00 EDT, Route to Pharmacy Electronically, [id number], [facility]/pharmacy #1230, 169, cm, 04/10/22 14:11:00 EDT, [facility]... Start Date: 05/06/22 Stop Date: 09/03/22 Status: Ordered calcium-vitamin D 600 mg-400 intl units oral tablet 1 tablet, By Mouth, 2 times a day, # 180 tablet, 1 Refills, 02/04/23 8:58:00 EST, [facility]/pharmacy #1230, 1 tablet By Mouth 2 times [...] 06/19/23 6:31:00 EDT, Route to Pharmacy Electronically, [facility] 74[facility], 167, cm, 06/01/23 11:29:00 EDT, Height, 134, [...] Replace Required Details, Route to Pharmacy Electronically, [facility] 20815, 167, cm, 02/16/23 13:41... Start Date: 05/20/23 [...] tablet, 1 Refills, Maintenance, 04/19/23 11:19:00 EDT, [facility] 575[facility], 167, cm, 02/16/23 13:41:00 EDT, Height, 134, kg, 01/29/23 9:11:00 EST, Dry Weight Start Date: 04/19/23 Status: Ordered montelukast 10 mg oral tablet 1, tablet, By Mouth, Daily, # 90 tablet, Refills 1, Maintenance, 04/13/23 9:49:00 EDT, Route to Pharmacy Electronically, [facility] 06854, 167, cm, 02/16/23 13:41:00 EDT, Height, 134, [...] Replace Required Details, Route to Pharmacy Electronically, [id number]... Start Date: 01/12/23 Status: Ordered traMADol 50 [...] Back Pain Scale: 68 on 12/01/17; initial [place]: 7 on 12/01/17 2PROCEDURE DATE: 08/10/2017 PREOPERATIVE [...] information Care Team Personnel Name: Beatrice DEAN (Psychiatric), Antonia Richardson Position: [facility] Physician - Primary Care Member Role: PCP Address: Address: [address] [place] [address] [place] [address]- Name: Natalya Phillip PharmD Position: [facility] Associate Professional Member Role: Lifetime Consulting Provider Address: Address: [address] [place] [address] [place] [address]- Name: Smiley Blair Position: [facility] Outreach Member Role: Lifetime Consulting Physician Name: Marcin Peacock Position: [facility] Outreach Member Role: Lifetime Consulting Physician Name: Bianca RN, Nanyc Mireles Position: [facility] Onco RN Member Role: Primary Care Nurse Care Team Related Persons Name: EBONY DUENAS Address: home [address] [place], [place] Name: AMPARO DUENAS Address: home [address] [place], [place] Name: EBONY WASHBURN Address: home [address] [place], [place] Name: JULI CLAYTON
--- OUTSIDE RECORDS SUMMARY | 2023-09-15 11:53 | XMS_ITS | Continuity of Care Document ---
Author Name Unknown Organization [facility] Address [address] [place] [address]- Care Team Providers Care Farmworker Chicken Farm Name Role Phone Beatrice DEAN ([facility] [place]), Antonia Richardson Primary Care Ph ysician Encounter [facility] Date(s): 06/11/21 - 07/11/21 [facility] [place] [address] [place] [address]- Allergies, Adverse Reactions, Alerts Substance Reaction Severity Status dicloxacillin 1, 2 D - Diarrhea Active niacin skin turns red Active sulfa drugs hives Active statins muscle pain Active 1Patient prevously thought was rash but says today ot. Tolerated PCN, Amoxicillin 2RASH Immunizations Given and Recorded Vaccine Date Status Refusal Reason SARS-CoV-2 (COVID-19) mRNA-0423 vaccine 04/13/21 R ecorded influenza virus vaccine, [...] PUFF EVERY 6 HOURS NEEDED FOR WHEEZING, [facility] Mail Delivery Start Date: 05/11/19 Status: Ordered Celebrate vitamins 1, By Mouth, Daily in AM, Maintenance, 01/06/20 13:52:00 EST, [facility] Start Date: 01/06/20 Status: Ordered citalopram 40 mg oral tablet 40 mg, 1, tablet, By Mouth, Daily, # 90 tablet, Refills 2, Tot. Refills 2, Maintenance, 03/19/20 13:36:00 EDT, Route to Pharmacy Electronically, [facility]/pharmacy #0315, 167.64, cm, 02/01/20 15:51:00 EST,Height, 135.6, [...] EDT, Route to Pharmacy Electronically, [facility]/pharmacy #0315, 167.64, cm, 04/23/21 9:50:00... Start Date: 05/15/21 Stop Date: 11/11/21 Status: Ordered Lovenox 40 mg/0.4 mL injectable solution = 40 mg, Subcutaneous Injection, Daily, # 5 each, 0 Refills, Maintenance, 06/28/21 16:55:00 EDT, [facility]/pharmacy #0315, Partial fill upon patient request if [...] Back Pain Scale: 68 on 12/01/17; initial [place]: 7 on 12/01/17 2PROCEDURE DATE: 08/10/2017 PREOPERATIVE [...]
--- OUTSIDE RECORDS SUMMARY | 2023-09-15 11:54 | XMS_ITS | Continuity of Care Document ---
Author Name Unknown Organization [facility] [place] Address [address] [place] [address]- Care Team Providers Care Commercial Food Instructor Name Role Phone Beatrice DEAN ([facility])Antonia Primary Care Ph ysician Encounter [facility] Date(s): 06/27/22 - 08/24/[address] [address] Attending Physician: Rose DEAN, Candido Mcclain Referring Physician: Beatrice DEAN ([facility])Antonia Allergies, [...] Stop,05/06/22 9:49:00 EDT, Route to Pharmacy Electronically, [id number], [facility]/pharmacy #1230, 169, cm, 04/10/22 14:11:00 [...] a day, # 180 tablet, 1 Refills, [facility]ORE 47122, 90, TAKE 1 TABLET BY MOUTH TWICE [...] 07/23/22 13:29:00 EDT, Route to Pharmacy Electronically, [facility]/pharmacy #0315, 169, cm, 04/10/22 14:11:00 [...] tablet, Refills 0, Route to Pharmacy Electronically, [facility] 27897, 169, cm, 04/10/22 14:11:00 EDT, Height, 129, [...] Replace Required Details, Route to Pharmacy Electronically, [facility]/pharmacy #0315, 169, cm, 04/10/22... Start Date: 07/21/22 [...] a day, # 90 tablet, 1 Refills, [facility], 169, cm, 03/28/22 10:25:00 EDT, Height, 129, kg, 02/21/22 9:37:00 EDT, Dry Weight Start Date: 04/09/22 Status: Ordered montelukast 10 mg oral tablet 1, tablet, By Mouth, Daily, # 90 tablet, Refills 1, Maintenance, 07/25/22 21:44:00 EDT, Route to Pharmacy Electronically, [facility] 25717, 169, cm, 04/10/22 14:11:00 EDT, Height, 129, [...] Replace Required Details, Route to Pharmacy Electronically, [id number], [facility], 168, cm, 0... Start Date: 08/08/22 Status: [...] Back Pain Scale: 68 on 12/01/17; initial [place]: 7 on 12/01/17 2PROCEDURE DATE: 08/10/2017 PREOPERATIVE [...] Sex Care Team Personnel Name: Beatrice DEAN ([facility]), Antonia Richardson Address: [address] [place] [address], [place] [address]-
--- OUTSIDE RECORDS SUMMARY | 2023-09-15 11:54 | XMS_ITS | Continuity of Care Document ---
Author Name Unknown Organization [facility] Address [address] [place] [address]- Care Team Providers Care Cutting Pressman Name Role Phone Beatrice DEAN ([place]), Antonia Richardson Primary Care Ph ysician Encounter [facility] Date(s): 06/18/23 - 07/18/23 [facility] [address] [place] [address]- Allergies, Adverse Reactions, Alerts Substance Reaction Severity [...] 04/09/12 Recor ded tetanus/diphtheria/pertussis, acel(Tdap) 05/17/08 Recorded Medications 5-Hydroxytryptophan = 200 mg, By Mouth, [...] Stop,05/06/22 9:49:00 EDT, Route to Pharmacy Electronically, [id number], [facility]/pharmacy #1230, 169, cm, 04/10/22 14:11:00 EDT, [facility]... Start Date: 05/06/22 Stop Date: 09/03/22 Status: Ordered calcium-vitamin D 600 mg-400 intl units oral tablet 1 tablet, By Mouth, 2 times a day, # 180 tablet, 1 Refills, 02/04/23 8:58:00 EST, [facility]/pharmacy #1230, 1 tablet By Mouth 2 times [...] 06/19/23 6:31:00 EDT, Route to Pharmacy Electronically, [facility], 167, cm, 06/01/23 11:29:00 EDT, Height, 134, [...] Replace Required Details, Route to Pharmacy Electronically, [facility] 02750, 167, cm, 02/16/23 13:41... Start Date: 05/20/23 [...] tablet, 1 Refills, Maintenance, 04/19/23 11:19:00 EDT, [facility] 92612, 167, cm, 02/16/23 13:41:00 EDT, Height, 134, kg, 01/29/23 9:11:00 EST, Dry Weight Start Date: 04/19/23 Status: Ordered montelukast 10 mg oral tablet 1, tablet, By Mouth, Daily, # 90 tablet, Refills 1, Maintenance, 04/13/23 9:49:00 EDT, Route to Pharmacy Electronically, [facility] 94718, 167, cm, 02/16/23 13:41:00 EDT, Height, 134, [...] Replace Required Details, Route to Pharmacy Electronically, [id number]... Start Date: 01/12/23 Status: Ordered traMADol 50 [...] Back Pain Scale: 68 on 12/01/17; initial [place]: 7 on 12/01/17 2PROCEDURE DATE: 08/10/2017 PREOPERATIVE [...] information Care Team Personnel Name: Beatrice DEAN ([place]), Antonia Richardson Position: [facility] Physician - Primary Care Member Role: PCP Address: Address: [address] [place] [address] [place] [address]- Name: Natalya Phillip PharmD Position: [facility] Associate Professional Member Role: Lifetime Consulting Provider Address: Address: [address] [place] [address] Coumadin [place], [place] [email or web address]] Name: Smiley Blair Position: [facility] Outreach Member Role: Lifetime Consulting Physician Name: Marcin Peacock Position: [facility] Outreach Member Role: Lifetime Consulting Physician Name: Bianca GRIFFITHS, Nancy Mireles Position: [facility] Onco RN Member Role: Primary Care Nurse Care Team Related Persons Name: EBONY DUENAS Address: [address] [place], [place] Name: AMPARO DUENAS Address: [address] [place], [place] Name: EBONY WASHBURN Address: [address] [place], [place] Name: JULI CLAYTON
--- OUTSIDE RECORDS SUMMARY | 2023-09-15 11:54 | XMS_ITS | Continuity of Care Document ---
Author Name Unknown Organization [facility] [place] Address [address] [place] [address]- Care Team Providers Care Client Technical Support Associate Name Role Phone Beatrice DEAN ([facility])Antonia Primary Care Ph ysician Encounter [facility] Date(s): 12/08/19 - 02/04/20 [facility] [address] [place] [address]- [facility] Attending Physician: Beatrice DEAN ([facility])Antonia Allergies, Adverse Reactions, Alerts Substance [...] PUFF EVERY 6 HOURS NEEDED FOR WHEEZING, [facility] Start Date: 05/11/19 Status: Ordered Celebrate vitamins 1, By Mouth, Daily in AM, Maintenance, 01/06/20 13:52:00 EST, [facility] Start Date: 01/06/20 Status: Ordered citalopram 40 mg oral tablet 40 mg, 1, tablet, By Mouth, Daily, # 90 tablet, Refills 1, Tot. Refills 1, Maintenance, 06/10/19 17:40:00 EDT, Route to Pharmacy Electronically, [id number], [facility] Start Date: 06/10/19 Stop [...] tablet, 1 Refills, Soft Stop, 12/03/2019:27:00 EST, [facility], 167, cm, 09/16/19 10:05:00 EDT, Height, 158.3, kg, 08/18/19 10:50:00 EDT, Dry Weight Start Date: 12/03/19 Status: Ordered montelukast 10 mg oral tablet See Instructions, # 90 tablet, Refills 1 Tot. Refills 1, TAKE 1 TABLET EVERY DAY, [facility] Start Date: 06/16/19 Status: [...] Back Pain Scale: 68 on 12/01/17; initial [place]: 7 on 12/01/17 2PROCEDURE DATE: 08/10/2017 PREOPERATIVE [...]
--- OUTSIDE RECORDS SUMMARY | 2023-09-15 11:54 | XMS_ITS | Continuity of Care Document ---
Author Name Unknown Organization [facility] Address [address] [place] [address]- Care Team Providers Care Transmission Specialist Name Role Phone Beatrice DEAN ([facility])Antonia Primary Care Ph ysician Encounter [facility] Date(s): 11/14/22 - 12/17/22 [facility] [address] [place] [address]- Attending Physician: Beatrice DEAN ([facility])Antonia Allergies, Adverse Reactions, Alerts Substance [...] Stop,05/06/22 9:49:00 EDT, Route to Pharmacy Electronically, [id number], [facility]/pharmacy #1230, 169, cm, 04/10/22 14:11:00 EDT, [facility]... Start Date: 05/06/22 Stop Date: 09/03/22 Status: Ordered calcium-vitamin D 600 mg-400 intl units oral tablet 1 tablet, By Mouth, 2 times a day, # 180 tablet, 1 Refills, [facility] 43557, 90, TAKE 1 TABLET BY MOUTH TWICE [...] 10/27/22 12:15:00 EST,Route to Pharmacy Electronically, [facility]/pharmacy #1230, 167.64, cm, 10/06/22 9:14:00 EST, Height, [...] Electronically, [facility]/pharmacy #1230, 167.64, cm, 0... Start Date: 10/28/22 Status: Ordered loratadine 10 mg oral capsule 1 capsule = 10 mg, By Mouth, Daily, # 30 capsule, 0 Refills, Maintenance, 06/04/17 8:06:21, Capsule Start Date: 06/04/17 Stop Date: 07/04/17 Status: Ordered Metoprolol Tartrate 25 mg oral tablet 0.5 tablet, By Mouth, 2 times a day, # 90 tablet, 1 Refills, Maintenance, 10/07/22 14:35:00 EST, [facility] 36509, 167.64, cm, 10/06/22 9:14:00 EST, Height, 134.2, kg, 10/06/22 9:14:00 EST, Dry Weight Start Date: 10/07/22 Status: Ordered montelukast 10 mg oral tablet 1, tablet, By Mouth, Daily, # 90 tablet, Refills 1, Maintenance, 07/25/22 21:44:00 EDT, Route to Pharmacy Electronically, [facility] 38058, 169, cm, 04/10/22 14:11:00 EDT, Height, 129, [...] Replace Required Details, Route to Pharmacy Electronically, [id number], [facility], 168, cm, 0... Start Date: 08/08/22 Status: [...] Back Pain Scale: 68 on 12/01/17; initial [place]: 7 on 12/01/17 2PROCEDURE DATE: 08/10/2017 PREOPERATIVE [...] information Care Team Personnel Name: Beatrice DEAN ([facility] [place]), Antonia Richardson Position: [facility] Primary Care Physician Member Role: PCP Address: Address: [address] [place] [address] [place] [address]- Name: Natalya Phillip PharmD Position: [facility] Associate Professional Member Role: Lifetime Consulting Provider Address: Address: [address] [place] [address] [place] [address]- Name: Smiley Blair Position: [facility] Outreach Member Role: Lifetime Consulting Physician Name: Marcin Peacock Position: [facility] Outreach Member Role: Lifetime Consulting Physician Name: Nancy Valenzuela RN Position: [facility] Onco RN Member Role: Primary Care Nurse Care Team Related Persons Name: EBONY DUENAS Address: [address] [place] [address] Name: AMPARO DUENAS Address: [address] [place] [id number] Name: EBONY WASHBURN Address: [address] [place] [address]
--- OUTSIDE RECORDS SUMMARY | 2023-09-15 11:54 | XMS_ITS | Continuity of Care Document ---
Author Name Unknown Organization [facility] Primary Car e Jacinto Address [address] [place] [address]- Care Team Providers Care Mission Worker Name Role Phone Beatrice DEAN ([facility])Antonia Primary Care Ph ysician Encounter [facility] Date(s): 01/26/23 - 02/27/23 [facility] Care Jacinto [address] [place] [address]- Attending Physician: Beatrice DEAN ([facility] [...] Stop,05/06/22 9:49:00 EDT, Route to Pharmacy Electronically, [id number], [facility]/pharmacy #1230, 169, cm, 04/10/22 14:11:00 EDT, Giles... Start Date: 05/06/22 Stop Date: 09/03/22 Status: Ordered calcium-vitamin D 600 mg-400 intl units oral tablet 1 tablet, By Mouth, 2 times a day, # 180 tablet, 1 Refills, 02/04/23 8:58:00 EST, [facility]/pharmacy #1230, 1 tablet By Mouth [...] 07/23/22 13:29:00 EDT, Route to Pharmacy Electronically, [facility]/pharmacy #0315, 169, cm, 04/10/22 [...] Replace Required Details, Route to Pharmacy Electronically, [facility]/pharmacy #1230, 168, cm, 12/15/22 0:20:00 [...] Replace Required Details, Route to Pharmacy Electronically, [facility]/pharmacy #1230, 168, cm, ... Start [...] tablet, 1 Refills, Maintenance, 10/07/22 14:35:00 EST, [facility], 167.64, cm, 10/06/22 9:14:00 EST, Height, 134.2, kg, 10/06/22 9:14:00 EST, Dry Weight Start Date: 10/07/22 Status: Ordered montelukast 10 mg oral tablet 1, tablet, By Mouth, Daily, # 90 tablet, Refills 1, Maintenance, 07/25/22 21:44:00 EDT, Route to Pharmacy Electronically, [facility], 169, cm, 04/10/22 14:11:00 EDT, Height, 129, kg, 03/25/22 9:37:00 EDT, Dry Weight Start Date: 07/25/22 [...] Replace Required Details, Route to Pharmacy Electronically, [id number]... Start Date: 01/12/23 Status: Ordered traMADol 50 [...] Back Pain Scale: 68 on 12/01/17; initial [place]: 7 on 12/01/17 2PROCEDURE DATE: 08/10/2017 PREOPERATIVE [...] Care Team Personnel Name: Beatrice DEAN ([facility])Antonia Position: [facility] Primary Care Physician Member Role: PCP Address: Address: [address] [place] [address], [place], [place] [address] Name: Natalya Phillip PharmD Position: [facility] Associate Professional Member Role: Lifetime Consulting Provider Address: Address: [address] [place], [place] [address], [place] [address] Name: Smiley Blair Position: [facility] Outreach Member Role: Lifetime Consulting Physician Name: Marcin Peacock Position: [facility] Outreach Member Role: Lifetime Consulting Physician Name: Bianca GRIFFITHS, Nancy Mireles Position: [facility] Onco RN Member Role: Primary Care Nurse Care Team Related Persons Name: EBONY DUENAS Address: [place] [address] Name: AMPARO DUENAS Address: [address] [place] [address] Name: EBONY WASHBURN Address: [address] [place] [address] Name: JULI CLAYTON
--- OUTSIDE RECORDS SUMMARY | 2023-09-15 11:54 | XMS_ITS | Continuity of Care Document ---
Author Name Unknown Organization [facility] Primary Car e Jacinot Address [address] [place] [address]- Care Team Providers Care Lawn Specialist Name Role Phone Beatrice DEAN ([facility] [place]), Antonia Richardson Primary Care Ph ysician Encounter [facility] Date(s): 12/27/19 - 01/06/20 [facility] Care Jacinto [address] [place] [address]- [facility] Attending Physician: AdmFransisco miles Admitting Physician: [...] PUFF EVERY 6 HOURS NEEDED FOR WHEEZING, [facility] Mail Delivery Start Date: 05/11/19 Status: Ordered Celebrate vitamins 1, By Mouth, Daily in AM, Maintenance, 01/06/20 13:52:00 EST, Celebrate vitamins Start Date: 01/06/20 Status: Ordered citalopram 40 mg oral tablet 40 mg, 1, tablet, By Mouth, Daily, # 90 tablet, Refills 1, Tot. Refills 1, Maintenance, 06/10/19 17:40:00 EDT, Route to Pharmacy Electronically, [id number], [facility] Start Date: 06/10/19 Stop Date: 12/07/19 Status: Ordered doxycycline hyclate 100 mg oral capsule 1 capsule = 100 mg, By Mouth, 2 times a day, for 7 days, # 14 capsule, 0 Refills, Acute 01/13/20 13:53:00 EST, 01/06/20 13:53:00 EST, Capsule, [facility]/pharmacy #[id number], 168, cm, 01/06/20 7:40:00 EST, [...] tablet, 1 Refills, Soft Stop, 12/03/2019:27:00 EST, [facility], 167, cm, 09/16/19 10:05:00 EDT, Height, 158.3, kg, 08/18/19 10:50:00 EDT, Dry Weight Start Date: 12/03/19 Status: Ordered montelukast 10 mg oral tablet See Instructions, # 90 tablet, Refills 1 Tot. Refills 1, TAKE 1 TABLET EVERY DAY, [facility] Start Date: 06/16/19 Status: Ordered omeprazole 20 mg oral delayed release tablet 1 tablet = 20 mg, By Mouth, Daily, # 90 tablet, 5 Refills, Maintenance, 06/10/19 17:40:00 EDT, EC Tablet Start Date: 06/10/19 Status: Ordered Symbicort 80mcg/4.5mcg Inhaler See Instructions, # 3 Unknown, INHALE 2 PUFFS TWICE DAILY, [facility] Start Date: 07/14/19 Status: [...] Back Pain Scale: 68 on 12/01/17; initial [place]: 7 on 12/01/17 2PROCEDURE DATE: 08/10/2017 PREOPERATIVE [...]
--- OUTSIDE RECORDS SUMMARY | 2023-09-15 11:54 | XMS_ITS | Continuity of Care Document ---
Author Name Unknown Organization [facility] TOW BAR DRIVER Oncolog y Address [address] [place] [address]- Care Team Providers Care Shank Sorter Name Role Phone Beatrice DEAN ([facility] [place]), Antonia Richardson Primary Care Ph ysician Encounter [facility] Date(s): 03/05/21 - 04/04/21 [facility] TOW BAR DRIVER Oncology [address] [place] [address] Attending Physician: Fransisco Tamez Admitting Physician: [...] PUFF EVERY 6 HOURS NEEDED FOR WHEEZING, [facility] Start Date: 05/11/19 Status: Ordered Celebrate vitamins 1, By Mouth, Daily in AM, Maintenance, 01/06/20 13:52:00 EST, Celebrate vitamins Start Date: 01/06/20 Status: Ordered citalopram 40 mg oral tablet 40 mg, 1, tablet, By Mouth, Daily, # 90 tablet, Refills 2, Tot. Refills 2, Maintenance, 03/19/20 13:36:00 EDT, Route to Pharmacy Electronically, [facility]/pharmacy #0315, 167.64, cm, 02/01/20 [...] 6 Refills, Soft Stop, 03/19/20 13:23:00 EDT, [facility]/pharmacy #0315, 167.64, cm, 02/01/20 [...] Back Pain Scale: 68 on 12/01/17; initial [place]: 7 on 12/01/17 2PROCEDURE DATE: 08/10/2017 PREOPERATIVE [...]
--- OUTSIDE RECORDS SUMMARY | 2023-09-15 11:54 | XMS_ITS | Continuity of Care Document ---
Author Name Unknown Organization [facility] Primary [facility] e Jacinto Address [address] [place] [address]- Care Team Providers Care Resilient Tile Installer Name Role Phone Beatrice DEAN ([facility])Antonia Primary Care Ph ysician Encounter [facility] Date(s): 11/16/20 - 03/03/21 [facility] Care Jacinto [address] [place] [address]- Attending Physician: Beatrice DEAN ([facility])Antonia [...] 6 HOURS NEEDED FOR WHEEZING, [facility] Mail Delivery Start Date: 05/11/19 Status: Ordered Celebrate vitamins 1, By Mouth, Daily in AM, Maintenance, 01/06/20 13:52:00 EST, [facility] Start Date: 01/06/20 Status: Ordered citalopram 40 mg oral tablet 40 mg, 1, tablet, By Mouth, Daily, # 90 tablet, Refills 2, Tot. Refills 2, Maintenance, 03/19/20 13:36:00 EDT, Route to Pharmacy Electronically, [facility]/pharmacy #0315, 167.64, cm, 02/01/20 15:51:00 [...] 6 Refills, Soft Stop, 03/19/20 13:23:00 EDT, [facility]/pharmacy #0315, 167.64, cm, 02/01/20 15:51:00 [...]
--- OUTSIDE RECORDS SUMMARY | 2023-09-15 11:54 | XMS_ITS | Continuity of Care Document ---
Author Name Unknown Organization [facility] Primary Car e Jacinto Address [address] [place] [address]- Care Team Providers Care Cutting Machine Operator Helper Name Role Phone Beatrice DEAN ([facility]), Antonia Richardson Primary Care Ph ysician Encounter [facility] Date(s): 02/19/21 - 03/21/21 [facility] Care Jacinto [address] [place] [address]- Allergies, Adverse Reactions, Alerts Substance Reaction Severity [...] PUFF EVERY 6 HOURS NEEDED FOR WHEEZING, [facility] Start Date: 05/11/19 [...] 6 Refills, Soft Stop, 03/19/20 13:23:00 EDT, [facility]/pharmacy #0315, 167.64, cm, [...] Back Pain Scale: 68 on 12/01/17; initial [place]: 7 on 12/01/17 2PROCEDURE DATE: 08/10/2017 PREOPERATIVE [...]
--- OUTSIDE RECORDS SUMMARY | 2023-09-15 11:54 | XMS_ITS | Continuity of Care Document ---
Author Name Unknown Organization [facility] Address [address] [place] [address]- Care Team Providers Care Electronics Engineering Professor Name Role Phone Beatrice DEAN ([facility] [place]), Antonia Richardson Primary Care Ph ysician Encounter [facility] Date(s): 02/17/23 - 03/20/23 [facility] [address] [place] [address]- Attending Physician: Antwan Fernandez MD Admitting Physician: Antwan Fernandez MD Referring Physician: Nina Flores MD Allergies, Adverse Reactions, Alerts Substance Reaction [...] Stop,05/06/22 9:49:00 EDT, Route to Pharmacy Electronically, [id number], [facility]/pharmacy #1230, 169, cm, 04/10/22 14:11:00 EDT, G[facility].Nai. Start Date: 05/06/22 Stop Date: 09/03/22 Status: Ordered calcium-vitamin D 600 mg-400 intl units oral tablet 1 tablet, By Mouth, 2 times a day, # 180 tablet, 1 Refills, 02/04/23 8:58:00 EST, [facility]/pharmacy #1230, 1 tablet By Mouth [...] 07/23/22 13:29:00 EDT, Route to Pharmacy Electronically, [facility]/pharmacy #0315, 169, cm, 04/10/22 14:11:00 [...] Replace Required Details, Route to Pharmacy Electronically, [facility]/pharmacy #1230, 168, cm, 12/15/22 0:20:00 [...] Replace Required Details, Route to Pharmacy Electronically, [facility]/pharmacy #1230, 168, cm, ... Start [...] tablet, 1 Refills, Maintenance, 10/07/22 14:35:00 EST, [facility], 167.64, cm, 10/06/22 9:14:00 EST, Height, 134.2, kg, 10/06/22 9:14:00 EST, Dry Weight Start Date: 10/07/22 Status: Ordered montelukast 10 mg oral tablet 1, tablet, By Mouth, Daily, # 90 tablet, Refills 1, Maintenance, 07/25/22 21:44:00 EDT, Route to Pharmacy Electronically, [facility], 169, cm, 04/10/22 14:11:00 EDT, Height, 129, [...] Replace Required Details, Route to Pharmacy Electronically, [id number]... Start Date: 01/12/23 Status: Ordered traMADol 50 [...] Back Pain Scale: 68 on 12/01/17; initial [place]: 7 on 12/01/17 2PROCEDURE DATE: 08/10/2017 PREOPERATIVE [...] Team Personnel Name: Beatrice DEAN ([facility]), Antonia Richardson Position: [facility] Primary Care Physician Member Role: PCP Address: Address: [address] [place] [address] [place] [address]- Name: Natalya Phillip PharmD Position: [facility] Associate Professional Member Role: Lifetime Consulting Provider Address: Address: [address] [place] [address] [place] [address]- Name: Smiley Blair Position: [facility] Outreach Member Role: Lifetime Consulting Physician Name: Marcin Peacock Position: [facility] Outreach Member Role: Lifetime Consulting Physician Name: Bianca GRIFFITHS, Nancy Mireles Position: [facility] Onco RN Member Role: Primary Care Nurse Care Team Related Persons Name: EBONY DUENAS Address: [address] [place] [address] Name: AMPARO DUENAS Address: [address] [place] [address] Name: EBONY WASHBURN Address: [address] [place] [address] Name: JULI CLAYTON
--- OUTSIDE RECORDS SUMMARY | 2023-09-15 11:54 | XMS_ITS | Continuity of Care Document ---
Author Name Unknown Organization [facility] Primary Car e Jacinto Address [address] [place] [address]- Care Team Providers Care Military Professional Name Role Phone Beatrice DEAN ([facility])Antonia Primary Care ysician Encounter [facility] Date(s): 09/28/19 - 01/26/20 [facility] Care Jacinto [address] [place] [address]- [facility] Attending Physician: Beatrice DEAN ([facility]), Antonia Richardson Allergies, Adverse Reactions, Alerts Substance [...] PUFF EVERY 6 HOURS NEEDED FOR WHEEZING, [facility] Start Date: 05/11/19 Status: Ordered Celebrate vitamins 1, By Mouth, Daily in AM, Maintenance, 01/06/20 13:52:00 EST, [facility] Start Date: 01/06/20 Status: Ordered citalopram 40 mg oral tablet 40 mg, 1, tablet, By Mouth, Daily, # 90 tablet, Refills 1, Tot. Refills 1, Maintenance, 06/10/19 17:40:00 EDT, Route to Pharmacy Electronically, [id number], [facility] Start Date: 06/10/19 Stop [...] tablet, 1 Refills, Soft Stop, 12/03/2019:27:00 EST, [facility], 167, cm, 09/16/19 10:05:00 EDT, Height, 158.3, kg, 08/18/19 10:50:00 EDT, Dry Weight Start Date: 12/03/19 Status: Ordered montelukast 10 mg oral tablet See Instructions, # 90 tablet, Refills 1 Tot. Refills 1, TAKE 1 TABLET EVERY DAY, [facility] Start Date: 06/16/19 Status: Ordered omeprazole 20 mg oral delayed release tablet 1 tablet = 20 mg, By Mouth, Daily, # 90 tablet, 5 Refills, Maintenance, 06/10/19 17:40:00 EDT, EC Tablet Start Date: 06/10/19 Status: Ordered Symbicort 80mcg/4.5mcg Inhaler See Instructions, # 3 Unknown, INHALE 2 PUFFS TWICE DAILY, [facility] Start Date: 07/14/19 Status: [...] Back Pain Scale: 68 on 12/01/17; initial [place]: 7 on 12/01/17 2PROCEDURE DATE: 08/10/2017 PREOPERATIVE [...]
--- OUTSIDE RECORDS SUMMARY | 2023-09-15 11:54 | XMS_ITS | Continuity of Care Document ---
Author Name Unknown Organization [facility] Primary Car e Jacinto Address [address] [place] [address]- Care Team Providers Care Immigration Manager Name Role Phone Beatrice DEAN ([facility] ), Antonia Richardson Primary Care ysician Encounter [facility] Date(s): 02/28/20 - 03/06/20 [facility] Care Jacinto [address] [place] [address]- [facility] Encounter Diagnosis [place](Discharge Diagnosis) - 02/28/20 Type 2 diabetes mellitus(Discharge Diagnosis) - 02/28/20 Recurrent pulmonary embolism(Discharge Diagnosis) - 02/28/20 Attending Physician: Beatrice DEAN ([facility] ), Antonia Richardson Allergies, Adverse Reactions, [...] 06/10/19 17:40:00 EDT, Route to Pharmacy Electronically, [id number], [facility] Start Date: 06/10/19 Stop [...] tablet, 1 Refills, Soft Stop, 12/03/2019:27:00 EST, [facility], 167, cm, 09/16/19 10:05:00 EDT, Height, 158.3, kg, 08/18/19 10:50:00 EDT, Dry Weight Start Date: 12/03/19 Status: Ordered montelukast 10 mg oral tablet See Instructions, # 90 tablet, Refills 1 Tot. Refills 1, TAKE 1 TABLET EVERY DAY, [facility] Start Date: 06/16/19 Status: [...] Back Pain Scale: 68 on 12/01/17; initial [place]: 7 on 12/01/17 2PROCEDURE DATE: 08/10/2017 [...] Dates Health Status Cl inical Service Informant [place] Discharge Diagnosis 02/28/20 Type 2 diabetes mellitus Discharge Diagnosis 02/28/20 Recurrent pulmonary embolism Discharge Diagnosis 02/28/20 Social History Social History Type Response Smoking Status Former smoker; Tobac co user in household: No; Stopped at age: 41; entered on: 03/25/18 Sex
--- OUTSIDE RECORDS SUMMARY | 2023-09-15 11:54 | XMS_ITS | Continuity of Care Document ---
Author Name Unknown Organization [facility] Primary Car e Jacinto Address [address] [place] [address]- Care Team Providers Care Roller Gold Leaf Name Role Phone Beatrice DEAN ([facility] [place]), Antonia Richardson Primary Care Ph ysician Encounter [facility] Date(s): 05/05/22 - 06/04/22 [facility] Primary Care Jacinto [address] [place] [address]- Allergies, Adverse Reactions, Alerts Substance Reaction Severity Status dicloxacillin 1, 2 D - Diarrhea Active niacin skin turns red Active statins muscle pain Active sulfa drugs hives Active 1Patient prevously [...] EDT, Route to Pharmacy Electronically, [facility]/pharmacy #[id number], 167.64, cm, 02/01/20 15:51:00 [...] Back Pain Scale: 68 on 12/01/17; initial [place]: 7 on 12/01/17 2PROCEDURE DATE: 08/10/2017 PREOPERATIVE [...]
--- OUTSIDE RECORDS SUMMARY | 2023-09-15 11:54 | XMS_ITS | Continuity of Care Document ---
Author Name Unknown Organization [facility] COMPLIANCE EXAMINER Oncolog y Address [address] [place] [address]- Care Team Providers Care Hybrid Tester Name Role Phone Beatrice DEAN ([facility] [place] [place]), Antonia Richardson Primary Care Ph ysician Encounter [facility] Date(s): 06/05/21 - 07/05/21 [facility] COMPLIANCE EXAMINER Oncology [address] [place] [address]- Allergies, Adverse Reactions, Alerts Substance Reaction Severity Status dicloxacillin 1, 2 D - Diarrhea Active niacin skin turns red Active sulfa drugs hives Active statins muscle pain Active 1Patient prevously thought was rash but says today ot. Tolerated PCN, Amoxicillin 2RASH Immunizations Given and Recorded Vaccine Date Status Refusal Reason SARS-CoV-2 (COVID-19) mRNA-7932 vaccine 04/13/21 R ecorded influenza virus vaccine, [...] FOR WHEEZING, [facility] Mail Delivery Start Date: 05/11/19 Status: Ordered Celebrate vitamins 1, By Mouth, Daily in AM, Maintenance, 01/06/20 13:52:00 EST, [facility] Start Date: 01/06/20 Status: Ordered citalopram 40 mg oral tablet 40 mg, 1, tablet, By Mouth, Daily, # 90 tablet, Refills 2, Tot. Refills 2, Maintenance, 03/19/20 13:36:00 EDT, Route to Pharmacy Electronically, [facility]/pharmacy #0315, 167.64, cm, 02/01/20 15:51:00 EST,Height, [...] 8:27:00 EDT, Route to Pharmacy Electronically, [facility]/pharmacy #[id number], 167.64, cm, 04/23/21 9:50:00... Start Date: 05/15/21 Stop Date: 11/11/21 Status: Ordered Lovenox 40 mg/0.4 mL injectable solution = 40 mg, Subcutaneous Injection, Daily, # 5 each, 0 Refills, Maintenance, 06/28/21 16:55:00 EDT, [facility]/pharmacy #[id number], Partial fill upon patient request [...] Back Pain Scale: 68 on 12/01/17; initial [place]: 7 on 12/01/17 2PROCEDURE DATE: 08/10/2017 PREOPERATIVE [...]
--- OUTSIDE RECORDS SUMMARY | 2023-09-15 11:54 | XMS_ITS | Continuity of Care Document ---
Author Name Unknown Organization [facility] [place] Address [address] [place] [address]- Care Team Providers Care Public Housing Interviewer Name Role Phone Beatrice DEAN ([facility])Antonia Primary Care Ph ysician Encounter [facility] Date(s): 10/15/20 - 11/14/[address] [address]- Attending Physician: Beatrice DEAN ([facility])Antonia Allergies, Adverse Reactions, Alerts Substance [...] PUFF EVERY 6 HOURS NEEDED FOR WHEEZING, [facility] Mail Delivery Start Date: [...] Maintenance, 03/19/20 13:23:00 EDT, EC Tablet, [facility]/pharmacy #0315, 167.64, cm, 02/01/20 [...] Back Pain Scale: 68 on 12/01/17; initial [place]: 7 on 12/01/17 2PROCEDURE DATE: 08/10/2017 PREOPERATIVE [...]
--- OUTSIDE RECORDS SUMMARY | 2023-09-15 11:55 | XMS_ITS | Continuity of Care Document ---
Author Name Unknown Organization [facility] Primary Car e Jacinto Address [address] [place] [address]- Care Team Providers Care Air And Water Tester Name Role Phone Beatrice DEAN ([facility] [place]), Antonia Richardson Primary Care Ph ysician Encounter [facility] Date(s): 11/19/22 - 12/19/22 [facility] Care Jacinto [address] [place] [address]- Attending Physician: Admjd, Fransisco Admitting Physician: Admtr, ArAndrea Referring Physician: Admtr, [...] Stop,05/06/22 9:49:00 EDT, Route to Pharmacy Electronically, [id number], [facility]/pharmacy #1230, 169, cm, 04/10/22 14:11:00 EDT, Giles... Start Date: 05/06/22 Stop Date: 09/03/22 Status: Ordered calcium-vitamin D 600 mg-400 intl units oral tablet 1 tablet, By Mouth, 2 times a day, # 180 tablet, 1 Refills, [facility] 0[facility], 90, TAKE 1 TABLET BY MOUTH TWICE [...] 07/23/22 13:29:00 EDT, Route to Pharmacy Electronically, [facility]/pharmacy #0315, 169, cm, 04/10/22 14:11:00 EDT, [...] 0, 10/27/22 12:15:00 EST,Route to Pharmacy Electronically, [facility]/pharmacy #1230, 167.64, cm, 10/06/22 9:14:00 EST, [...] Replace Required Details, Route to Pharmacy Electronically, [facility]/pharmacy #1230, 167.64, cm, ... Start Date: 10/28/22 Status: Ordered loratadine 10 mg oral capsule 1 capsule = 10 mg, By Mouth, Daily, # 30 capsule, 0 Refills, Maintenance, 06/04/17 8:06:21, Capsule Start Date: 06/04/17 Stop Date: 07/04/17 Status: Ordered Metoprolol Tartrate 25 mg oral tablet 0.5 tablet, By Mouth, 2 times a day, # 90 tablet, 1 Refills, Maintenance, 10/07/22 14:35:00 EST, [facility] 59716, 167.64, cm, 10/06/22 9:14:00 EST, Height, 134.2, kg, 10/06/22 9:14:00 EST, Dry Weight Start Date: 10/07/22 Status: Ordered montelukast 10 mg oral tablet 1, tablet, By Mouth, Daily, # 90 tablet, Refills 1, Maintenance, 07/25/22 21:44:00 EDT, Route to Pharmacy Electronically, [facility] 91889, 169, cm, 04/10/22 14:11:00 EDT, Height, 129, [...] Replace Required Details, Route to Pharmacy Electronically, [id number], [facility] [id number], 168, cm, 0... Start Date: 08/08/22 Status: [...] Back Pain Scale: 68 on 12/01/17; initial [place]: 7 on 12/01/17 2PROCEDURE DATE: 08/10/2017 [...] information Care Team Personnel Name: Beatrice DEAN ([facility]), Antonia Richardson Position: [facility] Primary Care Physician Member Role: PCP Address: Address: [address] [place] [address] Primary Care, [place] [address]- Name: Natalya Phillip PharmD Position: [facility] Associate Professional Member Role: Lifetime Consulting Provider Address: Address: [address] [place] [address] [place] [address]- Name: Smiley Blair Position: [facility] Outreach Member Role: Lifetime Consulting Physician Name: Marcin Peacock Position: [facility] Outreach Member Role: Lifetime Consulting Physician Name: Bianca GRIFFITHS, Nancy Mireles Position: [facility] Onco RN Member Role: Primary Care Nurse Care Team Related Persons Name: EBONY DUENAS Address: [place] [address] Name: AMPARO DUENAS Address: [address] [place] [address] Name: EBONY WASHBURN Address: [place] [address]
--- OUTSIDE RECORDS SUMMARY | 2023-09-15 11:55 | XMS_ITS | Patient Health Record ---
Author Name Unknown [facility] Address [address] [place] [address] Care Team Providers Care Brine Tank Operator Name Role Phone Beatrice DEAN, Antonia Primary Care Provider Yosef Baron Unavailable [phone] ALLERGIES Allergen (clinical drug ingredient) Drug/Non Drug Allergy documented on EMR Reaction Allergy Type Onset Date Status sulfamethoxazole / trimethoprim Bactrim hives Drug Allergy Active dicloxacillin Dicloxacillin hives Drug Allergy Active niacin Niacin hives Drug Allergy Active Substance with 8-sobzcsb-7-methylglutar yl-coenzyme A reductase inhibitor mechanism of action (substance) Statins hives Drug Allergy Active RESULTS Component Value Reference Range Notes HEMOGLOBIN A1C (GLYCOHEMOGLO BIN) Reviewed date:10/03/2022 09:08:12 AM Interpretation: Performing Lab: Notes/Report: TOTAL HEMOGLOBIN (HGBA1C) HEMOGLOBIN A1C (HH) HEMOGLOBIN A1C % (HH) 5.1 ESTIMATED AVG GLUCOSE HEMOGLOBIN A1C (GLYCOHEMOGLO BIN) Reviewed date:12/12/2022 10:12:36 AM Interpretation: Performing Lab: Notes/Report: TOTAL HEMOGLOBIN (HGBA1C) HEMOGLOBIN A1C (HH) HEMOGLOBIN A1C % (HH) 5.4 ESTIMATED AVG GLUCOSE HEMOGLOBIN A1C (GLYCOHEMOGLO BIN) Reviewed date:02/20/2023 10:44:33 AM Interpretation: Performing Lab: Notes/Report: TOTAL HEMOGLOBIN (HGBA1C) HEMOGLOBIN A1C (HH) HEMOGLOBIN A1C % (HH) 5.3 ESTIMATED AVG GLUCOSE REASON FOR REFERRAL No Information MEDICATIONS Medication SIG (Take, Route, Frequency, Duration) Notes Start Date End Date Status Citalopram Hydrobromide 40 MG 0.5 tablet Orally Once a day for 30 day(s) Active Tylenol Active Collagen Active Warfarin Sodium 6 MG 1 tablet Orally Onc e a day for 30 day(s) Active Osteo Bi-Flex Triple Strength - as directed Orally Active Calcium + D3 Active Symbicort 80-4.5 MCG/ACT 2 puffs Inhalation Once a day Active Montelukast Sodium 10 MG 1 tablet Orally Once a day for 30 day(s) Active Multivitamin Active Loratadine 10 MG 1 tablet Orally Once a day for 30 day(s) Active Metoprolol Succinate 25 MG 1 capsule Orally Once a day for 30 day(s) Active Glucosamine Active Famotidine 20 MG 1 tablet at bedtime as needed Orally Once a day for 30 day(s) Active 5-HTP supplement Active Gabapentin 300 MG 1 capsule Orally Once a day for 30 day(s) Active Azithromycin 250 MG 2 tablets on the first day, then 1 tablet daily for 4 days Orally Once a day for 5 day(s) 04/25/2022 Not-Taking IMMUNIZATIONS Vaccine Route Administration Date Status Comme nts COVID-19 Moderna Vaccine Unknown 03/28/2022 Administered 1st 04/13/21 2nd 05/11/21 Influenza Unknown 10/03/2022 Refused SOCIAL HISTORY Tobacco Use: Social History Observation Description Date Details (start date - stop date) Light tobacco s moker NA - NA Sex Assigned At : Social History Observation Description Sex Assigned At Unknown Tobacco Use/Smoking Question Answer Notes Are you a: light tobacco smoker Additional Findings: Tobacco Non-User Current no n-smoker Alcohol Screen Question Answer Notes Did you have a drink containing alcohol in the p ast year? No Points 0 Interpretation Negative Tobacco use other than smoking: Question Answer Notes Are you an other tobacco user? No PROBLEMS Problem Type ICD Code Onset Dates Problem Status W/U Status Risk SNOMED Code Notes Problem Other hammer toe(s) (acquired), right foot (M20.41) Active confirmed Acquired hamme r toe of right foot (0215191200287573 ) Problem Other hammer toe(s) (acquired), left foot (M20.42) Active confirmed Acquired hamme r toe of left foot (6035478336222467 ) Problem Type 2 diabetes mellitus with diabetic polyneuropathy (E11.42) Active confirmed Polyneuropathy due to type 2 diabetes mellitus (873254507) VITAL SIGNS Blood pressure diastolic 78 mm Hg 05/08/2023 Height 5 ft 6 in in 05/08/2023 Blood pressure systolic 120 mm Hg 05/08/2023 Weight 295 lbs 05/08/2023 BMI 47.61 kg/m2 05/08/2023 PROCEDURES Procedure Date Ordered Date Performed Result Body Sit e 80545-ABIFFWG NAIL, 6 OR MORE 10/03/2022 N/A 60120- Debride <25 sq cm 10/03/2022 N/A 94063-BFDZ SKIN LESIONS, OVER 4 10/03/2022 N/A 45522-JDOPZNT NAIL, 6 OR MORE 12/12/2022 N/A 71330-Pluqzqoa Plate 12/12/2022 N/A 26140-PJSH SKIN LESIONS, OVER 4 12/12/2022 N/A 65048-KBBPDZZ NAIL, 6 OR MORE 02/20/2023 N/A 50365- Debride <25 sq cm 02/20/2023 N/A 66075-TSLD SKIN LESIONS, OVER 4 02/20/2023 N/A 59493-FKSPRDW NAIL, 6 OR MORE 05/08/2023 N/A 12976-XFXV SKIN LESIONS, OVER 4 05/08/2023 N/A 70981-UCZEYYV NAIL, 6 OR MORE 07/21/2023 N/A 81655-HGUU SKIN LESIONS, OVER 4 07/21/2023 N/A Encounters Encounter Location Date Provider Diagnosis [address] [address] 10/03/2022 Yosefloius Barrett Type 2 diabetes mellitus with diabetic polyneuropathy E11.42 ; Tinea unguium B35.1 ; Other hammer toe(s) (acquired), right foot M20.41 ; Other hammer toe(s) (acquired), left foot M20.42 and Non-pressure chronic ulcer of other part of left foot limited to breakdown of skin L97.[address] [address] 12/12/2022 Yosef Barrett Type 2 diabetes mellitus with diabetic polyneuropathy E11.42 ; Tinea unguium B35.1 ; Other hammer toe(s) (acquired), right foot M20.41 ; Other hammer toe(s) (acquired), left foot M20.42 and Ingrowing nail L60.[address] [address] 12/16/2022 [facility] [address] [address] 01/26/2023 [facility] [address] [address] 02/20/2023 Yosef Barrett Type 2 diabetes mellitus with diabetic polyneuropathy E11.42 ; Tinea unguium B35.1 ; Cellulitis of left lower limb L03.116 and Ulcer of left foot, limited to breakdown of skin L97.[address] [address] 02/20/[address] [address] 05/08/2023 Yosef Barrett Type 2 diabetes mellitus with diabetic polyneuropathy E11.42 ; Tinea unguium B35.1 ; Pain in left toe(s) M79.675 ; Other hammer toe(s) (acquired), left foot M20.42 ; Arthritis of joint of lesser toe, left M19.072 and Other subluxation of left foot, initial encounter S93.332A [address] [address] 07/21/2023 Yosef Barrett Type 2 diabetes mellitus with diabetic polyneuropathy E11.42 and Onychomycosis B35.1 ASSESSMENTS Encounter Date Diagnosis Assessment Notes Treatment Notes Treatment Clinical Notes 10/03/2022 Tinea unguium (ICD-1 0 - B35.1) 10/03/2022 Type 2 diabetes mellitus with diabetic polyneuropathy (ICD-10 - E11.42) 12/12/2022 Tinea unguium (ICD-1 0 - B35.1) 12/12/2022 Type 2 diabetes mellitus with diabetic polyneuropathy (ICD-10 - E11.42) 02/20/2023 Tinea unguium (ICD-1 0 - B35.1) 02/20/2023 Type 2 diabetes mellitus with diabetic polyneuropathy (ICD-10 - E11.42) 05/08/2023 Tinea unguium (ICD-1 0 - B35.1) 05/08/2023 Type 2 diabetes mellitus with diabetic polyneuropathy (ICD-10 - E11.42) 07/21/2023 Type 2 diabetes mellitus with diabetic polyneuropathy (ICD-10 - E11.42) 07/21/2023 Onychomycosis (ICD-1 0 - B35.1) 05/08/2023 Pain in left toe(s) (ICD-10 - M79.675) 02/20/2023 Cellulitis of left lower limb (ICD-10 - L03.116) Dx New problem, Prognosis Uncertain (4) 12/12/2022 Other hammer toe(s) (acquired), right foot (ICD-10 - M20.41) Patient Educated with: DIABETIC FOOT CARE INSTRUCTIONS.pdf (DIABETIC FOOT CARE INSTRUCTIONS.pdf ) 10/03/2022 Other hammer toe(s) (acquired), right foot (ICD-10 - M20.41) Patient Educated with: DIABETIC FOOT CARE INSTRUCTIONS.pdf (DIABETIC FOOT CARE INSTRUCTIONS.pdf ) 10/03/2022 Other hammer toe(s) (acquired), left foot (ICD-10 - M20.42) 05/08/2023 Other hammer toe(s) (acquired), left foot (ICD-10 - M20.42) 02/20/2023 Ulcer of left foot, limited to breakdown of skin (ICD-10 - L97.521) 12/12/2022 Other hammer toe(s) (acquired), left foot (ICD-10 - M20.42) 05/08/2023 Arthritis of joint o f lesser toe, left (ICD-10 - M19.072) 12/12/2022 Ingrowing nail (ICD-10 - L60.0) 10/03/2022 Non-pressure chronic ulcer of other part of left foot limited to breakdown of skin (ICD-10 - L97.521) 05/08/2023 Other subluxation of left foot, initial encounter (ICD-10 - S93.332A) PLAN OF TREATMENT Pending Test Test Name Order Date X ray : Foot, left 3V 05/08/2023 X ray : Foot, left 3V 04/25/2022 19861-VJNJSUU NAIL, 6 OR MORE 07/21/2023 82157-PKEPIMF NAIL, 6 OR MORE 02/20/2023 12775-KVSAKNK NAIL, 6 OR MORE 05/08/2023 98542-DAYCYGB NAIL, 6 OR MORE 06/20/2022 53662-UCRDZTW NAIL, 6 OR MORE 10/03/2022 79225-BTXOTPK NAIL, 6 OR MORE 12/12/2022 75826-Sgkoarzb Plate 12/12/2022 99347- Debride <25 sq cm 02/20/2023 59944- Debride <25 sq cm 10/03/2022 10671-ILQAQBR SKIN/TISSUE 06/20/2022 66294-CRCIIOU SKIN/TISSUE 04/25/2022 53842-QQKJ SKIN LESIONS, OVER 4 07/21/20 23 91951-ZGGM SKIN LESIONS, OVER 4 02/21/20 23 76316-YYDB SKIN LESIONS, OVER 4 05/08/20 23 93283-DIYL SKIN LESIONS, OVER 4 06/20/20 22 85127-TGFT SKIN LESIONS, OVER 4 10/03/20 22 55956-LBMZ SKIN LESIONS, OVER 4 12/12/19 23 71470 - Tenotomy, open flexor 07/03/2022 Next Appt Details Provider Name:Yosef Barrett , 10/06/2023 09:30:00 AM, [address] [place] [address], [place], [address], Insurance Providers Payer Name Payer Address Payer Phone Subscriber Number Group Number Insured Name Patient Relationship to Insured Coverage Start Date Coverage End Date [facility] [employer] Claims [address] [place] [phone] [facility] [id number] Dinora Low Self - patient is the insured MEDICAL (GENERAL) HISTORY Medical History History ICD Code Arthritis asthma Back,Hip,and Knee pain Broken bones Cancer covid-19 Depression type II diabetes Gall bladder problems Hepatitis B Hiatal hernia High blood pressure Neuropathy Osteoporosis Reflux ( GERD) Sciatica ulcer Vascular phlebitis (clots) Chicken pox Bone implants/screws Pulmonary Emboli Surgical History Surgery Date(Month/Year) 3x bunionectomy/bone graft hammer toe rotator cuff repair- badly torn tendons 09/19/2020 hysterectomy- Cancer 2018 gastric sleeve 2019 carpal tunnel surgery 1998,1999 IVC filter placement 07/27/2019 L shoulder surgery 08/2022 Hospitalization History Reason Date(Month/Year) Osteomyelitis Cellulitis L g rest toe -5 days IV Antiboitics vancomycin 01/26/23-01/31/23
--- OUTSIDE RECORDS SUMMARY | 2023-09-15 11:55 | XMS_ITS | Continuity of Care Document ---
Author Name Unknown Organization [facility] Address [address] [place] [address]- Care Team Providers Care Tipple Mechanic Name Role Phone Beatrice DEAN ([facility] [place]), Antonia Richardson Primary Care Ph ysician Encounter [facility] Date(s): 06/04/21 - 07/04/21 [facility] [address] [place] [address]- Allergies, Adverse Reactions, Alerts Substance Reaction Severity Status dicloxacillin 1, 2 D - Diarrhea Active niacin skin turns red Active sulfa drugs hives Active statins muscle pain Active 1Patient prevously thought was rash but says today ot. Tolerated PCN, Amoxicillin 2RASH Immunizations Given and Recorded Vaccine Date Status Refusal Reason SARS-CoV-2 (COVID-19) mRNA-9341 vaccine 04/13/21 R ecorded influenza virus vaccine, [...] PUFF EVERY 6 HOURS NEEDED FOR WHEEZING, [facility] Start Date: 05/11/19 Status: Ordered Celebrate vitamins 1, By Mouth, Daily in AM, Maintenance, 01/06/20 13:52:00 EST, Celebrate vitamins Start Date: 01/06/20 Status: Ordered citalopram 40 mg oral tablet 40 mg, 1, tablet, By Mouth, Daily, # 90 tablet, Refills 2, Tot. Refills 2, Maintenance, 03/19/20 13:36:00 EDT, Route to Pharmacy Electronically, [facility]/pharmacy #[id number], 167.64, cm, 02/01/20 15:51:00 EST,Height, 135.6, kg, 02/01/20 15:51:00 EST, Dry Weight Start Date: 03/19/20 Stop Date: 12/14/20 Status: Ordered gabapentin 300 mg oral capsule 1,500 mg, 5, capsule, By Mouth, Daily, 1 CAP IN THE AM, 1 AT NOON, AND 3 CAPS AT BEDTIME.., # 450 capsule, Refills 1, Tot. Refills 1, Maintenance, 05/15/21 8:27:00 EDT, Route to Pharmacy Electronically, [facility]/pharmacy #[id number], 167.64, cm, 04/23/21 9:50:00... Start Date: 05/15/21 Stop Date: 11/11/21 Status: Ordered Lovenox 40 mg/0.4 mL injectable solution = 40 mg, Subcutaneous Injection, Daily, # 5 each, 0 Refills, Maintenance, 06/28/21 16:55:00 EDT, [facility]/pharmacy #[id number], Partial fill upon patient request [...] Back Pain Scale: 68 on 12/01/17; initial [place]: 7 on 12/01/17 2PROCEDURE DATE: 08/10/2017 PREOPERATIVE [...]
--- OUTSIDE RECORDS SUMMARY | 2023-09-15 11:55 | XMS_ITS | Continuity of Care Document ---
Author Name Unknown Organization [facility] Address [address] [place] [address]- Care Team Providers Care Quality Control Supervisor Name Role Phone Beatrice DEAN ([facility])Antonia Primary Care Ph ysician Encounter [facility] Date(s): 06/05/21 - 07/06/21 [facility] [address] [place] [address]- Attending Physician: Anne MAI, Lana Herrera Admitting Physician: Lana Rodríguez NP Referring Physician: Beatrice DEAN ([facility] )Antonia Allergies, Adverse Reactions, Alerts Substance Reaction Severity [...] EVERY 6 HOURS NEEDED FOR WHEEZING, [facility] Start Date: 05/11/19 Status: Ordered Celebrate vitamins 1, By Mouth, Daily in AM, Maintenance, 01/06/20 13:52:00 EST, Celebrate vitamins Start Date: 01/06/20 Status: Ordered citalopram 40 mg oral tablet 40 mg, 1, tablet, By Mouth, Daily, # 90 tablet, Refills 2, Tot. Refills 2, Maintenance, 03/19/20 13:36:00 EDT, Route to Pharmacy Electronically, [facility]/pharmacy #[id number], 167.64, cm, 02/01/20 15:51:00 EST,Height, 135.6, kg, 02/01/20 15:51:00 EST, Dry Weight Start Date: 03/19/20 Stop Date: 12/14/20 Status: Ordered gabapentin 300 mg oral capsule 1,500 mg, 5, capsule, By Mouth, Daily, 1 CAP IN THE AM, 1 AT NOON, AND 3 CAPS AT BEDTIME.., # 450 capsule, Refills 1, Tot. Refills 1, Maintenance, 05/15/21 8:27:00 EDT, Route to Pharmacy Electronically, [facility]/pharmacy #[id number], 167.64, cm, 04/23/21 9:50:00... Start Date: 05/15/21 Stop Date: 11/11/21 Status: Ordered Lovenox 40 mg/0.4 mL injectable solution = 40 mg, Subcutaneous Injection, Daily, # 5 each, 0 Refills, Maintenance, 06/28/21 16:55:00 EDT, [facility]/pharmacy #[id number], Partial fill upon patient request [...] Back Pain Scale: 68 on 12/01/17; initial [place]: 7 on 12/01/17 2PROCEDURE DATE: 08/10/2017 PREOPERATIVE [...]
--- OUTSIDE RECORDS SUMMARY | 2023-09-15 11:55 | XMS_ITS | Continuity of Care Document ---
Author Name Unknown Organization [facility] Address [address] [place] [address]- Care Team Providers Care Basket Maker Name Role Phone Beatrice DEAN ([facility] [place]), Antonia Richardson Primary Care Ph ysician Encounter [facility] Date(s): 01/23/23 - 02/22/23 [facility] [address] [place] [address]- Allergies, Adverse Reactions, Alerts Substance Reaction Severity [...] Stop,05/06/22 9:49:00 EDT, Route to Pharmacy Electronically, [id number], [facility]/pharmacy #[id number], 169, cm, 04/10/22 14:11:00 EDT, Hemikal... Start Date: 05/06/22 Stop Date: 09/03/22 Status: Ordered calcium-vitamin D 600 mg-400 intl units oral tablet 1 tablet, By Mouth, 2 times a day, # 180 tablet, 1 Refills, 02/04/23 8:58:00 EST, [facility]/pharmacy #1230, 1 tablet By Mouth [...] 07/23/22 13:29:00 EDT, Route to Pharmacy Electronically, [facility]/pharmacy #[id number], 169, cm, 04/10/22 14:11:00 EDT, [...] Replace Required Details, Route to Pharmacy Electronically, [facility]/pharmacy #1230, 168, cm, 12/15/22 0:20:00 ES... [...] Replace Required Details, Route to Pharmacy Electronically, [facility]/pharmacy #1230, 168, cm, ... Start Date: 01/22/23 Status: Ordered loratadine 10 mg oral capsule 1 capsule = 10 mg, By Mouth, Daily, # 30 capsule, 0 Refills, Maintenance, 06/04/17 8:06:21, Capsule Start Date: 06/04/17 Stop Date: 07/04/17 Status: Ordered Metoprolol Tartrate 25 mg oral tablet 0.5 tablet, By Mouth, 2 times a day, # 90 tablet, 1 Refills, Maintenance, 10/07/22 14:35:00 EST, [id number], 167.64, cm, 10/06/22 9:14:00 EST, Height, 134.2, kg, 10/06/22 9:14:00 EST, Dry Weight Start Date: 10/07/22 Status: Ordered montelukast 10 mg oral tablet 1, tablet, By Mouth, Daily, # 90 tablet, Refills 1, Maintenance, 07/25/22 21:44:00 EDT, Route to Pharmacy Electronically, [facility], 169, cm, 04/10/22 14:11:00 EDT, Height, 129, [...] Replace Required Details, Route to Pharmacy Electronically, [id number]... Start Date: 01/12/23 Status: Ordered traMADol 50 [...] Back Pain Scale: 68 on 12/01/17; initial [place]: 7 on 12/01/17 2PROCEDURE DATE: 08/10/2017 PREOPERATIVE [...] information Care Team Personnel Name: Beatrice DEAN ([facility] [place])Antonia Position: [facility] Primary Care Physician Member Role: PCP Address: Address: [address] [place] [id number] Name: Natalya Phillip PharmD Position: [facility] Associate Professional Member Role: Lifetime Consulting Provider Address: Address: [address] [place] [address] [place] [address]- [place] Name: Smiley Blair Position: [facility] Outreach Member Role: Lifetime Consulting Physician Name: Marcin Peacock Position: [facility] Outreach Member Role: Lifetime Consulting Physician Name: Bianca GRIFFITHS, Nancy Mireles Position: [facility] Onco RN Member Role: Primary Care Nurse Care Team Related Persons Name: EBONY DUENAS Address: [place] [address] Name: AMPARO DUENAS Address: home [address] [place] [address] Name: EBONY WASHBURN Address: [address] [place] [address] Name: JULI CLAYTON
--- OUTSIDE RECORDS SUMMARY | 2023-09-15 11:55 | XMS_ITS | Continuity of Care Document ---
Author Name Unknown Organization [facility] Address [address] [place] [address]- Care Team Providers Care Core Stacker Name Role Phone Beatrice DEAN ([facility] [place]), Antonia Richardson Primary Care Ph ysician Encounter [facility] Date(s): 02/20/23 - 03/22/23 [facility] [address] [address]- Allergies, Adverse Reactions, Alerts Substance Reaction Severity [...] Stop,05/06/22 9:49:00 EDT, Route to Pharmacy Electronically, [id number], [facility]/pharmacy #1230, 169, cm, 04/10/22 14:11:00 EDT, Hemikal... Start Date: 05/06/22 Stop Date: 09/03/22 Status: Ordered calcium-vitamin D 600 mg-400 intl units oral tablet 1 tablet, By Mouth, 2 times a day, # 180 tablet, 1 Refills, 02/04/23 8:58:00 EST, [facility]/pharmacy #1230, 1 tablet By [...] 07/23/22 13:29:00 EDT, Route to Pharmacy Electronically, [facility]/pharmacy #0315, 169, cm, 04/10/22 [...] Replace Required Details, Route to Pharmacy Electronically, [facility]/pharmacy #1230, 168, cm, 12/15/22 [...] Replace Required Details, Route to Pharmacy Electronically, [facility]/pharmacy #1230, 168, cm, ... [...] tablet, 1 Refills, Maintenance, 10/07/22 14:35:00 EST, [id number], 167.64, cm, 10/06/22 9:14:00 EST, Height, 134.2, kg, 10/06/22 9:14:00 EST, Dry Weight Start Date: 10/07/22 Status: Ordered montelukast 10 mg oral tablet 1, tablet, By Mouth, Daily, # 90 tablet, Refills 1, Maintenance, 07/25/22 21:44:00 EDT, Route to Pharmacy Electronically, [id number], 169, cm, 04/10/22 14:11:00 EDT, Height, 129, [...] Replace Required Details, Route to Pharmacy Electronically, [id number]... Start Date: 01/12/23 Status: Ordered traMADol 50 [...] 6 Refills, Soft Stop, 06/11/22 9:38:00 EDT, [facility]/pharmacy #1230, 169, cm, 04/10/22 [...] Back Pain Scale: 68 on 12/01/17; initial [place]: 7 on 12/01/17 2PROCEDURE DATE: 08/10/2017 PREOPERATIVE [...] Care Team Personnel Name: Beatrice DEAN ([facility]), Antonia Richardson Position: [facility] Primary Care Physician Member Role: PCP Address: Address: [address] [place] [address] [place] [address]- Name: Natalya Phillip PharmD Position: [facility] Associate Professional Member Role: Lifetime Consulting Provider Address: Address: [address] [place] [address] [place] [address]- [place] Name: Smiley Blair Position: [facility] Outreach Member Role: Lifetime Consulting Physician Name: Marcin Peacock Position: [facility] Outreach Member Role: Lifetime Consulting Physician Name: Nancy Valenzuela RN Position: [facility] Onco RN Member Role: Primary Care Nurse Care Team Related Persons Name: EBONY DUENAS Address: [address] [place] [address] Name: AMPARO DUENAS Address: [address] [place] [address] Name: EBONY WASHBURN Address: [address] [place] [address] Name: JULI CLAYTON
--- OUTSIDE RECORDS SUMMARY | 2023-09-15 11:55 | XMS_ITS | Continuity of Care Document ---
Author Name Unknown Organization [facility] Address [address] [place] [address]- Care Team Providers Care Oracle Brm Developer Name Role Phone Beatrice DEAN ([facility] [place]), Antonia Richardson Primary Care Ph ysician Encounter [facility] Date(s): 01/17/22 - 02/16/22 [facility] [address] [place] [address]- Attending Physician: Fransisco Tamez Admitting Physician: Fransisco [...] Back Pain Scale: 68 on 12/01/17; initial [place]: 7 on 12/01/17 2PROCEDURE DATE: 08/10/2017 PREOPERATIVE [...]
== END 2023-09-15 11:46 | disposition home or self-care (01) ==
LOC: HO.HBS 11:45
PROVIDERS: Visit Provider Physician Assistant Surgical
DX: E66.01 Morbid (severe) obesity due to excess calories (principal); Z68.42 Body mass index [BMI] 45.0-49.9, adult; Z90.3 Acquired absence of stomach [part of]; Z98.84 Bariatric surgery status
CPT/HCPCS: 99214

== ENCOUNTER → 2023-09-15 11:45 | Outpatient (BNVA) | payer OTHER, SELFPAY | PROVIDERS: Visit Provider Physician Assistant Surgical ==